=== PATIENT | female | born 1950 | race Caucasian/White ===

== ENCOUNTER 2020-02-24 19:27 | Emergency (ER) | payer MEDICARE, SELFPAY ==
--- NOTE | 2020-02-24 | ECG_ITS ---
Test Reason : PALPITATIONS Blood Pressure : / mmHG Vent. Rate : 087 BPM Atrial Rate : 087 BPM P-R Int : 172 ms QRS Dur : 132 ms QT Int : 388 ms P-R-T Axes : 047 -58 041 degrees QTc Int : 466 ms Normal sinus rhythm Right bundle branch block Left anterior fascicular block Bifascicular block T-wave inversion in Anterior leads Abnormal ECG When compared with ECG of 14-OCT-2019 14:11, Nonspecific T wave abnormality has replaced inverted T waves in Inferior leads T wave inversion more evident in Anterior leads Referred By: Generic ED Physician Electronically Signed By:DESMOND MONTALVO MD
[2020-02-24 19:44] VITALS: BP 172/72; PULSE 93; RESP 18; TEMP 36.3; O2SAT 98; BMI 26.7
--- NOTE | 2020-02-24 20:39 | ED.GENADULT ---
HPI - General Adult General Chief complaint: General Medical Stated complaint: high blood pressure Time Seen by Provider: 02/24/20 20:39 Source: patient Mode of arrival: ambulatory Limitations: language barrier ( health records technology teacher present) History of Present Illness HPI narrative: pleasant 69-year-old female who is primarily Guyanese-speaking with health records technology teacher present with past medical history mostly gathered from her previous admission dating back to September of this year with history of umbilical hernia, prolapsed hemorrhoids, anal fistula, hypertension, gastroesophageal reflux disease, diabetes, hyperlipidemia, Parkinson disease, hypomanic, non ST-elevation DC and pulmonary embolism in the past treated with Eliquis which she is no longer taking presenting with a constellation of symptoms including 1. She reports she has had palpitations intermittently throughout the day and feels like a pounding sensation on left side of her chest. There is no pain in the chest or shortness of breath. There is no dizziness. States there is no change in her medications recently or changes her diet. 2. states she has had right flank/ right lower abdomen pain for the past several days as well and more intense throughout the day today pain described as shooting like in the right flank and into the right groin area and in the lower abdomen. There is some associated nausea but no vomiting or diarrhea. In relation to this denies any recent travel or sick contacts. 3. She reports she has had itching like sensation on top of her skin in her forearms and upper extremities which she has seen her primary care doctor for prescribed a cream which will sometimes help does have a history of neuropathy and unsure if it is a component of that. Related Data Previous Rx's Medication Instructions Recorded [id number] 1 cap PO QID 30 Days #120 cap 02/04/20 24,000-76,000-120,000 unit capsule,delayed rel Allergies Allergy/AdvReac Type Severity Reaction Status Date / Time losartan Allergy Unknown anaphylaxis Verified 11/22/19 00:00 lisinopril Allergy Unknown shortness Uncoded 11/22/19 00:00 of breath Review of Systems Review of Systems: Constitutional: No Weight loss, No Fever, No Chills, No Night Sweats, No Fatigue, No Malaise ENT/Mouth: No Hearing loss, No Ear Pain, No Nasal Congestion, No Sinus Pain, No Hoarseness, No sore throat, No Rhinorrhea, No Swallowing Difficulty Eyes: No Eye Pain, No Swelling, No Redness, No Foreign Body, No Discharge, No Vision Changes Cardiovascular: No Chest Pain, No SOB, No Dyspnea on Exertion, No Orthopnea, No Edema, No Palpitations Respiratory: No Cough, No Sputum, No Wheezing, No Smoke Exposure, No Dyspnea Gastrointestinal: + Nausea, No Vomiting, No Diarrhea, No Constipation, + abdominal Pain, No Hematochezia, No Melena Genitourinary: no irregular bleeding, No Dysuria, No Urinary Frequency, No Hematuria, No Urinary Incontinence, No Urgency, No Flank Pain, No Urinary Flow Changes, No Hesitancy Musculoskeletal: No joint pain, No Myalgias, No Joint Swelling Skin: No Skin Lesions, No rash Neuro: No Weakness, No Numbness, No Paresthesias, No Loss of Consciousness, No Dizziness, No Headache Psych: No Anxiety/Panic, No Social Issues Heme/Lymph: No Bruising, No Bleeding,No Lymphadenopathy Endocrine: No Polyuria, No Polydipsia, No Temperature Intolerance Yes all other systems are reviewed and are negative [facility] Past Medical History Attestation statement: The following information was validated with the patient. Medical History (Updated 02/25/20 @ 03:10 by Tadeo Carpenter NP) Diabetes High cholesterol HTN (hypertension) Parkinson disease Social History Social History Alcohol intake: never Smoking Status: Never smoker Use of substances other than those prescribed or required for medical reasons: No Advance Directives: No Advance Directives Information Provided: Yes Physical Exam Vital Signs: Vital Signs: Vital Signs Temp Pulse Resp BP Pulse Ox 02/25/20 02:00 97.6 F 62 18 145/57 H 98 02/25/20 00:00 76 16 141/64 H 97 02/24/20 23:08 97.6 F 83 14 132/47 L 98 02/24/20 19:44 97.4 F 93 18 172/72 H 98 Body Mass Index 26.7 Const: General: cooperative and healthy appearing; No acute distress or intoxicated appearing Nutritional Appearance: average body habitus Orientation/consciousness: patient oriented x3 HENMT: Head: Yes normal to inspection Ears: hearing grossly normal bilaterally Eyes: General: appearance normal, both eyes and all related structures Visual Lewis: normal visual lewis by confrontation Neck: Neck: Yes normal visual inspection and No tender Thyroid: Thyroid normal Chest: Chest palpation & inspection: normal inspection of the chest Resp: Effort & Inspection: normal respiratory effort Cardio: Jugular venous distension: no JVD GI: Inspection: Yes normal to inspection Percussion: Yes normal to percussion Auscultation: normal bowel sounds : General: Yes no CVA tenderness Back/Spine/Pelvis: Back: no CVA tenderness Skin: General skin exam: no rashes or lesions noted Neuro: General: patient oriented x3 Extrem: General: Yes normal to inspection Course Course Course Narrative: Labs overall stable. EKG without acute changes when compared to 10/14/2019. plan for repeat troponin. Patient has been resting comfortably no further palpitations or chest pain here. No shortness of breath, Chest pain. Did have very nonspecific pain on the right lower side CT of the abdomen unremarkable. And further regulation she initially had reported that she was taking Eliquis however upon further clarification through the health records technology teacher she reports that she stopped taking the Eliquis in December as she was told after 3 months of therapy for PE. She still takes aspirin. D-dimer added. No signs or symptoms of DVT/ lower extremity signs. D-dimer at 344 for with age adjusted D-dimer this would be negative however she had a PE with D-dimer to 98 given her history will go ahead and scan her chest with CTA per PE protocol. Given additonal fluids and risks/benefits reviewed with the patient since she had abd ct done with ivd, verbalizes undertanding and consents. Is resting comfortably at this time. In the meantime given her history I did have a discussion with the hospitalist team regarding potential admission however her workup is non indicative and reassuring deferred at this time. 3rd troponin without delta. Patient remains chest pain free. CTA PE is pending. At this time given her stable workup and vitals if PE study negative plan for discharge if positive patient will be restarted on Eliquis. CTA neg for acute PE- Cholelithiasis. No abdominal pain. No tender palpation in the right upper quadrant. No nausea or vomiting here. Findings/ plan reviewed with her. Will avoid any stimulants/caffeine intake will follow-up with her primary care doctor. She is agreeable plan. Stable for discharge. Medical Decision Making Medical Records Medical records reviewed: Yes I reviewed the patient's medical records. Lab Data Result diagrams: 02/24/20 20:52 11/02/20 20:51 Labs: Lab Results 02/24/20 02/24/20 02/24/20 Range/Units 20:51 20:51 20:51 WBC (4.8-10.8) X10*3/uL RBC (4.20-5.50) X10*6/uL Hgb (12.0-16.0) g/dl Hct (37-47) % MCV (80-98) fL MCH (27.0-33.0) pg MCHC (31.0-35.0) g/dl RDW (11.0-16.0) % Plt Count (160-400) X10*3/uL MPV (9.4-12.3) fL Immature Gran % (Auto) (0.0-0.4) % Neut % (Auto) (45-73) % Lymph % (Auto) (20-40) % [place] % (Auto) (2-11) % Eos % (Auto) (0-4) % Baso % (Auto) (0-2) % Lymph # (Auto) (1.2-4.9) X10*3/uL [place] # (Auto) (0.1-1.2) X10*3/uL Eos # (Auto) (0.0-0.4) X10*3/uL Baso # (Auto) (0.0-0.2) X10*3/uL Abs Immat Gran (auto) (0.00-0.03) X10*3/uL Absolute Neuts (auto) (2.0-8.3) X10*3/uL Absolute Nucleated RBC (0.0-0.012) X10*3/uL Nucleated RBC % (auto) (0.0-0.2) /100WBC PT (10.8-13.0) SEC INR (0.9-1.1) APTT (24.1-38.0) SEC D-Dimer NG/ML Sodium 138 (135-145) mmol/L Potassium 4.1 (3.3-5.1) mmol/l Chloride 104 (96-108) mmol/L Carbon Dioxide 24 (22-29) mmol/L Anion Gap 14 (12-20) BUN 14 (9-16) mg/dL Creatinine 0.73 (0.5-1.4) mg/dL Estim Creat Clear Calc 68.4 Estimated GFR > 60 Random Glucose 147 H (60-115) mg/dL Calcium 9.1 (8.4-10.2) mg/dL Magnesium 1.7 (1.6-2.6) mg/dL Total Bilirubin 0.4 (0.0-1.0) mg/dL AST 16 (5-31) U/L ALT 13 (0-31) U/L Alkaline Phosphatase 69 (39-117) U/L Troponin I High Sens 4.6 (<3.5-17.0) ng/L Total Protein 7.5 (6.5-8.0) g/dL Albumin 4.7 (3.5-5.0) g/dL TSH 2.15 (0.32-4.0) mIU/mL Urine Color Urine Appearance Urine pH (5.0-8.0) Ur Specific Jbphh (1.005-1.025) Urine Protein (NEG-TRACE) MG/DL Urine Glucose (UA) (NEG) MG/DL Urine Ketones (NEG) MG/DL Urine Blood (NEG) Urine Nitrite (NEG) Ur Leukocyte Esterase (NEG) Urine RBC (0) /HPF Urine WBC (0-4) /HPF Ur Squamous Epith Cells /LPF Urine Bacteria /LPF Urine Mucus /LPF Urine Opiates Screen (Not Detect) Ur Barbiturates Screen (Not Detect) Ur Phencyclidine Scrn (Not Detect) Ur Amphetamines Screen (Not Detect) U Benzodiazepines Scrn (Not Detect) Urine Cocaine Screen (Not Detect) U Marijuana (THC) Screen (Not Detect) 02/24/20 02/24/20 02/24/20 Range/Units 20:52 20:52 20:54 WBC 8.8 (4.8-10.8) X10*3/uL RBC 4.40 (4.20-5.50) X10*6/uL Hgb 11.7 L (12.0-16.0) g/dl Hct 35.2 L (37-47) % MCV 80.0 (80-98) fL MCH 26.6 L (27.0-33.0) pg MCHC 33.2 (31.0-35.0) g/dl RDW 13.8 (11.0-16.0) % Plt Count 362 (160-400) X10*3/uL MPV 9.1 L (9.4-12.3) fL Immature Gran % (Auto) 0.3 (0.0-0.4) % Neut % (Auto) 77.9 H (45-73) % Lymph % (Auto) 15.3 L (20-40) % [place] % (Auto) 4.9 (2-11) % Eos % (Auto) 0.7 (0-4) % Baso % (Auto) 0.9 (0-2) % Lymph # (Auto) 1.4 (1.2-4.9) X10*3/uL [place] # (Auto) 0.4 (0.1-1.2) X10*3/uL Eos # (Auto) 0.1 (0.0-0.4) X10*3/uL Baso # (Auto) 0.1 (0.0-0.2) X10*3/uL Abs Immat Gran (auto) 0.03 (0.00-0.03) X10*3/uL Absolute Neuts (auto) 6.9 (2.0-8.3) X10*3/uL Absolute Nucleated RBC 0.000 (0.0-0.012) X10*3/uL Nucleated RBC % (auto) 0.0 (0.0-0.2) /100WBC PT 11.5 (10.8-13.0) SEC INR 1.0 (0.9-1.1) APTT 35.2 (24.1-38.0) SEC D-Dimer 344 NG/ML Sodium (135-145) mmol/L Potassium (3.3-5.1) mmol/l Chloride (96-108) mmol/L Carbon Dioxide (22-29) mmol/L Anion Gap (12-20) BUN (9-16) mg/dL Creatinine (0.5-1.4) mg/dL Estim Creat Clear Calc Estimated GFR Random Glucose (60-115) mg/dL Calcium (8.4-10.2) mg/dL Magnesium (1.6-2.6) mg/dL Total Bilirubin (0.0-1.0) mg/dL AST (5-31) U/L ALT (0-31) U/L Alkaline Phosphatase (39-117) U/L Troponin I High Sens (<3.5-17.0) ng/L Total Protein (6.5-8.0) g/dL Albumin (3.5-5.0) g/dL TSH (0.32-4.0) mIU/mL Urine Color YELLOW Urine Appearance CLEAR Urine pH 5.5 (5.0-8.0) Ur Specific Jbphh >= 1.030 H (1.005-1.025) Urine Protein NEG (NEG-TRACE) MG/DL Urine Glucose (UA) NEG (NEG) MG/DL Urine Ketones NEG (NEG) MG/DL Urine Blood NEG (NEG) Urine Nitrite NEG (NEG) Ur Leukocyte Esterase TRACE H (NEG) Urine RBC 0 (0) /HPF Urine WBC 0-2 (0-4) /HPF Ur Squamous Epith Cells TRACE /LPF Urine Bacteria NONE /LPF Urine Mucus TRACE /LPF Urine Opiates Screen (Not Detect) Ur Barbiturates Screen (Not Detect) Ur Phencyclidine Scrn (Not Detect) Ur Amphetamines Screen (Not Detect) U Benzodiazepines Scrn (Not Detect) Urine Cocaine Screen (Not Detect) U Marijuana (THC) Screen (Not Detect) 02/24/20 02/24/20 02/25/20 Range/Units 20:54 23:07 01:34 WBC (4.8-10.8) X10*3/uL RBC (4.20-5.50) X10*6/uL Hgb (12.0-16.0) g/dl Hct (37-47) % MCV (80-98) fL MCH (27.0-33.0) pg MCHC (31.0-35.0) g/dl RDW (11.0-16.0) % Plt Count (160-400) X10*3/uL MPV (9.4-12.3) fL Immature Gran % (Auto) (0.0-0.4) % Neut % (Auto) (45-73) % Lymph % (Auto) (20-40) % [place] % (Auto) (2-11) % Eos % (Auto) (0-4) % Baso % (Auto) (0-2) % Lymph # (Auto) (1.2-4.9) X10*3/uL [place] # (Auto) (0.1-1.2) X10*3/uL Eos # (Auto) (0.0-0.4) X10*3/uL Baso # (Auto) (0.0-0.2) X10*3/uL Abs Immat Gran (auto) (0.00-0.03) X10*3/uL Absolute Neuts (auto) (2.0-8.3) X10*3/uL Absolute Nucleated RBC (0.0-0.012) X10*3/uL Nucleated RBC % (auto) (0.0-0.2) /100WBC PT (10.8-13.0) SEC INR (0.9-1.1) APTT (24.1-38.0) SEC D-Dimer NG/ML Sodium (135-145) mmol/L Potassium (3.3-5.1) mmol/l Chloride (96-108) mmol/L Carbon Dioxide (22-29) mmol/L Anion Gap (12-20) BUN (9-16) mg/dL Creatinine (0.5-1.4) mg/dL Estim Creat Clear Calc Estimated GFR Random Glucose (60-115) mg/dL Calcium (8.4-10.2) mg/dL Magnesium (1.6-2.6) mg/dL Total Bilirubin (0.0-1.0) mg/dL AST (5-31) U/L ALT (0-31) U/L Alkaline Phosphatase (39-117) U/L Troponin I High Sens 8.2 D 9.8 (<3.5-17.0) ng/L Total Protein (6.5-8.0) g/dL Albumin (3.5-5.0) g/dL TSH (0.32-4.0) mIU/mL Urine Color Urine Appearance Urine pH (5.0-8.0) Ur Specific Jbphh (1.005-1.025) Urine Protein (NEG-TRACE) MG/DL Urine Glucose (UA) (NEG) MG/DL Urine Ketones (NEG) MG/DL Urine Blood (NEG) Urine Nitrite (NEG) Ur Leukocyte Esterase (NEG) Urine RBC (0) /HPF Urine WBC (0-4) /HPF Ur Squamous Epith Cells /LPF Urine Bacteria /LPF Urine Mucus /LPF Urine Opiates Screen Not Detected (Not Detect) Ur Barbiturates Screen Not Detected (Not Detect) Ur Phencyclidine Scrn Not Detected (Not Detect) Ur Amphetamines Screen Not Detected (Not Detect) U Benzodiazepines Scrn Not Detected (Not Detect) Urine Cocaine Screen Not Detected (Not Detect) U Marijuana (THC) Screen Not Detected (Not Detect) Imaging Data CTA PE chest/abdomen and pelvis CT scan: Radiologist's impression: [address] [address] [address] Scan Report Signed Patient: Anh Scanlon AMR#: [id number] : 2Acct:[id number] Age/Sex: 69 / FADM Date: 02/24/20 Loc: HO.ED Attending Dr: Ordering Physician: Tadeo Carpenter NP Date of Service: 02/24/20 Procedure(s): CT abdomen pelvis w con Accession Number(s): [id number] cc: Tadeo Carpenter [employer]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 COMPARISON: CTA chest 10/12/2019, CT abdomen and pelvis 05/21/2019. TECHNIQUE: Multidetector volumetric images were obtained from the superior aspect of the liver through the pubic symphysis following administration 85 mL of Omnipaque 350 intravenous contrast. Sagittal and coronal reformatted images were obtained on the technologist's workstation. Oral Contrast: No. This CT examination was performed using dose optimization techniques as appropriate, variously including the following: *Automated exposure control. *Adjustment of mA and/or kV according to patient size (this includes techniques or standardized protocols for targeted exams where dose is matched to indication/reason for exam; i.e. extremities or head). *Use of iterative reconstruction technique. DLP: 563 mGy-cm FINDINGS: LUNG BASES: Some nonspecific mosaic ground-glass changes noted at the lung bases. LIVER, GALLBLADDER, AND BILIARY TREE: The liver is normal in size, shape, and attenuation. No focal hepatic lesion or biliary ductal dilatation is present. The gallbladder contains a large 2.7 cm calcified gallstone but is otherwise unremarkable with no evidence of wall thickening, or obvious pericholecystic inflammatory changes. PANCREAS: Unremarkable. SPLEEN: Unremarkable. ADRENAL GLANDS: A right-sided 2.3 cm adrenal mass is stable. The left adrenal appears normal. KIDNEYS AND URETERS: The kidneys are normal in size, shape, and attenuation. No hydronephrosis, hydroureter, or calculi seen. No perinephric stranding. BLADDER: Unremarkable. GASTROINTESTINAL TRACT: Diverticular changes are present in the colon without diverticulitis. The small and large bowel are otherwise unremarkable. The appendix is not seen. ABDOMINAL WALL: No significant hernia is appreciated. LYMPH NODES: No retroperitoneal lymphadenopathy is seen. Some small lymph nodes are seen in the cecal mesentery. VASCULAR: Unremarkable. PELVIC VISCERA: Status post hysterectomy. An abnormal adnexal mass or free fluid is not seen. OSSEOUS STRUCTURES: Mild degenerative changes present in the lower thoracic spine. No bony destructive lesions are seen. CT/CT abdomen pelvis w con IMPRESSION: 1. There is a single large gallstone in the gallbladder. No associated inflammatory changes are seen to suggest cholecystitis. 2. Stable 2.3 cm right adrenal mass. 3. Colonic diverticulosis without diverticulitis. The appendix is not seen. 3. Status post hysterectomy. Dictated By:GRISELDA CLEMENTS MD Signed By:<Electronically signed by GRISELDA CLEMENTS MD in [place]>02/24/202258 DD/ 06 TD/TT: Alley Tender: [place] [address] CT Scan Report Signed Patient: Anh Scanlon AMR#: [id number] : 2Acct:[id number] Age/Sex: 69 / FADM Date: 02/24/20 Loc: HO.ED Attending Dr: Ordering Physician: Tadeo Carpenter NP Date of Service: 02/25/20 Procedure(s): CT angio chest PE protocol Accession Number(s): [id number] cc: Tadeo Carpenter NP~ EXAMINATION: CT PULMONARY EMBOLISM STUDY CLINICAL INFORMATION: Pain. Elevated d-dimer. COMPARISON: Chest CT from 10/12/2019. Abdominal and pelvic CT from 02/24/2020. TECHNIQUE: Contiguous helical images of the chest were obtained following the administration of IV contrast. Multiplanar reconstructions were performed. MIPS were obtained and reviewed. DLP: 319 mGy-cm. CONTRAST: 65 mL of Omnipaque 350 were administered without incident. FINDINGS: The heart is of normal size. There is no pericardial effusion. The great vessels are unremarkable. Specifically, there is no pulmonary arterial filling defect. There is no CT evidence for pulmonary embolism. There are no chest wall masses. Review of lung windows demonstrates that there are neither pleural effusions nor pneumothoraces. There are no consolidations. There are no pulmonary parenchymal nodules. Limited evaluation of the upper abdomen demonstrates that the liver is of normal size and attenuation without focal lesions. Normal adrenal glands are identified. Partially visualized is cholelithiasis. CT/CT angio chest PE protocol IMPRESSION: No CT evidence for pulmonary embolism. Cholelithiasis. Automated exposure control (Care Dose) Adjustment of the mA and/or kv according to patient size (this includes techniques or standardized protocols for targeted exams where dose is matched to indication / reason for exam; i.e. extremities or head). Dictated By:DIALLO ANGELES MD Signed By:<Electronically signed by DIALLO ANGELES MD in [place]>02/25/20 0301 DD/ 0205 TD/TT: Alley Tender: WP Discharge Plan Discharge Clinical Impression: Heart palpitations, Acute right flank pain Patient Disposition: Home, Self-Care Instructions: Heart Palpitations (ED), Flank Pain (ED) Additional Instructions: take medications prescribed Return if any concerns or worsening symptoms Follow up with her primary care doctor as discussed to have your medications reviewed Thank you Prescriptions: No Action Creon 24,000-76,000 -120,000 unit capsule,delayed release(DR/EC) 1 cap PO QID 30 Days Qty: 120 RF: 1 Referrals: Thu Kaminski NP [Primary Care Provider] - 5 days
--- NOTE | 2020-02-24 20:42 | XR_ITS ---
EXAMINATION: CHEST 1 VIEW CLINICAL INFORMATION: Chest pain. COMPARISON: October 12, 2019. TECHNIQUE: An AP view of the chest is provided. FINDINGS: The cardiac silhouette is not enlarged. The mediastinal and hilar contours are unremarkable. There are neither pleural effusions nor pneumothoraces. There are no consolidations. The osseous structures are stable. XR/XR chest 1V IMPRESSION: No evidence for acute disease.
[2020-02-24 20:57] LABS: MANUAL DIFF FLAG NO
[2020-02-24 21:01] LABS: Basophils Absolute Auto 0.1 X10*3/uL (0.0-0.2); Basophils Percent Auto 0.9 % (0-2); Eosinophils Absolute Auto 0.1 X10*3/uL (0.0-0.4); Eosinophils Percent Auto 0.7 % (0-4); Hematocrit 35.2 % (37-47); Hemoglobin 11.7 g/dl (12.0-16.0); Imm Gran Abs Auto 0.03 X10*3/uL (0.00-0.03); Imm Gran Pct Auto 0.3 % (0.0-0.4); Lymphocytes Absolute Auto 1.4 X10*3/uL (1.2-4.9); Lymphocytes Percent Auto 15.3 % (20-40); Mean Corpuscular HGB Conc 33.2 g/dl (31.0-35.0); Mean Corpuscular Hemoglobin 26.6 pg (27.0-33.0); Mean Platelet Volume 9.1 fL (9.4-12.3); Monocytes Absolute Auto 0.4 X10*3/uL (0.1-1.2); Monocytes Percent Auto 4.9 % (2-11); Neutrophils Absolute Auto 6.9 X10*3/uL (2.0-8.3); Neutrophils Percent Auto 77.9 % (45-73); Platelet Count 362 X10*3/uL (160-400); Red Cell Distribution Width 13.8 % (11.0-16.0); White Blood Count 8.8 X10*3/uL (4.8-10.8)
[2020-02-24 21:04] LABS: Glucose Urine UA NEG (NEG); Leukocyte Esterase Urine TRACE (NEG); Nitrite Urine NEG (NEG); PH 5.5 (5.0-8.0); Specific Gravity - Urine >= 1.030 (1.005-1.025); Urine Blood NEG (NEG); Urine Ketones NEG (NEG); Urine Protein NEG (NEG-TRACE)
--- NOTE | 2020-02-24 21:04 | PC.NURSE ---
Patient a&ox3, patient c/o 8 low back and abd pain, denies chest pain at this time, pt is nsr 80s on monitor, iv inserted, labs drawn, awaiting new order for NS, will continue to monitor.
[2020-02-24 21:05] LABS: Appearance Urine CLEAR; Color Urine YELLOW
[2020-02-24 21:06] LABS: Prothrombin Time 11.5 SEC (10.8-13.0)
[2020-02-24 21:09] LABS: Partial Thromboplastin Time 35.2 SEC (24.1-38.0)
[2020-02-24] MEDS: 0.9 % Sodium Chloride 1,000 ML 999 ML IVCONT (21:14)
[2020-02-24 21:25] LABS: Alanine Aminotransferase 13 U/L (0-31); Albumin Level 4.7 g/dL (3.5-5.0); Alkaline Phosphatase 69 U/L (39-117); Anion Gap 14 (12-20); Aspartate Amino Transferase 16 U/L (5-31); Bilirubin Total 0.4 mg/dL (0.0-1.0); Blood Urea Nitrogen 14 mg/dL (9-16); Calcium 9.1 mg/dL (8.4-10.2); Carbon Dioxide 24 mmol/L (22-29); Chloride 104 mmol/L (96-108); Creatinine Clr Calc Pharmacy 68.4; Estimated Glomerular Filt Rate > 60; Glucose Random 147 mg/dL (60-115); Magnesium 1.7 mg/dL (1.6-2.6); Potassium 4.1 mmol/l (3.3-5.1); Sodium 138 mmol/L (135-145); Total Protein 7.5 g/dL (6.5-8.0)
[2020-02-24 21:32] LABS: Troponin-I High Sensitivity 4.6 ng/L (<3.5-17.0)
[2020-02-24 21:38] LABS: Mucus Urine TRACE /LPF; RBC Urine 0 /HPF (0); Squamous Epithelial Cell Urine TRACE /LPF; WBC Urine 0-2 /HPF (0-4)
[2020-02-24 21:46] LABS: Thyroid Stimulating Hormone 2.15 mIU/mL (0.32-4.0)
--- NOTE | 2020-02-24 22:07 | CT_ITS ---
EXAMINATION: CT ABDOMEN AND PELVIS WITH CONTRAST CLINICAL INFORMATION: Right-sided abdominal pain. COMPARISON: CTA chest 10/12/2019, CT abdomen and pelvis 05/21/2019. TECHNIQUE: Multidetector volumetric images were obtained from the superior aspect of the liver through the pubic symphysis following administration 85 mL of Omnipaque 350 intravenous contrast. Sagittal and coronal reformatted images were obtained on the technologist's workstation. Oral Contrast: No. This CT examination was performed using dose optimization techniques as appropriate, variously including the following: *Automated exposure control. *Adjustment of mA and/or kV according to patient size (this includes techniques or standardized protocols for targeted exams where dose is matched to indication/reason for exam; i.e. extremities or head). *Use of iterative reconstruction technique. DLP: 563 mGy-cm FINDINGS: LUNG BASES: Some nonspecific mosaic ground-glass changes noted at the lung bases. LIVER, GALLBLADDER, AND BILIARY TREE: The liver is normal in size, shape, and attenuation. No focal hepatic lesion or biliary ductal dilatation is present. The gallbladder contains a large 2.7 cm calcified gallstone but is otherwise unremarkable with no evidence of wall thickening, or obvious pericholecystic inflammatory changes. PANCREAS: Unremarkable. SPLEEN: Unremarkable. ADRENAL GLANDS: A right-sided 2.3 cm adrenal mass is stable. The left adrenal appears normal. KIDNEYS AND URETERS: The kidneys are normal in size, shape, and attenuation. No hydronephrosis, hydroureter, or calculi seen. No perinephric stranding. BLADDER: Unremarkable. GASTROINTESTINAL TRACT: Diverticular changes are present in the colon without diverticulitis. The small and large bowel are otherwise unremarkable. The appendix is not seen. ABDOMINAL WALL: No significant hernia is appreciated. LYMPH NODES: No retroperitoneal lymphadenopathy is seen. Some small lymph nodes are seen in the cecal mesentery. VASCULAR: Unremarkable. PELVIC VISCERA: Status post hysterectomy. An abnormal adnexal mass or free fluid is not seen. OSSEOUS STRUCTURES: Mild degenerative changes present in the lower thoracic spine. No bony destructive lesions are seen. CT/CT abdomen pelvis w con IMPRESSION: 1. There is a single large gallstone in the gallbladder. No associated inflammatory changes are seen to suggest cholecystitis. 2. Stable 2.3 cm right adrenal mass. 3. Colonic diverticulosis without diverticulitis. The appendix is not seen. 3. Status post hysterectomy.
[2020-02-24 22:23] LABS: Amphetamine Screen Urine Not Detected (Not Detect); Barbiturates, Urine Not Detected (Not Detect); Benzodiazepines Screen Urine Not Detected (Not Detect); Cannabinoid Screen Urine Not Detected (Not Detect); Cocaine Screen Urine Not Detected (Not Detect); Opiate Screen Urine Not Detected (Not Detect); Phencyclidine Screen Urine Not Detected (Not Detect)
[2020-02-24] MEDS: iohexoL 350 MG/ML 100 ML INFUS..BTL IV (22:34)
[2020-02-24 23:08] VITALS: BP 132/47; PULSE 83; RESP 14; TEMP 36.4; O2SAT 98
--- NOTE | 2020-02-24 23:31 | PC.NURSE ---
PATIENT IS CALM/COOPERATIVE AT THIS TIME, RESTING COMFORTABLY IN BED. RESPIRATIONS EVEN & UNLABORED. DEVONTE PHILLIPS ASSUMES CARE OF THIS PATIENT. NURSE TO NURSE REPORT RECEIVED FROM DEVONTE REEVES. VITAL SIGNS STABLE AT THIS TIME. REPEAT TROPONIN LEVEL DRAWN AND SENT TO LAB FOR ANALYSIS, AWAITING RESULTS. PT REPORTS 8-9 OUT OF 10 PAIN IN BACK, STATES IT'S BETTER THAN BEFORE . PENDING IMAGING RESULTS ALSO. WILL CONTINUE TO MONITOR.
[2020-02-24 23:51] LABS: Troponin-I High Sensitivity 8.2 ng/L (<3.5-17.0)
[2020-02-25] VITALS: BP 141/64; PULSE 76; RESP 16; O2SAT 97
--- NOTE | 2020-02-25 00:25 | PC.NURSE ---
PATIENT OUT OF BED TO BATHROOM AT THIS TIME. AMBULATES WITH STEADY GAIT. WILL CONTINUE TO MONITOR.
--- NOTE | 2020-02-25 00:36 | PC.NURSE ---
DISCUSSED CARE PLAN WITH YUE HEARN NP. PLAN TO REPEAT TROPONIN LEVEL AT 02:00AM TODAY DUE TO CHANGE NOTED BETWEEN FIRST AND SECOND TROPONIN LEVELS. PATIENT DENIES CHEST PAIN OR DISCOMFORT AT THIS TIME. DENIES ABDOMINAL PAIN AT THIS TIME. NSR ON PECAN SHELLER. WILL CONTINUE TO MONITOR.
[2020-02-25 01:30] LABS: D Dimer 344 NG/ML
[2020-02-25 02:00] VITALS: BP 145/57; PULSE 62; RESP 18; TEMP 36.4; O2SAT 98
--- NOTE | 2020-02-25 02:05 | CT_ITS ---
EXAMINATION: CT PULMONARY EMBOLISM STUDY CLINICAL INFORMATION: Pain. Elevated d-dimer. COMPARISON: Chest CT from 10/12/2019. Abdominal and pelvic CT from 02/24/2020. TECHNIQUE: Contiguous helical images of the chest were obtained following the administration of IV contrast. Multiplanar reconstructions were performed. MIPS were obtained and reviewed. DLP: 319 mGy-cm. CONTRAST: 65 mL of Omnipaque 350 were administered without incident. FINDINGS: The heart is of normal size. There is no pericardial effusion. The great vessels are unremarkable. Specifically, there is no pulmonary arterial filling defect. There is no CT evidence for pulmonary embolism. There are no chest wall masses. Review of lung windows demonstrates that there are neither pleural effusions nor pneumothoraces. There are no consolidations. There are no pulmonary parenchymal nodules. Limited evaluation of the upper abdomen demonstrates that the liver is of normal size and attenuation without focal lesions. Normal adrenal glands are identified. Partially visualized is cholelithiasis. CT/CT angio chest PE protocol IMPRESSION: No CT evidence for pulmonary embolism. Cholelithiasis. Automated exposure control (Care Dose) Adjustment of the mA and/or kv according to patient size (this includes techniques or standardized protocols for targeted exams where dose is matched to indication / reason for exam; i.e. extremities or head).
[2020-02-25 02:08] LABS: Troponin-I High Sensitivity 9.8 ng/L (<3.5-17.0)
[2020-02-25] MEDS: 0.9 % Sodium Chloride 500 ML 1000 ML IV (02:30)
[2020-02-25] MEDS: 0.9 % Sodium Chloride 500 ML IV (02:30)
[2020-02-25] MEDS: iohexoL 350 MG/ML 100 ML INFUS..BTL 65 ML IV (02:42)
== END 2020-02-25 03:29 | disposition home or self-care (01) ==
PROVIDERS: Nurse Practitioner Primary Care; Emergency Provider Student in an Organized Health Care Education/Training Program; PCP Nurse Practitioner Family
DX: R00.2 Palpitations (principal); R10.9 Unspecified abdominal pain; I10 Essential (primary) hypertension; L29.9 Pruritus, unspecified; Z79.899 Other long term (current) drug therapy
CPT/HCPCS: 36415; 71045; 71275; 74177; 80053; 80307; 81001; 81003; 83735; 84443; 84484; 85025; 85379; 85610; 85730; 87086; 93005; 96360; 96361; 99284; Q9967

== ENCOUNTER 2020-07-01 11:20 | Outpatient (REF) | payer MEDICARE, SELFPAY ==
--- NOTE | ~2020-07-01 | MM_ITS ---
EXAMINATION: MM SCREENING DIGITAL BREAST TOMOSYNTHESIS, BILATERAL CLINICAL INFORMATION: Screening. Asymptomatic. The lifetime risk of breast cancer based on the Tyrer-Cuzick Model is 3.2%. COMPARISON: Mammography: January 18, 2019 and studies dating back to September 17, 2013 TECHNIQUE: Digital breast tomosynthesis is performed in both the craniocaudal and mediolateral oblique views along with computer-aided detection (CAD). Synthesized 2D images are generated from the tomosynthesis. FINDINGS: The breasts are almost entirely fatty (ACR BI-RADS breast composition Category a). There are no significant masses, abnormal calcifications, or other abnormalities. MM/MM tomosynthesis screening BI IMPRESSION: There are no significant changes from prior study. ASSESSMENT: BI-RADS 1: Negative RECOMMENDATION: Routine annual mammography screening. This patient's information was entered into a reminder system with a target due date for their next mammogram.
== END 2020-07-01 11:21 | disposition home or self-care (01) ==
LOC: HO.MAMMO 11:20
PROVIDERS: Visit Provider Nurse Practitioner Family
DX: Z12.31 Encounter for screening mammogram for malignant neoplasm of breast (principal)
CPT/HCPCS: 77063; 77067

== ENCOUNTER 2020-08-18 13:32 | Outpatient (REF) | payer MEDICARE, SELFPAY ==
--- NOTE | ~2020-08-18 | XR_ITS ---
EXAMINATION: XR THORACOLUMBAR SPINE CLINICAL INFORMATION: Pain COMPARISON: CTA chest February 25, 2020 TECHNIQUE: 3 views of the thoracic spine were obtained. FINDINGS: There is mild dextroscoliosis of the upper thoracic spine which may be positional in nature. Alignment is otherwise unremarkable. Vertebral body heights are maintained. Disc spaces are relatively well-maintained. Similar mild sclerotic changes noted along the anterior T10/11 disc interspace. Prominent bridging anterior osteophytes noted at T8/9. Visualized lung parenchyma is well aerated. Gallstones are suspected. XR/XR thoracic spine 2V IMPRESSION: Mild degenerative changes of the thoracic spine without compression deformity.
== END 2020-08-18 13:33 | disposition home or self-care (01) ==
LOC: HO.XRAY 13:32
PROVIDERS: PCP Registered Nurse; Visit Provider Registered Nurse
DX: R10.9 Unspecified abdominal pain (principal); M54.6 Pain in thoracic spine; Z71.89 Other specified counseling
CPT/HCPCS: 72070

== ENCOUNTER 2020-09-16 08:29 | Outpatient (REF) | payer MEDICARE, SELFPAY ==
--- NOTE | ~2020-09-16 | US_ITS ---
EXAMINATION: US ABDOMEN COMPLETE CLINICAL INFORMATION: Chronic pain. COMPARISON: CT abdomen and pelvis with contrast dated 02/24/2020. TECHNIQUE: Real-time imaging of the abdominal viscera. FINDINGS: PANCREAS: The body and head of the pancreas is homogeneous echotexture. The tail is obscured by gas. ABDOMINAL AORTA: The proximal, mid, and distal segments are normal in caliber. INFERIOR VENA CAVA: Visualized portions are normal. LIVER: Normal. The liver is normal in size. The liver contour is normal. Parenchymal echogenicity is normal. No focal hepatic lesion. There is no intrahepatic biliary duct dilatation seen. GALLBLADDER: There is a large echogenic gallstone measuring 4.0 x 1.9 x 2.[address] it measured 2.7 cm. The gallbladder is physiologically with echogenic bile. No evidence of gallbladder wall thickening or pericholecystic fluid. COMMON BILE DUCT: Normal in caliber measuring 0.4 cm in diameter. RIGHT KIDNEY: Normal. No hydronephrosis. No renal calculi or focal parenchymal lesions. The kidney measures 11.5 cm in maximum dimension. LEFT KIDNEY: Normal. No hydronephrosis. No renal calculi or focal parenchymal lesions. The kidney measures 11 cm in maximum dimension. SPLEEN: Normal. The spleen measures 11.6 cm in maximum dimension. FREE FLUID: None. Incidental note of a small right adrenal mass measuring 2.7 x 2.7 x 1.7 cm posterior to the liver and superior to right kidney. US/US abdomen complete IMPRESSION: Large gallstone measuring 4.0 cm without wall thickening. There is echogenic bile noted. There is a right adrenal nodule similar to CT abdomen exam 02/24/2020.
== END 2020-09-16 08:30 | disposition home or self-care (01) ==
LOC: HO.US 08:29
PROVIDERS: Visit Provider Registered Nurse
DX: R10.9 Unspecified abdominal pain (principal); M54.6 Pain in thoracic spine; Z71.89 Other specified counseling
CPT/HCPCS: 76700

== ENCOUNTER → 2020-10-19 15:50 | Outpatient (BNVA) | payer MEDICARE, SELFPAY | PROVIDERS: PCP Registered Nurse; Referring Provider Registered Nurse; Visit Provider Surgery | DX: K80.20 Calculus of gallbladder without cholecystitis without obstruction (principal); E78.00 Pure hypercholesterolemia, unspecified; E11.9 Type 2 diabetes mellitus without complications; I10 Essential (primary) hypertension; G20 Parkinson's disease; Z88.8 Allergy status to other drugs, medicaments and biological substances | CPT/HCPCS: 99202 ==

== ENCOUNTER 2020-11-13 13:25 | Emergency (ER) | payer MEDICARE, SELFPAY ==
--- NOTE | ~2020-11-13 | CT_ITS ---
EXAMINATION: CT ABDOMEN AND PELVIS WITHOUT CONTRAST CLINICAL INFORMATION: Left flank pain COMPARISON: Multiple prior examinations including ultrasound of the abdomen August [address] scan of the abdomen and pelvis February 2020 CT scan of the chest July 2013 TECHNIQUE: Multidetector volumetric imaging was performed from the superior aspect of the liver through the pubic symphysis. Sagittal and coronal reformatted images were obtained on the technologist's workstation. This CT examination was performed using dose optimization techniques as appropriate, variously including the following: *Automated exposure control *Adjustment of mA and/or kV according to patient size (this includes techniques or standardized protocols for targeted exams where dose is matched to indication/reason for exam; i.e. extremities or head) *Use of iterative reconstruction technique DLP: 591 mGy-cm FINDINGS: LUNG BASES: The visualized lung bases are unremarkable. LIVER, GALLBLADDER, AND BILIARY TREE: The liver is normal in size, shape, and attenuation. No focal hepatic lesion or biliary ductal dilatation is present. Large peripherally calcified gallstone unchanged. No pericholecystic fluid or gallbladder wall thickening. PANCREAS: Unremarkable. SPLEEN: Unremarkable. ADRENAL GLANDS: Stable hypodense right adrenal mass measuring approximately 2.2 cm unchanged dating back to 2013. KIDNEYS AND URETERS: The kidneys are normal in size, shape, and attenuation. No hydronephrosis, hydroureter, or calculi seen. No perinephric stranding. BLADDER: Unremarkable. GASTROINTESTINAL TRACT: Diverticulosis of the descending and sigmoid colon without diverticulitis. Appendix not visualized. Small bowel normal. Stomach normal. ABDOMINAL WALL: No significant hernia is appreciated. LYMPH NODES: Normal. VASCULAR: Mild arterial calcification throughout unchanged PELVIC VISCERA: Postsurgical rate related change. Uterus not seen. OSSEOUS STRUCTURES: Spondylosis of the partially visualized dorsal spine CT/CT abdomen pelvis wo con IMPRESSION: No acute abnormality. No urinary tract calculus Cholelithiasis unchanged. Stable right adrenal mass dating back to 2013
--- NOTE | ~2020-11-13 | XR_ITS ---
EXAMINATION: XR CHEST CLINICAL INFORMATION: Left flank and rib pain. High blood pressure. COMPARISON: Previous chest x-ray most recent February 2020 TECHNIQUE: 2 views of the chest were obtained. FINDINGS: The cardiac and mediastinal contours are stable. The lungs are clear. There is no pleural effusion or pneumothorax. There are degenerative changes of the spine. XR/XR chest 2V IMPRESSION: No evidence for acute disease in the chest.
[2020-11-13 15:26] VITALS: BP 189/79; PULSE 72; RESP 17; TEMP 36.6; O2SAT 97; BMI 43.7
--- NOTE | 2020-11-13 15:28 | ECG_ITS ---
Test Reason : HYPERTENSION Blood Pressure : / mmHG Vent. Rate : 069 BPM Atrial Rate : 069 BPM P-R Int : 170 ms QRS Dur : 138 ms QT Int : 448 ms P-R-T Axes : 042 -56 024 degrees QTc Int : 480 ms Normal sinus rhythm Right bundle branch block Left anterior fascicular block Bifascicular block Minimal voltage criteria for LVH, may be normal variant Abnormal ECG When compared with ECG of 24-FEB-2020 19:51, No significant change was found Referred By: Indigo Palumbo Electronically Signed By:PHIL MENDOZA MD
--- NOTE | 2020-11-13 16:04 | ED.GENADULT ---
HPI - General Adult General Chief complaint: General Medical Stated complaint: High blood pressure, back pain Time Seen by Provider: 11/13/20 15:26 Related Data Home Medications Medication Instructions Recorded Confirmed acetaminophen 500 mg capsule 500 mg PO QID PRN 10/19/20 aluminum-mag hydroxide-simethicone 10 ml PO Q6H PRN 10/19/20 200 mg-200 mg-20 mg/5 mL oral susp amlodipine 10 mg tablet 10 mg PO DAILY 10/19/20 ascorbate calcium (vitamin C) 500 500 mg PO DAILY 10/19/20 mg tablet aspirin 81 mg tablet,delayed 81 mg PO DAILY 10/19/20 release blood sugar diagnostic #10 ea 10/19/20 blood-glucose meter #1 ea 10/19/20 cholecalciferol (vitamin D3) 50 50 mcg PO DAILY 10/19/20 mcg (2,000 unit) capsule clonazepam 0.5 mg tablet 0.5 mg PO BEDTIME 10/19/20 econazole 1 % topical cream appl TOPICAL 10/19/20 fluvastatin 80 mg tablet,extended 80 mg PO BEDTIME 10/19/20 release 24 hr hydralazine 100 mg tablet 0 mg PO 10/19/20 hydrocortisone 2.5 % topical cream 1 appl TOPICAL BID PRN 10/19/20 lancets 28 gauge #100 ea 10/19/20 metformin 1,000 mg tablet 1,000 mg PO BID 10/19/20 metoprolol succinate 25 mg 0 mg PO 10/19/20 tablet,extended release 24 hr pantoprazole 40 mg tablet,delayed 40 mg PO DAILY 10/19/20 release polyvinyl alcohol 1.4 % eye drops 1 drp OPHTHALMIC (EYE) BID-QID PRN 10/19/20 pramipexole 0.25 mg tablet 0.25 mg PO TID 10/19/20 pregabalin 100 mg capsule 100 mg PO BID 10/19/20 triamcinolone acetonide 0.1 % 1 appl TOPICAL BID-TID 10/19/20 topical ointment trihexyphenidyl 2 mg tablet 2 mg PO BID 10/19/20 Previous Rx's Medication Instructions Recorded [id number] 1 cap PO QID 30 Days #120 cap 02/04/20 24,000-76,000-120,000 unit capsule,delayed rel Allergies Allergy/AdvReac Type Severity Reaction Status Date / Time losartan Allergy Unknown anaphylaxis Verified 10/19/20 15:57 [facility] Past Medical History Medical History Diabetes Gallstone High cholesterol HTN (hypertension) Parkinson disease Family History Family History Sister Malignant neoplasm of breast (female) Social History Social History Alcohol intake: never Physical Exam Vital Signs: Vital Signs: Last Vital Signs Temp 97.8 F 11/13/20 15:26 Pulse 72 11/13/20 15:26 Resp 17 11/13/20 15:26 BP 189/79 H 11/13/20 15:26 Pulse Ox 97 11/13/20 15:26 Body Mass Index 43.7 Course Course Course Narrative: 15:30pm - 70-year-old female presenting to the ED with complaints of hypertension with intermittent headaches despite taking her hydrochlorothiazide and metoprolol. She also has a separate complaint of left rib pain/left flank pain. At this time patient is stable she is mildly hypertensive at 189/79 otherwise no focal neuro deficits are noted. All other vitals are within normal limits. She is safe to go back to the waiting room to wait for further evaluation treatment to going to the emergency department. Will order labs/EKG and chest x-ray at this time. Discharge Plan Discharge Prescriptions: No Action Creon 24,000-76,000 -120,000 unit capsule,delayed release(DR/EC) 1 cap PO QID 30 Days Qty: 120 RF: 1 metoprolol succinate 25 mg tablet extended release 24 hr 0 mg PO RF: 0 (DME) FreeStyle Lite Strips Strip See Rx Instructions strip Not Applicable BID Qty: 10 RF: 0 trihexyphenidyl 2 mg tablet 2 mg PO BID RF: 0 aspirin 81 mg tablet,delayed release (DR/EC) 81 mg PO DAILY RF: 0 ascorbate calcium (vitamin C) 500 mg tablet 500 mg PO DAILY RF: 0 acetaminophen 500 mg capsule 500 mg PO QID PRNRF: 0 pantoprazole 40 mg tablet,delayed release (DR/EC) 40 mg PO DAILY RF: 0 alum-mag hydroxide-simeth [Maalox Advanced] 200-200-20 mg/5 mL suspension 10 ml PO Q6H PRNRF: 0 cholecalciferol (vitamin D3) 50 mcg (2,000 unit) capsule 50 mcg PO DAILY RF: 0 hydralazine 100 mg tablet 0 mg PO RF: 0 pregabalin 100 mg capsule 100 mg PO BID RF: 0 pramipexole 0.25 mg tablet 0.25 mg PO TID RF: 0 hydrocortisone 2.5 % cream 1 appl topical BID PRNRF: 0 triamcinolone acetonide 0.1 % ointment 1 appl topical BID-TID RF: 0 econazole 1 % cream topical RF: 0 amlodipine 10 mg tablet 10 mg PO DAILY RF: 0 polyvinyl alcohol [Artificial Tears (polyvin alc)] 1.4 % drops 1 drp ophthalmic (eye) BID-QID PRNRF: 0 clonazepam 0.5 mg tablet 0.5 mg PO BEDTIME RF: 0 fluvastatin 80 mg tablet extended release 24 hr 80 mg PO BEDTIME RF: 0 (DME) blood-glucose meter Kit See Rx Instructions ea .ROUTE DIRECTED Qty: 1 RF: 0 (DME) lancets 28 gauge misc See Rx Instructions ea topical BID Qty: 100 RF: 0 metformin 1,000 mg tablet 1,000 mg PO BID RF: 0
[2020-11-13 16:16] LABS: MANUAL DIFF FLAG NO
[2020-11-13 16:17] LABS: Basophils Absolute Auto 0.1 X10*3/uL (0.0-0.2); Basophils Percent Auto 0.9 % (0-2); Eosinophils Absolute Auto 0.1 X10*3/uL (0.0-0.4); Eosinophils Percent Auto 1.1 % (0-4); Hematocrit 40.6 % (37-47); Hemoglobin 13.5 g/dl (12.0-16.0); Imm Gran Abs Auto 0.03 X10*3/uL (0.00-0.03); Imm Gran Pct Auto 0.3 % (0.0-0.4); Lymphocytes Absolute Auto 1.9 X10*3/uL (1.2-4.9); Lymphocytes Percent Auto 20.1 % (20-40); Mean Corpuscular HGB Conc 33.3 g/dl (31.0-35.0); Mean Corpuscular Hemoglobin 27.4 pg (27.0-33.0); Mean Corpuscular Volume 82.5 fL (80-98); Mean Platelet Volume 9.2 fL (9.4-12.3); Monocytes Absolute Auto 0.5 X10*3/uL (0.1-1.2); Monocytes Percent Auto 5.3 % (2-11); Neutrophils Absolute Auto 6.7 X10*3/uL (2.0-8.3); Neutrophils Percent Auto 72.3 % (45-73); Platelet Count 370 X10*3/uL (160-400); Red Blood Count 4.92 X10*6/uL (4.20-5.50); Red Cell Distribution Width 12.9 % (11.0-16.0); White Blood Count 9.3 X10*3/uL (4.8-10.8)
[2020-11-13 16:21] LABS: Glucose Urine UA NEG (NEG); Leukocyte Esterase Urine 1+ (NEG); Nitrite Urine NEG (NEG); PH 5.5 (5.0-8.0); Specific Gravity - Urine >= 1.030 (1.005-1.025); UACC Culture Trigger YES; Urine Blood NEG (NEG); Urine Ketones NEG (NEG); Urine Protein NEG (NEG-TRACE)
[2020-11-13 16:27] LABS: Prothrombin Time 11.7 SEC (9.9-13.0)
[2020-11-13 16:30] LABS: Appearance Urine CLEAR; Color Urine YELLOW
[2020-11-13 16:43] LABS: Alanine Aminotransferase 12 U/L (0-31); Albumin Level 4.8 g/dL (3.5-5.0); Alkaline Phosphatase 80 U/L (39-117); Anion Gap 14 (12-20); Aspartate Amino Transferase 16 U/L (5-31); Bilirubin Total 0.3 mg/dL (0.0-1.0); Blood Urea Nitrogen 12 mg/dL (9-16); Calcium 10.1 mg/dL (8.4-10.2); Carbon Dioxide 26 mmol/L (22-29); Chloride 101 mmol/L (96-108); Creatinine Clr Calc Pharmacy 47.5; Estimated Glomerular Filt Rate > 60; Glucose Random 149 mg/dL (60-115); Magnesium 1.8 mg/dL (1.6-2.6); Sodium 137 mmol/L (135-145); Total Protein 7.8 g/dL (6.5-8.0)
[2020-11-13 16:46] LABS: Mucus Urine TRACE /LPF; Squamous Epithelial Cell Urine 1+ /LPF
--- NOTE | 2020-11-13 18:22 | ED.GENADULT ---
HPI - General Adult General Chief complaint: General Medical Stated complaint: High blood pressure, back pain Time Seen by Provider: 11/13/20 15:26 Source: patient Mode of arrival: ambulatory Limitations: no limitations History of Present Illness MD complaint: HTN, L flank pain Onset (ago): week(s) (2) Location: abdomen Radiation: non-radiation Severity: moderate Quality: aching Pain Consistency: constant Relieving factors: none Exacerbating factors: movement Associated symptoms: other (feels her body has pressure) Treatments prior to arrival: none Related Data Home Medications Medication Instructions Recorded Confirmed acetaminophen 500 mg capsule 500 mg PO QID PRN 10/19/20 aluminum-mag hydroxide-simethicone 10 ml PO Q6H PRN 10/19/20 200 mg-200 mg-20 mg/5 mL oral susp amlodipine 10 mg tablet 10 mg PO DAILY 10/19/20 ascorbate calcium (vitamin C) 500 500 mg PO DAILY 10/19/20 mg tablet aspirin 81 mg tablet,delayed 81 mg PO DAILY 10/19/20 release blood sugar diagnostic #10 ea 10/19/20 blood-glucose meter #1 ea 10/19/20 cholecalciferol (vitamin D3) 50 50 mcg PO DAILY 10/19/20 mcg (2,000 unit) capsule clonazepam 0.5 mg tablet 0.5 mg PO BEDTIME 10/19/20 econazole 1 % topical cream appl TOPICAL 10/19/20 fluvastatin 80 mg tablet,extended 80 mg PO BEDTIME 10/19/20 release 24 hr hydralazine 100 mg tablet 0 mg PO 10/19/20 hydrocortisone 2.5 % topical cream 1 appl TOPICAL BID PRN 10/19/20 lancets 28 gauge #100 10/19/20 metformin 1,000 mg tablet 1,000 mg PO BID 10/19/20 metoprolol succinate 25 mg 0 mg PO 10/19/20 tablet,extended release 24 hr pantoprazole 40 mg tablet,delayed 40 mg PO DAILY 10/19/20 release polyvinyl alcohol 1.4 % eye drops 1 drp OPHTHALMIC (EYE) BID-QID PRN 10/19/20 pramipexole 0.25 mg tablet 0.25 mg PO TID 10/19/20 pregabalin 100 mg capsule 100 mg PO BID 10/19/20 triamcinolone acetonide 0.1 % 1 appl TOPICAL BID-TID 10/19/20 topical ointment trihexyphenidyl 2 mg tablet 2 mg PO BID 10/19/20 Previous Rx's Medication Instructions Recorded [id number] 1 cap PO QID 30 Days #120 cap 02/04/20 24,000-76,000-120,000 unit capsule,delayed rel cefuroxime axetil 250 mg PO BID 7 Days #14 tab 11/13/20 cyclobenzaprine 10 mg PO TID PRN #14 tab 11/13/20 lidocaine 1 patch TOPICAL DAILY PRN #10 ea 11/13/20 Allergies Allergy/AdvReac Type Severity Reaction Status Date / Time losartan Allergy Unknown anaphylaxis Verified 10/19/20 15:57 Review of Systems Review of Systems: Constitutional : No Weight loss, No Fever, No Chills ENT/Mouth : No sore throat, No Rhinorrhea Eyes: No Swelling, No Redness Cardiovascular : No Chest Pain, No SOB, NoEdema Respiratory : No Cough, No Sputum, No Wheezing Gastrointestinal : no Nausea, no Vomiting, no Diarrhea, positive abdominal Pain, No Hematochezia, No Melena Genitourinary : No Dysuria, No Urinary Frequency, No Hematuria, No Urgency Musculoskeletal : No joint pain, No Myalgias, No Joint Swelling, pos back pain Skin : No Skin Lesions, No rash Neuro : No Weakness, No Numbness, No Dizziness, No Headache Psych : No Anxiety/Panic, No Depression Heme/Lymph: No Bruising, No Lymphadenopathy Endocrine : No Polyuria, No Polydipsia All other systems reviewed and are negative. [facility]LY [facility] Past Medical History Attestation statement: The following information was validated with the patient. Medical History Diabetes Gallstone High cholesterol HTN (hypertension) Parkinson disease Family History Family History Sister Malignant neoplasm of breast (female) Social History Social History (Updated 11/13/20 @ 18:35 by Rylee Kearns DO) Alcohol intake: never Patient Tobacco Use Status: Never used Tobacco Use of substances other than those prescribed or required for medical reasons: No Advance Directives: Yes Advance Directives Information Provided: Yes Advance Directives on File: No Physical Exam Vital Signs: Vital Signs: Last Vital Signs Temp 98.1 F 11/13/20 18:59 Pulse 73 11/13/20 18:59 Resp 18 11/13/20 18:59 BP 163/75 H 11/13/20 18:59 Pulse Ox 99 11/13/20 18:59 Body Mass Index 43.7 Appearance: Alert. Oriented X3. No acute distress. Eyes: Pupils equal, round and reactive to light. ENT: Pharynx normal. Neck: Normal inspection. Neck supple. CVS: Normal heart rate and rhythm. Pulses normal. Respiratory: No respiratory distress. Breath sounds normal. Abdomen: Soft and nontender. L hip area on iliac crest there is ttp no rebound or guarding Skin: Skin warm and dry. Normal skin color. Normal skin turgor. Extremities: No lower extremity edema. No calf ttp Neuro: Oriented X 3. No motor deficit. No sensory deficit. Course Course Course Narrative: no acute findings, BP down stable for DC plan to treat flank pain as well as UTI Medical Decision Making MDM Narrative Medical decision making narrative: 70 yo female with hx of HTN - just taken off two of her medications notes BP high at home, HLD, anxiety depression comes in feeling her pressure is high for 2 weeks as well as L flank pain - no GI or symptoms at this time labs, EKG, PO pain medications, CT scan for renal colic/mass ordered Lab Data Result diagrams: 11/13/20 16:06 11/13/20 16:06 Labs: Lab Results 11/13/20 11/13/20 11/13/20 Range/Units 16:06 16:06 16:06 WBC 9.3 (4.8-10.8) X10*3/uL RBC 4.92 (4.20-5.50) X10*6/uL Hgb 13.5 (12.0-16.0) g/dl Hct 40.6 (37-47) % MCV 82.5 (80-98) fL MCH 27.4 (27.0-33.0) pg MCHC 33.3 (31.0-35.0) g/dl RDW 12.9 (11.0-16.0) % Plt Count 370 (160-400) X10*3/uL MPV 9.2 L (9.4-12.3) fL Immature Gran % (Auto) 0.3 (0.0-0.4) % Neut % (Auto) 72.3 (45-73) % Lymph % (Auto) 20.1 (20-40) % [place] % (Auto) 5.3 (2-11) % Eos % (Auto) 1.1 (0-4) % Baso % (Auto) 0.9 (0-2) % Lymph # (Auto) 1.9 (1.2-4.9) X10*3/uL [place] # (Auto) 0.5 (0.1-1.2) X10*3/uL Eos # (Auto) 0.1 (0.0-0.4) X10*3/uL Baso # (Auto) 0.1 (0.0-0.2) X10*3/uL Abs Immat Gran (auto) 0.03 (0.00-0.03) X10*3/uL Absolute Neuts (auto) 6.7 (2.0-8.3) X10*3/uL Absolute Nucleated RBC 0.000 (0.0-0.012) X10*3/uL Nucleated RBC % (auto) 0.0 (0.0-0.2) /100WBC Hold Purple Top SEE NOTE PT (9.9-13.0) SEC INR (0.9-1.1) Sodium 137 (135-145) mmol/L Potassium 4.0 (3.3-5.1) mmol/L Chloride 101 (96-108) mmol/L Carbon Dioxide 26 (22-29) mmol/L Anion Gap 14 (12-20) BUN 12 (9-16) mg/dL Creatinine 0.78 (0.5-1.4) mg/dL Estim Creat Clear Calc 47.5 Estimated GFR > 60 Random Glucose 149 H (60-115) mg/dL Calcium 10.1 D (8.4-10.2) mg/dL Magnesium 1.8 (1.6-2.6) mg/dL Total Bilirubin 0.3 (0.0-1.0) mg/dL AST 16 (5-31) U/L ALT 12 (0-31) U/L Alkaline Phosphatase 80 (39-117) U/L Total Protein 7.8 (6.5-8.0) g/dL Albumin 4.8 (3.5-5.0) g/dL Urine Color Urine Appearance Urine pH (5.0-8.0) Ur Specific [place] (1.005-1.025) Urine Protein (NEG-TRACE) MG/DL Urine Glucose (UA) (NEG) MG/DL Urine Ketones (NEG) MG/DL Urine Blood (NEG) Urine Nitrite (NEG) Ur Leukocyte Esterase (NEG) Urine RBC (0) /HPF Urine WBC (0-4) /HPF Ur Squamous Epith Cells /LPF Urine Bacteria /LPF Urine Mucus /LPF 11/13/20 11/13/20 Range/Units 16:06 16:06 WBC (4.8-10.8) X10*3/uL RBC (4.20-5.50) X10*6/uL Hgb (12.0-16.0) g/dl Hct (37-47) % MCV (80-98) fL MCH (27.0-33.0) pg MCHC (31.0-35.0) g/dl RDW (11.0-16.0) % Plt Count (160-400) X10*3/uL MPV (9.4-12.3) fL Immature Gran % (Auto) (0.0-0.4) % Neut % (Auto) (45-73) % Lymph % (Auto) (20-40) % [place] % (Auto) (2-11) % Eos % (Auto) (0-4) % Baso % (Auto) (0-2) % Lymph # (Auto) (1.2-4.9) X10*3/uL [place] # (Auto) (0.1-1.2) X10*3/uL Eos # (Auto) (0.0-0.4) X10*3/uL Baso # (Auto) (0.0-0.2) X10*3/uL Abs Immat Gran (auto) (0.00-0.03) X10*3/uL Absolute Neuts (auto) (2.0-8.3) X10*3/uL Absolute Nucleated RBC (0.0-0.012) X10*3/uL Nucleated RBC % (auto) (0.0-0.2) /100WBC Hold Purple Top PT 11.7 (9.9-13.0) SEC INR 1.0 (0.9-1.1) Sodium (135-145) mmol/L Potassium (3.3-5.1) mmol/L Chloride (96-108) mmol/L Carbon Dioxide (22-29) mmol/L Anion Gap (12-20) BUN (9-16) mg/dL Creatinine (0.5-1.4) mg/dL Estim Creat Clear Calc Estimated GFR Random Glucose (60-115) mg/dL Calcium (8.4-10.2) mg/dL Magnesium (1.6-2.6) mg/dL Total Bilirubin (0.0-1.0) mg/dL AST (5-31) U/L ALT (0-31) U/L Alkaline Phosphatase (39-117) U/L Total Protein (6.5-8.0) g/dL Albumin (3.5-5.0) g/dL Urine Color YELLOW Urine Appearance CLEAR Urine pH 5.5 (5.0-8.0) Ur Specific [place] >= 1.030 H (1.005-1.025) Urine Protein NEG (NEG-TRACE) MG/DL Urine Glucose (UA) NEG (NEG) MG/DL Urine Ketones NEG (NEG) MG/DL Urine Blood NEG (NEG) Urine Nitrite NEG (NEG) Ur Leukocyte Esterase 1+ H (NEG) Urine RBC 1-4 (0) /HPF Urine WBC 5-9 H (0-4) /HPF Ur Squamous Epith Cells 1+ /LPF Urine Bacteria NONE /LPF Urine Mucus TRACE /LPF ECG Data Attestation: I personally reviewed and interpreted this ECG as follows: Interpretation: Rate: 59 Rhythm: NSR [place]: left Normal P waves. Normal MAMTA. RBBB ST T wave : nonspecxific, no acute changes no SARAHY qTC: normal prior studies: no change from Feb 2020 The study has been interpreted contemporaneously by me. . Discharge Plan Discharge Clinical Impression: Acute flank pain, Acute UTI HTN (hypertension) Qualifiers: Hypertension type: unspecified Qualified Code(s): I10 - Essential (primary) hypertension Patient Disposition: Home, Self-Care Instructions: Urinary Tract Infection in Women (ED), Chronic Hypertension (ED) Additional Instructions: return to ED for any worsening symptoms or concerns Prescriptions: New cyclobenzaprine 10 mg tablet 10 mg PO TID PRN (Reason: muscle spasm) Qty: 14 RF: 0 cefuroxime axetil 250 mg tablet 250 mg PO BID 7 Days Qty: 14 RF: 0 lidocaine 4 % adhesive patch,medicated 1 patch topical DAILY PRN (Reason: pain) Qty: 10 RF: 0 No Action Creon 24,000-76,000 -120,000 unit capsule,delayed release(DR/EC) 1 cap PO QID 30 Days Qty: 120 RF: 1 metoprolol succinate 25 mg tablet extended release 24 hr 0 mg PO RF: 0 (DME) FreeStyle Lite Strips Strip See Rx Instructions strip Not Applicable BID Qty: 10 RF: 0 trihexyphenidyl 2 mg tablet 2 mg PO BID RF: 0 aspirin 81 mg tablet,delayed release (DR/EC) 81 mg PO DAILY RF: 0 ascorbate calcium (vitamin C) 500 mg tablet 500 mg PO DAILY RF: 0 acetaminophen 500 mg capsule 500 mg PO QID PRNRF: 0 pantoprazole 40 mg tablet,delayed release (DR/EC) 40 mg PO DAILY RF: 0 alum-mag hydroxide-simeth [Maalox Advanced] 200-200-20 mg/5 mL suspension 10 ml PO Q6H PRNRF: 0 cholecalciferol (vitamin D3) 50 mcg (2,000 unit) capsule 50 mcg PO DAILY RF: 0 hydralazine 100 mg tablet 0 mg PO RF: 0 pregabalin 100 mg capsule 100 mg PO BID RF: 0 pramipexole 0.25 mg tablet 0.25 mg PO TID RF: 0 hydrocortisone 2.5 % cream 1 appl topical BID PRNRF: 0 triamcinolone acetonide 0.1 % ointment 1 appl topical BID-TID RF: 0 econazole 1 % cream topical RF: 0 amlodipine 10 mg tablet 10 mg PO DAILY RF: 0 polyvinyl alcohol [Artificial Tears (polyvin alc)] 1.4 % drops 1 drp ophthalmic (eye) BID-QID PRNRF: 0 clonazepam 0.5 mg tablet 0.5 mg PO BEDTIME RF: 0 fluvastatin 80 mg tablet extended release 24 hr 80 mg PO BEDTIME RF: 0 (DME) blood-glucose meter Kit See Rx Instructions ea .ROUTE DIRECTED Qty: 1 RF: 0 (DME) lancets 28 gauge misc See Rx Instructions ea topical BID Qty: 100 RF: 0 metformin 1,000 mg tablet 1,000 mg PO BID RF: 0 Referrals: Betzaida Pratt NP [Primary Care Provider] - 3 days Print Language: Wolof
[2020-11-13] MEDS: Cyclobenzaprine HCl 10 MG TABLET PO (18:52)
[2020-11-13] MEDS: HYDROcodone Bit/Acetam 5/325 TABLET 1 TAB PO (18:53)
[2020-11-13 18:59] VITALS: BP 163/75; PULSE 73; RESP 18; TEMP 36.7; O2SAT 99
--- NOTE | 2020-11-13 19:00 | PC.NURSE ---
patient a&ox3, pt medicated per order, vss, pt awaiting radiology, family at bedside, will continue to monitor
== END 2020-11-13 21:57 | disposition home or self-care (01) ==
PROVIDERS: Physician Assistant Medical; Emergency Provider Emergency Medicine; PCP Registered Nurse
DX: N39.0 Urinary tract infection, site not specified (principal); R10.9 Unspecified abdominal pain; I10 Essential (primary) hypertension; Z79.899 Other long term (current) drug therapy
CPT/HCPCS: 36415; 71046; 74176; 80053; 81001; 81003; 83735; 85025; 85610; 87086; 93005; 99284

== ENCOUNTER 2020-12-01 06:59 | Outpatient (REF) | payer MEDICARE, SELFPAY ==
--- NOTE | ~2020-12-01 | CT_ITS ---
EXAMINATION: CT ABDOMEN AND PELVIS WITHOUT AND WITH CONTRAST CLINICAL INFORMATION: Specified disorder adrenal gland. COMPARISON: Portions of a previous CT 11/13/2020. TECHNIQUE: Multidetector volumetric imaging was performed of the abdomen before contrast in the abdomen and pelvis were reexamined after the IV administration of 85 mL of Omnipaque 300 intravenous contrast. Sagittal and coronal reformatted images were obtained on the technologist's workstation. Reimaging of the abdomen 10 minutes following IV contrast also performed. This CT examination was performed using dose optimization techniques as appropriate, variously including the following: *Automated exposure control *Adjustment of mA and/or kV according to patient size (this includes techniques or standardized protocols for targeted exams where dose is matched to indication/reason for exam; i.e. extremities or head) *Use of iterative reconstruction technique DLP: 875 mGy-cm FINDINGS: LUNG BASES: No suspicious abnormality in the visualized lower chest. LIVER, GALLBLADDER, AND BILIARY TREE: The liver contour is smooth. No suspicious focal lesion. There is a calcified 3.1 cm gallstone. There is no biliary dilation. PANCREAS: No pancreatic mass. No localized peripancreatic stranding. SPLEEN: Within normal limits. ADRENAL GLANDS: There is a 2.9 x 1.8 cm smooth low attenuating right adrenal mass. No fat attenuation or calcification. This measures 8 Hounsfield units prior to contrast. This is sufficient to make a secure diagnosis of lipid-rich adenoma. This has not changed in size since chest CT 08/08/13. There is brisk washout on delayed phase. The left adrenal gland is normal. KIDNEYS AND URETERS: There is no dilation of the urinary collecting system on either side. There is no opaque urinary calculus. There is no suspicious renal mass. There is bilateral excretion. BLADDER: No suspicious abnormality of the bladder. GASTROINTESTINAL TRACT: The proximal transverse colon is not well distended but there is no localized pericolonic fat stranding. There is no significant small bowel dilation. There are some linear hyperdensities within the lumen of the small bowel which may be ingested material. There is a duodenal diverticulum. The stomach is not well distended. ABDOMINAL WALL: Evidence of previous surgery. No hernia demonstrated. LYMPH NODES: There are no measurably enlarged abdominal or pelvic lymph nodes. There is no free intraperitoneal fluid. VASCULAR: There is no abdominal aortic aneurysm. The portal vein enhances. Tortuous calcified splenic artery. PELVIC VISCERA: Suspect previous hysterectomy. No suspicious adnexal mass or collection. OSSEOUS STRUCTURES: No suspicious focal lesion. CT/CT abdomen pelvis wo/w con IMPRESSION: There is an approximately 2.9 x 1.8 cm lipid-rich right adrenal adenoma. No suspicious mass. This does not allow exclusion of hormone hypersecretion.
[2020-12-01] MEDS: iohexoL 350 MG/ML 100 ML INFUS..BTL IV (09:48)
== END 2020-12-01 07:00 | disposition home or self-care (01) ==
LOC: HO.CT 06:59
PROVIDERS: PCP Emergency Medicine; Visit Provider Emergency Medicine
DX: E27.8 Other specified disorders of adrenal gland (principal)
CPT/HCPCS: 74178; Q9967

== ENCOUNTER 2020-12-10 14:11 | Outpatient (REF) | payer MEDICARE, SELFPAY ==
--- NOTE | ~2020-12-10 | MM_ITS ---
EXAMINATION: BONE DENSITOMETRY CLINICAL INDICATION: Screening for osteoporosis. COMPARISON: Previous BD dated 11/08/2016 and baseline BD dated 06/22/2007. TECHNIQUE: Using a [employer] DXA System (software version: 13.1) manufactured by [employer], dual-energy x-ray absorptiometry was performed of the lumbar spine and left hip. The images are of good technical quality. Summary results are attached. FINDINGS: AP SPINE L1-L4: Current: BMD 1.123 g/cm2, Z-score 0.9, T-score -0.5, normal, 4.7% decrease from previous, 17.4% decrease from baseline (<5% change is not significant). Prior: BMD 1.178 g/cm2. Baseline: BMD 1.360 g/cm2. LEFT FEMUR, NECK: Current: BMD 1.051 g/cm2, Z-score 1.6, T-score 0.1, normal. Prior: BMD 1.111 g/cm2. Baseline: BMD 1.301 g/cm2. LEFT FEMUR, TOTAL: Current: BMD 1.075 g/cm2, Z-score 1.7, T-score 0.5, normal, 4.8% decrease from previous, 19.6% decrease from baseline (<5% change is not significant). Prior: BMD 1.129 g/cm2. Baseline: BMD 1.337 g/cm2. IDENTIFIED RISK FACTORS: Menopause. HISTORY OF FRACTURE: None listed. MEDICATIONS: Calcium supplements or multivitamin, vitamin D. MM/XR DEXA axial skeleton IMPRESSION: 1. DIAGNOSIS: Normal bone density based on the lowest T-score value of -0.5 in the lumbar spine applying World Health Organization criteria. 2. 10-YEAR FRACTURE RISK PREDICTION, FRAX: Major osteoporotic fracture (clinical spine, forearm, hip or shoulder) 3.8%. Hip fracture 0.2%. 3. Treatment Recommendations: NOF guidelines recommend consideration for treatment in postmenopausal women and men age 50 and older presenting with the following: -A hip or vertebral (clinical or morphometric) fracture. -T-score less than or equal to -2.5 at the femoral neck or spine after appropriate evaluation to exclude secondary causes. -Low bone mass at the hip or spine and a 10-year fracture probability by FRAX of greater than or equal to 3% for hip fracture or greater than or equal to 20% for major osteoporotic fracture based on the [place] adapted WHO algorithm. 4. Other Recommendations: All treatment decisions require clinical judgment and consideration of individual patient factors, including patient preferences, comorbidities, previous drug use, risk factors not captured in the FRAX model (e.g. frailty, falls, vitamin D deficiency, increased bone turnover, interval significant decline in bone density) and possible under or overestimation of fracture risk by FRAX. FUTURE SCAN RECOMMENDATION: People with diagnosed cases of osteoporosis or at high risk for fracture should have regular bone mineral density tests. For patients eligible for Medicare, routine testing is allowed once every 2 years. The testing frequency can be increased to one year for patients who have rapidly progressing disease, those who are receiving or discontinuing medical therapy to restore bone mass, or have additional risk factors.
== END 2020-12-10 14:12 | disposition home or self-care (01) ==
LOC: HO.MAMMO 14:11
PROVIDERS: Visit Provider Registered Nurse
DX: Z13.820 Encounter for screening for osteoporosis (principal); Z78.0 Asymptomatic menopausal state
CPT/HCPCS: 77080

== ENCOUNTER 2021-07-01 15:01 | Outpatient (REF) | payer MEDICARE, SELFPAY ==
[2021-07-01 16:06] LABS: Creatinine Urine 76.14 mg/dL; Total Protein Urine Random < 7 mg/dL (<12)
[2021-07-01 16:09] LABS: Anion Gap 13 (12-20); Blood Urea Nitrogen 16 mg/dL (9-16); Carbon Dioxide 26 mmol/L (22-29); Chloride 101 mmol/L (96-108); Estimated Glomerular Filt Rate > 60; Potassium 4.3 mmol/L (3.3-5.1); Sodium 136 mmol/L (135-145)
== END 2021-07-01 15:02 | disposition home or self-care (01) ==
LOC: HO.LAB 15:01
PROVIDERS: PCP Registered Nurse Community Health; Visit Provider Internal Medicine Nephrology
DX: I10 Essential (primary) hypertension (principal); E11.21 Type 2 diabetes mellitus with diabetic nephropathy
CPT/HCPCS: 36415; 80051; 82310; 82565; 84156; 84520

== ENCOUNTER 2021-07-16 12:59 | Outpatient (REF) | payer OTHER, SELFPAY ==
--- NOTE | ~2021-07-16 | XR_ITS ---
EXAMINATION: XR RIBS, LEFT CLINICAL INFORMATION: Dorsalgia. COMPARISON: None. TECHNIQUE: 3 views of the left ribs were obtained. FINDINGS: Lungs are clear. No consolidation, pneumothorax, or pleural effusion. The cardiomediastinal silhouette and pulmonary vasculature are normal. Multiple views of left ribs reveal no visible rib fracture or bony abnormality. XR/XR ribs LT min 3V w CXR1V IMPRESSION: Unremarkable chest exam. Unremarkable left rib exam.
== END 2021-07-16 13:00 | disposition home or self-care (01) ==
LOC: HO.XRAY 12:59
PROVIDERS: PCP Registered Nurse Community Health; Visit Provider Registered Nurse Community Health
DX: M54.9 Dorsalgia, unspecified (principal)
CPT/HCPCS: 71101

== ENCOUNTER 2021-08-13 09:47 | Outpatient (REF) | payer OTHER, SELFPAY ==
--- NOTE | ~2021-08-13 | XR_ITS ---
EXAMINATION: XR HAND, RIGHT CLINICAL INFORMATION: Pain right finger. COMPARISON: None TECHNIQUE: PA, lateral, and oblique views of the right hand. FINDINGS: There is a loss of PIP joint space with periarticular spurring 1st digit, minimal loss of PIP and DIP joints is seen 2nd through 5th digits. No bony erosive changes seen. There is no visible acute fracture, dislocation or subluxation seen. The soft tissues are normal. XR/XR hand RT min 3V IMPRESSION: Mild degenerative changes PIP joint 1st digit and all PIP and DIP joints 2nd through 5th digits. There is no visible acute fracture or dislocation.
== END 2021-08-13 09:48 | disposition home or self-care (01) ==
LOC: HO.XRAY 09:47
PROVIDERS: PCP Registered Nurse Community Health; Visit Provider Registered Nurse Community Health
DX: M79.644 Pain in right finger(s) (principal)
CPT/HCPCS: 73130

== ENCOUNTER 2021-08-31 10:36 | Outpatient (REF) | payer OTHER, SELFPAY ==
[2021-08-31 12:38] LABS: MANUAL DIFF FLAG NO
[2021-08-31 12:57] LABS: Basophils Absolute Auto 0.1 X10*3/uL (0.0-0.2); Eosinophils Absolute Auto 0.2 X10*3/uL (0.0-0.4); Eosinophils Percent Auto 2.6 % (0-4); Hematocrit 35.5 % (37.0-47.0); Hemoglobin 11.3 g/dl (12.0-16.0); Imm Gran Abs Auto 0.04 X10*3/uL (0.00-0.03); Imm Gran Pct Auto 0.6 % (0.0-0.4); Lymphocytes Absolute Auto 1.4 X10*3/uL (1.2-4.9); Mean Corpuscular HGB Conc 31.8 g/dl (31.0-35.0); Mean Corpuscular Hemoglobin 26.7 pg (27.0-33.0); Mean Corpuscular Volume 83.9 fL (80.0-98.0); Mean Platelet Volume 9.6 fL (9.4-12.3); Monocytes Absolute Auto 0.4 X10*3/uL (0.1-1.2); Monocytes Percent Auto 5.6 % (2-11); Neutrophils Absolute Auto 4.2 x10*3/uL (2.0-8.3); Neutrophils Percent Auto 67.2 % (45-73); Platelet Count 325 X10*3/uL (160-400); Red Blood Count 4.23 X10*6/uL (4.20-5.50); Red Cell Distribution Width 13.3 % (11.0-16.0); White Blood Count 6.3 X10*3/uL (4.8-10.8)
[2021-08-31 13:43] LABS: Alanine Aminotransferase 14 U/L (0-31); Albumin Level 4.3 g/dL (3.5-5.0); Alkaline Phosphatase 64 U/L (39-117); Anion Gap 11 (12-20); Aspartate Amino Transferase 16 U/L (5-31); Bilirubin Total 0.2 mg/dL (0.0-1.0); Blood Urea Nitrogen 20 mg/dL (9-16); Carbon Dioxide 27 mmol/L (22-29); Chloride 103 mmol/L (96-108); Estimated Glomerular Filt Rate > 60; Glucose Random 126 mg/dL (60-115); Lipase 52 U/L (8-78); Potassium 4.4 mmol/L (3.3-5.1); Sodium 137 mmol/L (135-145); Total Protein 6.9 g/dL (6.5-8.0)
[2021-08-31 13:46] LABS: Amylase 55 U/L (28-100)
== END 2021-08-31 10:37 | disposition home or self-care (01) ==
LOC: HO.LAB 10:36
PROVIDERS: PCP Registered Nurse Community Health; Referring Provider Registered Nurse Community Health; Visit Provider Nurse Practitioner
DX: R10.10 Upper abdominal pain, unspecified (principal); K21.9 Gastro-esophageal reflux disease without esophagitis; K81.1 Chronic cholecystitis
CPT/HCPCS: 36415; 80053; 82150; 83690; 85025; 99212

== ENCOUNTER 2021-09-13 11:32 | Outpatient (REF) | payer OTHER, SELFPAY ==
--- NOTE | ~2021-09-13 | MM_ITS ---
EXAMINATION: MM SCREENING DIGITAL BREAST TOMOSYNTHESIS, BILATERAL CLINICAL INFORMATION: Screening. Asymptomatic. The lifetime risk of breast cancer based on the Tyrer-Cuzick Model is 6%. COMPARISON: Mammography: 07/01/2020, 01/18/2019, 01/04/2018 TECHNIQUE: Digital breast tomosynthesis is performed in both the craniocaudal and mediolateral oblique views along with computer-aided detection (CAD). Synthesized 2D images are generated from the tomosynthesis. FINDINGS: The breasts are almost entirely fatty (ACR BI-RADS breast composition Category a). Background stromal markings are similar to prior studies. No developing density or interval mass or architectural abnormality. There are stable punctate calcifications likely dermal posterior medial inferior left breast. There is a biopsy clip marker again seen just deep to the skin right breast posterior inferior medial. The axilla are unremarkable. No significant changes. MM/MM tomosynthesis screening BI IMPRESSION: No mammographic evidence of malignancy. ASSESSMENT: BI-RADS 2: Benign RECOMMENDATION: Routine annual mammography screening. This patient's information was entered into a reminder system with a target due date for their next mammogram.
== END 2021-09-13 11:33 | disposition home or self-care (01) ==
LOC: HO.MAMMO 11:32
PROVIDERS: PCP Registered Nurse Community Health; Visit Provider Registered Nurse Community Health
DX: Z12.31 Encounter for screening mammogram for malignant neoplasm of breast (principal)
CPT/HCPCS: 77063; 77067

== ENCOUNTER → 2022-06-29 10:44 | Outpatient (BNVA) | payer OTHER, SELFPAY | PROVIDERS: PCP Registered Nurse Community Health; Visit Provider Physician Assistant | DX: M77.11 Lateral epicondylitis, right elbow (principal) | CPT/HCPCS: 20550; 20551; 99202; J1100 ==

== ENCOUNTER 2022-08-08 17:20 | Emergency (ER) | payer OTHER, SELFPAY ==
--- NOTE | ~2022-08-08 | XR_ITS ---
EXAMINATION: XR WRIST, RIGHT CLINICAL INFORMATION: Wrist pain. Status post fall COMPARISON: None available. TECHNIQUE: PA, lateral, and oblique views of the right wrist. FINDINGS: The bones and soft tissues are normal. No fracture. Alignment is anatomic with normal joint spaces. No erosions or abnormal soft tissue calcifications. XR/XR wrist RT min 3V IMPRESSION: Normal right wrist.
--- NOTE | ~2022-08-08 | CT_ITS ---
EXAMINATION: CT brain, CT facial bones and CT cervical spine without contrast. CLINICAL INDICATIONS: Status post fall. TECHNIQUE: Axial 5 mm thin and reformatted 2 mm thin sagittal and coronal images of brain were obtained. Subsequently axial 3 mm thin and reformatted 1.5 minutes thin sagittal and coronal images of facial bones were obtained. Lastly axial 3 mm thin and reformatted 2 mm thin sagittal and coronal images of cervical spine were obtained. DLP [id number]. This CT examination was performed using dose optimization technique as appropriate, variously including the following: Automated exposure control Adjustment of MA and/or KV according to patient size(this includes techniques or standardized protocols for targeted exams where dose is matched to indication/reason for exam; extremities or head. Use of iterative reconstruction techniques. FINDINGS: Brain:: There is no acute intra-axial, extra-axial bleed, masses or midline shift. There is no acute infarction evolution. There is no edema. The lateral ventricles are symmetrical in size and configuration but mildly prominent. Carson to white matter differentiation is maintained normal. No abnormality seen in the posterior fossa. Bone windows reveal no calvarial abnormality. There is no scalp soft tissue abnormality. Bilateral paranasal sinuses and mastoid air cells are well-aerated. Facial bones: Visualized bony orbits, nasal and maxillofacial bones are intact. No fracture visualized. The paranasal sinuses are well-aerated. The nasal septum is midline. There is normal patency of nasopharyngeal and nasal cavity airway. The maxillofacial soft tissues are normal. The oral cavity is limited in evaluation secondary to dental amalgam related artifact. Bilateral TM joints and the mandible appears intact. Bilateral parotid, submandibular glands are normal. There are small shotty bilateral neck lymph nodes. Cervical spine: There is normal cervical lordosis. The vertebral heights, alignment and disc heights are normal. There is no visible acute fracture, dislocation or subluxation seen. The craniovertebral junction and the C1-C2 alignment is normal. There is right C3-C4, C4-C5 and left C4-C5 and C5-C6 facet joint arthropathy. No visible acute fracture, dislocation or lytic process seen. The prevertebral and paravertebral soft tissues are normal. The airways widely patent. The lung apices are clear. CT/CT cervical spine wo IV con IMPRESSION: No acute intracranial process seen. There is no maxillofacial, nasal or mandibular fracture. The soft tissues are normal. No acute fracture, dislocation or subluxation cervical spine.
--- NOTE | 2022-08-08 17:36 | PC.NURSE ---
OFF AT IMAGING
[2022-08-08 18:21] VITALS: BP 154/70; PULSE 83; RESP 18; TEMP 36.7; O2SAT 99; BMI 29.2
--- NOTE | 2022-08-08 18:22 | ED.FALL ---
HPI - Fall General Chief Complaint: Fall <RAMON Stovall - Last Filed: 08/08/22 18:24> Stated Complaint: mechanical fall <RAMON Stovall - Last Filed: 08/08/22 18:24> Time Seen by Provider: 08/08/22 19:03 <RAMON Stovall - Last Filed: 08/08/22 18:24> Source: patient <Chanda Morgan MD - Last Filed: 08/08/22 19:31> Mode of arrival: EMS <Chanda Morgan MD - Last Filed: 08/08/22 19:31> Limitations: no limitations <Chanda Morgan MD - Last Filed: 08/08/22 19:31> History of Present Illness HPI Narrative: Patient comes in the emergency room via ambulance after a fall. Patient states that prior to arrival, patient was trying to insert something in her purse, did not look closely where she was walking, tripped on the sidewalk and landed face forward. The patient did not lose consciousness, patient is not on blood thinners. Patient complaining of right wrist pain, and mild nasal bone pain. <Chanda Morgan MD - Last Filed: 08/08/22 19:31> Related Data Home Medications: Home Medications Medication Instructions Recorded Confirmed acetaminophen 500 mg capsule 500 mg PO QID PRN 10/19/20 aluminum-mag hydroxide-simethicone 10 ml PO Q6H PRN 10/19/20 200 mg-200 mg-20 mg/5 mL oral susp (Maalox Advanced) amlodipine 10 mg tablet 10 mg PO DAILY 10/19/20 ascorbate calcium (vitamin C) 500 500 mg PO DAILY 10/19/20 mg tablet aspirin 81 mg tablet,delayed 81 mg PO DAILY 10/19/20 release blood sugar diagnostic #10 ea 10/19/20 blood-glucose meter #1 ea 10/19/20 cholecalciferol (vitamin D3) 50 50 mcg PO DAILY 10/19/20 mcg (2,000 unit) capsule clonazepam 0.5 mg tablet 0.5 mg PO BEDTIME 10/19/20 econazole 1 % topical cream appl topical 10/19/20 fluvastatin 80 mg tablet,extended 80 mg PO BEDTIME 10/19/20 release 24 hr hydrocortisone 2.5 % topical cream 1 appl topical BID PRN 10/19/20 lancets 28 gauge #100 ea 10/19/20 metformin 1,000 mg tablet 1,000 mg PO BID 10/19/20 pantoprazole 40 mg tablet,delayed 40 mg PO DAILY 10/19/20 release polyvinyl alcohol 1.4 % eye drops 1 drp ophthalmic (eye) BID-QID PRN 10/19/20 (Artificial Tears (polyvinyl alcohol)) pramipexole 0.25 mg tablet 0.25 mg PO TID 10/19/20 pregabalin 100 mg capsule 100 mg PO BID 10/19/20 triamcinolone acetonide 0.1 % 1 appl topical BID-TID 10/19/20 topical ointment trihexyphenidyl 2 mg tablet 2 mg PO BID 10/19/20 hydralazine 50 mg tablet 0 mg PO 08/31/21 hydrochlorothiazide 25 mg tablet 25 mg PO DAILY 08/31/21 metoprolol succinate 50 mg 50 mg PO BID 08/31/21 tablet,extended release 24 hr mupirocin 2 % topical ointment otic (ear) right TID 08/31/21 naproxen 500 mg tablet 500 mg PO BID PRN pain 08/31/21 omega-3 acid ethyl esters 1 gram 2 cap PO BID 08/31/21 capsule Previous Rx's Medication Instructions Recorded cefuroxime axetil 250 mg tablet 250 mg PO BID 7 days #14 tabs 11/13/20 cyclobenzaprine 10 mg tablet 10 mg PO TID PRN muscle spasm #14 11/13/20 tabs lidocaine 4 % topical patch 1 patch topical DAILY PRN pain #10 11/13/20 ea acetaminophen 500 mg capsule 500 mg PO Q6H PRN pain #14 caps 08/08/22 <RAMON Stovall - Last Filed: 08/08/22 18:24> Allergies/Adverse Reactions: Allergies Allergy/AdvReac Type Severity Reaction Status Date / Time losartan Allergy Unknown anaphylaxis Verified 06/29/22 11:12 <RAMON Stovall - Last Filed: 08/08/22 18:24> Review of Systems Review of Systems: Constitutional : No Weight loss, No Fever, No Chills, No Night Sweats, No Fatigue, No Malaise ENT/Mouth : In along the nasal bone, No Hearing loss, No Ear Pain, No Nasal Congestion, No Sinus Pain, No Hoarseness, No sore throat, No Rhinorrhea, No Swallowing Difficulty Eyes: No Eye Pain, No Swelling, No Redness, No Foreign Body, No Discharge, No Vision Changes Cardiovascular : No Chest Pain, No SOB, No Dyspnea on Exertion, No Orthopnea, No Edema, No Palpitations Respiratory : No Cough, No Sputum, No Wheezing, No Smoke Exposure, No Dyspnea Gastrointestinal : No Nausea, No Vomiting, No Diarrhea, No Constipation, No abdominal Pain, No Hematochezia, No Melena Genitourinary : no irregular bleeding, No Dysuria, No Urinary Frequency, No Hematuria, No Urinary Incontinence, No Urgency, No Flank Pain, No Urinary Flow Changes, No Hesitancy Musculoskeletal : Right wrist pain No Myalgias, No Joint Swelling Skin : Small abrasion in the forehead and nasal bone, no laceration, bleeding controlled No Skin Lesions, No rash Neuro : No Weakness, No Numbness, No Paresthesias, No Loss of Consciousness, No Dizziness, No Headache Psych : No Anxiety/Panic, No Depression, No SI/HI/AH/VH, No Social Issues, Heme/Lymph: No Bruising, No Bleeding,No Lymphadenopathy Endocrine : No Polyuria, No Polydipsia, No Temperature Intolerance <Chanda Morgan MD - Last Filed: 08/08/22 19:31> [facility] Past Medical History Medical History: Medical History (Updated 08/08/22 @ 19:28 by Chanda Morgan MD) Anal fistula Diabetes Gallstone High cholesterol HTN (hypertension) Non-STEMI (non-ST elevated myocardial infarction) Parkinson disease <RAMON Stovall - Last Filed: 08/08/22 18:24> Surgical History: Surgical History H/O hemorrhoidectomy History of hysterectomy <RAMON Stovall - Last Filed: 08/08/22 18:24> Family History Family History: Family History Sister Malignant neoplasm of breast (female) <RAMON Stovall - Last Filed: 08/08/22 18:24> Social History Social History: Social History Alcohol intake: never Patient Tobacco Use Status: Never used Tobacco Advance Directives: No Advance Directives Information Provided: No <RAMON Stovall - Last Filed: 08/08/22 18:24> Physical Exam Vital Signs: Vital Signs: Last Vital Signs Temp 98.1 F 08/08/22 18:21 Pulse 83 08/08/22 18:21 Resp 18 08/08/22 18:21 BP 154/70 H 08/08/22 18:21 Pulse Ox 99 08/08/22 18:21 O2 Del Method Room Air 08/08/22 18:21 BMI result Body Mass Index 29.2 <RAMON Stovall - Last Filed: 08/08/22 18:24> Vital Signs: Last Vital Signs Temp 98.1 F 08/08/22 18:21 Pulse 83 08/08/22 18:21 Resp 18 08/08/22 18:21 BP 154/70 H 08/08/22 18:21 Pulse Ox 99 08/08/22 18:21 O2 Del Method Room Air 08/08/22 18:21 BMI result Body Mass Index 29.2 <Chanda Morgan MD - Last Filed: 08/08/22 19:31> Const: Other: Appearance: Alert. Oriented X3. No acute distress. Eyes: Pupils equal, round and reactive to light. ENT: Pharynx normal. Small abrasion and ecchymosis to the bridge of the nose, septal hematoma not present Neck: Normal inspection. Neck supple. No lymph nodes noted. No crepitus CVS: Normal heart rate and rhythm. Pulses normal. Normal S1 and S2 Respiratory: No respiratory distress. Breath sounds normal. No Wheezing. No rales Abdomen: Soft and nontender. No rigidity. No distention. Skin: Skin warm and dry. Normal skin color. Normal skin turgor. Extremities: Patient able to flex and extend the wrist, mild ecchymosis, no obvious deformity No Lacerations. No Rash Neuro: Oriented X 3. No motor deficit. No sensory deficit. Moving all extremities. No slurred speech. CN 2 through 12 grossly intact Psych: calm, cooperative, normal affect <Chanda Morgan MD - Last Filed: 08/08/22 19:31> Course Course Course Narrative: RME - 72yo comoran speaking female who is on aspirin presenting after a fall. Patient stated she was walking to the mall and missed a step causing her to fall. No LOC. Patient stated she hit her right wrist and face. VSS in triage Plan: CT and XR ordered <RAMON Stovall - Last Filed: 08/08/22 18:24> Medical Decision Making Medical Decision Making MDM Narrative: -discussed with the patient if she needs additional assistance at home, patient has history of Parkinson's, patient states that she still has normal gait, family states that she will be okay at home, no additional help requested -my interpretation of x-ray of the wrist: No fracture, normal alignment <Chanda Morgan MD - Last Filed: 08/08/22 19:31> Differential Diagnosis Differential Diagnoses: The differential diagnosis associated with the presentation includes (Wrist fracture, dislocation, contusion. Nose contusion, ecchymosis.) <Chanda Morgan MD - Last Filed: 08/08/22 19:31> Radiology Impression Discussion of test interpretation with radiology: I have reviewed the radiologist's reading. <Chanda Morgan MD - Last Filed: 08/08/22 19:31> Radiologist Impression: FINDINGS: The bones and soft tissues are normal. No fracture. Alignment is anatomic with normal joint spaces. No erosions or abnormal soft tissue calcifications.? XR/XR wrist RT min 3V IMPRESSION: Normal right wrist. ?FINDINGS: Brain:: There is no acute intra-axial, extra-axial bleed, masses or midline shift. There is no acute infarction evolution. There is no edema. The lateral ventricles are symmetrical in size and configuration but mildly prominent. Carson to white matter differentiation is maintained normal. No abnormality seen in the posterior fossa. Bone windows reveal no calvarial abnormality. There is no scalp soft tissue abnormality. Bilateral paranasal sinuses and mastoid air cells are well-aerated. Facial bones: Visualized bony orbits, nasal and maxillofacial bones are intact. No fracture visualized. The paranasal sinuses are well-aerated. The nasal septum is midline. There is normal patency of nasopharyngeal and nasal cavity airway. The maxillofacial soft tissues are normal. The oral cavity is limited in evaluation secondary to dental amalgam related artifact. Bilateral TM joints and the mandible appears intact. Bilateral parotid, submandibular glands are normal. There are small shotty bilateral neck lymph nodes. Cervical spine: There is normal cervical lordosis. The vertebral heights, alignment and disc heights are normal. There is no visible acute fracture, dislocation or subluxation seen. The craniovertebral junction and the C1-C2 alignment is normal. There is right C3-C4, C4-C5 and left C4-C5 and C5-C6 facet joint arthropathy. No visible acute fracture, dislocation or lytic process seen. The prevertebral and paravertebral soft tissues are normal. The airways widely patent. The lung apices are clear. CT/CT head/brain wo IV con IMPRESSION: No acute intracranial process seen. ? There is no maxillofacial, nasal or mandibular fracture. The soft tissues are normal. ? No acute fracture, dislocation or subluxation cervical spine. <Chanda Morgan MD - Last Filed: 08/08/22 19:31> Discharge Plan Discharge Clinical Impression: Fall, Contusion of nose, Contusion of right wrist <RAMON Stovall - Last Filed: 08/08/22 18:24> Patient Disposition: Home, Self-Care <RAMON Stovall - Last Filed: 08/08/22 18:24> Instructions: Contusion in Adults (ED) <RAMON Stovall - Last Filed: 08/08/22 18:24> Additional Instructions: Please follow-up with your primary care physician tomorrow. If you have any worsening or new symptoms, please return to the emergency room or call 911 <RAMON Stovall - Last Filed: 08/08/22 18:24> Prescriptions: New acetaminophen 500 mg capsule 500 mg PO Q6H PRN (Reason: pain) Qty: 14 0RF No Action cyclobenzaprine 10 mg tablet 10 mg PO TID PRN (Reason: muscle spasm) Qty: 14 0RF cefuroxime axetil 250 mg tablet 250 mg PO BID 7 Days Qty: 14 0RF lidocaine 4 % adhesive patch,medicated 1 patch topical DAILY PRN (Reason: pain) Qty: 10 0RF Rx Instructions: may leave on for up to 12 hrs (DME) FreeStyle Lite Strips Strip See Rx Instructions Not Applicable BID Qty: 10 Rx Instructions: As directed trihexyphenidyl 2 mg tablet 2 mg PO BID aspirin 81 mg tablet,delayed release (DR/EC) 81 mg PO DAILY ascorbate calcium (vitamin C) 500 mg tablet 500 mg PO DAILY acetaminophen 500 mg capsule 500 mg PO QID PRN pantoprazole 40 mg tablet,delayed release (DR/EC) 40 mg PO DAILY alum-mag hydroxide-simeth [Maalox Advanced] 200-200-20 mg/5 mL suspension 10 ml PO Q6H PRN cholecalciferol (vitamin D3) 50 mcg (2,000 unit) capsule 50 mcg PO DAILY pregabalin 100 mg capsule 100 mg PO BID pramipexole 0.25 mg tablet 0.25 mg PO TID hydrocortisone 2.5 % cream 1 appl topical BID PRN triamcinolone acetonide 0.1 % ointment 1 appl topical BID-TID econazole 1 % cream topical amlodipine 10 mg tablet 10 mg PO DAILY polyvinyl alcohol [Artificial Tears (polyvin alc)] 1.4 % drops 1 drp ophthalmic (eye) BID-QID PRN clonazepam 0.5 mg tablet 0.5 mg PO BEDTIME fluvastatin 80 mg tablet extended release 24 hr 80 mg PO BEDTIME (DME) blood-glucose meter Kit See Rx Instructions .ROUTE DIRECTED Qty: 1 Rx Instructions: As directed (DME) lancets 28 gauge misc See Rx Instructions topical BID Qty: 100 Rx Instructions: As directed metformin 1,000 mg tablet 1,000 mg PO BID mupirocin 2 % ointment otic (ear) right TID omega-3 acid ethyl esters 1 gram capsule 2 cap PO BID metoprolol succinate 50 mg tablet extended release 24 hr 50 mg PO BID naproxen 500 mg tablet 500 mg PO BID PRN (Reason: pain) hydrochlorothiazide 25 mg tablet 25 mg PO DAILY hydralazine 50 mg tablet 0 mg PO <RAMON Stovall - Last Filed: 08/08/22 18:24>
[2022-08-08] MEDS: Acetaminophen 325 MG TABLET 650 MG PO (19:35)
== END 2022-08-08 19:45 | disposition home or self-care (01) ==
PROVIDERS: Emergency Provider Emergency Medicine; PCP Internal Medicine
DX: S00.33XA Contusion of nose, initial encounter (principal); S60.211A Contusion of right wrist, initial encounter; W10.1XXA Fall (on)(from) sidewalk curb, initial encounter; E11.9 Type 2 diabetes mellitus without complications; I10 Essential (primary) hypertension; E78.5 Hyperlipidemia, unspecified; G20 Parkinson's disease; Z79.82 Long term (current) use of aspirin; Z79.899 Other long term (current) drug therapy; Y93.01 Activity, walking, marching and hiking; Y92.414 Local residential or business street as the place of occurrence of the external cause; Y99.9 Unspecified external cause status
CPT/HCPCS: 70450; 70486; 72125; 73110; 99283; 99284

== ENCOUNTER 2022-08-18 10:05 | Outpatient (REF) | payer OTHER, SELFPAY ==
--- NOTE | ~2022-08-18 | XR_ITS ---
EXAMINATION: XR CERVICAL SPINE CLINICAL INFORMATION: Neck pain status-post fall. COMPARISON: Cervical spine radiographs dated 02/13/2018. TECHNIQUE: Frontal, odontoid and lateral views of the cervical spine were obtained. FINDINGS: Vertebral body heights are normal. There is a mild cervical levoscoliosis. The cervical disc spaces are well-maintained. No acute fracture or spondylolisthesis is seen. The posterior elements are intact. There is multi-level cervical facet arthropathy. The dens is intact. No prevertebral soft tissue swelling is seen. XR/XR cervical spine 3V IMPRESSION: 1. No acute fracture or spondylolisthesis is seen. 2. The cervical disc spaces are well-maintained. 3. There is a mild cervical levoscoliosis. 4. There is multi-level cervical facet arthropathy.
--- NOTE | ~2022-08-18 | XR_ITS ---
EXAMINATION: XR HAND, RIGHT CLINICAL INFORMATION: Pain. COMPARISON: None available. TECHNIQUE: PA, lateral, and oblique views of the right hand. FINDINGS: Bony alignment and mineralization are normal. No fracture or dislocation is seen. There is mild osteoarthritic change of the interphalangeal joint of the thumb. No abnormal bone erosion is seen. The proximal and distal carpal rows are intact. No focal soft tissue swelling, gas or foreign body is seen. XR/XR hand RT min 3V IMPRESSION: 1. No fracture or dislocation is seen. 2. There is mild osteoarthritic change of the interphalangeal joint of the right thumb. 3. There is no abnormal bone erosion.
== END 2022-08-18 10:06 | disposition home or self-care (01) ==
LOC: HO.XRAY 10:05
PROVIDERS: PCP Internal Medicine; Visit Provider Family Medicine
DX: M54.2 Cervicalgia (principal); M79.641 Pain in right hand; Z91.81 History of falling
CPT/HCPCS: 72040; 73130

== ENCOUNTER 2022-10-26 10:42 | Outpatient (REF) | payer OTHER, SELFPAY | END 2022-10-26 10:43 | disposition home or self-care (01) | LOC: HO.HOSX 10:42 | PROVIDERS: Visit Provider Orthopaedic Surgery | DX: M79.641 Pain in right hand (principal); S63.65 Sprain of metacarpophalangeal joint of other and unspecified finger(s); W19.XXXD Unspecified fall, subsequent encounter | CPT/HCPCS: 99202 ==

== ENCOUNTER 2022-10-31 20:34 | Outpatient (REF) | payer OTHER, SELFPAY | END 2022-10-31 20:35 | disposition home or self-care (01) | LOC: HO.HHCLNP 20:34 | PROVIDERS: Visit Provider Internal Medicine | DX: R07.0 Pain in throat (principal) | CPT/HCPCS: 87070 ==

== ENCOUNTER 2022-11-28 20:55 | Outpatient (REF) | payer OTHER, SELFPAY | END 2022-11-28 20:56 | disposition home or self-care (01) | LOC: HO.HHCLNP 20:55 | PROVIDERS: Visit Provider Internal Medicine Geriatric Medicine | DX: R30.0 Dysuria (principal) | CPT/HCPCS: 87086 ==

== ENCOUNTER 2022-12-13 12:32 | Outpatient (REF) | payer OTHER, SELFPAY ==
--- NOTE | ~2022-12-13 | MM_ITS ---
EXAMINATION: BONE DENSITOMETRY CLINICAL INDICATION: Asymptomatic menopausal state. COMPARISON: Previous BD dated 12/10/2020 and baseline BD dated 06/22/2007. TECHNIQUE: Using a [employer] DXA System (software version: 13.1) manufactured by [employer], dual-energy x-ray absorptiometry was performed of the lumbar spine and left hip. The images are of good technical quality. Summary results are attached. FINDINGS: AP SPINE L1-L4: Current: BMD 1.156 g/cm2, Z-score 1.2, T-score -0.2, normal, 2.9% increase from previous, 15.0% decrease from baseline (<5% change is not significant). Prior: BMD 1.123 g/cm2. Baseline: BMD 1.360 g/cm2. LEFT FEMUR, NECK: Current: BMD 1.011 g/cm2, Z-score 1.4, T-score -0.2, normal. Prior: BMD 1.051 g/cm2. Baseline: BMD 1.301 g/cm2. LEFT FEMUR, TOTAL: Current: BMD 1.055 g/cm2, Z-score 1.7, T-score 0.4, normal, 1.9% decrease from previous, 21.1% decrease from baseline (<5% change is not significant). Prior: BMD 1.075 g/cm2. Baseline: BMD 1.337 g/cm2. IDENTIFIED RISK FACTORS: Thiazide. Menopause. Recurrent falls. Hysterectomy. HISTORY OF FRACTURE: None listed. MEDICATIONS: Vitamin D. MM/XR DEXA axial skeleton IMPRESSION: 1. DIAGNOSIS: Normal bone density based on the lowest T-score value of -0.2 in the lumbar spine and femoral neck applying World Health Organization criteria. 2. 10-YEAR FRACTURE RISK PREDICTION, FRAX: According to the guidelines, FRAX calculation should only be performed on patients in the osteopenia bone density category.?Therefore, FRAX was not performed on this patient.? 3. Treatment Recommendations: NOF guidelines recommend consideration for treatment in postmenopausal women and men age 50 and older presenting with the following: -A hip or vertebral (clinical or morphometric) fracture. -T-score less than or equal to -2.5 at the femoral neck or spine after appropriate evaluation to exclude secondary causes. -Low bone mass at the hip or spine and a 10-year fracture probability by FRAX of greater than or equal to 3% for hip fracture or greater than or equal to 20% for major osteoporotic fracture based on the [place] adapted WHO algorithm. 4. Other Recommendations: All treatment decisions require clinical judgment and consideration of individual patient factors, including patient preferences, comorbidities, previous drug use, risk factors not captured in the FRAX model (e.g. frailty, falls, vitamin D deficiency, increased bone turnover, interval significant decline in bone density) and possible under or overestimation of fracture risk by FRAX. FUTURE SCAN RECOMMENDATION: People with diagnosed cases of osteoporosis or at high risk for fracture should have regular bone mineral density tests. For patients eligible for Medicare, routine testing is allowed once every 2 years. The testing frequency can be increased to one year for patients who have rapidly progressing disease, those who are receiving or discontinuing medical therapy to restore bone mass, or have additional risk factors.
== END 2022-12-13 12:33 | disposition home or self-care (01) ==
LOC: HO.MAMMO 12:32
PROVIDERS: PCP Family Medicine; Visit Provider Internal Medicine
DX: Z12.31 Encounter for screening mammogram for malignant neoplasm of breast (principal); Z13.820 Encounter for screening for osteoporosis; Z78.0 Asymptomatic menopausal state
CPT/HCPCS: 77063; 77067; 77080

== ENCOUNTER → 2022-12-13 13:00 | Outpatient (BNV) | payer OTHER, SELFPAY | PROVIDERS: PCP Family Medicine; Visit Provider Radiology Diagnostic Radiology | DX: Z78.0 Asymptomatic menopausal state (principal) | CPT/HCPCS: 77063; 77067; 77080 ==

== ENCOUNTER 2022-12-29 19:05 | Outpatient (REF) | payer OTHER, SELFPAY ==
[2022-12-30 16:01] LABS: BV Int Neg Control Negative (Negative); BV Int Pos Control Positive (Positive)
== END 2022-12-29 19:06 | disposition home or self-care (01) ==
LOC: HO.HHCLNP 19:05
PROVIDERS: Visit Provider Student in an Organized Health Care Education/Training Program
DX: N89.8 Other specified noninflammatory disorders of vagina (principal)
CPT/HCPCS: 87480; 87510; 87660

== ENCOUNTER 2023-04-12 19:56 | Outpatient (REF) | payer OTHER, SELFPAY ==
[2023-04-13 12:17] LABS: BV Int Neg Control Negative (Negative); BV Int Pos Control Positive (Positive)
== END 2023-04-12 19:57 | disposition home or self-care (01) ==
LOC: HO.HHCLNP 19:56
PROVIDERS: Visit Provider Advanced Practice Midwife
DX: L29.2 Pruritus vulvae (principal)
CPT/HCPCS: 87480; 87510; 87660

== ENCOUNTER 2023-05-10 13:04 | Outpatient (REF) | payer OTHER, SELFPAY ==
[2023-05-10 14:29] LABS: Anion Gap 15 (12-20); Blood Urea Nitrogen 19 mg/dL (9-16); Calcium 10.2 mg/dL (8.4-10.2); Carbon Dioxide 26 mmol/L (22-29); Chloride 100 mmol/L (96-108); Estimated Glomerular Filt Rate > 60; Potassium 3.8 mmol/L (3.3-5.1); Sodium 137 mmol/L (135-145)
== END 2023-05-10 13:05 | disposition home or self-care (01) ==
LOC: HO.LAB 13:04
PROVIDERS: PCP Internal Medicine; Visit Provider Internal Medicine Hypertension Specialist
DX: I10 Essential (primary) hypertension (principal)
CPT/HCPCS: 36415; 80051; 82310; 82565; 84520

== ENCOUNTER 2023-05-12 13:03 | Outpatient (AMB) | payer OTHER, SELFPAY ==
--- NOTE | 2023-05-12 13:18 | HO.NEPHOV ---
HPI HPI Comments History of Present Illness Details I had the delight of seeing Anh for her proteinuria and hypertension. She has history of lip swelling and her losartan had been discontinued at that time. Her blood pressure control remains labile but her blood sugars had been stable. She does not have any hypoglycemias, chest pain, shortness of breath, paroxysmal nocturnal nocturnal dyspnea, orthopnea, pedal edema, nausea, vomiting, diarrhea or urinary symptoms. All her other systems were reviewed and negative. [facility] Medical History (Updated 05/15/23 @ 21:30 by Danis Denney MD) Non-STEMI (non-ST elevated myocardial infarction) Anal fistula Gallstone Parkinson disease High cholesterol Diabetes HTN (hypertension) Surgical History H/O hemorrhoidectomy History of hysterectomy Family History Sister Malignant neoplasm of breast (female) Social History Alcohol intake: never Patient Tobacco Use Status: Never used Tobacco Vital Signs 05/12/23 13:19 Height 5 ft 3 in Weight 162 lb 8 oz BMI 28.8 BP 152/78 H Blood Pressure Location Lt brachial Position Sitting Pulse 97 Pulse Source Pulse Oximeter Pulse Oximetry (%) 99 Oxygen Delivery Method Room Air Physical Exam Vital Signs: Last Vital Signs Pulse 97 05/12/23 13:19 BP 152/78 H 05/12/23 13:19 Pulse Ox 99 05/12/23 13:19 Oxygen Delivery Method Room Air 05/12/23 13:19 BMI result Body Mass Index 28.8 Const General: comfortable and no acute distress Orientation/consciousness: patient oriented x3 HEENT Head: Yes normocephalic Mouth: Normal oral and palatal mucosa present Eyes EOM: EOMs intact bilaterally Neck Neck: Yes supple Resp Auscultation: clear to auscultation bilaterally Cardio Jugular venous distension: no JVD Rate: regular rate GI Palpation (GI): Soft to palpation Auscultation: normal bowel sounds General: Yes no CVA tenderness Back/Spine/Pelvis Back: no CVA tenderness Skin General skin exam: no rashes or lesions noted Neuro General: patient oriented x3 and moves all extremities Extrem General: Yes no pedal edema Assessment & Plan Assessment & Plan (1) HTN (hypertension): Code(s): I10 - Essential (primary) hypertension Qualifiers: Hypertension type: primary hypertension Qualified Code(s): I10 - Essential (primary) hypertension (2) Proteinuria due to type 2 diabetes mellitus: Code(s): E11.29 - Type 2 diabetes mellitus with other diabetic kidney complication; R80.9 - Proteinuria, unspecified Plan 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 She has proteinuria. Her renal functions are stable. She did not tolerate GREGORY inhibitor in the past and had lip swelling from losartan as well forcing it to be discontinued. Her blood sugar control is better but her blood pressure control is not optimal. I increased her metoprolol to 75 mg twice daily. She should do regular exercise and lose a bit of weight. She will be a good candidate for Jardiance if indicated. She avoids nonsteroidal anti-inflammatories and maintain good hydration. Follow-up urine studies ordered. If her proteinuria worsens she may need a renal biopsy. All questions answered. Follow-up appointment given. Orders: Orders Protein Creatinine Ratio, Ur 05/12/23 I10 - Essential (primary) hypertension Coding Level of Care Code Est Pt Level 4 (70814) Diagnoses Primary hypertension I10 Hypertension type: primary hypertension Proteinuria due to type 2 diabetes mellitus E11.29; R80.9 Results Reviewed Nephrology Results: Sodium 137 mmol/L (135-145) 05/10/23 Potassium 3.8 mmol/L (3.3-5.1) 05/10/23 Chloride 100 mmol/L (96-108) 05/10/23 Carbon Dioxide 26 mmol/L (22-29) 05/10/23 BUN 19 mg/dL (9-16) H 05/10/23 Creatinine 0.80 mg/dL (0.5-1.4) 05/10/23 Calcium 10.2 mg/dL (8.4-10.2) 05/10/23
[2023-05-12 13:19] VITALS: BP 152/78; PULSE 97; O2SAT 99; BMI 28.8
== END 2023-05-12 14:01 | disposition home or self-care (01) ==
PROVIDERS: PCP Family Medicine; Visit Provider Internal Medicine Nephrology
DX: I10 Essential (primary) hypertension (principal); E11.29 Type 2 diabetes mellitus with other diabetic kidney complication; R80.9 Proteinuria, unspecified
CPT/HCPCS: 99214

== ENCOUNTER → 2023-05-12 13:03 | Outpatient (BNVA) | payer OTHER, SELFPAY | PROVIDERS: PCP Family Medicine; Visit Provider Internal Medicine Nephrology | DX: I10 Essential (primary) hypertension (principal); E11.29 Type 2 diabetes mellitus with other diabetic kidney complication; R80.9 Proteinuria, unspecified | CPT/HCPCS: 99212 ==

== ENCOUNTER 2023-06-14 13:36 | Outpatient (REF) | payer OTHER, SELFPAY ==
[2023-06-14 16:07] LABS: Creatinine Urine 160.12 mg/dL; Protein/Creatinine Ratio, Ur 0.16 (<0.2); Total Protein Urine Random 26 mg/dL (<12)
== END 2023-06-14 13:37 | disposition home or self-care (01) ==
LOC: HO.LAB 13:36
PROVIDERS: PCP Internal Medicine; Visit Provider Internal Medicine Nephrology
DX: I10 Essential (primary) hypertension (principal); E11.29 Type 2 diabetes mellitus with other diabetic kidney complication; R80.9 Proteinuria, unspecified
CPT/HCPCS: 82570; 84156; 99212

== ENCOUNTER 2023-06-14 14:01 | Outpatient (AMB) | payer OTHER, SELFPAY ==
[2023-06-14 14:11] VITALS: BP 128/80; PULSE 51; O2SAT 98; BMI 28.8
--- NOTE | 2023-06-14 14:11 | HO.NEPHOV ---
HPI HPI Comments History of Present Illness Details I had the delight of seeing Anh for her proteinuria and hypertension. She has history of lip swelling and her losartan had been discontinued at that time. Her blood pressure control remains labile but her blood sugars had been stable. She does not have any hypoglycemias, chest pain, shortness of breath, paroxysmal nocturnal nocturnal dyspnea, orthopnea, pedal edema, nausea, vomiting, diarrhea or urinary symptoms. All her other systems were reviewed and negative. [facility] Medical History (Updated 05/15/23 @ 21:30 by Danis Denney MD) Non-STEMI (non-ST elevated myocardial infarction) Anal fistula Gallstone Parkinson disease High cholesterol Diabetes HTN (hypertension) Surgical History H/O hemorrhoidectomy History of hysterectomy Family History Sister Malignant neoplasm of breast (female) Social History Alcohol intake: never Patient Tobacco Use Status: Never used Tobacco Vital Signs 06/14/23 14:11 Height 5 ft 3 in Weight 162 lb 6 oz BMI 28.8 BP 128/80 Blood Pressure Location Rt brachial Position Sitting Pulse 51 Pulse Source Pulse Oximeter Pulse Oximetry (%) 98 Oxygen Delivery Method Room Air Physical Exam Vital Signs: Last Vital Signs Pulse 51 06/14/23 14:11 BP 166/80 H 06/14/23 14:11 Pulse Ox 98 06/14/23 14:11 Oxygen Delivery Method Room Air 06/14/23 14:11 BMI result Body Mass Index 28.8 Const General: comfortable and no acute distress Orientation/consciousness: patient oriented x3 HEENT Head: Yes normocephalic Mouth: Normal oral and palatal mucosa present Eyes EOM: EOMs intact bilaterally Neck Neck: Yes supple Resp Auscultation: clear to auscultation bilaterally Cardio Jugular venous distension: no JVD Rate: regular rate GI Palpation (GI): Soft to palpation Auscultation: normal bowel sounds General: Yes no CVA tenderness Back/Spine/Pelvis Back: no CVA tenderness Skin General skin exam: no rashes or lesions noted Neuro General: patient oriented x3 and moves all extremities Extrem General: Yes no pedal edema Assessment & Plan Assessment & Plan (1) Proteinuria due to type 2 diabetes mellitus: Code(s): E11.29 - Type 2 diabetes mellitus with other diabetic kidney complication; R80.9 - Proteinuria, unspecified (2) HTN (hypertension): Code(s): I10 - Essential (primary) hypertension Qualifiers: Hypertension type: primary hypertension Qualified Code(s): I10 - Essential (primary) hypertension Plan 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 She has proteinuria. Her renal functions are stable. She did not tolerate GREGORY inhibitor in the past and had lip swelling from losartan as well forcing it to be discontinued. Her blood sugar control is better but her blood pressure control is not optimal. I increased her metoprolol to 75 mg twice daily and ever since her BP has been at goal. She should do regular exercise and lose a bit of weight. She avoids nonsteroidal anti-inflammatories and maintain good hydration. If her proteinuria worsens she may need a renal biopsy. All questions answered. Follow-up appointment given Coding Level of Care Code Est Pt Level 4 (50089) Diagnoses Proteinuria due to type 2 diabetes mellitus E11.29; R80.9 Primary hypertension I10 Hypertension type: primary hypertension Results Reviewed Nephrology Results: Sodium 137 mmol/L (135-145) 05/10/23 Potassium 3.8 mmol/L (3.3-5.1) 05/10/23 Chloride 100 mmol/L (96-108) 05/10/23 Carbon Dioxide 26 mmol/L (22-29) 05/10/23 BUN 19 mg/dL (9-16) H 05/10/23 Creatinine 0.80 mg/dL (0.5-1.4) 05/10/23 Calcium 10.2 mg/dL (8.4-10.2) 05/10/23
== END 2023-06-14 14:51 | disposition home or self-care (01) ==
PROVIDERS: PCP Family Medicine; Visit Provider Internal Medicine Nephrology
DX: E11.29 Type 2 diabetes mellitus with other diabetic kidney complication (principal); R80.9 Proteinuria, unspecified; I10 Essential (primary) hypertension
CPT/HCPCS: 99214

== ENCOUNTER 2023-09-01 09:24 | Outpatient (REF) | payer OTHER, SELFPAY ==
[2023-09-01 12:36] LABS: Alanine Aminotransferase 12 U/L (0-31); Albumin Level 4.1 g/dL (3.5-5.0); Alkaline Phosphatase 64 U/L (39-117); Anion Gap 12 (12-20); Aspartate Amino Transferase 18 U/L (5-31); Bilirubin Direct 0.1 mg/dL (0.0-0.5); Bilirubin Total 0.3 mg/dL (0.0-1.0); Blood Urea Nitrogen 16 mg/dL (9-16); Calcium 9.4 mg/dL (8.4-10.2); Carbon Dioxide 27 mmol/L (22-29); Chloride 104 mmol/L (96-108); Cholesterol 155 mg/dL (<200); Estimated Glomerular Filt Rate > 60; Glucose Random 115 mg/dL (60-115); HDL Cholesterol 46 mg/dL (>40); LDL Cholesterol Calculated 80 mg/dL (<100); Potassium 4.2 mmol/L (3.3-5.1); Sodium 139 mmol/L (135-145); Total Protein 6.8 g/dL (6.5-8.0); Triglycerides 145 mg/dL (<150)
[2023-09-01 12:55] LABS: Folate 11.5 ng/mL (> or = 4.0); Vitamin B12 393 pg/mL (200-900)
== END 2023-09-01 09:25 | disposition home or self-care (01) ==
LOC: HO.HHCL 09:24
PROVIDERS: Visit Provider Internal Medicine
DX: I10 Essential (primary) hypertension (principal); E11.21 Type 2 diabetes mellitus with diabetic nephropathy; E78.2 Mixed hyperlipidemia
CPT/HCPCS: 36415; 80048; 80061; 80076; 82607; 82746

== ENCOUNTER 2023-09-13 13:43 | Outpatient (AMB) | payer OTHER, SELFPAY ==
[2023-09-13 13:46] VITALS: BP 120/70; PULSE 59; O2SAT 96; BMI 29.7
--- NOTE | 2023-09-13 13:46 | HO.NEPHOV_ITS ---
Vital Signs 09/13/23 13:46 Height 5 ft 3 in Weight 167 lb 8 oz BMI 29.7 BP 120/70 Blood Pressure Location Rt brachial Position Sitting Pulse 59 Pulse Source Pulse Oximeter Pulse Oximetry (%) 96 Oxygen Delivery Method Room Air Intake Visit Reasons: CKD/ LVM Road Design Engineer Required: Yes Road Design Engineer Name: Raine [id number] Accompanied by: Self / Same As Patient Allergies losartan Allergy (Unknown, Verified 09/13/23 13:49) anaphylaxis HPI Comments Details: I had the delight of seeing Anh for her proteinuria and hypertension. She has history of lip swelling and her losartan had been discontinued at that time. Her blood pressure control is good and her blood sugars had been stable. She does not have any hypoglycemias, chest pain, shortness of breath, paroxysmal nocturnal nocturnal dyspnea, orthopnea, pedal edema, nausea, vomiting, diarrhea or urinary symptoms. All her other systems were reviewed and negative. [facility] Medical History (Updated 05/15/23 @ 21:30 by Danis Denney MD) Non-STEMI (non-ST elevated myocardial infarction) Anal fistula Gallstone Parkinson disease High cholesterol Diabetes HTN (hypertension) Surgical History H/O hemorrhoidectomy History of hysterectomy Family History Sister Malignant neoplasm of breast (female) Social History Alcohol intake: never Patient Tobacco Use Status: Never used Tobacco Physical Exam Vital Signs: Last Vital Signs Pulse 59 09/13/23 13:46 BP 170/70 H 09/13/23 13:46 Pulse Ox 96 09/13/23 13:46 Oxygen Delivery Method Room Air 09/13/23 13:46 BMI result Body Mass Index 29.7 Const General: comfortable and no acute distress Orientation/consciousness: patient oriented x3 HEENT Head: Yes normocephalic Mouth: Normal oral and palatal mucosa present Eyes EOM: EOMs intact bilaterally Neck Neck: Yes supple Resp Auscultation: clear to auscultation bilaterally Cardio Jugular venous distension: no JVD Rate: regular rate GI Palpation (GI): Soft to palpation Auscultation: normal bowel sounds General: Yes no CVA tenderness Back/Spine/Pelvis Back: no CVA tenderness Skin General skin exam: no rashes or lesions noted Neuro General: patient oriented x3 and moves all extremities Extrem General: Yes no pedal edema Results Reviewed Nephrology Results: Sodium 139 mmol/L (135-145) 09/01/23 Potassium 4.2 mmol/L (3.3-5.1) 09/01/23 Chloride 104 mmol/L (96-108) 09/01/23 Carbon Dioxide 27 mmol/L (22-29) 09/01/23 BUN 16 mg/dL (9-16) 09/01/23 Creatinine 0.81 mg/dL (0.5-1.4) 09/01/23 Calcium 9.4 mg/dL (8.4-10.2) 09/01/23 Urine Creatinine 160.12 mg/dL 06/14/23 Protein/Creatinin Ratio 0.16 (<0.2) 06/14/23 Assessment & Plan Assessment & Plan (1) Proteinuria due to type 2 diabetes mellitus: Code(s): E11.29 - Type 2 diabetes mellitus with other diabetic kidney complication; R80.9 - Proteinuria, unspecified Category: Medical (2) HTN (hypertension): Code(s): I10 - Essential (primary) hypertension Category: Medical Qualifiers: Hypertension type: primary hypertension Qualified Code(s): I10 - Essential (primary) hypertension Plan 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 She has proteinuria. Her renal functions are stable. She did not tolerate GREGORY inhibitor in the past and had li p swelling from losartan as well forcing it to be discontinued. Her blood sugar control is better but her blood pressure control is not optimal. She should continue current medications to keep her BP at goal. She should do regular exercise and lose a bit of weight. She avoids nonsteroidal anti-inflammatories and maintain good hydration. All questions answered. Follow-up appointment given Orders: Orders Creatinine Today E11.29 - Type 2 diabetes mellitus with other diabetic kidney complication, I10 - Essential (primary) hypertension, R80.9 - Proteinuria, unspecified Blood Urea Nitrogen Today E11.29 - Type 2 diabetes mellitus with other diabetic kidney complication, I10 - Essential (primary) hypertension, R80.9 - Proteinuria, unspecified Electrolytes Today E11.29 - Type 2 diabetes mellitus with other diabetic kidney complication, I10 - Essential (primary) hypertension, R80.9 - Proteinuria, unspecified Protein Creatinine Ratio, Ur Today E11.29 - Type 2 diabetes mellitus with other diabetic kidney complication, I10 - Essential (primary) hypertension, R80.9 - Proteinuria, unspecified Coding Level of Care Code Est Pt Level 4 (56132) Diagnoses Proteinuria due to type 2 diabetes mellitus E11.29; R80.9 Primary hypertension I10 Hypertension type: primary hypertension
== END 2023-09-13 14:00 | disposition home or self-care (01) ==
LOC: HO.HKA 13:53
PROVIDERS: PCP Internal Medicine; Visit Provider Internal Medicine Nephrology
DX: E11.29 Type 2 diabetes mellitus with other diabetic kidney complication (principal); R80.9 Proteinuria, unspecified; I10 Essential (primary) hypertension
CPT/HCPCS: 99214

== ENCOUNTER → 2023-09-13 13:53 | Outpatient (BNVA) | payer OTHER, SELFPAY | PROVIDERS: PCP Internal Medicine; Visit Provider Internal Medicine Nephrology | DX: E11.29 Type 2 diabetes mellitus with other diabetic kidney complication (principal); I10 Essential (primary) hypertension; R80.9 Proteinuria, unspecified | CPT/HCPCS: 99212 ==

== ENCOUNTER 2023-10-16 14:51 | Emergency (ER) | payer OTHER, SELFPAY ==
[2023-10-16 15:01] VITALS: BP 154/68; PULSE 103; O2SAT 97
--- NOTE | 2023-10-16 15:04 | ECG_ITS ---
Test Reason : CHEST PAIN Blood Pressure : / mmHG Vent. Rate : 088 BPM Atrial Rate : 088 BPM P-R Int : 182 ms QRS Dur : 140 ms QT Int : 404 ms P-R-T Axes : 036 -39 000 degrees QTc Int : 488 ms Normal sinus rhythm Possible Left atrial enlargement Left axis deviation Right bundle branch block Minimal voltage criteria for LVH, may be normal variant ( R in aVL ) Abnormal ECG When compared with ECG of 13-NOV-2020 21:33, No significant change was found Referred By: Generic ED Physician Electronically Signed By:PHIL MENDOZA MD
[2023-10-16 15:20] VITALS: BP 151/62; PULSE 88; RESP 16; TEMP 36.4; O2SAT 98; BMI 30.5
--- NOTE | 2023-10-16 15:20 | ED.GENADULT ---
HPI - General Adult General Chief complaint: Arrhythmia/Palpitations Stated complaint: L EAR PAIN, DANISH SPEAKING PER EMS Related Data Home Medications ?Medication ?Instructions ?Recorded ?Confirmed ascorbate calcium (vitamin C) 500 500 mg PO DAILY 10/19/20 mg tablet aspirin 81 mg tablet,delayed 81 mg PO DAILY 10/19/20 release blood sugar diagnostic #10 ea 10/19/20 blood-glucose meter #1 ea 10/19/20 cholecalciferol (vitamin D3) 50 50 mcg PO DAILY 10/19/20 mcg (2,000 unit) capsule clonazepam 0.5 mg tablet 0.5 mg PO BEDTIME 10/19/20 econazole 1 % topical cream appl topical 10/19/20 fluvastatin 80 mg tablet,extended 80 mg PO BEDTIME 10/19/20 release 24 hr hydrocortisone 2.5 % topical cream 1 appl topical BID PRN 10/19/20 lancets 28 gauge #100 ea 10/19/20 metformin 1,000 mg tablet 1,000 mg PO BID 10/19/20 pantoprazole 40 mg tablet,delayed 40 mg PO DAILY 10/19/20 release polyvinyl alcohol 1.4 % eye drops 1 drp ophthalmic (eye) BID-QID PRN 10/19/20 (Artificial Tears (polyvinyl alcohol)) pramipexole 0.25 mg tablet 0.25 mg PO TID 10/19/20 pregabalin 100 mg capsule 100 mg PO BID 10/19/20 triamcinolone acetonide 0.1 % 1 appl topical BID-TID 10/19/20 topical ointment trihexyphenidyl 2 mg tablet 2 mg PO BID 10/19/20 hydrochlorothiazide 25 mg tablet 25 mg PO DAILY 08/31/21 mupirocin 2 % topical ointment otic (ear) right TID 08/31/21 naproxen 500 mg tablet 500 mg PO BID PRN pain 08/31/21 omega-3 acid ethyl esters 1 gram 2 cap PO BID 08/31/21 capsule hydralazine 50 mg tablet 50 mg PO BID 05/12/23 metoprolol succinate 50 mg 75 mg PO BID 05/12/23 05/12/23 tablet,extended release 24 hr Previous Rx's ?Medication ?Instructions ?Recorded cyclobenzaprine 10 mg tablet 10 mg PO TID PRN muscle spasm #14 11/13/20 tabs lidocaine 4 % topical patch 1 patch topical DAILY PRN pain #10 11/13/20 ea acetaminophen 500 mg capsule 500 mg PO Q6H PRN pain #14 caps 08/08/22 Allergies Allergy/AdvReac Type Severity Reaction Status Date / Time losartan Allergy Unknown anaphylaxis Verified 10/16/23 15:20 [facility] Past Medical History Medical History (Updated 10/22/23 @ 11:21 by RAMON Gerard) Non-STEMI (non-ST elevated myocardial infarction) Anal fistula Gallstone Parkinson disease High cholesterol Diabetes HTN (hypertension) Surgical History H/O hemorrhoidectomy History of hysterectomy Family History Family History Sister Malignant neoplasm of breast (female) Social History Social History Alcohol intake: never Patient Tobacco Use Status: Never used Tobacco Physical Exam ED Vital Signs: BMI result Body Mass Index 30.5 Course Course Course Narrative: This is a Rapid Medical Exam performed in triage by Key Salazar PA-C. Full HPI, ROS and PE to be performed by primary ED provider. 73 year-old F w/ PMHx NSTEMI, diabetes, HTN, Parkinson's, presenting to the ED via EMS from [facility] for EKG changes noted on EKG in office [employer] w/ palpitations and chest pressure. admits to intermittent LLQ abd pain x1 mos. pt denies CP at present. Given ASA by EMS PE: abdomen soft & nontender, comfortable, ambulating w/steady gait Plan: EKG, labs Medical Decision Making Lab Data 10/16/23 18:00 10/16/23 18:00 Labs: Lab Results 10/16/23 Range/Units 18:00 WBC 10.4 (4.8-10.8) X10*3/uL RBC 4.70 (4.20-5.50) X10*6/uL Hgb 12.3 (12.0-16.0) g/dl Hct 37.4 (37.0-47.0) % MCV 79.6 L (80.0-98.0) fL MCH 26.2 L (27.0-33.0) pg MCHC 32.9 (31.0-35.0) g/dl RDW 14.6 (11.0-16.0) % Plt Count 393 (160-400) X10*3/uL MPV 9.8 (9.4-12.3) fL Immature Gran % (Auto) 0.4 (0.0-0.4) % Neut % (Auto) 77.0 H (45-73) % Lymph % (Auto) 16.8 L (20-40) % [place] % (Auto) 4.1 (2-11) % Eos % (Auto) 0.4 (0-4) % Baso % (Auto) 1.3 (0-2) % Lymph # (Auto) 1.7 (1.2-4.9) X10*3/uL [place] # (Auto) 0.4 (0.1-1.2) X10*3/uL Eos # (Auto) 0.0 (0.0-0.4) X10*3/uL Baso # (Auto) 0.1 (0.0-0.2) X10*3/uL Abs Immat Gran (auto) 0.04 H (0.00-0.03) X10*3/uL Absolute Neuts (auto) 8.0 (2.0-8.3) x10*3/uL Absolute Nucleated RBC 0.000 (0.0-0.012) X10*3/uL Nucleated RBC % (auto) 0.0 (0.0-0.2) /100WBC Sodium 138 (135-145) mmol/L Potassium 4.1 (3.3-5.1) mmol/L Chloride 102 (96-108) mmol/L Carbon Dioxide 24 (22-29) mmol/L Anion Gap 16 (12-20) BUN 18 H (9-16) mg/dL Creatinine 0.78 (0.5-1.4) mg/dL Estim Creat Clear Calc 62.1 Estimated GFR > 60 Random Glucose 172 H (60-115) mg/dL Calcium 10.3 H D (8.4-10.2) mg/dL Magnesium 1.8 (1.6-2.6) mg/dL Total Bilirubin 0.3 (0.0-1.0) mg/dL Direct Bilirubin 0.1 (0.0-0.5) mg/dL AST 25 (5-31) U/L ALT 16 (0-31) U/L Alkaline Phosphatase 75 (39-117) U/L B-Natriuretic Peptide 54 (<100) pg/mL Total Protein 7.4 (6.5-8.0) g/dL Albumin 4.4 (3.5-5.0) g/dL Lipase 31 (8-78) U/L Discharge Plan Discharge Clinical Impression: Palpitations Patient Disposition: Left W/O Completing Treatment Prescriptions: No Action cyclobenzaprine 10 mg tablet 10 mg PO TID PRN (Reason: muscle spasm) Qty: 14 0RF lidocaine 4 % adhesive patch,medicated 1 patch topical DAILY PRN (Reason: pain) Qty: 10 0RF Rx Instructions: may leave on for up to 12 hrs acetaminophen 500 mg capsule 500 mg PO Q6H PRN (Reason: pain) Qty: 14 0RF (DME) FreeStyle Lite Strips Strip See Rx Instructions Not Applicable BID Qty: 10 Rx Instructions: As directed trihexyphenidyl 2 mg tablet 2 mg PO BID aspirin 81 mg tablet,delayed release (DR/EC) 81 mg PO DAILY ascorbate calcium (vitamin C) 500 mg tablet 500 mg PO DAILY pantoprazole 40 mg tablet,delayed release (DR/EC) 40 mg PO DAILY cholecalciferol (vitamin D3) 50 mcg (2,000 unit) capsule 50 mcg PO DAILY pregabalin 100 mg capsule 100 mg PO BID pramipexole 0.25 mg tablet 0.25 mg PO TID hydrocortisone 2.5 % cream 1 appl topical BID PRN triamcinolone acetonide 0.1 % ointment 1 appl topical BID-TID econazole 1 % cream topical polyvinyl alcohol [Artificial Tears (polyvin alc)] 1.4 % drops 1 drp ophthalmic (eye) BID-QID PRN clonazepam 0.5 mg tablet 0.5 mg PO BEDTIME fluvastatin 80 mg tablet extended release 24 hr 80 mg PO BEDTIME (DME) blood-glucose meter Kit See Rx Instructions .ROUTE DIRECTED Qty: 1 Rx Instructions: As directed (DME) lancets 28 gauge misc See Rx Instructions topical BID Qty: 100 Rx Instructions: As directed metformin 1,000 mg tablet 1,000 mg PO BID mupirocin 2 % ointment otic (ear) right TID omega-3 acid ethyl esters 1 gram capsule 2 cap PO BID naproxen 500 mg tablet 500 mg PO BID PRN (Reason: pain) hydrochlorothiazide 25 mg tablet 25 mg PO DAILY hydralazine 50 mg tablet 50 mg PO BID metoprolol succinate 50 mg tablet extended release 24 hr 75 mg PO BID Discharge Date/Time: 10/16/23 20:13
[2023-10-16 18:28] LABS: MANUAL DIFF FLAG NO
[2023-10-16 18:49] LABS: Basophils Absolute Auto 0.1 X10*3/uL (0.0-0.2); Basophils Percent Auto 1.3 % (0-2); Eosinophils Percent Auto 0.4 % (0-4); Hematocrit 37.4 % (37.0-47.0); Hemoglobin 12.3 g/dl (12.0-16.0); Imm Gran Abs Auto 0.04 X10*3/uL (0.00-0.03); Imm Gran Pct Auto 0.4 % (0.0-0.4); Lymphocytes Absolute Auto 1.7 X10*3/uL (1.2-4.9); Lymphocytes Percent Auto 16.8 % (20-40); Mean Corpuscular HGB Conc 32.9 g/dl (31.0-35.0); Mean Corpuscular Hemoglobin 26.2 pg (27.0-33.0); Mean Corpuscular Volume 79.6 fL (80.0-98.0); Mean Platelet Volume 9.8 fL (9.4-12.3); Monocytes Absolute Auto 0.4 X10*3/uL (0.1-1.2); Monocytes Percent Auto 4.1 % (2-11); Platelet Count 393 X10*3/uL (160-400); Red Cell Distribution Width 14.6 % (11.0-16.0); White Blood Count 10.4 X10*3/uL (4.8-10.8)
[2023-10-16 18:52] LABS: Alanine Aminotransferase 16 U/L (0-31); Albumin Level 4.4 g/dL (3.5-5.0); Alkaline Phosphatase 75 U/L (39-117); Anion Gap 16 (12-20); Aspartate Amino Transferase 25 U/L (5-31); Bilirubin Direct 0.1 mg/dL (0.0-0.5); Bilirubin Total 0.3 mg/dL (0.0-1.0); Blood Urea Nitrogen 18 mg/dL (9-16); Calcium 10.3 mg/dL (8.4-10.2); Carbon Dioxide 24 mmol/L (22-29); Chloride 102 mmol/L (96-108); Creatinine Clr Calc Pharmacy 62.1; Estimated Glomerular Filt Rate > 60; Glucose Random 172 mg/dL (60-115); Lipase 31 U/L (8-78); Magnesium 1.8 mg/dL (1.6-2.6); Potassium 4.1 mmol/L (3.3-5.1); Sodium 138 mmol/L (135-145); Total Protein 7.4 g/dL (6.5-8.0)
[2023-10-16 18:55] LABS: B Type Natriuretic Peptide 54 pg/mL (<100)
--- NOTE | 2023-10-16 20:12 | PC.NURSE ---
per family pt looked up her results on the portal and then left.
== END 2023-10-16 20:13 | disposition left against medical advice (07) ==
PROVIDERS: Physician Assistant; Emergency Provider Emergency Medicine
DX: R00.2 Palpitations (principal); I49.9 Cardiac arrhythmia, unspecified; H92.02 Otalgia, left ear; R06.02 Shortness of breath; R10.32 Left lower quadrant pain; I10 Essential (primary) hypertension; Z79.899 Other long term (current) drug therapy
CPT/HCPCS: 36415; 80048; 80076; 83690; 83735; 83880; 85025; 93005; 99283

== ENCOUNTER → 2023-10-16 15:04 | Outpatient (BNV) | payer OTHER, SELFPAY | PROVIDERS: Emergency Provider Emergency Medicine; Visit Provider Internal Medicine Cardiovascular Disease | DX: R07.9 Chest pain, unspecified (principal); R94.31 Abnormal electrocardiogram [ECG] [EKG]; I45.10 Unspecified right bundle-branch block | CPT/HCPCS: 93010 ==

== ENCOUNTER 2023-10-20 17:13 | Outpatient (REF) | payer OTHER, SELFPAY | END 2023-10-20 17:14 | disposition home or self-care (01) | LOC: HO.HHCLNP 17:13 | PROVIDERS: Visit Provider Internal Medicine | DX: R39.9 Unspecified symptoms and signs involving the genitourinary system (principal) | CPT/HCPCS: 87086 ==

== ENCOUNTER 2023-11-03 17:14 | Inpatient (IN) | payer OTHER, SELFPAY ==
--- NOTE | ~2023-11-03 | XR_ITS ---
EXAMINATION: XR CHEST CLINICAL INFORMATION: Chest pain. COMPARISON: Chest radiograph dated 11/13/2020. TECHNIQUE: Frontal view of the chest was obtained. FINDINGS: The cardiac silhouette is normal in size. The lungs are clear. No pleural effusion. No pneumothorax. No acute osseous abnormality. XR/XR chest 1V IMPRESSION: Stable appearance of the heart and lungs. No active disease.
[2023-11-03 17:26] VITALS: BP 125/51; BP 140/60; PULSE 81; PULSE 84; RESP 20; TEMP 37; O2SAT 92; O2SAT 94; BMI 30.1
--- NOTE | 2023-11-03 17:26 | ED.SOB ---
HPI - SOB/Dyspnea General Chief Complaint: Allergic Reaction Stated Complaint: possible allergic reaction to med, rash/redness Time Seen by Provider: 11/03/23 17:18 History of Present Illness HPI Narrative: Patient is a 73-year-old female with a history of NSTEMI history of diabetes history of PE, hypertension hypercholesterolemia recent history of urinary tract infection was started on Macrobid about a week ago. Presented today with having diffuse rash over the last few days. There is no mucosal membrane involvement. It is red it is over the arm over the legs. Over the chest. No fever no chills. No nausea no vomiting Related Data Home Medications ?Medication ?Instructions ?Recorded ?Confirmed ascorbate calcium (vitamin C) 500 500 mg PO DAILY 10/19/20 mg tablet aspirin 81 mg tablet,delayed 81 mg PO DAILY 10/19/20 release blood sugar diagnostic #10 ea 10/19/20 blood-glucose meter #1 ea 10/19/20 cholecalciferol (vitamin D3) 50 50 mcg PO DAILY 10/19/20 mcg (2,000 unit) capsule clonazepam 0.5 mg tablet 0.5 mg PO BEDTIME 10/19/20 econazole 1 % topical cream appl topical 10/19/20 fluvastatin 80 mg tablet,extended 80 mg PO BEDTIME 10/19/20 release 24 hr hydrocortisone 2.5 % topical cream 1 appl topical BID PRN 10/19/20 lancets 28 gauge #100 ea 10/19/20 metformin 1,000 mg tablet 1,000 mg PO BID 10/19/20 pantoprazole 40 mg tablet,delayed 40 mg PO DAILY 10/19/20 release polyvinyl alcohol 1.4 % eye drops 1 drp ophthalmic (eye) BID-QID PRN 10/19/20 (Artificial Tears (polyvinyl alcohol)) pramipexole 0.25 mg tablet 0.25 mg PO TID 10/19/20 pregabalin 100 mg capsule 100 mg PO BID 10/19/20 triamcinolone acetonide 0.1 % 1 appl topical BID-TID 10/19/20 topical ointment trihexyphenidyl 2 mg tablet 2 mg PO BID 10/19/20 hydrochlorothiazide 25 mg tablet 25 mg PO DAILY 08/31/21 mupirocin 2 % topical ointment otic (ear) right TID 08/31/21 naproxen 500 mg tablet 500 mg PO BID PRN pain 08/31/21 omega-3 acid ethyl esters 1 gram 2 cap PO BID 08/31/21 capsule hydralazine 50 mg tablet 50 mg PO BID 05/12/23 metoprolol succinate 50 mg 75 mg PO BID 05/12/23 05/12/23 tablet,extended release 24 hr Previous Rx's ?Medication ?Instructions ?Recorded cyclobenzaprine 10 mg tablet 10 mg PO TID PRN muscle spasm #14 11/13/20 tabs lidocaine 4 % topical patch 1 patch topical DAILY PRN pain #10 11/13/20 ea acetaminophen 500 mg capsule 500 mg PO Q6H PRN pain #14 caps 08/08/22 Allergies Allergy/AdvReac Type Severity Reaction Status Date / Time losartan Allergy Unknown anaphylaxis Verified 11/03/23 17:28 Review of Systems Review of Systems: Positive itchiness, positive rash Yes all other systems are reviewed and are negative [facility] Past Medical History Attestation statement: The following information was validated with the patient. Medical History Non-STEMI (non-ST elevated myocardial infarction) Anal fistula Gallstone Parkinson disease High cholesterol Diabetes HTN (hypertension) Surgical History H/O hemorrhoidectomy History of hysterectomy Family History Family History Sister Malignant neoplasm of breast (female) Social History Social History Alcohol intake: never Patient Tobacco Use Status: Never used Tobacco Smoked in Last 30 Days: No Use of substances other than those prescribed or required for medical reasons: No Advance Directives: No Advance Directives Information Provided: No Do you have a plan to hurt others: No Plan Physical Exam Vital Signs: Vital Signs: Last Vital Signs Temp 97.5 F 11/03/23 19:34 Pulse 63 11/03/23 19:34 Resp 20 11/03/23 19:34 BP 131/43 L 11/03/23 19:34 Pulse Ox 97 11/03/23 19:34 O2 Del Method Room Air 11/03/23 19:34 BMI result Body Mass Index 30.1 Appearance: Alert. Oriented X3. No acute distress. Eyes: Pupils equal, round and reactive to light. ENT: Pharynx normal. Neck: Normal inspection. Neck supple. No lymph nodes noted. No crepitus CVS: Normal heart rate and rhythm. Pulses normal. Normal S1 and S2 Respiratory: No respiratory distress. Breath sounds normal. No Wheezing. No rales Abdomen: Soft and nontender. No rigidity. No distention. good BS x4 Skin: Diffuse erythematous blanching rash over the arms legs. No mucosal membrane involvement Extremities: No lower extremity edema. Neurovascular intact to all extremities. No Lacerations. No Rash Neuro: Oriented X 3. No motor deficit. No sensory deficit. Moving all extermities. No slurred speech Medications Administered Discontinued Medications Generic Name Dose Route Start Last Admin Trade Name Freq PRN Reason Stop Dose Admin Diphenhydramine HCl 25 mg 11/03/23 17:25 11/03/23 18:21 Diphenhydramine Hcl 50 Mg/Ml Vial IVPUSH 11/03/23 17:26 25 mg ONCE ONE Administration Famotidine 20 mg 11/03/23 17:25 11/03/23 18:21 Famotidine/Pf 20 Mg/2 Ml Vial IVPUSH 11/03/23 17:26 20 mg ONCE ONE Administration Sodium Chloride 500 mls @ 999 mls/hr 11/03/23 17:30 11/03/23 18:20 Ns IV 11/03/23 18:00 999 mls/hr .Q31M ANMOL Administration Sodium Chloride 1,000 mls @ 999 mls/hr 11/03/23 18:30 11/03/23 19:41 Ns IV 11/03/23 19:30 999 mls/hr .Q1H1M ANMOL Administration Ceftriaxone Sodium 2 gm/ 50 mls @ 100 mls/hr 11/03/23 19:15 11/03/23 19:42 Sodium Chloride IV 11/03/23 19:44 100 mls/hr ONCE ONE Administration Methylprednisolone Sodium Succinate 125 mg 11/03/23 17:25 11/03/23 18:21 Methylprednisolone Sod Succ 125 Mg/2 Ml Vial IVPUSH 11/03/23 17:26 125 mg ONCE ONE Administration Potassium Chloride 40 meq 11/03/23 18:53 11/03/23 19:30 Potassium Chloride Packet 20 Meq Packet PO 11/03/23 18:54 20 meq ONCE ONE Administration Medical Decision Making Medical Decision Making [facility] Narrative: Initially the history was patient was recently on antibiotic for urinary tract infection namely Macrobid. After being on the medication for about 6 days she developed a erythematous rash over her body. There has no mucosal membrane involvement. Initially we gave the patient steroids Benadryl Pepcid for a possible allergic reaction. Daughter arrived stated that the patient actually had a fever earlier. There was no fever detected in the emergency department. Her labs returned with a white count of 12. What is more worrisome she had a bandemia of 20%. Question etiology. Her urine was clean there has no signs of infection. Patient's chest x-ray showed no focal infiltrate. Her lactate is normal there has no evidence for severe sepsis. Patient was started on 30 cc/kilos IV fluids. Cultures are obtained. A dose of Rocephin was given. Additional test for babesiosis ehrlichiosis and Lyme was sent. Patient to be admitted for further evaluation and monitoring. Case discussed with the hospitalist team. Patient has no headache no neck pain no signs of meningitis. In addition patient's magnesium is low at 1.5. 2 g of magnesium was loaded. Patient's K is 2.9. Repleted with IV and p.o. potassium. Will recheck. Differential Diagnosis Differential Diagnoses: The differential diagnosis associated with the presentation includes Bacteremia, urinary tract infection, pneumonia, meningitis Lab Data [facility] Lab Attestation statement: I reviewed the patient's lab results. 11/03/23 18:13 11/03/23 18:13 Labs: Lab Results 11/03/23 11/03/23 11/03/23 Range/Units 18:13 19:14 19:32 WBC 12.0 H (4.8-10.8) X10*3/uL RBC 4.21 (4.20-5.50) X10*6/uL Hgb 11.1 L (12.0-16.0) g/dl Hct 33.0 L (37.0-47.0) % MCV 78.4 L (80.0-98.0) fL MCH 26.4 L (27.0-33.0) pg MCHC 33.6 (31.0-35.0) g/dl RDW 14.1 (11.0-16.0) % Plt Count 296 (160-400) X10*3/uL MPV 9.6 (9.4-12.3) fL Immature Gran % (Auto) Cancelled Neut % (Auto) Cancelled Lymph % (Auto) Cancelled [place] % (Auto) Cancelled Eos % (Auto) Cancelled Baso % (Auto) Cancelled Lymph # (Auto) Cancelled [place] # (Auto) Cancelled Eos # (Auto) Cancelled Baso # (Auto) Cancelled Abs Immat Gran (auto) Cancelled Absolute Neuts (auto) Cancelled Absolute Nucleated RBC 0.000 (0.0-0.012) X10*3/uL Nucleated RBC % (auto) 0.0 (0.0-0.2) /100WBC Neutrophils % (Manual) 69 (45-73) % Band Neutrophils % 21 H (3-5) % Lymphocytes % (Manual) 4 L (20-40) % Monocytes % (Manual) 2 (2-11) % Eosinophils % (Manual) 3 (0-4) % Basophils % (Manual) 1 (0-2) % Abs Neuts (Manual) 10.8 H (2.0-8.3) X10*3/uL Lymphocytes # (Manual) 0.5 L (1.2-4.9) X10*3/uL Monocytes # (Manual) 0.2 (0.1-1.2) X10*3/uL Eosinophils # (Manual) 0.4 (0.0-0.4) X10*3/uL Basophils # (Manual) 0.1 (0.0-0.2) X10*3/uL Toxic Vacuolation PRESENT Platelet Estimate NORMAL (NORMAL) Plt Morphology Comment NORMAL RBC Morphology NORMAL Smear Tech's Comments MANUAL DIFF Sodium 136 (135-145) mmol/L Potassium 2.9 L* D (3.3-5.1) mmol/L Chloride 95 L (96-108) mmol/L Carbon Dioxide 26 (22-29) mmol/L Anion Gap 18 (12-20) BUN 15 (9-16) mg/dL Creatinine 0.72 (0.5-1.4) mg/dL Estim Creat Clear Calc 66.8 Estimated GFR > 60 Random Glucose 206 H (60-115) mg/dL Lactic Acid 1.4 (0.5-2.0) mmol/L Calcium 8.7 D (8.4-10.2) mg/dL Magnesium 1.5 L (1.6-2.6) mg/dL Total Bilirubin 0.4 (0.0-1.0) mg/dL Direct Bilirubin 0.1 (0.0-0.5) mg/dL AST 21 (5-31) U/L ALT 17 (0-31) U/L Alkaline Phosphatase 57 (39-117) U/L Total Protein 6.3 L (6.5-8.0) g/dL Albumin 3.7 (3.5-5.0) g/dL Urine Color Yellow Urine Appearance Clear Urine pH 6.5 (5.0-9.0) Ur Specific [place] 1.010 (1.005-1.025) Urine Protein Negative (Neg-Trace) mg/dL Urine Glucose (UA) Negative (Negative) mg/dL Urine Ketones Negative (Negative) mg/dL Urine Blood Negative (Negative) Urine Nitrite Negative (Negative) Ur Leukocyte Esterase Trace H (Negative) Urine RBC 0-2 (0-2) /HPF Urine WBC 0-5 (0-5) /HPF Ur Squamous Epith Cells 0-2 (0-2) /HPF Urine Bacteria None Seen (None Seen) Hyaline Casts 0-2 (0-2) /LPF Influenza Type A (PCR) NEGATIVE (Negative) Influenza Type B (PCR) NEGATIVE (Negative) RSV RNA Qual (PCR) NEGATIVE (Negative) SARS-CoV-2 RNA (RT-PCR) NEGATIVE (Negative) Independent Interpretation I performed an independent interpretation of an: Plain X-Ray (Chest x-ray was negative for pneumonia no pneumothorax.) Chronic Conditions History of urinary tract infection history of hypertension hypercholesterolemia Discharge Plan Discharge Clinical Impression: Bandemia without diagnosis of specific infection, Hypomagnesemia, Acute hypokalemia Patient Disposition: Admitted As Inpatient Prescriptions: No Action cyclobenzaprine 10 mg tablet 10 mg PO TID PRN (Reason: muscle spasm) Qty: 14 0RF lidocaine 4 % adhesive patch,medicated 1 patch topical DAILY PRN (Reason: pain) Qty: 10 0RF Rx Instructions: may leave on for up to 12 hrs acetaminophen 500 mg capsule 500 mg PO Q6H PRN (Reason: pain) Qty: 14 0RF (DME) FreeStyle Lite Strips Strip See Rx Instructions Not Applicable BID Qty: 10 Rx Instructions: As directed trihexyphenidyl 2 mg tablet 2 mg PO BID aspirin 81 mg tablet,delayed release (DR/EC) 81 mg PO DAILY ascorbate calcium (vitamin C) 500 mg tablet 500 mg PO DAILY pantoprazole 40 mg tablet,delayed release (DR/EC) 40 mg PO DAILY cholecalciferol (vitamin D3) 50 mcg (2,000 unit) capsule 50 mcg PO DAILY pregabalin 100 mg capsule 100 mg PO BID pramipexole 0.25 mg tablet 0.25 mg PO TID hydrocortisone 2.5 % cream 1 appl topical BID PRN triamcinolone acetonide 0.1 % ointment 1 appl topical BID-TID econazole 1 % cream topical polyvinyl alcohol [Artificial Tears (polyvin alc)] 1.4 % drops 1 drp ophthalmic (eye) BID-QID PRN clonazepam 0.5 mg tablet 0.5 mg PO BEDTIME fluvastatin 80 mg tablet extended release 24 hr 80 mg PO BEDTIME (DME) blood-glucose meter Kit See Rx Instructions .ROUTE DIRECTED Qty: 1 Rx Instructions: As directed (DME) lancets 28 gauge misc See Rx Instructions topical BID Qty: 100 Rx Instructions: As directed metformin 1,000 mg tablet 1,000 mg PO BID mupirocin 2 % ointment otic (ear) right TID omega-3 acid ethyl esters 1 gram capsule 2 cap PO BID naproxen 500 mg tablet 500 mg PO BID PRN (Reason: pain) hydrochlorothiazide 25 mg tablet 25 mg PO DAILY hydralazine 50 mg tablet 50 mg PO BID metoprolol succinate 50 mg tablet extended release 24 hr 75 mg PO BID Print Language: Austrian
[2023-11-03 18:20] LABS: Hemoglobin 11.1 g/dl (12.0-16.0); Mean Corpuscular HGB Conc 33.6 g/dl (31.0-35.0); Mean Corpuscular Hemoglobin 26.4 pg (27.0-33.0); Mean Corpuscular Volume 78.4 fL (80.0-98.0); Mean Platelet Volume 9.6 fL (9.4-12.3); Platelet Count 296 X10*3/uL (160-400); Red Blood Count 4.21 X10*6/uL (4.20-5.50); Red Cell Distribution Width 14.1 % (11.0-16.0)
[2023-11-03] MEDS: 0.9 % Sodium Chloride 500 ML 999 ML IV (18:20)
[2023-11-03] MEDS: methylPREDNISolone Sod Succ 125 MG/2 ML VIAL IVPUSH (18:21)
[2023-11-03] MEDS: Famotidine/PF 20 MG/2 ML VIAL IVPUSH (18:21)
[2023-11-03] MEDS: diphenhydrAMINE HCL 50 MG/ML VIAL 25 MG IVPUSH (18:21)
[2023-11-03 18:28] VITALS: BP 124/49; PULSE 70; RESP 24; TEMP 36.9; O2SAT 97
[2023-11-03 18:48] LABS: Alanine Aminotransferase 17 U/L (0-31); Albumin Level 3.7 g/dL (3.5-5.0); Alkaline Phosphatase 57 U/L (39-117); Anion Gap 18 (12-20); Aspartate Amino Transferase 21 U/L (5-31); Bilirubin Direct 0.1 mg/dL (0.0-0.5); Bilirubin Total 0.4 mg/dL (0.0-1.0); Blood Urea Nitrogen 15 mg/dL (9-16); Calcium 8.7 mg/dL (8.4-10.2); Carbon Dioxide 26 mmol/L (22-29); Chloride 95 mmol/L (96-108); Creatinine Clr Calc Pharmacy 66.8; Estimated Glomerular Filt Rate > 60; Glucose Random 206 mg/dL (60-115); Potassium 2.9 mmol/L (3.3-5.1); Sodium 136 mmol/L (135-145); Total Protein 6.3 g/dL (6.5-8.0)
[2023-11-03 19:06] LABS: SLIDE REVIEW MANUAL DIFF
[2023-11-03 19:12] LABS: Neutrophils Percent Manual 69 % (45-73)
[2023-11-03 19:15] LABS: Band Neutrophils Percent 21 % (3-5); Basophils Abs Manual 0.1 X10*3/uL (0.0-0.2); Basophils Percent Manual 1 % (0-2); Eosinophils Absolute Manual 0.4 X10*3/uL (0.0-0.4); Eosinophils Percent Manual 3 % (0-4); Lymphocytes Absolute Manual 0.5 X10*3/uL (1.2-4.9); Lymphocytes Percent Manual 4 % (20-40); Monocytes Absolute Manual 0.2 X10*3/uL (0.1-1.2); Monocytes Percent Manual 2 % (2-11); Neutrophils Absolute Manual 10.8 X10*3/uL (2.0-8.3)
[2023-11-03 19:16] LABS: RBC Morphology NORMAL; Toxic Vacuolation PRESENT
[2023-11-03 19:17] LABS: Platelet Estimate NORMAL (NORMAL); Platelet Morphology Comment NORMAL
[2023-11-03 19:21] LABS: Magnesium 1.5 mg/dL (1.6-2.6)
[2023-11-03] MEDS: Potassium Chloride/H20 10 MEQ/100 ML PIGGYBACK 100 MEQ IV (19:30)
[2023-11-03] MEDS: Potassium Chloride Packet 20 MEQ PACKET 40 MEQ PO (19:30)
[2023-11-03 19:34] VITALS: BP 131/43; PULSE 63; RESP 20; TEMP 36.4; O2SAT 97
[2023-11-03 19:35] LABS: Lactic Acid 1.4 mmol/L (0.5-2.0)
[2023-11-03] MEDS: 0.9 % Sodium Chloride 1,000 ML 999 ML IV (19:41)
[2023-11-03 19:42] LABS: Appearance Urine Clear; Color Urine Yellow; Glucose Urine UA Negative (Negative); Leukocyte Esterase Urine Trace (Negative); Nitrite Urine Negative (Negative); PH 6.5 (5.0-9.0); UMIC TRIGGER UACC YES; Urine Blood Negative (Negative); Urine Ketones Negative (Negative); Urine Protein Negative (Neg-Trace)
[2023-11-03] MEDS: Magnesium Sulfate/H2O 2 GM/50 ML PIGGYBACK IV (19:42)
[2023-11-03] MEDS: cefTRIAXone sodium 2 GM in 0.9 % Sodium Chloride 50 ML IV (19:42)
[2023-11-03 19:45] LABS: Bacteria Urine None Seen (None Seen); Hyaline Casts Urine 0-2 /LPF (0-2); RBC Urine 0-2 /HPF (0-2); Squamous Epithelial Cell Urine 0-2 /HPF (0-2); WBC Urine 0-5 /HPF (0-5)
[2023-11-03 20:00] LABS: Influenza A PCR NEGATIVE (Negative); Influenza B PCR NEGATIVE (Negative); Resp Syncy Virus RNA Qual PCR NEGATIVE (Negative); SARS COV2 PCR INHOUSE NEGATIVE (Negative)
--- NOTE | 2023-11-03 20:54 | PM.IMHP ---
History of Present Illness Date of Service: 11/03/23 Attending physician on admission: Phu Livingston Chief Complaint: Generalized weakness Anh Scanlon is a 73 years old with past medical history significant for type 2 diabetes, essential hypertension and hyperlipidemia presents to the emergency department complaining of generalized weakness over the last couple of days associated with nausea, vomiting, fever of 104 poor appetite since last Monday. Denies diarrhea, pain with urination or abdominal pain. She also complain of headache a nonpruritic rash involving all her extremities and upper back (sparing chest, abdomen and face). On Monday she was bathing in a hotel pool. On October 19 of this year she received a prescription for nitrofurantoin 100 mg p.o. t.i.d. X 7 days for a presumed UTI (urine culture 10/18/23 - no growth). She stated that initially she was taking the medication twice day for couple of days but then decided to take it once a day. She still have 2 pills that she has not taken. She denied any acute cardiopulmonary or genitourinary symptoms. She denies contact with sick people. Denied tobacco smoking, alcohol abuse or illicit drug use. In the ED, she was found to have stable vital signs. Blood workup showed leukocytosis of 12.0 and bandemia 21%. There is no lactic acidosis. Hemoglobin is 11.1 which is at baseline. There is no thrombocytopenia. There is hypokalemia of 2.9 but no other electrolyte imbalances or metabolic acidosis. Renal function and LFTs are normal. Urinalysis was not consistent with urinary tract infection. Viral testing for COVID-19, influenza RSV is negative. CXR is negative. ED tx: NS 2 L bolus, KCl 40 mEq p.o. and IV, metoprolol 25 mg p.o., Solu-Medrol 125 mg IV, famotidine 20 mg IV, ceftriaxone 2 g IV, magnesium 2 g IV Review of Systems Review of Systems: All 12 systems were reviewed and normal except as noted in HPI. [facility] Medical History Non-STEMI (non-ST elevated myocardial infarction) Anal fistula Gallstone Parkinson disease High cholesterol Diabetes HTN (hypertension) Family History Sister Malignant neoplasm of breast (female) Surgical History H/O hemorrhoidectomy History of hysterectomy Social History Alcohol intake: never Patient Tobacco Use Status: Never used Tobacco Smoked in Last 30 Days: No Use of substances other than those prescribed or required for medical reasons: No Advance Directives: No Advance Directives Information Provided: No Do you have a plan to hurt others: No Plan Meds Allergies Allergy/AdvReac Type Severity Reaction Status Date / Time losartan Allergy Unknown anaphylaxis Verified 11/03/23 17:28 Active Medications: Current Medications Acetaminophen (Acetaminophen 325 Mg Tablet) 975 mg PO Q6H PRN PRN Reason: Pain, Mild (Pain Scale 1-3), fever or headache Calcium Carbonate (Calcium Carbonate 750 Mg Tab.Chew) 750 mg PO Q4H PRN PRN Reason: Heartburn Potassium Chloride (Potassium Chloride/H20) 10 meq in 100 mls @ 100 mls/hr IV Q1H ANMOL Stop: 11/03/23 22:59 Potassium Chloride/Sodium Chloride (Kcl 20 Meq In 0.9 % Sodium Chl) 20 meq in 1,000 mls @ 100 mls/hr IVCONT .Q10H ANMOL Melatonin (Melatonin 3 Mg Tablet) 6 mg PO BEDTIME PRN PRN Reason: Insomnia Sodium Chloride (0.9 % Sodium Chloride Flush 3 Ml Syringe) 3 ml IVFLUSH QSHIFT ANMOL Home Medications ?Medication ?Instructions ?Recorded ?Confirmed ?Last Taken ?Type ascorbate calcium (vitamin C) 500 500 mg PO DAILY 10/19/20 Unknown History mg tablet aspirin 81 mg tablet,delayed 81 mg PO DAILY 10/19/20 Unknown History release blood sugar diagnostic #10 ea 10/19/20 Unknown History blood-glucose meter #1 ea 10/19/20 Unknown History cholecalciferol (vitamin D3) 50 50 mcg PO DAILY 10/19/20 Unknown History mcg (2,000 unit) capsule clonazepam 0.5 mg tablet 0.5 mg PO BEDTIME 10/19/20 Unknown History econazole 1 % topical cream appl topical 10/19/20 Unknown History fluvastatin 80 mg tablet,extended 80 mg PO BEDTIME 10/19/20 Unknown History release 24 hr hydrocortisone 2.5 % topical cream 1 appl topical BID PRN 10/19/20 Unknown History lancets 28 gauge #100 ea 10/19/20 Unknown History metformin 1,000 mg tablet 1,000 mg PO BID 10/19/20 Unknown History pantoprazole 40 mg tablet,delayed 40 mg PO DAILY 10/19/20 Unknown History release polyvinyl alcohol 1.4 % eye drops 1 drp ophthalmic (eye) BID-QID PRN 10/19/20 Unknown History (Artificial Tears (polyvinyl alcohol)) pramipexole 0.25 mg tablet 0.25 mg PO TID 10/19/20 Unknown History pregabalin 100 mg capsule 100 mg PO BID 10/19/20 Unknown History triamcinolone acetonide 0.1 % 1 appl topical BID-TID 10/19/20 Unknown History topical ointment trihexyphenidyl 2 mg tablet 2 mg PO BID 10/19/20 Unknown History hydrochlorothiazide 25 mg tablet 25 mg PO DAILY 08/31/21 Unknown History mupirocin 2 % topical ointment otic (ear) right TID 08/31/21 Unknown History naproxen 500 mg tablet 500 mg PO BID PRN pain 08/31/21 Unknown History omega-3 acid ethyl esters 1 gram 2 cap PO BID 08/31/21 Unknown History capsule hydralazine 50 mg tablet 50 mg PO BID 05/12/23 Unknown History metoprolol succinate 50 mg 75 mg PO BID 05/12/23 05/12/23 Unknown History tablet,extended release 24 hr calcipotriene 0.005 % topical topical BID 11/03/23 Unknown History ointment clobetasol 0.05 % shampoo topical 3XW 11/03/23 Unknown History clobetasol 0.05 % topical cream 1 appl topical BID PRN Rash 11/03/23 Unknown History diphenhydramine HCl 25 mg capsule 25 - 50 mg PO Q6H PRN itch 11/03/23 Unknown History (Banophen) estradiol 0.01% (0.1 mg/gram) vaginal 11/03/23 Unknown History vaginal cream fluocinolone 0.01 % scalp oil and 1 appl topical 3XW 11/03/23 Unknown History shower cap meloxicam 7.5 mg tablet 7.5 mg PO DAILY 11/03/23 Unknown History rosuvastatin 10 mg tablet 10 mg DAILY 11/03/23 Unknown History Physical Exam Vital Signs and Narrative: Vital Signs: Last Vital Signs Temp 97.5 F 11/03/23 19:34 Pulse 63 11/03/23 19:34 Resp 20 11/03/23 19:34 BP 131/43 L 11/03/23 19:34 Pulse Ox 97 11/03/23 19:34 O2 Del Method Room Air 11/03/23 19:34 BMI result Body Mass Index 30.1 Constitutional - Awake and Alert, No apparent distress. Cooperative. Pleasant. HEENT - PERRL, EOMI. Dry oral mucosa. Normal sclerae. Heart - S1S2, RRR, No edema Lungs - Normal lung expansion, Normal respiratory effort, No respiratory distress, CTA bilaterally Abdomen - NT / ND; +BS; No rebound or guarding Extremities - no calf tenderness bilaterally, no swelling Musculoskeletal - Normal inspection, normal ROM Skin: Neurological - Alert & oriented x3, CN II-XII in tact, 5/5 strength BUE and BLE Psychological - Appropriate affect Results Labs 11/04/23 01:20 11/03/23 18:13 Labs: Laboratory Results - last 24 hr 11/03/23 11/03/23 11/03/23 18:13 19:14 19:32 MCV 78.4 L MCH 26.4 L MCHC 33.6 RDW 14.1 Plt Count 296 MPV 9.6 Immature Gran % (Auto) Cancelled Neut % (Auto) Cancelled Lymph % (Auto) Cancelled [place] % (Auto) Cancelled Eos % (Auto) Cancelled Baso % (Auto) Cancelled Lymph # (Auto) Cancelled [place] # (Auto) Cancelled Eos # (Auto) Cancelled Baso # (Auto) Cancelled Abs Immat Gran (auto) Cancelled Absolute Neuts (auto) Cancelled Absolute Nucleated RBC 0.000 Nucleated RBC % (auto) 0.0 Neutrophils % (Manual) 69 Band Neutrophils % 21 H Lymphocytes % (Manual) 4 L Monocytes % (Manual) 2 Eosinophils % (Manual) 3 Basophils % (Manual) 1 Abs Neuts (Manual) 10.8 H Lymphocytes # (Manual) 0.5 L Monocytes # (Manual) 0.2 Eosinophils # (Manual) 0.4 Basophils # (Manual) 0.1 Toxic Vacuolation PRESENT Platelet Estimate NORMAL Plt Morphology Comment NORMAL RBC Morphology NORMAL Smear Tech's Comments MANUAL DIFF Anion Gap 18 Estim Creat Clear Calc 66.8 Estimated GFR > 60 Random Glucose 206 H Lactic Acid 1.4 Calcium 8.7 D Magnesium 1.5 L Total Bilirubin 0.4 Direct Bilirubin 0.1 AST 21 ALT 17 Alkaline Phosphatase 57 Total Protein 6.3 L Albumin 3.7 Urine Color Yellow Urine Appearance Clear Urine pH 6.5 Ur Specific [place] 1.010 Urine Protein Negative Urine Glucose (UA) Negative Urine Ketones Negative Urine Blood Negative Urine Nitrite Negative Ur Leukocyte Esterase Trace H Urine RBC 0-2 Urine WBC 0-5 Ur Squamous Epith Cells 0-2 Urine Bacteria None Seen Hyaline Casts 0-2 Influenza Type A (PCR) NEGATIVE Influenza Type B (PCR) NEGATIVE RSV RNA Qual (PCR) NEGATIVE SARS-CoV-2 RNA (RT-PCR) NEGATIVE Imaging Radiologist's Impressions: Impressions Chest X-Ray 11/03/23 17:44 IMPRESSION: Stable appearance of the heart and lungs. No active disease. Assessment and Plan (1) Acute hypokalemia: Status: Acute (2) Hypomagnesemia: Status: Acute (3) Bandemia without diagnosis of specific infection: Status: Acute Plan Anh Scanlon is a 73 y/o woman admitted with: Generalized weakness, fever, nausea, vomiting, nonpruritic rash, bandemia and toxic vacuolation. Unclear etiology. Drug allergic reaction? Infection? Admit to hospitalist service. Continue IV fluids. Blood cultures obtained -will follow results. Continue Benadryl, IV steroids and famotidine. IV hydration. Tick disease workup ordered by ED -will follow results. Continue empiric IV antibiotic therapy with ceftriaxone. Hypokalemia and hypomagnesemia. Likely secondary to poor p.o. intake. Possibly taking hydrochlorothiazide (pt is not sure if she is taking this medication). Telemetry. Replete as needed. Continue to monitor potassium level. Type 2 diabetes mellitus. Insulin sliding scale. Diabetic diet. BG checks before meals at bedtime. Hyperlipidemia. Continue statin. Essential hypertension. Continue home meds. DVT prophylaxis: SCDs Code status: Full Patient will need hospitalization for at least 2 midnights for multiple electrolyte imbalances treatment and further workup for rash or bandemia Quality Stroke Does the patient have a stroke diagnosis?: No VTE Prior VTE?: No VTE Risk Level:: Medical - moderate - high VTE Device Contraindication: N/A - Device Ordered VTE Drug Contraindication: Treatment Not Indicated
[2023-11-04] VITALS (8 sets, daily range): BP systolic 144–162; BP diastolic 58–70; PULSE 64–84; RESP 16–18; TEMP 36.2–36.7; O2SAT 97–98; BMI 31.2
--- NOTE | 2023-11-04 01:34 | PC.NURSE ---
IV Potassium hung by Dejah RN @ 1930, this RN at bedside when Potassium was infusing as pt reporting burning at the IV site. For some reason, first bag of K not documented in MAR by previous RN. OF RN aware that 3 more bags of Potassium are needed.
[2023-11-04] MEDS: Potassium Chloride/H20 10 MEQ/100 ML PIGGYBACK 100 MEQ IV ×3 (01:58→04:03)
[2023-11-04 02:00] LABS: Basophils Percent Auto 0.2 % (0-2); Eosinophils Absolute Auto 0.1 X10*3/uL (0.0-0.4); Eosinophils Percent Auto 0.8 % (0-4); Hematocrit 32.4 % (37.0-47.0); Imm Gran Abs Auto 0.03 X10*3/uL (0.00-0.03); Imm Gran Pct Auto 0.3 % (0.0-0.4); Lymphocytes Absolute Auto 0.5 X10*3/uL (1.2-4.9); Lymphocytes Percent Auto 5.3 % (20-40); MANUAL DIFF FLAG SCAN; Mean Corpuscular Hemoglobin 26.6 pg (27.0-33.0); Mean Corpuscular Volume 78.5 fL (80.0-98.0); Mean Platelet Volume 9.7 fL (9.4-12.3); Monocytes Absolute Auto 0.1 X10*3/uL (0.1-1.2); Monocytes Percent Auto 0.8 % (2-11); Neutrophils Absolute Auto 8.6 x10*3/uL (2.0-8.3); Neutrophils Percent Auto 92.6 % (45-73); Platelet Count 295 X10*3/uL (160-400); Red Blood Count 4.13 X10*6/uL (4.20-5.50); Red Cell Distribution Width 14.2 % (11.0-16.0); SCAN SMEAR FLAG 1; White Blood Count 9.3 X10*3/uL (4.8-10.8)
[2023-11-04 02:10] LABS: Potassium, Plasma 3.8 mmol/L (3.3-5.1)
[2023-11-04 02:13] LABS: Magnesium 2.2 mg/dL (1.6-2.6)
--- NOTE | 2023-11-04 02:34 | PC.NURSE ---
This RN calling MD Gillette regarding fluids ordered on this patient. Multiple medications/fluids noted to be several hours behind. This RN alerted to the situation by OF RN when she assumed care @ 0030. Pt received 1500 ml of NS by previous nurse. An additional 1500 ml bolus of NS was ordered in JUN. Dr Gillette stated I don't know why Dr Michelle ordered those fluids? If you have questions, you should ask Dr Michelle. I am a doctor but I don't know everything This RN attempted to confirm whether or not Dr Gillette wanted this patient to receive another 1500 bolus. After a lengthy discussion, MD Gillette told this RN to hold the second 1500 ml bolus, as it was a possible duplicate order? Per Dr Gillette, to hang continuous Potassium infusion. This RN adjusting MAR and speaking to OF RN regarding orders.
--- NOTE | 2023-11-04 02:56 | MHC.EDTECH ---
Ambulated with Pt to and from bathroom. Pt ambulated with steady gait. Pt back in bed, call schulz within reach.
[2023-11-04] MEDS: 0.9 % Sodium Chloride Flush 3 ML SYRINGE IVFLUSH ×2 (03:04→20:00)
[2023-11-04 03:20] LABS: Glucose, Whole Blood 216 mg/dL (60-115)
[2023-11-04] MEDS: Acetaminophen 325 MG TABLET 975 MG PO (03:22)
[2023-11-04] MEDS: KCl 20 mEq in 0.9 % Sodium ChL 20 MEQ/1,000 ML IV.SOLN 100 MEQ IVCONT ×2 (05:07→14:05)
[2023-11-04 06:45] LABS: Glucose, Whole Blood 209 mg/dL (60-115)
--- NOTE | 2023-11-04 10:11 | PHA.MEDREC ---
Pharmacy Consult ? Medication Reconciliation Pharmacy has completed the medication reconciliation. Utilized powder cutting operator services. Pt reported all meds.
[2023-11-04 10:25] LABS: Glucose, Whole Blood 249 mg/dL (60-115)
[2023-11-04] MEDS: methylPREDNISolone Sod Succ 40 MG/ML VIAL IVPUSH (10:29)
[2023-11-04] MEDS: diphenhydrAMINE HCL 25 MG CAPSULE PO ×3 (10:29→20:00)
[2023-11-04] MEDS: Famotidine/PF 20 MG/2 ML VIAL IVPUSH (10:29)
[2023-11-04] MEDS: Loratadine 10 MG TABLET PO (10:29)
--- NOTE | 2023-11-04 11:16 | HO.PM.IMPN ---
Subjective Subjective Date of Service: 11/04/23 Physical Exam Vital Signs: Vital Signs: Last Vital Signs Temp 97.2 F 11/04/23 10:25 Pulse 77 11/04/23 10:25 Resp 18 11/04/23 10:25 BP 158/69 H 11/04/23 10:25 Pulse Ox 97 11/04/23 10:25 O2 Del Method Room Air 11/04/23 10:25 BMI result Body Mass Index 31.2 Objective Data Active Medications Acetaminophen (Acetaminophen 325 Mg Tablet) 975 mg PO Q6H PRN PRN Reason: Pain, Mild (Pain Scale 1-3), fever or headache Last Admin: 11/04/23 03:22 Dose: 975 mg Documented By: JEREMIAH Calcium Carbonate (Calcium Carbonate 750 Mg Tab.Chew) 750 mg PO Q4H PRN PRN Reason: Heartburn Diphenhydramine HCl (Diphenhydramine Hcl 25 Mg Capsule) 25 mg PO TID [facility] Last Admin: 11/04/23 10:29 Dose: 25 mg Documented By: TYSON Famotidine (Famotidine/Pf 20 Mg/2 Ml Vial) 20 mg IVPUSH DAILY [facility] Last Admin: 11/04/23 10:29 Dose: 20 mg Documented By: TYSON Glucose (Glucose Gel 15 Gm Gel..Gram.) 15 gm PO Q15M PRN; Protocol PRN Reason: per Hypoglycemia Standing Ord. Potassium Chloride/Sodium Chloride (Kcl 20 Meq In 0.9 % Sodium Chl) 20 meq in 1,000 mls @ 100 mls/hr IVCONT .Q10H [facility] Stop: 11/04/23 15:00 Last Admin: 11/04/23 10:15 Dose: Not Given Documented By: TYSON Non-Admin Reason: IV Running Dextrose (D10) 250 mls @ 750 mls/hr IV Q15M PRN; Protocol PRN Reason: per Hypoglycemia Standing Ord. Ceftriaxone Sodium 1 gm/ (Sodium Chloride) 50 mls @ 100 mls/hr IV Q24H [facility] Potassium Chloride/Sodium Chloride (Kcl 20 Meq In 0.9 % Sodium Chl) 20 meq in 1,000 mls @ 100 mls/hr IVCONT .Q10H [facility] Insulin Human Lispro (Insulin Lispro 100 Unit/Ml 3 Ml Vial) 0 unit SUBCUT QIDACHS [facility]; Protocol Last Admin: 11/04/23 10:15 Dose: Not Given Documented By: TYSON Non-Admin Reason: not given by ED RN Loratadine (Loratadine 10 Mg Tablet) 10 mg PO DAILY [facility] Last Admin: 11/04/23 10:29 Dose: 10 mg Documented By: TYSON Melatonin (Melatonin 3 Mg Tablet) 6 mg PO BEDTIME PRN PRN Reason: Insomnia Methylprednisolone Sodium Succinate (Methylprednisolone Sod Succ 40 Mg/Ml Vial) 40 mg IVPUSH Q24H [facility] Last Admin: 11/04/23 10:29 Dose: 40 mg Documented By: TYSON Ondansetron HCl (Ondansetron Hcl 4 Mg/2 Ml Vial) 4 mg IVPUSH Q8H PRN PRN Reason: Nausea and Vomiting Sodium Chloride (0.9 % Sodium Chloride Flush 3 Ml Syringe) 3 ml IVFLUSH QSHIFT [facility] Last Admin: 11/04/23 10:15 Dose: Not Given Documented By: TYSON Non-Admin Reason: IV Running Labs 11/04/23 01:20 11/03/23 18:13 Labs: Laboratory Results - last 24 hr 11/03/23 11/03/23 11/03/23 18:13 19:14 19:32 MCV 78.4 L MCH 26.4 L MCHC 33.6 RDW 14.1 Plt Count 296 MPV 9.6 Immature Gran % (Auto) Cancelled Neut % (Auto) Cancelled Lymph % (Auto) Cancelled [place] % (Auto) Cancelled Eos % (Auto) Cancelled Baso % (Auto) Cancelled Lymph # (Auto) Cancelled [place] # (Auto) Cancelled Eos # (Auto) Cancelled Baso # (Auto) Cancelled Abs Immat Gran (auto) Cancelled Absolute Neuts (auto) Cancelled Absolute Nucleated RBC 0.000 Nucleated RBC % (auto) 0.0 Neutrophils % (Manual) 69 Band Neutrophils % 21 H Lymphocytes % (Manual) 4 L Monocytes % (Manual) 2 Eosinophils % (Manual) 3 Basophils % (Manual) 1 Abs Neuts (Manual) 10.8 H Lymphocytes # (Manual) 0.5 L Monocytes # (Manual) 0.2 Eosinophils # (Manual) 0.4 Basophils # (Manual) 0.1 Toxic Vacuolation PRESENT Platelet Estimate NORMAL Plt Morphology Comment NORMAL RBC Morphology NORMAL Smear Tech's Comments MANUAL DIFF Hold Purple Top Plasma Potassium Anion Gap 18 Estim Creat Clear Calc 66.8 Estimated GFR > 60 POC Glucose Random Glucose 206 H Lactic Acid 1.4 Calcium 8.7 D Magnesium 1.5 L Total Bilirubin 0.4 Direct Bilirubin 0.1 AST 21 ALT 17 Alkaline Phosphatase 57 Total Protein 6.3 L Albumin 3.7 Urine Color Yellow Urine Appearance Clear Urine pH 6.5 Ur Specific [place] 1.010 Urine Protein Negative Urine Glucose (UA) Negative Urine Ketones Negative Urine Blood Negative Urine Nitrite Negative Ur Leukocyte Esterase Trace H Urine RBC 0-2 Urine WBC 0-5 Ur Squamous Epith Cells 0-2 Urine Bacteria None Seen Hyaline Casts 0-2 Influenza Type A (PCR) NEGATIVE Influenza Type B (PCR) NEGATIVE RSV RNA Qual (PCR) NEGATIVE SARS-CoV-2 RNA (RT-PCR) NEGATIVE 11/04/23 11/04/23 11/04/23 01:20 03:16 06:41 MCV 78.5 L MCH 26.6 L MCHC 34.0 RDW 14.2 Plt Count 295 MPV 9.7 Immature Gran % (Auto) 0.3 Neut % (Auto) 92.6 H Lymph % (Auto) 5.3 L [place] % (Auto) 0.8 L Eos % (Auto) 0.8 Baso % (Auto) 0.2 Lymph # (Auto) 0.5 L [place] # (Auto) 0.1 Eos # (Auto) 0.1 Baso # (Auto) 0.0 Abs Immat Gran (auto) 0.03 Absolute Neuts (auto) 8.6 H Absolute Nucleated RBC 0.000 Nucleated RBC % (auto) 0.0 Neutrophils % (Manual) Band Neutrophils % Lymphocytes % (Manual) Monocytes % (Manual) Eosinophils % (Manual) Basophils % (Manual) Abs Neuts (Manual) Lymphocytes # (Manual) Monocytes # (Manual) Eosinophils # (Manual) Basophils # (Manual) Toxic Vacuolation Platelet Estimate Plt Morphology Comment RBC Morphology Smear Tech's Comments Hold Purple Top SEE NOTE Plasma Potassium 3.8 Anion Gap Estim Creat Clear Calc Estimated GFR POC Glucose 216 H 209 H Random Glucose Lactic Acid Calcium Magnesium 2.2 Total Bilirubin Direct Bilirubin AST ALT Alkaline Phosphatase Total Protein Albumin Urine Color Urine Appearance Urine pH Ur Specific [place] Urine Protein Urine Glucose (UA) Urine Ketones Urine Blood Urine Nitrite Ur Leukocyte Esterase Urine RBC Urine WBC Ur Squamous Epith Cells Urine Bacteria Hyaline Casts Influenza Type A (PCR) Influenza Type B (PCR) RSV RNA Qual (PCR) SARS-CoV-2 RNA (RT-PCR) 11/04/23 10:20 MCV MCH MCHC RDW Plt Count MPV Immature Gran % (Auto) Neut % (Auto) Lymph % (Auto) [place] % (Auto) Eos % (Auto) Baso % (Auto) Lymph # (Auto) [place] # (Auto) Eos # (Auto) Baso # (Auto) Abs Immat Gran (auto) Absolute Neuts (auto) Absolute Nucleated RBC Nucleated RBC % (auto) Neutrophils % (Manual) Band Neutrophils % Lymphocytes % (Manual) Monocytes % (Manual) Eosinophils % (Manual) Basophils % (Manual) Abs Neuts (Manual) Lymphocytes # (Manual) Monocytes # (Manual) Eosinophils # (Manual) Basophils # (Manual) Toxic Vacuolation Platelet Estimate Plt Morphology Comment RBC Morphology Smear Tech's Comments Hold Purple Top Plasma Potassium Anion Gap Estim Creat Clear Calc Estimated GFR POC Glucose 249 H Random Glucose Lactic Acid Calcium Magnesium Total Bilirubin Direct Bilirubin AST ALT Alkaline Phosphatase Total Protein Albumin Urine Color Urine Appearance Urine pH Ur Specific [place] Urine Protein Urine Glucose (UA) Urine Ketones Urine Blood Urine Nitrite Ur Leukocyte Esterase Urine RBC Urine WBC Ur Squamous Epith Cells Urine Bacteria Hyaline Casts Influenza Type A (PCR) Influenza Type B (PCR) RSV RNA Qual (PCR) SARS-CoV-2 RNA (RT-PCR) Microbiology Microbiology Results: Microbiology 11/03/23 19:32 Urine Culture - Preliminary Urine clean catch Culture too young to evaluate. Quality Stroke Does the patient have a stroke diagnosis?: No VTE Prior VTE?: No VTE Risk Level:: Medical - moderate - high VTE Device Contraindication: N/A - Device Ordered VTE Drug Contraindication: Treatment Not Indicated
[2023-11-04] MEDS: hydrALAZINE HCl 50 MG TABLET PO ×2 (11:38→19:59)
[2023-11-04] MEDS: Pregabalin 100 MG CAPSULE PO ×2 (11:38→20:00)
[2023-11-04] MEDS: Omeprazole 20 MG CAPSULE.DR PO (11:38)
[2023-11-04] MEDS: hydroCHLOROthiazide 50 MG TABLET PO (11:39)
[2023-11-04] MEDS: Insulin Lispro 100 UNIT/ML 3 ML VIAL SUBCUT ×3 (11:39→20:14)
[2023-11-04] MEDS: Aspirin Enteric Coated 81 MG TABLET.DR PO (11:39)
[2023-11-04] MEDS: Pramipexole Di-HCL 0.25 MG TABLET PO ×2 (14:05→20:00)
--- NOTE | 2023-11-04 15:52 | MHC.CM.PN ---
IMM DELIVERED. 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 FAMILY ALSO AT BEDSIDE. PATIENT GIVES VERBAL CONSENT TO SPEAK IN FRONT OF FAMILY. PATIENT LIVES AT W/ . FUNCTIONALLY INDEPENDENT. REPORTS SHE HAS A NURSE THROUGH [facility] THAT COMES Q AM FOR MED MANAGEMENT. PCP IWONA KEBEDE MD PT COMPLETED HCP NAMING DTRS HCA'S. DP: GOAL IS HOME, RESUME SERVICES THROUGH [facility], DAUGHTER TO TRANSPORT. CM WILL CONTINUE TO FOLLOW.
--- NOTE | 2023-11-04 16:18 | P.CNID_ITS ---
History of Present Illness Data of Consult Service Date: 11/04/23 Requesting physician: Fabricio Barber Primary Care Provider: Unknown Physician HPI Reason for consult: leukocytosis,bandemia She presents with rash started on neck and then legs bilateral over day. She had been on Macrodantin for UTI symptoms and day 6 developed rash and didnt stop. She has no more UTI symptoms and UA is unremarkable. She received Ceftriaxone here. She has no tick bite,diarrhea,shortness of breath or abdominal pain or other symptoms. Review of Systems 2 Review of Systems: Yes all other systems are reviewed and are negative Integumentary/Breasts: Skin/Breast: Reports rash (better) [facility] Past Medical History Medical History (Updated 11/04/23 @ 16:22 by Sarai Driscoll MD) Rash Non-STEMI (non-ST elevated myocardial infarction) Anal fistula Gallstone Parkinson disease High cholesterol Diabetes HTN (hypertension) Family History Family History Sister Malignant neoplasm of breast (female) Family history: reviewed and not pertinent Surgical History Surgical History H/O hemorrhoidectomy History of hysterectomy Social History Social History Household Members: Spouse Housing: House Do you presently have visiting nurse or other home services: Yes (medication and vital signs) Alcohol intake: never Patient Tobacco Use Status: Never used Tobacco service: No Meds Allergies Allergy/AdvReac Type Severity Reaction Status Date / Time losartan Allergy Unknown anaphylaxis Verified 11/03/23 17:28 Active Medications: Current Medications Acetaminophen (Acetaminophen 325 Mg Tablet) 975 mg PO Q6H PRN PRN Reason: Pain, Mild (Pain Scale 1-3), fever or headache Last Admin: 11/04/23 03:22 Dose: 975 mg Ascorbic Acid (Ascorbic Acid 500 Mg Tablet) 500 mg PO DAILY ANMOL Aspirin (Aspirin Enteric Coated 81 Mg Tablet.Dr) 81 mg PO DAILY ANMOL Last Admin: 11/04/23 11:39 Dose: 81 mg Betamethasone Dipropion Augmented (Betamethasone Dip Aug 0.05% Cr 15 Gm Tube) 1 appl TOPICAL BID PRN PRN Reason: Rash Calcium Carbonate (Calcium Carbonate 750 Mg Tab.Chew) 750 mg PO Q4H PRN PRN Reason: Heartburn Clonazepam (Clonazepam 0.5 Mg Tablet) 0.5 mg PO BEDTIME ANMOL Cyclobenzaprine HCl (Cyclobenzaprine Hcl 10 Mg Tablet) 10 mg PO TID PRN PRN Reason: muscle spasm Diphenhydramine HCl (Diphenhydramine Hcl 25 Mg Capsule) 25 mg PO TID [facility] Last Admin: 11/04/23 14:05 Dose: 25 mg Diphenhydramine HCl (Diphenhydramine Hcl 25 Mg Capsule) 25 mg PO Q6H PRN PRN Reason: itch Famotidine (Famotidine/Pf 20 Mg/2 Ml Vial) 20 mg IVPUSH DAILY [facility] Last Admin: 11/04/23 10:29 Dose: 20 mg Glucose (Glucose Gel 15 Gm Gel..Gram.) 15 gm PO Q15M PRN; Protocol PRN Reason: per Hypoglycemia Standing Ord. Hydralazine HCl (Hydralazine Hcl 50 Mg Tablet) 50 mg PO TID [facility]; Protocol Last Admin: 11/04/23 11:40 Dose: Not Given Hydrochlorothiazide (Hydrochlorothiazide 50 Mg Tablet) 50 mg PO DAILY [facility]; Protocol Last Admin: 11/04/23 11:39 Dose: 50 mg Hydrocortisone (Hydrocortisone 1 % Cream 28.35 Gm Tube) 1 appl TOPICAL BID PRN PRN Reason: Itching Dextrose (D10) 250 mls @ 750 mls/hr IV Q15M PRN; Protocol PRN Reason: per Hypoglycemia Standing Ord. Ceftriaxone Sodium 1 gm/ (Sodium Chloride) 50 mls @ 100 mls/hr IV Q24H [facility] Insulin Human Lispro (Insulin Lispro 100 Unit/Ml 3 Ml Vial) 0 unit SUBCUT QIDACHS [facility]; Protocol Last Admin: 11/04/23 11:39 Dose: 4 unit Loratadine (Loratadine 10 Mg Tablet) 10 mg PO DAILY [facility] Last Admin: 11/04/23 10:29 Dose: 10 mg Loratadine (Loratadine 10 Mg Tablet) 10 mg PO DAILY PRN PRN Reason: Allergic Symptoms Melatonin (Melatonin 3 Mg Tablet) 6 mg PO BEDTIME PRN PRN Reason: Insomnia Methylprednisolone Sodium Succinate (Methylprednisolone Sod Succ 40 Mg/Ml Vial) 40 mg IVPUSH Q24H [facility] Last Admin: 11/04/23 10:29 Dose: 40 mg Metoprolol Succinate (Metoprolol Succinate Er 100 Mg Tab.Er.24h) 100 mg PO BID [facility]; Protocol Naproxen (Naproxen 500 Mg Tablet) 250 mg PO BID PRN PRN Reason: Pain Non-Formulary Medication (Calcipotriene) 1 appl TOPICAL BID PRN PRN Reason: plaque psoriasis Omeprazole (Omeprazole 20 Mg Capsule.Dr) 20 mg PO DAILY@0630 [facility] Last Admin: 11/04/23 11:38 Dose: 20 mg Ondansetron HCl (Ondansetron Hcl 4 Mg/2 Ml Vial) 4 mg IVPUSH Q8H PRN PRN Reason: Nausea and Vomiting Pramipexole Dihydrochloride (Pramipexole Di-Hcl 0.25 Mg Tablet) 0.25 mg PO TID [facility] Last Admin: 11/04/23 14:05 Dose: 0.25 mg Pregabalin (Pregabalin 100 Mg Capsule) 100 mg PO BID [facility] Last Admin: 11/04/23 11:38 Dose: 100 mg Sodium Chloride (0.9 % Sodium Chloride Flush 3 Ml Syringe) 3 ml IVFLUSH QSHIFT [facility] Last Admin: 11/04/23 14:09 Dose: Not Given Triamcinolone Acetonide (Triamcinolone Acet 0.1 % Oint 15 Gm Tube) 1 appl TOPICAL BID PRN PRN Reason: psoriasis Trihexyphenidyl HCl (Trihexyphenidyl Hcl 2 Mg Tablet) 2 mg PO DAILY [facility] Vitamin D (Cholecalciferol (Vitamin D3) 25 Mcg Tablet) 50 mcg PO DAILY [facility] Home Medications ?Medication ?Instructions ?Recorded ?Confirmed ?Last Taken ?Type ascorbate calcium (vitamin C) 500 500 mg PO DAILY 10/19/20 11/04/23 10/29/23 History mg tablet aspirin 81 mg tablet,delayed 81 mg PO DAILY 10/19/20 11/04/23 10/29/23 History release blood sugar diagnostic #10 ea 10/19/20 Unknown History blood-glucose meter #1 ea 10/19/20 Unknown History cholecalciferol (vitamin D3) 50 50 mcg PO DAILY 10/19/20 11/04/23 10/29/23 History mcg (2,000 unit) capsule clonazepam 0.5 mg tablet 0.5 mg PO BEDTIME 10/19/20 11/04/23 10/29/23 History hydrocortisone 2.5 % topical cream 1 appl topical BID PRN Itching 10/19/20 11/04/23 Unknown History lancets 28 gauge #100 ea 10/19/20 Unknown History metformin 1,000 mg tablet 1,000 mg PO BID 10/19/20 11/04/23 10/29/23 History pantoprazole 40 mg tablet,delayed 40 mg PO DAILY@0630 10/19/20 11/04/23 10/29/23 History release pramipexole 0.25 mg tablet 0.25 mg PO TID 10/19/20 11/04/23 10/29/23 History pregabalin 100 mg capsule 100 mg PO BID 10/19/20 11/04/23 10/29/23 History triamcinolone acetonide 0.1 % 1 appl topical BID PRN psoriasis 10/19/20 11/04/23 Unknown History topical ointment trihexyphenidyl 2 mg tablet 2 mg PO DAILY 10/19/20 11/04/23 10/29/23 History naproxen 500 mg tablet 500 mg PO BID PRN pain 08/31/21 11/04/23 Unknown History omega-3 acid ethyl esters 1 gram 2 cap PO BID 08/31/21 11/04/23 10/29/23 History capsule calcipotriene 0.005 % topical 1 appl topical BID PRN plaque 11/03/23 11/04/23 Unknown History ointment psoriasis clobetasol 0.05 % shampoo 1 appl topical SUTUTH@0900 PRN 11/03/23 11/04/23 Unknown History psoriasis flare clobetasol 0.05 % topical cream 1 appl topical BID PRN Rash 11/03/23 11/04/23 Unknown History diphenhydramine HCl 25 mg capsule 25 mg PO Q6H PRN itch 11/03/23 11/04/23 Unknown History (Banophen) estradiol 0.01% (0.1 mg/gram) 1 g vaginal 2XW PRN menopause 11/03/23 11/04/23 Unknown History vaginal cream symptoms fluocinolone 0.01 % scalp oil and 1 appl topical SUTUTH@2100 PRN 11/03/23 11/04/23 Unknown History shower cap psoriasis flare meloxicam 7.5 mg tablet 7.5 mg PO DAILY PRN Pain 11/03/23 11/04/23 Unknown History rosuvastatin 10 mg tablet 10 mg DAILY 11/03/23 11/04/23 10/29/23 History cetirizine 10 mg tablet 10 mg PO DAILY PRN Allergic 11/04/23 11/04/23 Unknown History Symptoms clobetasol 0.05 % scalp solution 1 appl topical BID PRN flaking 11/04/23 11/04/23 Unknown History hydralazine 50 mg tablet 50 mg PO TID 11/04/23 11/04/23 10/29/23 History hydrochlorothiazide 50 mg tablet 50 mg PO DAILY 11/04/23 11/04/23 10/29/23 History ketoconazole 2 % shampoo 1 appl topical SUTUTH@0900 PRN 11/04/23 11/04/23 Unknown History psoriasis flare metoprolol succinate 100 mg 100 mg PO BID 11/04/23 11/04/23 10/29/23 History tablet,extended release 24 hr Physical Exam 2 Vital Signs: Vital Signs: Last Vital Signs Temp 97.2 F 11/04/23 15:24 Pulse 77 11/04/23 15:24 Resp 18 11/04/23 15:24 BP 154/67 H 11/04/23 15:24 Pulse Ox 97 11/04/23 15:24 O2 Del Method Room Air 11/04/23 15:24 BMI result Body Mass Index 31.2 Const: General: cooperative HEENT: Head: Yes normal to inspection Face and sinus: Yes normal facial exam Mouth: Normal oral and palatal mucosa present Teeth and gingiva: d entition normal Eyes: General: appearance normal, both eyes and all related structures P upils: Equal, round and reactive pupils present Resp: Effort & Inspection: normal respiratory effort Cardio: Rate: regular rate Rhythm: regular rhythm GI: Palpation (GI): Soft to palpation and nontender : General: Yes no CVA tenderness Back/Spine/Pelvis: Back: no CVA tenderness Skin: Other: slt maculopapular rash legs and upper back Neuro: General: moves all extremities Cranial nerves: Yes Equal, round and reactive pupils present Extrem: General: Yes normal to inspection Psych: Appearance: grossly normal Results Labs 11/04/23 01:20 11/03/23 18:13 Labs: Short CBC 11/03/23 11/04/23 Range/Units 18:13 01:20 WBC 12.0 H 9.3 (4.8-10.8) X10*3/uL Hgb 11.1 L 11.0 L (12.0-16.0) g/dl Hct 33.0 L 32.4 L (37.0-47.0) % Plt Count 296 295 (160-400) X10*3/uL BMP 11/03/23 18:13 Sodium 136 Potassium 2.9 L* D Chloride 95 L Carbon Dioxide 26 BUN 15 Creatinine 0.72 Calcium 8.7 D Liver Function 11/03/23 Range/Units 18:13 Total Bilirubin 0.4 (0.0-1.0) mg/dL Direct Bilirubin 0.1 (0.0-0.5) mg/dL AST 21 (5-31) U/L ALT 17 (0-31) U/L Alkaline Phosphatase 57 (39-117) U/L Albumin 3.7 (3.5-5.0) g/dL Urine 11/03/23 Range/Units 19:32 Urine Color Yellow Urine Appearance Clear Urine pH 6.5 (5.0-9.0) Ur Specific [place] 1.010 (1.005-1.025) Urine Protein Negative (Neg-Trace) mg/dL Urine Glucose (UA) Negative (Negative) mg/dL Microbiology Microbiology Results: Microbiology 11/03/23 19:32 Urine clean catch Urine Culture - Preliminary Culture too young to evaluate. Assessment and Plan (1) Bandemia without diagnosis of specific infection: Status: Acute (2) Rash: Status: Acute Plan She has non prurutic rash,likely due to Macrodantin (can get leukocytosis and bandemia to high levels with allergic reaction). She has no other signs of infection and UTI sufficiently treated with seven days antibiotics She feels better and rash resolving on steroids Blood culture pending Would stop Ceftriaxone for now. Await blood cultures Continue steroids prn need.
[2023-11-04 16:22] LABS: Glucose, Whole Blood 296 mg/dL (60-115)
[2023-11-04] MEDS: Metoprolol Succinate ER 100 MG TAB.ER.24H PO (19:59)
[2023-11-04] MEDS: cefTRIAXone sodium 1 GM in 0.9 % Sodium Chloride 50 ML IV (19:59)
[2023-11-04] MEDS: clonazePAM 0.5 MG TABLET PO (20:00)
[2023-11-04 20:36] LABS: Glucose, Whole Blood 293 mg/dL (60-115)
[2023-11-05 04:00] VITALS: BP 144/67; PULSE 57; RESP 18; TEMP 36.6; O2SAT 96
[2023-11-05] MEDS: Omeprazole 20 MG CAPSULE.DR PO (05:36)
[2023-11-05 06:55] LABS: MANUAL DIFF FLAG NO
[2023-11-05 07:00] LABS: Basophils Absolute Auto 0.1 X10*3/uL (0.0-0.2); Basophils Percent Auto 0.5 % (0-2); Eosinophils Absolute Auto 0.5 X10*3/uL (0.0-0.4); Eosinophils Percent Auto 4.8 % (0-4); Hematocrit 29.7 % (37.0-47.0); Hemoglobin 9.7 g/dl (12.0-16.0); Imm Gran Abs Auto 0.18 X10*3/uL (0.00-0.03); Imm Gran Pct Auto 1.8 % (0.0-0.4); Lymphocytes Absolute Auto 2.3 X10*3/uL (1.2-4.9); Lymphocytes Percent Auto 22.5 % (20-40); Mean Corpuscular HGB Conc 32.7 g/dl (31.0-35.0); Mean Corpuscular Hemoglobin 26.1 pg (27.0-33.0); Mean Corpuscular Volume 80.1 fL (80.0-98.0); Mean Platelet Volume 9.9 fL (9.4-12.3); Monocytes Absolute Auto 0.6 X10*3/uL (0.1-1.2); Monocytes Percent Auto 6.2 % (2-11); Neutrophils Absolute Auto 6.6 x10*3/uL (2.0-8.3); Neutrophils Percent Auto 64.2 % (45-73); Platelet Count 298 X10*3/uL (160-400); Red Blood Count 3.71 X10*6/uL (4.20-5.50); Red Cell Distribution Width 14.5 % (11.0-16.0); White Blood Count 10.2 X10*3/uL (4.8-10.8)
[2023-11-05 07:15] LABS: Anion Gap 14 (12-20); Blood Urea Nitrogen 16 mg/dL (9-16); Calcium 8.6 mg/dL (8.4-10.2); Carbon Dioxide 22 mmol/L (22-29); Chloride 102 mmol/L (96-108); Estimated Glomerular Filt Rate > 60; Glucose Random 179 mg/dL (60-115); Potassium 3.7 mmol/L (3.3-5.1); Sodium 134 mmol/L (135-145)
[2023-11-05 07:21] LABS: Alanine Aminotransferase 16 U/L (0-31); Albumin Level 3.4 g/dL (3.5-5.0); Alkaline Phosphatase 52 U/L (39-117); Anion Gap 13 (12-20); Aspartate Amino Transferase 20 U/L (5-31); Bilirubin Total 0.2 mg/dL (0.0-1.0); Blood Urea Nitrogen 15 mg/dL (9-16); Calcium 8.6 mg/dL (8.4-10.2); Carbon Dioxide 22 mmol/L (22-29); Chloride 103 mmol/L (96-108); Creatinine Clr Calc Pharmacy 62.7; Estimated Glomerular Filt Rate > 60; Glucose Random 180 mg/dL (60-115); Potassium 3.8 mmol/L (3.3-5.1); Sodium 134 mmol/L (135-145)
[2023-11-05 07:40] LABS: Glucose, Whole Blood 160 mg/dL (60-115)
[2023-11-05 07:46] VITALS: BP 169/74; PULSE 52; RESP 18; TEMP 36; O2SAT 97
[2023-11-05] MEDS: hydroCHLOROthiazide 50 MG TABLET PO (08:08)
[2023-11-05] MEDS: Ascorbic Acid 500 MG TABLET PO (08:09)
[2023-11-05] MEDS: Pregabalin 100 MG CAPSULE PO (08:09)
[2023-11-05] MEDS: Loratadine 10 MG TABLET PO (08:09)
[2023-11-05] MEDS: Trihexyphenidyl HCL 2 MG TABLET PO (08:09)
[2023-11-05] MEDS: methylPREDNISolone Sod Succ 40 MG/ML VIAL IVPUSH (08:09)
[2023-11-05] MEDS: Insulin Lispro 100 UNIT/ML 3 ML VIAL SUBCUT ×2 (08:09→12:00)
[2023-11-05] MEDS: diphenhydrAMINE HCL 25 MG CAPSULE PO (08:09)
[2023-11-05] MEDS: Cholecalciferol (Vitamin D3) 25 MCG TABLET 50 MCG PO (08:09)
[2023-11-05] MEDS: Aspirin Enteric Coated 81 MG TABLET.DR PO (08:09)
[2023-11-05] MEDS: Metoprolol Succinate ER 100 MG TAB.ER.24H PO (08:09)
[2023-11-05] MEDS: hydrALAZINE HCl 50 MG TABLET PO (08:09)
[2023-11-05] MEDS: Famotidine/PF 20 MG/2 ML VIAL IVPUSH (08:09)
[2023-11-05] MEDS: Pramipexole Di-HCL 0.25 MG TABLET PO (08:09)
[2023-11-05] MEDS: 0.9 % Sodium Chloride Flush 3 ML SYRINGE IVFLUSH (08:10)
--- NOTE | 2023-11-05 10:24 | MHC.CM.PN ---
Per MD patient medically cleared for dc home to resume services. Daughter will coordinate w/ [facility] to resume nursing. Daughter is at bedside to transport home. RN aware.
[2023-11-05 11:14] LABS: Glucose, Whole Blood 230 mg/dL (60-115)
--- NOTE | 2023-11-05 12:18 | PM.DS ---
DS: Providers Provider Date of Service: 11/05/23 Date of admission: 11/03/23 20:44 Primary care physician: Unknown Physician Consults: 11/04/23 08:16 Consult to Infectious Diseases Routine Consulting Provider: [facility] Reason for consultation: Fever, Bandemia DS: Diagnosis Discharge Diagnosis (1) Bandemia without diagnosis of specific infection: Status: Acute (2) Rash: Status: Acute (3) Acute hypokalemia: Status: Acute (4) Hypomagnesemia: Status: Acute DS: Summary Hospital Course Hospital Course: Admission note HPI Anh Scanlon is a 73 years old with past medical history significant for type 2 diabetes, essential hypertension and hyperlipidemia presents to the emergency department complaining of generalized weakness over the last couple of days associated with nausea, vomiting, fever of 104 poor appetite since last Monday. Denies diarrhea, pain with urination or abdominal pain. She also complain of headache a nonpruritic rash involving all her extremities and upper back (sparing chest, abdomen and face). On Monday she was bathing in a hotel pool. On October 19 of this year she received a prescription for nitrofurantoin 100 mg p.o. t.i.d. X 7 days for a presumed UTI (urine culture 10/18/23 - no growth). She stated that initially she was taking the medication twice day for couple of days but then decided to take it once a day. She still have 2 pills that she has not taken. She denied any acute cardiopulmonary or genitourinary symptoms. She denies contact with sick people. Denied tobacco smoking, alcohol abuse or illicit drug use. In the ED, she was found to have stable vital signs. Blood workup showed leukocytosis of 12.0 and bandemia 21%. There is no lactic acidosis. Hemoglobin is 11.1 which is at baseline. There is no thrombocytopenia. There is hypokalemia of 2.9 but no other electrolyte imbalances or metabolic acidosis. Renal function and LFTs are normal. Urinalysis was not consistent with urinary tract infection. Viral testing for COVID-19, influenza RSV is negative. CXR is negative. ED tx: NS 2 L bolus, KCl 40 mEq p.o. and IV, metoprolol 25 mg p.o., Solu-Medrol 125 mg IV, famotidine 20 mg IV, ceftriaxone 2 g IV, magnesium 2 g IV. Hospital course The patient was admitted for evaluation of fever with Nonpruritic rash with bandemia with Unclear source of infection, Images and UA were negative for any source of infection. blood cultures remains negative at time of discharge. She was covered empirically with Ceftriaxone along with IV fluids, Benadryl, IV steroids and famotidine with good response as no recurrence of fever and showing signs of resolution of the rash. Evaluated by ID specialist who thinks it could be related to medication Macrobid she used recently. insect bite less likely but Tick disease workup still pending and will need to be followed by PCP. She was also found to have Acute Hypokalemia and hypomagnesemia. which both were replaced. Discharge plan Use Benadryl as needed for itching Prednisone for 5 more days If worsening rash or spiking fever again please return to the hospital PCP to follow Tick-borne disease panel. Time Attestation Discharge Coordination Time (in mins): 34 Quality: Safe Use of Opioids Does Pt have an Active Cancer Diagnosis on the Problem List?: No Quality: Stroke Does the patient have a stroke diagnosis?: No Physical Exam Vital Signs: Vital Signs: Last Vital Signs Temp 96.8 F 11/05/23 07:46 Pulse 52 11/05/23 07:46 Resp 18 11/05/23 07:46 BP 169/74 H 11/05/23 07:46 Pulse Ox 97 11/05/23 07:46 O2 Del Method Room Air 11/05/23 07:46 BMI result Body Mass Index 31.2 Const: Other: Constitutional : interactive, not in distress Cardiovascular : no JVP, no lower extremity edema Respiratory : bilateral chest movement, not in resp distress Gastrointestinal: soft, lax, Non tender Skin : Warm, Dry, resolving maculopapular rash non-blanching in lower extremities and low back Neurological : Alert & oriented , No focal deficit DS: Data Data Completed and Pending Labs on day of discharge: Laboratory Results - last 24 hr 11/04/23 11/04/23 11/05/23 16:11 20:01 06:17 WBC 10.2 RBC 3.71 L Hgb 9.7 L Hct 29.7 L MCV 80.1 MCH 26.1 L MCHC 32.7 RDW 14.5 Plt Count 298 MPV 9.9 Immature Gran % (Auto) 1.8 H Neut % (Auto) 64.2 Lymph % (Auto) 22.5 [place] % (Auto) 6.2 Eos % (Auto) 4.8 H Baso % (Auto) 0.5 Lymph # (Auto) 2.3 [place] # (Auto) 0.6 Eos # (Auto) 0.5 H Baso # (Auto) 0.1 Abs Immat Gran (auto) 0.18 H Absolute Neuts (auto) 6.6 Absolute Nucleated RBC 0.000 Nucleated RBC % (auto) 0.0 Sodium 134 L Potassium Chloride Carbon Dioxide Anion Gap BUN Creatinine Estim Creat Clear Calc Estimated GFR POC Glucose 296 H 293 H Random Glucose Calcium Magnesium Total Bilirubin AST ALT Alkaline Phosphatase Total Protein Albumin 11/05/23 11/05/23 11/05/23 06:17 06:17 06:17 WBC RBC Hgb Hct MCV MCH MCHC RDW Plt Count MPV Immature Gran % (Auto) Neut % (Auto) Lymph % (Auto) [place] % (Auto) Eos % (Auto) Baso % (Auto) Lymph # (Auto) [place] # (Auto) Eos # (Auto) Baso # (Auto) Abs Immat Gran (auto) Absolute Neuts (auto) Absolute Nucleated RBC Nucleated RBC % (auto) Sodium 134 L Potassium 3.8 3.7 D Chloride 103 102 Carbon Dioxide 22 Anion Gap BUN Creatinine Estim Creat Clear Calc Estimated GFR POC Glucose Random Glucose Calcium Magnesium Total Bilirubin AST ALT Alkaline Phosphatase Total Protein Albumin 11/05/23 11/05/23 11/05/23 06:17 06:17 06:17 WBC RBC Hgb Hct MCV MCH MCHC RDW Plt Count MPV Immature Gran % (Auto) Neut % (Auto) Lymph % (Auto) [place] % (Auto) Eos % (Auto) Baso % (Auto) Lymph # (Auto) [place] # (Auto) Eos # (Auto) Baso # (Auto) Abs Immat Gran (auto) Absolute Neuts (auto) Absolute Nucleated RBC Nucleated RBC % (auto) Sodium Potassium Chloride Carbon Dioxide 22 Anion Gap 13 14 BUN 15 16 Creatinine 0.78 Estim Creat Clear Calc Estimated GFR POC Glucose Random Glucose Calcium Magnesium Total Bilirubin AST ALT Alkaline Phosphatase Total Protein Albumin 11/05/23 11/05/23 11/05/23 06:17 06:17 06:17 WBC RBC Hgb Hct MCV MCH MCHC RDW Plt Count MPV Immature Gran % (Auto) Neut % (Auto) Lymph % (Auto) [place] % (Auto) Eos % (Auto) Baso % (Auto) Lymph # (Auto) [place] # (Auto) Eos # (Auto) Baso # (Auto) Abs Immat Gran (auto) Absolute Neuts (auto) Absolute Nucleated RBC Nucleated RBC % (auto) Sodium Potassium Chloride Carbon Dioxide Anion Gap BUN Creatinine 0.79 Estim Creat Clear Calc 62.7 62.0 Estimated GFR > 60 > 60 POC Glucose Random Glucose 180 H Calcium Magnesium Total Bilirubin AST ALT Alkaline Phosphatase Total Protein Albumin 11/05/23 11/05/23 11/05/23 06:17 06:17 07:34 WBC RBC Hgb Hct MCV MCH MCHC RDW Plt Count MPV Immature Gran % (Auto) Neut % (Auto) Lymph % (Auto) [place] % (Auto) Eos % (Auto) Baso % (Auto) Lymph # (Auto) [place] # (Auto) Eos # (Auto) Baso # (Auto) Abs Immat Gran (auto) Absolute Neuts (auto) Absolute Nucleated RBC Nucleated RBC % (auto) Sodium Potassium Chloride Carbon Dioxide Anion Gap BUN Creatinine Estim Creat Clear Calc Estimated GFR POC Glucose 160 H Random Glucose 179 H Calcium 8.6 8.6 Magnesium 2.0 Total Bilirubin 0.2 AST 20 ALT 16 Alkaline Phosphatase 52 Total Protein 6.0 L Albumin 3.4 L 11/05/23 11:11 WBC RBC Hgb Hct MCV MCH MCHC RDW Plt Count MPV Immature Gran % (Auto) Neut % (Auto) Lymph % (Auto) [place] % (Auto) Eos % (Auto) Baso % (Auto) Lymph # (Auto) [place] # (Auto) Eos # (Auto) Baso # (Auto) Abs Immat Gran (auto) Absolute Neuts (auto) Absolute Nucleated RBC Nucleated RBC % (auto) Sodium Potassium Chloride Carbon Dioxide Anion Gap BUN Creatinine Estim Creat Clear Calc Estimated GFR POC Glucose 230 H Random Glucose Calcium Magnesium Total Bilirubin AST ALT Alkaline Phosphatase Total Protein Albumin Preliminary micro results at discharge 11/03/23 19:10 Blood Culture - Preliminary Blood - Venous No growth after 24 hours. 11/03/23 19:14 Blood Culture - Preliminary Blood - Venous No growth after 24 hours. Imaging Chest x-ray: Radiologist's impression: ITS Impressions Chest X-Ray 11/03/23 17:44 IMPRESSION: Stable appearance of the heart and lungs. No active disease. Discharge Plan Discharge Anticipated Discharge Date/Time: 11/05/23 12:13 Patient Disposition: Home, Self-Care Discharge Diagnosis: Drug eruption Referrals: Physician,Unknown J [Primary Care Provider] - 1 Week Discharge Medications: New prednisone 20 mg tablet 20 mg PO DAILY Qty: 5 0RF Continued cyclobenzaprine 10 mg tablet 10 mg PO TID PRN (Reason: muscle spasm) Qty: 14 0RF lidocaine 4 % adhesive patch,medicated 1 patch topical DAILY PRN (Reason: pain) Qty: 10 0RF Rx Instructions: may leave on for up to 12 hrs acetaminophen 500 mg capsule 500 mg PO Q6H PRN (Reason: pain) Qty: 14 0RF clobetasol 0.05 % cream 1 appl topical BID PRN (Reason: Rash) meloxicam 7.5 mg tablet 7.5 mg PO DAILY PRN (Reason: Pain) diphenhydramine HCl [Banophen] 25 mg capsule 25 mg PO Q6H PRN (Reason: itch) estradiol 0.01 % (0.1 mg/gram) cream 1 g vaginal 2XW PRN (Reason: menopause symptoms) calcipotriene 0.005 % ointment 1 appl topical BID PRN (Reason: plaque psoriasis) rosuvastatin 10 mg tablet 10 mg DAILY clobetasol 0.05 % shampoo 1 appl topical SUTUTH@0900 PRN (Reason: psoriasis flare) fluocinolone and shower cap 0.01 % oil 1 appl topical SUTUTH@2100 PRN (Reason: psoriasis flare) Rx Instructions: cover with scarf after application ketoconazole 2 % shampoo 1 appl topical SUTUTH@0900 PRN (Reason: psoriasis flare) cetirizine 10 mg tablet 10 mg PO DAILY PRN (Reason: Allergic Symptoms) hydrochlorothiazide 50 mg tablet 50 mg PO DAILY metoprolol succinate 100 mg tablet extended release 24 hr 100 mg PO BID hydralazine 50 mg tablet 50 mg PO TID clobetasol 0.05 % solution 1 appl topical BID PRN (Reason: flaking) (DME) blood sugar diagnostic Strip See Rx Instructions Not Applicable BID Qty: 10 Rx Instructions: As directed trihexyphenidyl 2 mg tablet 2 mg PO DAILY aspirin 81 mg tablet,delayed release (DR/EC) 81 mg PO DAILY ascorbate calcium (vitamin C) 500 mg tablet 500 mg PO DAILY pantoprazole 40 mg tablet,delayed release (DR/EC) 40 mg PO DAILY@0630 cholecalciferol (vitamin D3) 50 mcg (2,000 unit) capsule 50 mcg PO DAILY pregabalin 100 mg capsule 100 mg PO BID pramipexole 0.25 mg tablet 0.25 mg PO TID hydrocortisone 2.5 % cream 1 appl topical BID PRN (Reason: Itching) triamcinolone acetonide 0.1 % ointment 1 appl topical BID PRN (Reason: psoriasis) Rx Instructions: mix with cerave and apply after showers clonazepam 0.5 mg tablet 0.5 mg PO BEDTIME (DME) blood-glucose meter Kit See Rx Instructions .ROUTE DIRECTED Qty: 1 Rx Instructions: As directed (DME) lancets 28 gauge misc See Rx Instructions topical BID Qty: 100 Rx Instructions: As directed metformin 1,000 mg tablet 1,000 mg PO BID omega-3 acid ethyl esters 1 gram capsule 2 cap PO BID naproxen 500 mg tablet 500 mg PO BID PRN (Reason: pain) Discharge Orders: Discharge Order (Routine); Ordered 11/05/23 Ordered By: Fabricio Barber Diet: Advance to usual diet Activity on Discharge: As tolerated Stand Alone Forms: Patient Portal Discharge page Print Language: Bol[place]ian Care Plan Goals: You have skin rash likely a result of drug eruption (Macrodantin) as no clear signs of infection noticed. responded well to IV steroids and evaluated by infectious disease specialist. Use Benadryl as needed for itching Prednisone for 5 more days If worsening rash or spiking fever again please return to the hospital Health Concerns: Read below Plan of Treatment: Read below Assessment: Read below Discharge Date/Time: 11/05/23 12:37
--- NOTE | 2023-11-05 12:32 | HO.PM.IMPN ---
Subjective Subjective Date of Service: 11/04/23 Interval History: Late entry doing better rash less extensive , no itching no other overnight events Review of Systems Review of Systems: Yes all other systems are reviewed and are negative Physical Exam Vital Signs: Vital Signs: Last Vital Signs Temp 96.8 F 11/05/23 07:46 Pulse 52 11/05/23 07:46 Resp 18 11/05/23 07:46 BP 169/74 H 11/05/23 07:46 Pulse Ox 97 11/05/23 07:46 O2 Del Method Room Air 11/05/23 07:46 BMI result Body Mass Index 31.2 Const: Other: Constitutional : interactive, not in distress Cardiovascular : no JVP, no lower extremity edema Respiratory : bilateral chest movement, not in resp distress Gastrointestinal: soft, lax, Non tender Skin : Warm, Dry, maculopapular rash , non-blanching in lower extremities and low back Neurological : Alert & oriented , No focal deficit Objective Data Active Medications Acetaminophen (Acetaminophen 325 Mg Tablet) 975 mg PO Q6H PRN PRN Reason: Pain, Mild (Pain Scale 1-3), fever or headache Last Admin: 11/04/23 03:22 Dose: 975 mg Documented By: JEREMIAH Ascorbic Acid (Ascorbic Acid 500 Mg Tablet) 500 mg PO DAILY [facility] Last Admin: 11/05/23 08:09 Dose: 500 mg Documented By: TYSNO Aspirin (Aspirin Enteric Coated 81 Mg Tablet.) 81 mg PO DAILY [facility] Last Admin: 11/05/23 08:09 Dose: 81 mg Documented By: TYSON Betamethasone Dipropion Augmented (Betamethasone Dip Aug 0.05% Cr 15 Gm Tube) 1 appl TOPICAL BID PRN PRN Reason: Rash Calcium Carbonate (Calcium Carbonate 750 Mg Tab.Chew) 750 mg PO Q4H PRN PRN Reason: Heartburn Clonazepam (Clonazepam 0.5 Mg Tablet) 0.5 mg PO BEDTIME [facility] Last Admin: 11/04/23 20:00 Dose: 0.5 mg Documented By: LINN Cyclobenzaprine HCl (Cyclobenzaprine Hcl 10 Mg Tablet) 10 mg PO TID PRN PRN Reason: muscle spasm Diphenhydramine HCl (Diphenhydramine Hcl 25 Mg Capsule) 25 mg PO TID [facility] Last Admin: 11/05/23 08:09 Dose: 25 mg Documented By: TYSON Diphenhydramine HCl (Diphenhydramine Hcl 25 Mg Capsule) 25 mg PO Q6H PRN PRN Reason: itch Famotidine (Famotidine/Pf 20 Mg/2 Ml Vial) 20 mg IVPUSH DAILY [facility] Last Admin: 11/05/23 08:09 Dose: 20 mg Documented By: TYSON Glucose (Glucose Gel 15 Gm Gel..Gram.) 15 gm PO Q15M PRN; Protocol PRN Reason: per Hypoglycemia Standing Ord. Hydralazine HCl (Hydralazine Hcl 50 Mg Tablet) 50 mg PO TID [facility]; Protocol Last Admin: 11/05/23 08:09 Dose: 50 mg Documented By: TYSON Hydrochlorothiazide (Hydrochlorothiazide 50 Mg Tablet) 50 mg PO DAILY [facility]; Protocol Last Admin: 11/05/23 08:08 Dose: 50 mg Documented By: TYSON Hydrocortisone (Hydrocortisone 1 % Cream 28.35 Gm Tube) 1 appl TOPICAL BID PRN PRN Reason: Itching Dextrose (D10) 250 mls @ 750 mls/hr IV Q15M PRN; Protocol PRN Reason: per Hypoglycemia Standing Ord. Insulin Human Lispro (Insulin Lispro 100 Unit/Ml 3 Ml Vial) 0 unit SUBCUT QIDACHS [facility]; Protocol Last Admin: 11/05/23 12:00 Dose: 4 unit Documented By: TYSON Loratadine (Loratadine 10 Mg Tablet) 10 mg PO DAILY [facility] Last Admin: 11/05/23 08:09 Dose: 10 mg Documented By: TYSON Loratadine (Loratadine 10 Mg Tablet) 10 mg PO DAILY PRN PRN Reason: Allergic Symptoms Melatonin (Melatonin 3 Mg Tablet) 6 mg PO BEDTIME PRN PRN Reason: Insomnia Methylprednisolone Sodium Succinate (Methylprednisolone Sod Succ 40 Mg/Ml Vial) 40 mg IVPUSH Q24H [facility] Last Admin: 11/05/23 08:09 Dose: 40 mg Documented By: TYSON Metoprolol Succinate (Metoprolol Succinate Er 100 Mg Tab.Er.24h) 100 mg PO BID [facility]; Protocol Last Admin: 11/05/23 08:09 Dose: 100 mg Documented By: TYSON Naproxen (Naproxen 500 Mg Tablet) 250 mg PO BID PRN PRN Reason: Pain Non-Formulary Medication (Calcipotriene) 1 appl TOPICAL BID PRN PRN Reason: plaque psoriasis Omeprazole (Omeprazole 20 Mg Capsule.) 20 mg PO DAILY@0630 [facility] Last Admin: 11/05/23 05:36 Dose: 20 mg Documented By: LINN Ondansetron HCl (Ondansetron Hcl 4 Mg/2 Ml Vial) 4 mg IVPUSH Q8H PRN PRN Reason: Nausea and Vomiting Pramipexole Dihydrochloride (Pramipexole Di-Hcl 0.25 Mg Tablet) 0.25 mg PO TID [facility] Last Admin: 11/05/23 08:09 Dose: 0.25 mg Documented By: TYSON Pregabalin (Pregabalin 100 Mg Capsule) 100 mg PO BID [facility] Last Admin: 11/05/23 08:09 Dose: 100 mg Documented By: TYSON Sodium Chloride (0.9 % Sodium Chloride Flush 3 Ml Syringe) 3 ml IVFLUSH QSHIFT [facility] Last Admin: 11/05/23 08:10 Dose: 3 ml Documented By: TYSON Triamcinolone Acetonide (Triamcinolone Acet 0.1 % Oint 15 Gm Tube) 1 appl TOPICAL BID PRN PRN Reason: psoriasis Trihexyphenidyl HCl (Trihexyphenidyl Hcl 2 Mg Tablet) 2 mg PO DAILY [facility] Last Admin: 11/05/23 08:09 Dose: 2 mg Documented By: TYSON Vitamin D (Cholecalciferol (Vitamin D3) 25 Mcg Tablet) 50 mcg PO DAILY [facility] Last Admin: 11/05/23 08:09 Dose: 50 mcg Documented By: TYSON Labs 11/05/23 06:17 11/05/23 06:17 Labs: Laboratory Results - last 24 hr 11/04/23 11/04/23 11/05/23 16:11 20:01 06:17 MCV 80.1 MCH 26.1 L MCHC 32.7 RDW 14.5 Plt Count 298 MPV 9.9 Immature Gran % (Auto) 1.8 H Neut % (Auto) 64.2 Lymph % (Auto) 22.5 Gregory % (Auto) 6.2 Eos % (Auto) 4.8 H Baso % (Auto) 0.5 Lymph # (Auto) 2.3 Gregory # (Auto) 0.6 Eos # (Auto) 0.5 H Baso # (Auto) 0.1 Abs Immat Gran (auto) 0.18 H Absolute Neuts (auto) 6.6 Absolute Nucleated RBC 0.000 Nucleated RBC % (auto) 0.0 Anion Gap 13 Estim Creat Clear Calc Estimated GFR POC Glucose 296 H 293 H Random Glucose Calcium Magnesium Total Bilirubin AST ALT Alkaline Phosphatase Total Protein Albumin 11/05/23 11/05/23 11/05/23 06:17 06:17 06:17 MCV MCH MCHC RDW Plt Count MPV Immature Gran % (Auto) Neut % (Auto) Lymph % (Auto) Gregory % (Auto) Eos % (Auto) Baso % (Auto) Lymph # (Auto) Gregory # (Auto) Eos # (Auto) Baso # (Auto) Abs Immat Gran (auto) Absolute Neuts (auto) Absolute Nucleated RBC Nucleated RBC % (auto) Anion Gap 14 Estim Creat Clear Calc 62.7 62.0 Estimated GFR > 60 > 60 POC Glucose Random Glucose 180 H Calcium Magnesium Total Bilirubin AST ALT Alkaline Phosphatase Total Protein Albumin 11/05/23 11/05/23 11/05/23 06:17 06:17 07:34 MCV MCH MCHC RDW Plt Count MPV Immature Gran % (Auto) Neut % (Auto) Lymph % (Auto) Gregory % (Auto) Eos % (Auto) Baso % (Auto) Lymph # (Auto) Gregory # (Auto) Eos # (Auto) Baso # (Auto) Abs Immat Gran (auto) Absolute Neuts (auto) Absolute Nucleated RBC Nucleated RBC % (auto) Anion Gap Estim Creat Clear Calc Estimated GFR POC Glucose 160 H Random Glucose 179 H Calcium 8.6 8.6 Magnesium 2.0 Total Bilirubin 0.2 AST 20 ALT 16 Alkaline Phosphatase 52 Total Protein 6.0 L Albumin 3.4 L 11/05/23 11:11 MCV MCH MCHC RDW Plt Count MPV Immature Gran % (Auto) Neut % (Auto) Lymph % (Auto) Gregory % (Auto) Eos % (Auto) Baso % (Auto) Lymph # (Auto) Gregory # (Auto) Eos # (Auto) Baso # (Auto) Abs Immat Gran (auto) Absolute Neuts (auto) Absolute Nucleated RBC Nucleated RBC % (auto) Anion Gap Estim Creat Clear Calc Estimated GFR POC Glucose 230 H Random Glucose Calcium Magnesium Total Bilirubin AST ALT Alkaline Phosphatase Total Protein Albumin Microbiology Microbiology Results: Microbiology 11/03/23 19:32 Urine Culture - Final Urine clean catch 11/03/23 19:10 Blood Culture - Preliminary Blood - Venous No growth after 24 hours. 11/03/23 19:14 Blood Culture - Preliminary Blood - Venous No growth after 24 hours. Assessment and Plan (1) Rash: Status: Acute (2) Hypomagnesemia: Status: Acute (3) Acute hypokalemia: Status: Acute (4) Bandemia without diagnosis of specific infection: Status: Acute Plan Anh Scanlon is a 73 y/o woman admitted with: Nonpruritic rash with bandemia Unclear source of infection, could be related to insect bite or medications IV fluids. Blood cultures obtained -will follow results. Continue Benadryl, IV steroids and famotidine Tick disease workup pending empiric IV ceftriaxone. ID evaluation Acute Hypokalemia and hypomagnesemia. replaced, to follow -Type 2 diabetes mellitus. Insulin sliding scale. Diabetic diet. -Hyperlipidemia. Continue statin. -Essential hypertension. Continue home meds. DVT prophylaxis: SCDs Code status: Full Patient will need hospitalization for overnight for electrolyte imbalances treatment and further workup for rash pending ID eval Quality Stroke Does the patient have a stroke diagnosis?: No VTE Prior VTE?: No VTE Risk Level:: Medical - moderate - high VTE Device Contraindication: N/A - Device Ordered VTE Drug Contraindication: Treatment Not Indicated
[2023-11-07 07:14] LABS: Lyme Abs Screen <0.90 index
[2023-11-13 09:57] LABS: A. Phagocytophilum Ab IgG <1:64 (<1:64); A. Phagocytophilum Ab IgM <1:20 (<1:20); E. Chaffeensis Ab IgG <1:64 (<1:64); E. Chaffeensis Ab IgM <1:20 (<1:20)
[2023-11-13 11:28] LABS: Babesia IgG <1:64 titer (<1:64); Babesia IgM <1:20 titer (<1:20)
== END 2023-11-05 12:37 | disposition home or self-care (01) | DRG 607 ==
LOC: HO.ED 20:09 → HO.EDOVER 21:06 → HO.S3 11-04 07:23
PROVIDERS: Admitting Provider Internal Medicine; Emergency Provider Emergency Medicine Emergency Medical Services; PCP Internal Medicine; Visit Provider Student in an Organized Health Care Education/Training Program
DX: L27.0 Generalized skin eruption due to drugs and medicaments taken internally (principal); T37.8X5A Adverse effect of other specified systemic anti-infectives and antiparasitics, initial encounter; E87.6 Hypokalemia; E11.9 Type 2 diabetes mellitus without complications; E78.5 Hyperlipidemia, unspecified; I10 Essential (primary) hypertension; E83.42 Hypomagnesemia; Z20.822 Contact with and (suspected) exposure to COVID-19; Z79.82 Long term (current) use of aspirin; Z79.84 Long term (current) use of oral hypoglycemic drugs; Z79.899 Other long term (current) drug therapy
CPT/HCPCS: 0241U; 36415; 71045; 80048; 80053; 80076; 81001; 82947; 83605; 83735; 84132; 85007; 85025; 85027; 86617; 86618; 86666; 86753; 87040; 87086; 99285; J0696; J1200; J2919; J3475; J3480

== ENCOUNTER → 2023-11-03 20:44 | Outpatient (BNV) | payer OTHER, SELFPAY | PROVIDERS: Admitting Provider Internal Medicine; Emergency Provider Emergency Medicine Emergency Medical Services; Visit Provider Internal Medicine | DX: R21 Rash and other nonspecific skin eruption (principal); E83.42 Hypomagnesemia; E87.6 Hypokalemia; D72.825 Bandemia | CPT/HCPCS: 99222; 99239; 99499 ==

== ENCOUNTER → 2023-11-03 20:44 | Outpatient (BNV) | payer OTHER, SELFPAY | PROVIDERS: Admitting Provider Internal Medicine; Emergency Provider Emergency Medicine Emergency Medical Services; Visit Provider Internal Medicine | DX: D72.825 Bandemia (principal); R21 Rash and other nonspecific skin eruption | CPT/HCPCS: 99222 ==

== ENCOUNTER 2023-11-28 09:42 | Outpatient (REF) | payer OTHER, SELFPAY ==
[2023-11-28 11:53] LABS: Anion Gap 17 (12-20); Blood Urea Nitrogen 17 mg/dL (9-16); Calcium 9.5 mg/dL (8.4-10.2); Carbon Dioxide 29 mmol/L (22-29); Chloride 97 mmol/L (96-108); Estimated Glomerular Filt Rate > 60; Glucose Random 174 mg/dL (60-115); Magnesium 1.4 mg/dL (1.6-2.6); Potassium 3.5 mmol/L (3.3-5.1); Sodium 139 mmol/L (135-145)
== END 2023-11-28 09:43 | disposition home or self-care (01) ==
LOC: HO.HHCL 09:42
PROVIDERS: Visit Provider Internal Medicine
DX: E87.6 Hypokalemia (principal); E83.42 Hypomagnesemia
CPT/HCPCS: 36415; 80048; 83735

== ENCOUNTER 2023-12-12 10:15 | Outpatient (REF) | payer OTHER, SELFPAY ==
[2023-12-12 11:58] LABS: Creatinine Urine 272.52 mg/dL; Total Protein Urine Random 28 mg/dL (<12)
[2023-12-12 12:01] LABS: Anion Gap 13 (12-20); Blood Urea Nitrogen 13 mg/dL (9-16); Carbon Dioxide 29 mmol/L (22-29); Chloride 102 mmol/L (96-108); Estimated Glomerular Filt Rate > 60; Magnesium 1.6 mg/dL (1.6-2.6); Potassium 3.6 mmol/L (3.3-5.1); Sodium 140 mmol/L (135-145)
== END 2023-12-12 10:16 | disposition home or self-care (01) ==
LOC: HO.HHCL 10:15
PROVIDERS: Referring Provider Internal Medicine Nephrology; Visit Provider Internal Medicine
DX: E11.29 Type 2 diabetes mellitus with other diabetic kidney complication (principal); R80.9 Proteinuria, unspecified; I10 Essential (primary) hypertension; E83.42 Hypomagnesemia
CPT/HCPCS: 36415; 80051; 82565; 82570; 83735; 84156; 84520

== ENCOUNTER 2023-12-19 12:45 | Outpatient (REF) | payer OTHER, SELFPAY ==
--- NOTE | ~2023-12-19 | MM_ITS ---
EXAMINATION: MM SCREENING DIGITAL BREAST TOMOSYNTHESIS, BILATERAL CLINICAL INFORMATION: Screening. Asymptomatic. COMPARISON: Mammography: Comparison is made with available priors TECHNIQUE: Digital breast tomosynthesis is performed in both the craniocaudal and mediolateral oblique views along with computer-aided detection (CAD). Synthesized 2D images are generated from the tomosynthesis. FINDINGS: There are scattered areas of fibroglandular density (ACR BI-RADS breast composition Category b). There are no significant masses, abnormal calcifications, or other abnormalities. MM/MM tomosynthesis screening BI IMPRESSION: No mammographic evidence of malignancy. ASSESSMENT: BI-RADS BI-RADS 1 - Negative RECOMMENDATION: Routine annual mammography screening. 1 year F/U This examination should not preclude the clinical evaluation of a suspicious palpable abnormality. This patient's information was entered into a reminder system with a target due date for their next mammogram. Electronically signed by: Kassandra Prado DO 01/12/2024 03:14 PM EDT
== END 2023-12-19 12:46 | disposition home or self-care (01) ==
LOC: HO.MAMMO 12:45
PROVIDERS: PCP Internal Medicine; Visit Provider Family Medicine
DX: Z12.31 Encounter for screening mammogram for malignant neoplasm of breast (principal)
CPT/HCPCS: 77063; 77067

== ENCOUNTER → 2023-12-19 13:00 | Outpatient (BNV) | payer OTHER, SELFPAY | PROVIDERS: PCP Internal Medicine; Visit Provider Internal Medicine | DX: Z12.31 Encounter for screening mammogram for malignant neoplasm of breast (principal) | CPT/HCPCS: 77063; 77067 ==

== ENCOUNTER 2024-01-12 14:38 | Outpatient (REF) | payer OTHER, SELFPAY ==
[2024-01-12 16:06] LABS: Anion Gap 13 (12-20); Blood Urea Nitrogen 14 mg/dL (9-16); Calcium 9.5 mg/dL (8.4-10.2); Carbon Dioxide 28 mmol/L (22-29); Chloride 101 mmol/L (96-108); Estimated Glomerular Filt Rate > 60; Glucose Random 155 mg/dL (60-115); Potassium 3.7 mmol/L (3.3-5.1); Sodium 138 mmol/L (135-145)
[2024-01-12 16:15] LABS: Creatinine Urine 180.08 mg/dL; Total Protein Urine Random 14 mg/dL (<12)
== END 2024-01-12 14:39 | disposition home or self-care (01) ==
LOC: HO.LAB 14:38
PROVIDERS: PCP Internal Medicine; Visit Provider Internal Medicine Hypertension Specialist
DX: E11.29 Type 2 diabetes mellitus with other diabetic kidney complication (principal); R80.9 Proteinuria, unspecified
CPT/HCPCS: 36415; 80048; 82570; 84156

== ENCOUNTER 2024-01-22 11:03 | Outpatient (AMB) | payer OTHER, SELFPAY ==
--- NOTE | 2024-01-22 11:05 | HO.NEPHOV_ITS ---
Vital Signs 01/22/24 11:07 Height 5 ft 2 in Weight 159 lb 8 oz BMI 29.2 BP 134/60 Blood Pressure Location Rt brachial Position Sitting Pulse 58 Pulse Source Pulse Oximeter Pulse Oximetry (%) 97 Oxygen Delivery Method Room Air Intake Visit Reasons: CKD/ Early January FU- Conf Animal Science Professor Required: No Accompanied by: Self / Same As Patient Allergies losartan Allergy (Unknown, Verified 01/22/24 11:09) anaphylaxis HPI Comments Details: I had the delight of seeing Anh for her proteinuria and hypertension. She has history of lip swelling and her losartan had been discontinued at that time. Her blood pressure control is good and her blood sugars had been stable. She does not have any hypoglycemias, chest pain, shortness of breath, paroxysmal nocturnal nocturnal dyspnea, orthopnea, pedal edema, nausea, vomiting, diarrhea or urinary symptoms. All her other systems were reviewed and negative [facility] Medical History (Updated 11/13/23 @ 00:02 by Logan Philip) Rash Non-STEMI (non-ST elevated myocardial infarction) Anal fistula Gallstone Parkinson disease High cholesterol Diabetes HTN (hypertension) Surgical History H/O hemorrhoidectomy History of hysterectomy Family History Sister Malignant neoplasm of breast (female) Social History Household Members: Spouse Housing: House Do you presently have visiting nurse or other home services: Yes (medication and vital signs) Alcohol intake: never Patient Tobacco Use Status: Never used Tobacco service: No Review of Systems Const All systems reviewed & are unremarkable except as noted in HPI and below Physical Exam Vital Signs: Last Vital Signs Pulse 58 01/22/24 11:07 BP 134/60 01/22/24 11:07 Pulse Ox 97 01/22/24 11:07 Oxygen Delivery Method Room Air 01/22/24 11:07 BMI result Body Mass Index 29.2 Const General: comfortable and no acute distress Orientation/consciousness: patient oriented x3 HEENT Head: Yes normocephalic Mouth: Normal oral and palatal mucosa present Eyes EOM: EOMs intact bilaterally Neck Neck: Yes supple Resp Auscultation: clear to auscultation bilaterally Cardio Jugular venous distension: no JVD Rate: regular rate GI Palpation (GI): Soft to palpation Auscultation: normal bowel sounds General: Yes no CVA tenderness Back/Spine/Pelvis Back: no CVA tenderness Skin General skin exam: no rashes or lesions noted Neuro General: patient oriented x3 and moves all extremities Extrem General: Yes no pedal edema Results Reviewed Nephrology Results: Hgb 9.7 g/dl (12.0-16.0) L 11/05/23 WBC 10.2 X10*3/uL (4.8-10.8) 11/05/23 Plt Count 298 X10*3/uL (160-400) 11/05/23 Sodium 138 mmol/L (135-145) 01/12/24 Potassium 3.7 mmol/L (3.3-5.1) 01/12/24 Chloride 101 mmol/L (96-108) 01/12/24 Carbon Dioxide 28 mmol/L (22-29) 01/12/24 BUN 14 mg/dL (9-16) 01/12/24 Creatinine 0.87 mg/dL (0.5-1.4) 01/12/24 Calcium 9.5 mg/dL (8.4-10.2) 01/12/24 Urine Protein Negative mg/dL (Neg-Trace) 11/03/23 Urine Creatinine 180.08 mg/dL 01/12/24 Protein/Creatinin Ratio 0.10 (<0.2) 12/12/23 Assessment & Plan Assessment & Plan (1) Proteinuria due to type 2 diabetes mellitus: Code(s): E11.29 - Type 2 diabetes mellitus with other diabetic kidney complication; R80.9 - Proteinuria, unspecified Category: Medical (2) HTN (hypertension): Code(s): I10 - Essential (primary) hypertension Category: Medical Qualifiers: Hypertension type: primary hypertension Qualified Code(s): I10 - Essential (primary) hypertension Plan 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 She has proteinuria. Her renal functions are stable. She did not tolerate GREGORY inhibitor in the past and had lip swelling from losartan as well forcing it to be discontinued. Her blood sugar control is better but her blood pressure control is optimal. She should continue current medications to keep her BP at goal. She should do regular exercise and lose a bit of weight. She avoids nonsteroidal anti-inflammatories and maintain good hydration. All questions answered. Follow-up appointment given Orders: Orders Creatinine Today E11.29 - Type 2 diabetes mellitus with other diabetic kidney complication, I10 - Essential (primary) hypertension, R80.9 - Proteinuria, unspecified Blood Urea Nitrogen Today E11.29 - Type 2 diabetes mellitus with other diabetic kidney complication, I10 - Essential (primary) hypertension, R80.9 - Proteinuria, unspecified Electrolytes Today E11.29 - Type 2 diabetes mellitus with other diabetic kidney complication, I10 - Essential (primary) hypertension, R80.9 - Proteinuria, unspecified Coding Level of Care Code Est Pt Level 4 (96002) Diagnoses Proteinuria due to type 2 diabetes mellitus E11.29; R80.9 Primary hypertension I10 Hypertension type: primary hypertension
[2024-01-22 11:07] VITALS: BP 134/60; PULSE 58; O2SAT 97; BMI 29.2
== END 2024-01-22 11:28 | disposition home or self-care (01) ==
PROVIDERS: PCP Internal Medicine; Visit Provider Internal Medicine Nephrology
DX: E11.29 Type 2 diabetes mellitus with other diabetic kidney complication (principal); R80.9 Proteinuria, unspecified; I10 Essential (primary) hypertension
CPT/HCPCS: 99214

== ENCOUNTER → 2024-01-22 11:03 | Outpatient (BNVA) | payer OTHER, SELFPAY | PROVIDERS: PCP Internal Medicine; Visit Provider Internal Medicine Nephrology | DX: E11.29 Type 2 diabetes mellitus with other diabetic kidney complication (principal); R80.9 Proteinuria, unspecified; I10 Essential (primary) hypertension | CPT/HCPCS: 99212 ==

== ENCOUNTER 2024-07-09 14:27 | Outpatient (AMB) | payer OTHER, SELFPAY ==
--- NOTE | 2024-07-09 14:30 | A.OFFVIS_ITS ---
Vital Signs 07/09/24 14:35 Height 5 ft 2 in Weight 160 lb 2 oz BMI 29.3 BP 195/86 H Blood Pressure Location Rt brachial Position Sitting Respiration 16 Pulse 62 Pulse Source Pulse Oximeter Intake Visit Reasons: Cervicalgia/appt missed on 06/20 Intake Note: Pain today 810 Internal Medicine Nurse Practitioner Required: Yes Internal Medicine Nurse Practitioner Language: Manager Online Services: Internal Medicine Nurse Practitioner Present Internal Medicine Nurse Practitioner Name: Sada Accompanied by: Self / Same As Patient Allergies losartan Allergy (Unknown, Verified 01/22/24 11:09) anaphylaxis HPI Comments Details: The patient is a 74-year-old female presenting with chronic neck pain. She recalls the onset of this pain relating back to a fall in 2022 when she landed on her face, having failed to notice steps while carrying a purse. She was seen for this in our ER on 08/08/22 and was treated for contusion of right wrist and nose and imaging showed back then no acute fracture, dislocation or subluxation cervical spine. Following this incident, the neck pain has been a consistent presence in her daily life. She describes it as affecting primarily the left side with radiation to her shoulder and upper back with a static, aching and pinching sensation. She has utilized various prescribed medications, including meloxicam, pregabalin, naproxen, cyclobenzaprine and [id number] Tylenol for symptomatic relief with mild benefit. Attempted therapies such as physical therapy and massages failed to offer significant relief in the past. She has not tried healthcare architect, TENS unit or acupuncture. Radiographic imaging are noted for mild cervical levoscoliosis and multi-level cervical facet arthropathy, contributing to her discomfort. Patient also has a hump with a sizable lump on her posterior neck, which has not been surgically evaluated per patient. The chronicity and persistence of this neck pain have significantly influenced her physical functioning, revealing underlying complications including fine tremors and neuropathy in hands and feet which she attributes to Parkinson?s disease and diabetes. Despite absent notable weakness, daily motions lead to pronounced fatigue, influencing her overall quality of life, daily functioning, sleep, and social interactions. - Neck pain began post-fall in 2022 when patient landed on face. - Quality: Pinching and static sensation, pins and needles, constant aching - Location: Primarily left side of the neck; radiating to shoulder and upper back. - Timing: Daily, persistent throughout day and night. - Aggravating Factors: Bending, looking overhead, reading; no positional relief noted. - Relieving Factors: Slight relief from medication prescribed by PCP and Tylenol extra strength. - Impact: Interrupts daily activities but adaptable with rest. - Affect: Experience mild psychological impact with fatigue from prolonged activities, attributed partially to Parkinson's. - Analgesia: Uses Tylenol and prescription pain medication from PCP, with moderate effectiveness. - Adverse Effects: No specific medication side effects discussed; limited relief from current regimen. - Activities of Daily Living: Pain affects daily functioning, mild tremors from Parkinson?s, with fatigue after extended tasks. - Aberrant Drug-Related Behaviors: No misuse or signs of abuse described. 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 Rash Non-STEMI (non-ST elevated myocardial infarction) Anal fistula Gallstone Parkinson disease High cholesterol Diabetes HTN (hypertension) Surgical History H/O hemorrhoidectomy History of hysterectomy Family History Sister Malignant neoplasm of breast (female) Social History Household Members: Spouse Housing: House Do you presently have visiting nurse or other home services: Yes (medication and vital signs) Alcohol intake: never Patient Tobacco Use Status: Never used Tobacco service: No Review of Systems Const Details: - Musculoskeletal: Reports consistent neck pain with radiation to shoulder and upper back. - Neurological: Denies significant weakness; reports occasional tremors. - Metabolic: A1C=7.1 on 05/31/24; reports diabetes is well controlled. All systems reviewed & are unremarkable except as noted in HPI and below Physical Exam Vital Signs: Last Vital Signs Pulse 62 07/09/24 14:35 Resp 16 07/09/24 14:35 BP 195/86 H 07/09/24 14:35 BMI result Body Mass Index 29.3 General: Appears afebrile. Alert and oriented. Mood and affect appropriate. Follows and participates in conversation appropriately. Respiratory effort is unlabored. No cough. Able to transition from sit to stand unassisted. Ambulates with bilaterally normal heel strike and toe off. Neck Other: Decreased cervical ROM in all planes/especially with left lateral rotation and bending. Reports increased pain with cervical extension. Spurling compression test is negative. Lhermitte's test was negative. DTR intact, +2 and symmetrical. Patient demonstrated 5/5 motor strength of bilateral upper extremities. 2 + radial pulses. Significant tightness throughout left upper trapezius as well as TTP throughout bilateral cervical paraspinal muscles. Multiple taut bands palpated throughout bilateral upper trapezius muscles. Prominent hump with a sizable lump observed at the posterior aspect of the neck, contributing to forward head posture. Neck: Yes no lymphadenopathy, Yes supple, No anterior neck swelling, Yes no JVD and Yes prominent dorsocervical fat pad Back/Spine/Pelvis Cervical Spine: loss of normal cervical lordosis, cervical muscular tenderness, pain with cervical ROM, No Cervical spine scars present, cervical spasm, Cervical spine tenderness and No step off deformity Thoracic/Lumbar Spine: thoracic and lumbar spine normal to inspection, No Thoracic/lumbar spine scar(s), pain with thoraco-lumbar ROM, thoraco-lumbar ROM limited, No thoracic spinal tenderness and No lumbar spinal tenderness Results Reviewed Results Reviewed: RIGHT CERVICAL SPINE 08/18/22 CLINICAL INFORMATION: Neck pain status-post fall. COMPARISON: Cervical spine radiographs dated 02/13/2018. FINDINGS: Vertebral body heights are normal. There is a mild cervical levoscoliosis. The cervical disc spaces are well-maintained. No acute fracture or spondylolisthesis is seen. The posterior elements are intact. There is multi-level cervical facet arthropathy. The dens is intact. No prevertebral soft tissue swelling is seen. IMPRESSION: 1. No acute fracture or spondylolisthesis is seen. 2. The cervical disc spaces are well-maintained. 3. There is a mild cervical levoscoliosis. 4. There is multi-level cervical facet arthropathy. Assessment & Plan Assessment & Plan (1) Cervical spondylosis: Code(s): M47.812 - Spondylosis without myelopathy or radiculopathy, cervical region Category: Medical (2) Degenerative disc disease, cervical: Code(s): M50.30 - Other cervical disc degeneration, unspecified cervical region Category: Medical (3) Muscle spasms of neck: Code(s): M62.838 - Other muscle spasm Category: Medical (4) Lump on neck: Code(s): R22.1 - Localized swelling, mass and lump, neck Category: Medical (5) Cervicalgia: Code(s): M54.2 - Cervicalgia Category: Medical Plan Pain management will focus primarily on addressing chronic neck pain potentially arising from cervical arthritis. Patient is interested to start acupuncture as a non-invasive trial and consider diagnostic cervical medial branch blocks for potential Sprint PNS trial or RFA procedures if acupuncture does not yield satisfactory pain reduction. Patient remains open to revisiting physical therapy options should initial interventions not fully alleviate the condition. She also has prominent posterior neck hump with sizable lump and is interested to undergo surgical evaluation. All questions and concerns have been answered and patient agreed with the plan. Follow up after acupuncture and sooner as needed. Patient was informed and verbally consented to the use of an ambient scribe for clinic note documentation during this visit. Orders: Referrals General Surgery Referral M54.2 - Cervicalgia, R22.1 - Localized swelling, mass and lump, neck Acupuncture Referral M47.812 - Spondylosis without myelopathy or radiculopathy, cervical region, M50.30 - Other cervical disc degeneration, unspecified cervical region, M62.838 - Other muscle spasm Patient Instructions: - Schedule and attend acupuncture sessions; referral provided for [facility] location. - Monitor pain response to acupuncture; contact office if ineffective. - Prepare for potential diagnostic neck injections for potential Sprint PNS trial or RFA procedure. - Maintain good posture, consider cervical support pillow with sleep, adequate hydration, gentle stretching exercises and weight optimization. - Contact the office with concerns about treatment effects or side effects experienced. Coding Level of Care Code New Pt Level 4 (98106) Complex EM visit Add On G2211 Diagnoses Cervical spondylosis M47.812 Degenerative disc disease, cervical M50.30 Muscle spasms of neck M62.838 Lump on neck R22.1 Cervicalgia M54.2
[2024-07-09 14:35] VITALS: BP 195/86; PULSE 62; RESP 16; BMI 29.3
--- OUTSIDE RECORDS SUMMARY | 2024-07-09 17:14 | XMS_ITS | Encounter Summary ---
Author Organization [employer] Address [address] [place] [address] Care Team Providers Care Senior Market Research Analyst Name Role Phone Chanda Garcia MD Primary Care Provide r Sruthi Shelton PharmD Unavailable [phone]- [phone] Reason for Visit * Reason Comments Med Change Request Encounter Details Date Type Department Care Team ([facility] st Contact Info) Description 06/30/2024 Refill [facility] [address] [place] [address] Esa Trejo MD [address] [place], [place] [phone] Sebopsoriasis Social History Tobacco Use Types Packs/Day Years Used Date Smoking Tobacco: Never Passive Smoke Exposure: Never Smokeless Tobacco: Never Alcohol Use Standard Drinks/Week Comments Never 0 (1 standard drink = 0.6 oz pur e alcohol) Alcohol Answer Date Recorded Frequency of Alcohol Consumption Not on file 11/22/2023 Average Number of Drinks Not on file 024 Frequency of Binge Drinking Not on file 10/24 Score 0 11/22/2023 Depression Answer Date Recorded Patient Health Questionnaire-9 Score 0 10/20/2023 Patient Health Questionnaire-9 Score 0 10/20/2023 Last PHQ-9: Questionnaire Data Not on file 0 10/20/2023 Housing Stability Answer Date Recorded What is your housing situation today? I have jenifer gerardo 11/08/[address] you li ve. Do you have problems with any of the following? None of the above 11/08/2023 Food Insecurity Answer Date Recorded Within the past 12 months, y ou worried that your food would run out before you got money to buy more: Never True 11/08/2023 Within the past 12 months,th e food you bought just didn't last and you didn't have enough money to get more: Never True Transportation Answer Date Recorded In the past 12 months, has l ack of transportation kept you from medical appts, meetings, work or from getting things needed for daily living? No 11/08/2023 Utilities Answer Date Recorded In the past 12 months, has t he electric, gas, oil or water company threatened to shut off services in your home? No 11/08/2023 Depression Answer Date Recorded Patient Health Questionnaire-2 Score 0 10/20/2023 Internet Access Answer Date Recorded Internet Access Q1 Yes 12/25/2023 Internet Access Q2 Not on file 12/25/2023 Comments No Sex and Gender Information Value Date Recorded Sex Assigned at Female 02/21/2022 10:14 AM EDT Legal Sex Female 10:14 AM EDT Gender Identity Female 02/21/2022 10:14 AM EDT Sexual Orientation Choose not to disclose 2021 10:14 AM EDT documented as of this encounter Plan of Treatment Not on file documented as of this encounter Goals Goal Patient Goal Type Associated Problems Recent Progress Patient-Stated? Author Blood Pressure < 140/90 Blood Pressure 144/82( 025 2:17 PM EST) No Sruthi Webb PharmD documented as of this encounter Visit Diagnoses Diagnosis Sebopsoriasis documented in this encounter Additional Health Concerns Assessment Noted Time PHQ-9 Depression Total Score: 0 10/20/19 24 9:25 AM EDT documented as of this encounter Care Teams Senior Market Research Analyst Relationship Specialty Start Date End Date Chanda Garcia MD [address] [place] [address] PCP - General Family Medicine 12/17/21 Sruthi Shelton PharmD [address] [place] [address] Pharmacist Internal Medicine 08/16/23 documented as of this encounter
--- OUTSIDE RECORDS SUMMARY | 2024-07-09 17:14 | XMS_ITS | Encounter Summary ---
Author Organization [facility] Address [address] 7[address] [place] [address] Care Team Providers Care Cloth Reeler Name Role Phone Chanda Garcia MD Primary Care Provide r Sruthi Shelton PharmD Unavailable [phone] Reason for Visit * Reason Comments Med Refill Encounter Details Date Type Department Care Team ([facility] st Contact Info) Description 07/13/[address] [facility] MEDICINE [address] [place], [place] [phone] Jenise Sanabria MD [address] [place], [place] [phone] Parkinson's disease (CMS/HCC) Social History Tobacco Use Types Packs/Day Years Used Date Smoking Tobacco: Never Smokeless Tobacco: Never Alcohol Use Standard Drinks/Week Comments Never 0 (1 standard drink = 0.6 oz pur e alcohol) Depression Answer Date Recorded Patient Health Questionnaire-2 Score 0 06/10/2022 Comments Unknown Sex and Gender Information Value Date Recorded Sex Assigned at Female 02/21/2022 10:14 AM EDT Legal Sex Female 10:14 AM EDT Gender Identity Female 02/21/2022 10:14 AM EDT Sexual Orientation Choose not to disclose 2021 10:14 AM EDT COVID-19 Exposure Response Date Recorded In the last 10 days, have yo u been in contact with someone who was confirmed or suspected to have Coronavirus/COVID-19? No / Unsure 07/06/2022 10:32 AM EDT documented as of this encounter Plan of Treatment Not on file documented as of this encounter Visit Diagnoses Diagnosis Parkinson's disease (CMS/HCC) Paralysis agitans documented in this encounter Care Teams Cloth Reeler Relationship Specialty Start Date End Date Chanda Garcia MD [address] [place], [place] [phone] PCP - General Family Medicine 12/17/21 Sruthi Shelton PharmD [address] [place] [address] Pharmacist Internal Medicine 08/16/23 documented as of this encounter
--- OUTSIDE RECORDS SUMMARY | 2024-07-09 17:14 | XMS_ITS | Encounter Summary ---
Author Organization [employer] [facility] Address [address] [facility] [address] [place] [address] Care Team Providers Care Career Center Director Name Role Phone Chanda Garcia MD Primary Care Provide r Sruthi Shelton PharmD Unavailable Encounter Details Date Type Department Care Team (Late st Contact Info) Description 05/16/2022 Orders Only [facility] MEDICINE [address] [place] [address] Nimisha Ann LPN Social History Tobacco Use Types Packs/Day Years Used Date Smoking Tobacco: Never Assessed Comments Unknown Sex and Gender Information Value Date Recorded Sex Assigned at Female 02/21/2022 10:14 AM EDT Legal Sex Female 10:14 AM EDT Gender Identity Female 02/21/2022 10:14 AM EDT Sexual Orientation Choose not to disclose 2021 10:14 AM EDT documented as of this encounter Plan of Treatment Not on file documented as of this encounter Visit Diagnoses Not on filedocumented in this encounter Care Teams Career Center Director Relationship Specialty Start Date End Date Chanda Garcia MD [address] [place] [id number] PCP - General Family Medicine 12/17/21 Sruthi Shelton, PharmD [address] [place] [phone] Pharmacist Internal Medicine 08/16/23 documented as of this encounter
--- OUTSIDE RECORDS SUMMARY | 2024-07-09 17:14 | XMS_ITS | Encounter Summary ---
Author Organization [employer] Address [address] [facility] [address] [place] [address] Care Team Providers Care Supervising Architect Name Role Phone Chanda Garcia MD Primary Care Provide r Sruthi Shelton PharmD Unavailable [phone] Reason for Visit * Reason Comments Med Refill Encounter Details Date Type Department Care Team (Late st Contact Info) Description 06/23/2024 Refill [facility] MEDICINE [address] [place] [address] Chanda Garcia MD [address] [place], [place] [phone] Social History Tobacco Use Types Packs/Day Years [...] Diagnoses Not on filedocumented in this encounter Additional Health Concerns Assessment Noted Time PHQ-9 Depression Total Score: 0 10/20/19 24 9:25 AM EDT documented as of this encounter Care Teams Supervising Architect Relationship Specialty Start Date End Date Chanda Garcia MD [address] [place] [address] PCP - General Family Medicine 12/17/21 Sruthi Shelton PharmD [address] [place] [address] Pharmacist Internal Medicine 08/16/23 documented as of this encounter
--- OUTSIDE RECORDS SUMMARY | 2024-07-09 17:14 | XMS_ITS | Encounter Summary ---
Author Organization [employer] Address [address] [facility] [place] [address] Care Team Providers Care Pigskin Trimmer Name Role Phone Chanda Garcia MD Primary Care Provide r Sruthi Shelton PharmD Unavailable [phone]- [phone] Reason for Visit * Reason Comments Med Refill Encounter Details Date Type Department Care Team (Late st Contact Info) Description 10/23/2023 Refill [facility] [address] [place] [address] Chanda Mcintosh MD [address] [place] [address] Social History Tobacco Use Types Packs/Day Years Used Date Smoking Tobacco: Never Passive Smoke Exposure: Never Smokeless Tobacco: Never Alcohol Use Standard Drinks/Week Comments Never 0 (1 standard drink = 0.6 oz pur e alcohol) Depression Answer Date Recorded Patient Health Questionnaire-9 Score 0 10/20/2023 Patient Health Questionnaire-9 Score 0 10/20/2023 Last PHQ-9: Questionnaire Data Not on file 0 10/20/2023 Housing Stability Answer Date Recorded What is your housing situation today? I have jenifer gerardo 02/09/[address] you li ve. Do you have problems with any of the following? None of the above 02/09/2023 Food Insecurity Answer Date Recorded Within the past 12 months, y ou worried that your food would run out before you got money to buy more: Never True 02/09/2023 Within the past 12 months,th e food you bought just didn't last and you didn't have enough money to get more: Never True Transportation Answer Date Recorded In the past 12 months, has l ack of transportation kept you from medical appts, meetings, work or from getting things needed for daily living? No 02/09/2023 Utilities Answer Date Recorded In the past 12 months, has t he electric, gas, oil or water company threatened to shut off services in your home? No 02/09/2023 Depression Answer Date Recorded Patient Health Questionnaire-2 Score 0 10/20/2023 Comments No Sex and Gender Information Value [...] documented as of this encounter Care Teams Pigskin Trimmer Relationship Specialty Start Date End Date Chanda Garcia MD [address] [place] [address] PCP - General Family Medicine 12/17/21 Sruthi Shelton, PharmD [address] [place] [address] Pharmacist Internal Medicine 08/16/23 documented as of this encounter
--- OUTSIDE RECORDS SUMMARY | 2024-07-09 17:14 | XMS_ITS | Encounter Summary ---
Author Organization [employer] [facility] Address [address] [facility] [address] [place] [address] Care Team Providers Care Olap Developer Name Role Phone Chanda Garcia MD Primary Care Provide r Sruthi Shelton PharmD Unavailable [phone] Reason for Visit * Reason Comments Med Refill Encounter Details Date Type Department Care Team (Late st Contact Info) Description 07/07/2022 Refill [facility] [address] [place], [place] [phone] Huma Hamilton DO [address] [place], [place] [phone] Coronary artery disease, unspecified vessel or lesion type, unspecified whether angina present, unspecified whether [place] or transplanted heart Social History Tobacco Use Types Packs/Day Years [...] as of this encounter Visit Diagnoses Diagnosis Coronary artery disease, unspecified vessel or lesion type, unspecified whether angina present, unspecified whether ek[place] or transplanted heart documented in this encounter Care Teams Olap Developer Relationship Specialty Start Date End Date Chanda Garcia MD [address] [place] [address] PCP - General Family Medicine 12/17/21 Sruthi Shelton, Sapna [address] [place] [address] Pharmacist Internal Medicine 08/16/23 documented as of this encounter
--- OUTSIDE RECORDS SUMMARY | 2024-07-09 17:14 | XMS_ITS | Clinical Summary ---
Author Organization [employer] Address [address] [facility] [address] [facility] [address] [place] [address] Care Team Providers Care Inventory Auditor Name Role Phone Chanda Garcia MD Primary Care Provide r Sruthi Shelton PharmD Unavailable Allergies Active Allergy Reactions Criticality Noted Date Comments Low Inhibitors Cough 05/19/2010 Losartan Angioedema 12/25/2015 Medications aspirin 81 MG EC tablet Take 81 mg by mouth. 017 Active aspirin-acetamino phen-caffeine (Excedrin Migraine) 250-250-65 MG tablet Take 1 tablet as needed at onset of headache, do not take more than 2 days per week 022 Active cholecalciferol (Vitamin D-3) 50 MCG (1999) capsule Take 1 capsule by mouth. 021 Active polyvinyl alcohol (Liquifilm Tears) 1.4 % ophthalmic solution Administer 1 drop into affected eye(s) every 6 (six) hours. Active pramipexole (Mirapex) 0.25 MG tablet TOME CHRISTOS TABLETA MORE VECES AL D A FOR 30 DAYS 023 Active sodium chloride ([place]) 0.65 % nasal spray 1 spray. 019 Active pregabalin (Lyrica) 100 MG capsule TOME CHRISTOS C PSULA DOS VECES AL D A FOR 90 DAYS 023 Active FREESTYLE LITE test strip USE TO TEST TWICE DAILY 100 strip 11 023 Active Blood Glucose Monitoring Suppl (FreeStyle [place] Lite) w/Device kitIndications:Ty pe 2 diabetes mellitus without complication, unspecified whether snf insulin use ([facility]) Use to test blood sugar two times daily 1 kit Active apremilast (Otezla) 10 & 20 & 30 MG tablet therapy pack tablet therapy packIndications:S calp psoriasis D1 10mg then D 2: 10 mg twice daily; D 3 10 mg in the morning and 20 mg in the evening; D 4 20 mg twice daily; D 5 20 mg in the morning and 30 mg in the evening. Then 30 mg twice daily starting on D 6. 55 each Active Fluocinolone Acetonide Scalp (Topock-Smoothe/FS Scalp) 0.01 % oilIndications:Se bopsoriasis Apply at night 3 times weekly and cover with scarf 118.28 mL 11 Active ketoconazole (NIZOral) 2 % shampooIndication s:Sebopsoriasis Apply 3 times weekly 120 mL Active Clobetasol Propionate 0.05 % shampooIndication s:Sebopsoriasis Apply 3 times weekly on days not using Ketoconazole shampoo. 118 mL Active trihexyphenidyl (Artane) 2 MG tabletIndications :Parkinson's disease, unspecified whether dyskinesia present, unspecified whether manifestations fluctuate ([facility]) Take 1 tablet (2 mg) by mouth with breakfast, with lunch, and with evening meal. 270 tablet Active Banophen 25 MG capsule TAKE 1-2 CAPSULES BY MOUTH EVERY 6 HOURS NEEDED FOR RASH/ITCHING 30 capsule 1 Active estradiol (Estrace) 0.1 MG/GM vaginal creamIndications: Pruritus vulvae INSERT 1 GRAM INTO THE VAGINA IN THE MORNING FOR 14 DAYS. 42.5 g 1 Active meloxicam (Mobic) 7.5 MG tablet Take 1 tablet by mouth if needed each day. Active metoprolol succinate XL (Toprol-XL) 100 MG 24 hr tablet Take 1 tablet by mouth 2 times daily. Active clobetasol (Temovate) 0.05 % cream Apply topically 2 times daily. For up to 2 weeks as needed for significant flares Active clobetasol (Temovate) 0.05 % external solution APPLY TO SCALP TWICE DAILY NEEDED FOR FLAKING FOR UP TO 2 WEEKS, BREAK 1 WEEK & REPEAT NEEDED. 024 Active hydrALAZINE (Apresoline) 50 MG tablet Take 1 tablet by mouth 3 times daily. Active hydroCHLOROthiazi de (HYDRODiuril) 50 MG tabletIndications :Primary hypertension Take 1 tablet (50 mg) by mouth Once per day. 30 tablet 11 024 2024 Active metFORMIN (Glucophage) 500 MG tabletIndications :Type 2 diabetes mellitus with hyperglycemia, without long-term current use of insulin (CMS/HCC) TOME DOS TABLETAS POR VIA ORAL DOS VECES AL CHIP WITH MORNING AND EVENING MEALS 360 tablet 1 024 Active silver sulfADIAZINE (Silvadene) 1 % creamIndications: Superficial burn of back of right hand, initial encounter Apply topically 2 times daily. 25 g 024 2024 Active acetaminophen (Tylenol 8 Hour) 650 MG ER tabletIndications :Neck pain Take 1 tablet (650 mg) by mouth every 8 (eight) hours if needed for mild pain. Do not crush, chew, or split. 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 APLIQUE AL AREA AFECTADA DOS VECES AL CHIP 60 g 11 025 Active cetirizine (ZyrTEC) 10 MG tabletIndications :Seasonal allergic rhinitis, unspecified trigger TOME CHRISTOS TABLETA TODOS [place] 90 tablet 1 025 Active clonazePAM (KlonoPIN) 0.5 MG tabletIndications :Anxiety TOME 1 TABLETA POR VIA ORAL TOD[place] 28 tablet 025 Active triamcinolone (Kenalog) 0.1 % creamIndications: Xerosis cutis,Generalized pruritus MIX WITH CERAVE AND APPLY AFTER SHOWERS 80 g 2 025 Active hydrALAZINE (Apresoline) 25 MG tablet TAKE 1 TABLET (25 MG) BY MOUTH 3 TIMES DAILY 270 tablet 1 025 Active hydrALAZINE (Apresoline) 25 MG tablet TAKE 1 TABLET (25 MG) BY MOUTH 3 TIMES DAILY 270 tablet 1 024 2024 Discontinued triamcinolone (Kenalog) 0.1 % creamIndications: Xerosis cutis,Generalized pruritus MIX WITH CERAVE AND APPLY AFTER SHOWERS 80 g 2 024 2024 Discontinued clotrimazole-beta methasone (Lotrisone) creamIndications: Intertrigo Apply topically 2 times daily for 28 days. 45 g 025 2024 Active Problems Problem Noted Date Diagnosed Date Cervicalgia 05/31/2024 Assessment & Plan (06/03/2024 5:09 PM EST): Apply heat on affected area Acetaminophen as needed I will refer patient to pain management Superficial burn of back of right hand Assessment & Plan (02/23/2024 2:02 PM EDT): Silver sulfadiazine apply BID on affected area Bladder pain 02/23/2024 Neck pain 02/23/2024 Hypokalemia 11/22/2023 Assessment & Plan (11/22/2023 12:46 PM EDT): BMP and magnesium levels to be repeated Hypomagnesemia 11/22/2023 Bandemia 11/22/2023 Assessment & Plan (11/22/2023 12:46 PM EDT): Symptoms resolved I will continue to monitor, tick work p came back everything is negative UTI symptoms 10/20/2023 Assessment & Plan (10/20/2023 1:52 PM EDT): UA and culture Macrobid for 7 days Intertrigo 07/05/2023 Assessment & Plan (06/03/2024 5:11 PM EST): Maintain area dry and clean Clotrimazole with Betamethasone apply twice a day for no more than 2 weeks Colon cancer screening 02/21/2023 '[id number]' infant with signs of mal nutrition 02/21/2023 Excessive cerumen in both ear canals 02/21/2023 Assessment & Plan (02/21/2023 3:14 PM EDT): Return for ear lavage in 1 week Clogged ear, bilateral 01/27/2023 Assessment & Plan (01/27/2023 5:42 AM EDT): BL impacted earwax w otherwise normal ear exam. -Px Debrox. -To f up w PCP in 4 wk. If ongoing Sx, will need earwax removal Bradycardia, sinus 01/27/2023 Assessment & Plan (01/27/2023 6:08 AM EDT): EKG done today - HR 46, RBBB, L axis deviation, sinus rhythm. I was not able to obtain previous EKGs - only reports of those done in the past, in 2019 and 2020, which reported similar findings - RBBB and possibly fascicular block. Fr Pt is asymptomatic and no apparent new EKG findings. Most likely associated w increased Verapamil dose. Pt also on BB. -Will decrease Verapamil to her previous dose of 180 mg / d and increase instead her Hydralazine to 75 mg TID from 50 mg TID. -Alarm signs and Sx. -Pt has apt w PCP in 3 wk and w cardio in 2 mo (per cardio note). -I printed a complete list of reconciliated medication list which I gave to patient, to try and improve adherence, as well as prevent confusion. I also advised patient to bring to her next visit all of her meds for PCP to review. Skin rash 01/27/2023 Assessment & Plan (02/21/2023 3:13 PM EDT): Do not miss dermatology appointment Assessment & Plan (01/27/2023 6:05 AM EDT): 4 days of skin rash appears to be allergic w no clear etiology at this time. Pt is very poor historian. I am unsure about how she is taking her meds, including Verapamil. It seems she has at least been taking it for the past 2 mo and per pharmacy Px chronically, and per pt taking all meds Px by pharmacy. The other 2 meds were vulvar creams 1 mo ago. Skin rash without angioedema. Trigger is unclear and I am hesitant to discontinue Verapamil w her uncontrolled HTN w allergy to Losartan and Lisinopril reported. She has apparently been taking Verapamil chronically, which makes it unlikely to be the cause of her allergy. Nonetheless it should be considered if there is no improvement in the rash, in which case it should be discontinued. Also should consider allergy to Clotrimiazole and Metronidazole. -Prednisone - taper (40 mg for 2 d, 30 mg for 2 d, 20 mg for 2 d, 10 mg for 2 d, 5 mg for 2 d). -Benadryl PRN that pt has at home. -Alarm signs and Sx discussed, in case she has to go to ED if there is no improvement. -Referred today to syruper and customer program specialist. Vulvar itching 12/29/2022 Assessment & Plan (02/23/2024 1:59 PM EDT): Already on estrogen gel Assessment & Plan (01/27/2023 5:38 AM EDT): Reports ongoing 2 mo of vulvar pruritus w no other complaints Noted atrophic changes in vulva ,mild generalized irritation and small nodules in labia that are not tender ,not seen vaginal discharge 12/29/2022: Pos Gardnerella swab, s/p initial clotrimazole / bethametasone cream BID x 7 days, and Metronidazole cream for 7 d w no change in Sx. Sx seem to not be associated w fungal or bacterial infection, and other chronic conditions such as lichen, paget should be ruled out. -Referred to customer program specialist today. Assessment & Plan (12/29/2022 5:42 PM EDT): Reports 1 month of vulvar pruritus w no other complaints Noted atrophic changes in vulva ,mild generalized irritation and small nodules in labia that are not tender ,not seen vaginal discharge -will do trial w clotrimazole/bethametasone cream BID x 7 days -sent to lab bacterial vaginosis-self collected today -advised To RTC to see PCP in no more than 4 weeks -if symptoms are not improving would refer to customer program specialist to r/o chronic conditions as lichen,paget and including malignancy -alarm signs and symptoms discussed COVID-19 virus infection 10/31/2022 Assessment & Plan (10/31/2022 5:13 PM EDT): paxlovid prescribed Medication interactions where reviewed with patient Right hand pain 09/14/2022 Anxiety 09/14/2022 Assessment & Plan (06/03/2024 5:11 PM EST): Extensive counseling done I renewed her prescription for clonazepam as needed Assessment & Plan (09/15/2022 2:09 PM EDT): Patient used to be on clonazepam for anxiety and insomnia this really helped her is requesting for medication to be reinitiated Right tennis elbow 07/04/2022 Angioedema 06/10/2022 Myocardial infarction 06/10/2022 Flushing reaction 06/10/2022 Assessment & Plan (06/10/2022 10:21 AM EST): Is most likely related to side effects either from hydralazine or Artane Will FU at next appointment with labs R/O thyroid conditions. Asymptomatic varicose veins of both lower extrem ities 06/10/2022 Assessment & Plan (06/10/2022 10:23 AM EST): On ankles. No ulcers. Has mild venostasis dermatitis. Will use triamcinolone cream PRN. Petechiae 06/10/2022 Assessment & Plan (06/10/2022 10:12 AM EST): Most likely related to patient's use of aspirin for cardiovascular precention and excedrin PRN for migraine. check platelets. Reassurance and FU at next visit. Encounter for preventive health examination 05/25 Assessment & Plan (07/05/2023 4:28 PM EDT): See HPI Assessment & Plan (06/10/2022 10:22 AM EST): Discussed with patient re increase fresh fruit and vegetable intake. Counseled re moderate exercise as tolerated, up to 20min/d Patient feels safe at home. PAP smear n/a pt doesn't need PAP smear any longer s/p JOHN Mammogram: up to date, next one due august 2022 Bone density test: being ordered Eye exam: up to date. Due on June 2022 CRC screen: Will obtain last colonoscopy report. Will send Cologuard Lipids/FBS: to be ordered. Vaccinations: she is getting Td today. Dental visit: up to date. RBBB (right bundle branch block) 06/10/2022 Assessment & Plan (06/10/2022 10:12 AM EST): Pt has history of WI and a PE. She is completely asymptomiatic and with no signs of ACS at this time. I will obtain previous EKG from cardiology. Continue aspirin 81 mg. Right elbow pain 05/27/2022 Left-sided low back pain without sciatica 2022 Chronic kidney disease due to hypertension 11/24 Diabetic nephropathy associa dylan with type 2 diabetes mellitus 11/24/2020 Assessment & Plan (06/03/2024 5:10 PM EST): Diabetes is: almost at goal - Lab Results Component Value Date HGBA1C 7.1 (A) 05/31/2024 HGBA1C 6.9 (A) 10/20/2023 HGBA1C 6.9 (A) 05/16/2023 - Lab Results Component Value Date MICROALBUR 0.7 11/05/2021 CREATININE 0.87 01/12/2024 -Changes: None - Diabetic eye exam: Pending - Diabetic foot exam: Pending - Continue lifestyle modifications - Continue current medications - Follow up: 3 months Assessment & Plan (10/20/2023 10:06 AM EDT): Diabetes is: controlled - Lab Results Component Value Date HGBA1C 6.9 (A) 05/16/2023 HGBA1C 7.1 (A) 02/21/2023 HGBA1C 6.9 (A) 06/10/2022 - Lab Results Component Value Date MICROALBUR 0.7 11/05/2021 CREATININE 0.81 09/01/2023 -Changes: none - Diabetic eye exam:up to date - Diabetic foot exam:pending - Continue lifestyle modifications - Continue current medications - Follow up: 3 months Assessment & Plan (07/05/2023 4:28 PM EDT): Diabetes is: controlled - Lab Results Component Value Date HGBA1C 6.9 (A) 05/16/2023 HGBA1C 7.1 (A) 02/21/2023 HGBA1C 6.9 (A) 06/10/2022 - Lab Results Component Value Date MICROALBUR 0.7 11/05/2021 CREATININE 0.80 05/10/2023 -Changes: none - Diabetic eye exam:up to date - Diabetic foot exam:pending - Continue lifestyle modifications - Continue current medications - Follow up: 3 months Assessment & Plan (05/16/2023 11:41 AM EST): - Lab Results Component Value Date HGBA1C 7.1 (A) 02/21/2023 HGBA1C 6.9 (A) 06/10/2022 HGBA1C 5.9 (H) 08/20/2020 - Lab Results Component Value Date MICROALBUR 0.7 11/05/2021 CREATININE 0.80 05/10/2023 - Diabetic eye exam:pending - Diabetic foot exam:pending - Continue lifestyle modifications - Continue current medications Assessment & Plan (02/21/2023 3:13 PM EDT): - Lab Results Component Value Date HGBA1C 7.1 (A) 02/21/2023 HGBA1C 6.9 (A) 06/10/2022 HGBA1C 5.9 (H) 08/20/2020 - Lab Results Component Value Date MICROALBUR 0.7 11/05/2021 CREATININE 0.62 06/20/2022 - Diabetic eye exam: up to date - Diabetic foot exam: pending - Continue lifestyle modifications - Continue current medications Assessment & Plan (10/31/2022 5:14 PM EDT): - Lab Results Component Value Date HGBA1C 6.9 (A) 06/10/2022 HGBA1C 5.9 (H) 08/20/2020 HGBA1C 5.8 (H) 03/04/2020 - Lab Results Component Value Date MICROALBUR 0.7 11/05/2021 CREATININE 0.62 06/20/2022 - Diabetic eye exam:up to date - Diabetic foot exam:pending - Continue lifestyle modifications - Continue current medications Assessment & Plan (06/10/2022 10:08 AM EST): A1C is at goal. Continue Metformin BID for now. Obtain labs and FU with patient and address medications as she wants to avoid pills. Counseled re more frequent low calorie/carb meals. Check fgstk once daily Encouraged physical activity as tolerated. 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 Initial goal of 30 min walk 3-5x/week. Increase as tolerated. - low-sodium diet (goal: <2g/day) and heart healthy diet such as DASH to reduce BP and prevent ASCVD. - Home BP monitoring 1-2 x day with goal of <140/90. - Seek immediate medical attention for chest pain, palpitations, SOB, syncope, or sudden changes in mental status. - Do not change or discontinue current prescriptions without first consulting health care provider Assessment & Plan (11/22/2023 12:44 PM EDT): - Aerobic exercise to reduce BP. Initial goal of 30 min walk 3-5x/week. Increase as tolerated. - low-sodium diet (goal: <2g/day) and heart healthy diet such as DASH to reduce BP and prevent ASCVD. - Home BP monitoring 1-2 x day with goal of <140/90. - Seek immediate medical attention for chest pain, palpitations, SOB, syncope, or sudden changes in mental status. - Do not change or discontinue current prescriptions without first consulting health care provider Assessment & Plan (10/20/2023 1:51 PM EDT): Uncontrolled Patient with Parkinsons disease seems very confuse with her medications I will arrange VNA services for medication administration and monitoring of blood pressure I instructed to take her hydralazine 50mg 3 times a day, and to stop metoprolol succinate 25mg and instead take her metoprolol tartrate 100mg BID, I also advise to take her hydrochlorothiazide once she gets home Patient will be follow up with CDTM and with me in 3 months Assessment & Plan (07/05/2023 4:27 PM EDT): Continue to follow with nephrology and cardiology - Aerobic exercise to reduce BP. Initial goal of 30 min walk 3-5x/week. Increase as tolerated. - low-sodium diet (goal: <2g/day) and heart healthy diet such as DASH to reduce BP and prevent ASCVD. - Home BP monitoring 1-2 x day with goal of <140/90. - Seek immediate medical attention for chest pain, palpitations, SOB, syncope, or sudden changes in mental status. - Do not change or discontinue current prescriptions without first consulting health care provider Assessment & Plan (05/16/2023 11:40 AM EST): Maintenance: BMP: up to date Lipid Panel: up to sate ASCVD Risk: on lovaza and crestor 10mg daily -I decided to do an urgent referral to pharmacy chronic condition management in light patient have had bad experience before with multiple blood pressure medication, I advise as soon as she gets home to take metoprolol and hydralazine the way cardiology prescribed it, I also reviewed ED precautions with patient - Aerobic exercise to reduce BP. Initial goal of 30 min walk 3-5x/week. Increase as tolerated. - low-sodium diet (goal: <2g/day) and heart healthy diet such as DASH to reduce BP and prevent ASCVD. - Home BP monitoring 1-2 x day with goal of <140/90. - Seek immediate medical attention for chest pain, palpitations, SOB, syncope, or sudden changes in mental status. - Do not change or discontinue current prescriptions without first consulting health care provider Assessment & Plan (02/21/2023 3:12 PM EDT): - I discontinue her verapamil and I started her on nifedipine 60mg daily RTC 2 week with nurse if BP not at goal increase nifedipine to 90mg daily - Aerobic exercise to reduce BP. Initial goal of 30 min walk 3-5x/week. Increase as tolerated. - low-sodium diet (goal: <2g/day) and heart healthy diet such as DASH to reduce BP and prevent ASCVD. - Home BP monitoring 1-2 x day with goal of <140/90. - Seek immediate medical attention for chest pain, palpitations, SOB, syncope, or sudden changes in mental status. - Do not change or discontinue current prescriptions without first consulting health care provider Assessment & Plan (12/29/2022 5:38 PM EDT): BP elevated today -pt is not sure of her BP meds -from med list on BB,vereapamil, HDCTZ and hydralazine -advised pt to check at home medications she is taking and to bring all bottles to her PCP at next apt in 4 weeks -reports also to be following w wood fence erector Assessment & Plan (10/31/2022 5:12 PM EDT): - Aerobic exercise to reduce BP. Initial goal of 30 min walk 3-5x/week. Increase as tolerated. - low-sodium diet (goal: <2g/day) and heart healthy diet such as DASH to reduce BP and prevent ASCVD. - Home BP monitoring 1-2 x day with goal of <140/90. - Seek immediate medical attention for chest pain, palpitations, SOB, syncope, or sudden changes in mental status. Today I added verapamil and increase her hydrochlorothiazide dose to 50mg daily - Do not change or discontinue current prescriptions without first consulting health care provider RTC 2 weeks with nurse for BP check Assessment & Plan (09/15/2022 2:08 PM EDT): - Aerobic exercise to reduce BP. Initial goal of 30 min walk 3-5x/week. Increase as tolerated. - low-sodium diet (goal: <2g/day) and heart healthy diet such as DASH to reduce BP and prevent ASCVD. - Home BP monitoring 1-2 x day with goal of <140/90. - Seek immediate medical attention for chest pain, palpitations, SOB, syncope, or sudden changes in mental status. -I increase her amlodipine to 10mg daily continue with rest of meds - Do not change or discontinue current prescriptions without first consulting health care provider Assessment & Plan (07/06/2022 1:26 PM EDT): Uncontrolled. Add isosorbide ER 30 mg per day and titrate down Hydralazine to TID. FU with RN Continue al other medications. Symptoms may or may not be related to HTN, r/o anxiety No prescription for clonazepam given today, discussed with patient regarding relaxation techniques. Assessment & Plan (06/10/2022 10:06 AM EST): BP is uncontrolled. Pt accepts to not taking HCTZ daily, she thinks flushing is related to some of the medications. Discussed at length about side effects of medications, I actually think that flushing could be due to hydralazine instead or some of the other medications. Pt will continue on Metoprolol 75 mg BID (will call pharmacy to unify dose as she apparently has received both 50 and 25 mg tabs with same dose) + Isosorbide + hydralazine (Pt had allergy to Losartan). Encouraged her to continue HCTZ, will obtain blood test and FU with her in 3-4 weeks. Counseled re low salt diet/increase moderate physical activity. Check home BP BIW and prn CP/COLE/ABREU Non smoking patient. 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 Obesity 02/17/2015 Type 2 diabetes mellitus 02/17/2015 Assessment & Plan (11/22/2023 12:45 PM EDT): Diabetes is: controlled - Lab Results Component Value Date HGBA1C 6.9 (A) 10/20/2023 HGBA1C 6.9 (A) 05/16/2023 HGBA1C 7.1 (A) 02/21/2023 - Lab Results Component Value Date MICROALBUR 0.7 11/05/2021 CREATININE 0.81 09/01/2023 -Changes: none - Diabetic eye exam: pending - Diabetic foot exam:pending - Continue lifestyle modifications - Continue current medications - Follow up: 3 months Vitamin D deficiency 02/17/2015 Resolved Problems Problem Noted Date Diagnosed Date Resolved Date Acute pulmonary embolism 06/10/202210/2024 Encounters Date Type Department Care Team Description 06/30/2024 Refill [facility] [address] [place] [address] Esa Trejo MD 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 Refill [facility] [address] [place] [address] Chanda Garcia MD 06/08/2024 Refill [facility] [address] [place] [address] Chanda Garcia MD Xerosis cutis; Generalized pruritus 06/07/2024 Telephone [facility] [address] [place] [address] Chanda Garcia MD MAY RECALL 05/31/2024 2:00 PM EST Office Visit [facility] [address] [place] [address] Chanda Garcia MD Intertrigo (Primary Dx); Cervicalgia; Anxiety; Parkinson's disease, unspecified whether dyskinesia present, unspecified whether manifestations fluctuate (CMS/[facility]); Type 2 diabetes mellitus with hyperglycemia, without long-term current use of insulin (CMS/HCC); Diabetic nephropathy associated with type 2 diabetes mellitus (CMS/HCC) 05/31/2024 Travel 05/29/2024 Telephone [facility] [address] [place] [address] Pao Hough MA Chart Prep 05/24/2024 Refill [facility] [address] [place] [address] Chanda Garcia MD Seasonal allergic rhinitis, unspecified trigger 05/20/2024 [facility] Out[facility] HOSP[facility] MED[facility] [address] [place] [address] Chanda Garcia MD Pre-visit Planning (SDOH screening negative and tobacco screening negative) 05/16/2024 Telephone [facility] [address] [place] [address] Chanda Garcia MD Prior Authorization ([facility] Request: Calcipotriene 0.005%) 05/09/2024 Refill [facility] [address] [place] [address] Chanda Garcia MD Primary hypertension 05/04/2024 Refill [facility] [address] [place] [address] Esa Trejo MD Scalp psoriasis; Psoriasis vulgaris 04/21/2024 Refill [facility] [address] [place] [address] Chanda Garcia MD Parkinson's disease, unspecified whether dyskinesia present, unspecified whether manifestations fluctuate ([facility]) from Last 3 Months Immunizations Name Administration Dates Next Due Hep B, Adolescent or Pediatric 09/14/2006,2006,01/30/2006 Influenza High-dose Quadriva lent Preservative Free 02/21/2023,02/08/2022 Influenza injectable quadriv alent IIV4 with preservative 03/10/2016,02/17/2015 Influenza injectable quadriv alent preservative free 01/16/2019 Influenza, High Dose Seasona l, Preservative Free 02/20/2018,01/25/2017 Influenza, IIV3, injectable 01/30/2014, 0 Influenza, Split (incl. christi fied surface antigen) 01/02/2013,12/29/2011 Pneumococcal Conjugate PCV 13 01/25/2017 Pneumococcal Polysaccharide PPSV23 02/20/2018, Pneumococcal, Unspecified 07/18/2005 TD (adult), 2 Lf tetanus tox oid, preservative free, adsorbed 06/10/2022,01/30/2006 Tdap 08/27/2012 Zoster, live 04/28/2017 Social History Tobacco Use Types Packs/Day Years Used Date Smoking Tobacco: Never Passive Smoke Exposure: Never Smokeless Tobacco: Never Tobacco Cessation:Counseling Given: Not Answered Alcohol Use Standard Drinks/Week Comments Never 0 [...] not to disclose 2021 10:14 AM EDT Last Filed Vital Signs Vital Sign Reading Time Taken Comments Blood Pressure 144/82 05/31/2024 2:17 PM EST Pulse 70 05/31/2024 2:17 PM EST Temperature 36.8 ??C (98.3 ??F) 05/31/2024 2:17 PM ES T Respiratory Rate 16 05/31/2024 2:17 PM EST Oxygen Saturation 100% 04/05/2024 3:17 PM EST Inhaled Oxygen Concentration - - Weight 75.3 kg (166 lb) 05/31/2024 2:17 PM EST Height 160 cm (5' 3 ) 05/31/2024 2:17 PM EST Body Mass Index 29.41 05/31/2024 2:17 PM EST Plan of Treatment Health Maintenance Due Date Last Done Comments CT Colonography 1950 Colonoscopy 1950 FIT 1950 FOBT 1950 Sigmoidoscopy 1950 Diabetes: Foot Exam 06/28/1961 Eye Exam 06/28/1961 RSV Patients and Patients Aged 60 years or older (1 - Risk 60-74 years 1-dose series) 2011 Zoster Vaccines (2 of 3) 06/23/2017 04/28/2017 Dental Oral Exam 10/26/2019 04/26/2019, 05/2018, 12/21/2017, Additional history exists Dental Prophylaxis 10/26/2019 04/26/2019, 0 10/23/2018, 12/01/2017, Additional history exists Dental X-Ray: Full Mouth 04/26/2020 04/25/2017, 09/22 Dental X-Ray: Bitewings 10/23/2021 10/23/19 21, 10/23/2018, 04/25/2017 COVID-19 Vaccine ( season) 2023 10/03/2020, 09/06/2020 Diabetes: Hemoglobin A1C 08/28/2024 025, 10/20/2023, 05/16/2023, Additional history exists Lipid Panel 08/31/2024 09/01/2023, 05/26, 11/05/2021, Additional history exists Depression Screening 10/19/2024 10/20/2023, 10/20/19 Alcohol/Substance Use Screening 11/21/2024 11/22/2023 Mammogram 12/18/2024 12/19/2023, 11/23, 09/13/2021, Additional history exists Tobacco Screening 04/05/2025 04/05/2024 SDOH Screening 05/20/2025 05/20/2024 Colorectal Cancer Screening 03/13/2026 FIT DNA/Cologuard 03/13/2026 03/13/2023 DTaP/Tdap/Td Vaccines (3 - Td or Tdap) 06/10/2032 06/10/2022, 08/27/2012, 01/30/2006 Hepatitis B Vaccines Aged Out 09/14/2006, 05/15/2006, 01/30/2006 No longer eligible based on patient's age to complete this topic Pneumococcal Vaccine: 50+ Years Completed 02/20/2018, 01/25/2017, 07/18/2005, Additional history exists Hepatitis C Screening Completed 08/20/2020 Influenza Vaccine Completed 01/22/2024, , 02/08/2022, Additional history exists HIB Vaccines Aged Out No longer eligi ble based on patient's age to complete this topic HPV Vaccines Aged Out No longer eligi ble based on patient's age to complete this topic Hepatitis A Vaccines Aged Out No long er eligible based on patient's age to complete this topic IPV Vaccines Aged Out No longer eligi ble based on patient's age to complete this topic Meningococcal Vaccine Aged Out No bobby steve eligible based on patient's age to complete this topic RSV under 20 months Aged Out No longe r eligible based on patient's age to complete this topic Rotavirus Vaccines Aged Out No longer eligible based on patient's age to complete this topic Goals Goal Patient Goal Type Associated Problems Recent Progress Patient-Stated? Author Blood Pressure < 140/90 Blood Pressure 144/82( 025 2:17 PM EST) No Sruthi Webb PharmD Procedures Procedure Name Priority Date/Time Associated Diagnosis Comments POCT GLYCATED HEMOGLOBIN, TOTAL Routine 05/31/2024 3:09 PM EST Type 2 diabetes mellitus with hyperglycemia, without long-term current use of insulin (CMS/HCC) POCT GLUCOSE Routine 05/31/2024 3:08 PM EST Type 2 diabetes mellitus with hyperglycemia, without long-term current use of insulin (CMS/HCC) BI MAMMOGRAM SCREENING TOMOSYNTHESIS BILATERAL Routine 12/19/2023 1:00 PM EDT LIPID PANEL, STANDARD Routine 09/01/2023 9:30 AM EDT Primary hypertension LAB COLOGUARD?? COLON CANCER SCREEN Routine 03/13/2023 8:04 AM EST Colon cancer screening BITEWING - SINGLE RADIOGRAPHIC IMAGE Routine 10/22/2020 12:00 AM EDT ZZZ HISTORICAL HEPATITIS C AB W/REFL TO HCV RNA, QN, PCR Routine 08/20/2020 8:54 AM EDT PROPHYLAXIS - ADULT Routine 04/26/2019 1 2:00 AM EST PERIODIC ORAL EVALUATION - ESTABLISHED PATIENT Routine 04/26/2019 12:00 AM EST INTRAORAL - COMPLETE SERIES OF RADIOGRAPHIC IMAGES Routine 04/25/2017 12:00 AM EST from Last 3 Months or Most Recently Relevant to Health Maintenance Results * (ABNORMAL) POCT HGB A1C (05/31/2024 3:09 PM EST) Hemoglobin A1C 7.1(A) 4.0 - 6.0 % Blood 05/31/2024 3:09 PM EST us Chadna Damico MD POINT OF CARE TEST EN TER/EDIT ORDERABLES Final Result * POCT Glucose (05/31/2024 3:08 PM EST) Glucose Blood, POC 177 60 - 200 mg/dL Blood Capillary blood specimen / Unknown 05/31/2024 3:08 PM EST Carolina Arturo Damico MD POINT OF CARE TEST EN TER/EDIT ORDERABLES Final Result * BI Mammogram Screening Tomosynthesis Bilateral (12/19/2023 1:00 PM EDT) Anatomical Region Laterality Modality Breast Bilateral Mammography 12/19/2023 1:00 PM EDT Narrative 01/12/2024 3:16 PM EDT ? [facility] ? [address] ?[place], [place] [address] ? Mammography Report ? Signed ? Patient: Colon,Anh A ?MR#: [id number] ?? 09 ? : 1950 ?Acct:[id number] ? Age/Sex: 73 / F ?ADM Date: 12/19/23 ? Loc: HO.MAMMO ? Attending Dr: Huma Hamilton DO ? Ordering Physician: Huma Hamilton DO ?Results: 1N ?? egative ? Date of Service: 12/19/23 ?Follow Up: 1 Year From Orig ?? inal Mammogram ? Procedure(s): MM tomosynthesis screening BI ?? Accession Number(s): [id number] ? cc: Chanda Garcia MD; Huma Hamilton DO ? EXAMINATION: ?? MM SCREENING DIGITAL BREAST TOMOSYNTHESIS, BILATERAL ? CLINICAL INFORMATION: ? Screening. Asymptomatic. ? COMPARISON: ?? Mammography: Comparison is made with available priors ? TECHNIQUE: ?? Digital breast tomosynthesis is performed in both the craniocaudal and ?? mediolateral oblique views along with computer-aided detection (CAD). ? Synthesized 2D images are generated from the tomosynthesis. ? FINDINGS: ?? There are scattered areas of fibroglandular density (ACR BI-RADS breast ?? composition Category b). ? There are no significant masses, abnormal calcifications, or other ?? abnormalities. ? MM/MM tomosynthesis screening BI ?? IMPRESSION: ?? No mammographic evidence of malignancy. ? ASSESSMENT: ? BI-RADS BI-RADS 1 - Negative ? RECOMMENDATION: ?? Routine annual mammography screening. ? 1 year F/U ? This examination should not preclude the clinical evaluation of a ?? suspicious palpable abnormality. ? This patient's information was entered into a reminder system with a ?? target due date for their next mammogram. ? Electronically signed by: ??Kassandra Prado DO ??01/12/2024 03:14 PM EDT ? Dictated By: ?Kassandra Prado DO ? Signed By: ?<Electronically signed by Kassandra Prado, DO in OV> ? 01/12/24 1514 ? DD/ 1300 ? TD/TT: 12/19/23 1314 ? Medical Receptionist Assistant: ? Procedure Note Maria R Sprague - 01/12/2024 [facility] [address] [place] [address] [place] [address] Mammography Report Signed Patient: Anh Scanlon AMR#: [id number] 09 : 2Acct:[id number] Age/Sex: 73 / FADM Date: 12/19/23 Loc: HO.MAMMO Attending Dr: Huma Hamilton DO Ordering Physician: Huma Hamiltonults: 1N egative Date of Service: 12/19/23Follow Up: 1 Year From Orig inal Mammogram Procedure(s): MM tomosynthesis screening BI Accession Number(s): [id number] cc: Chanda Garcia MD; Huma Hamilton DO EXAMINATION: MM SCREENING DIGITAL BREAST TOMOSYNTHESIS, BILATERAL CLINICAL INFORMATION: Screening. Asymptomatic. COMPARISON: Mammography: Comparison is made with available priors TECHNIQUE: Digital breast tomosynthesis is performed in both the craniocaudal and mediolateral oblique views along with computer-aided detection (CAD). Synthesized 2D images are generated from the tomosynthesis. FINDINGS: There are scattered areas of fibroglandular density (ACR BI-RADS breast composition Category b). There are no significant masses, abnormal calcifications, or other abnormalities. MM/MM tomosynthesis screening BI IMPRESSION: No mammographic evidence of malignancy. ASSESSMENT: BI-RADS BI-RADS 1 - Negative RECOMMENDATION: Routine annual mammography screening. 1 year F/U This examination should not preclude the clinical evaluation of a suspicious palpable abnormality. This patient's information was entered into a reminder system with a target due date for their next mammogram. Electronically signed by: Kassandra Prado DO 01/12/2024 03:14 PM EDT Dictated By: Kassandra Prado DO Signed By: <Electronically signed by Kassandra Prado DO in OV> 01/12/24 1514 DD/ 1300 TD/TT: 12/19/23 1314 Medical Receptionist Assistant: Huma Hamilton DO IMG BI PROCEDURES Edited Res ult - Final * Lipid Panel, Standard (09/01/2023 9:30 AM EDT) Triglycerides 145 <150 mg/dL [facility] Comment:Desirable Triglyceri de: less than 150 mg/dLBorderline High Triglyceride 150-199 mg/dLHigh Triglyceride: 200-499 mg/dLVery High Triglyceride: greater than or equal to 5OO mg/dL Cholesterol 155 <200 mg/dL [facility] Comment:Desirable Cholestero l: less than 200 mg/dLBorderline High Cholesterol: 200-239 mg/dLHigh Cholesterol: greater than 239 mg/dL LDL Cholesterol Calculated 80 <100 mg/dL [facility] Comment:Desirable LDL: less than 100 mg/dLNear Optimal/Above Optimal LDL: 110- 129 mg/dLBorderline High LDL: 130-159 mg/dLHigh LDL: 160-189 mg/dLVery High LDL: greater than or equal to 190 mg/dL HDL Cholesterol 46 >40 mg/dL [facility] Comment:Desirable HDL: great er than 40 mg/dL Note: This HDL assay may give artificially low results in patients with liver disease. Blood Venous blood specimen / Unknown 09/01/2023 9:30 AM EDT 09/01/2023 11:26 AM EDT Chanda Damico MD LAB BLOOD ORDERABLES Final Result [facility] [address] [place] [phone] * Cologuard?? colon cancer screening (03/13/2023 8:04 AM EST) Cologuard Result Negative Negative 03/27/20 5:16 PM EST [employer] (CLIA #:[id number]) Comment: NEGATIVE TEST RESULT. A negative Cologuard result indicates a low likelihood that a colorectal cancer (CRC) or advanced adenoma (adenomatous polyps with more advanced pre-malignant features) ??is present. The chance that a person with a negative Cologuard test has a colorectal cancer is less than 1 in 1500 (negative predictive value >99.9%) or has an ??advanced adenoma is less than ??5.3% (negative predictive value 94.7%). These data are based on a prospective cross-sectional study of 10,000 individuals at average risk for colorectal cancer who were screened with both Cologuard and colonoscopy. (Marcus Reaves al, N Engl J Med 2014;370(14):1286- 1297) The normal value (reference range) for this assay is negative. COLOGUARD RE-SCREENING RECOMMENDATION: Periodic colorectal cancer screening is an important part of preventive healthcare for asymptomatic individuals at average risk for colorectal cancer. ??Following a negative Cologuard result, the [place] Cancer Society and U.S. Multi-Society Task Force screening guidelines recommend a Cologuard re-screening interval of 3 years. References: [place] [employer] Guideline for Colorectal Cancer Screening: https://www.cancer.org/cancer/qodav-nvauvp-rcvylw/aekvlgtwe-jprvliwfh-cidlamo/ac s-rec ommendations.html.; Joseph DK, Maegan BOUCHER, Melany PerryK, Colorectal Cancer Screening: Recommendations for Physicians and Patients from the U.S. Multi-Society Task Force on Colorectal Cancer Screening , Am J Gastroenterology 2017; 112:1192-5364. TEST DESCRIPTION: Composite algorithmic analysis of stool DNA-biomarkers with hemoglobin immunoassay. ?? Quantitative values of individual biomarkers are not reportable and are not associated with individual biomarker result reference ranges. Cologuard is intended for colorectal cancer screening of adults of either sex, 45 years or older, who are at average-risk for colorectal cancer (CRC). Cologuard has been approved for use by the U.S. FDA. The performance of Cologuard was established in a cross sectional study of average-risk adults aged 50-84. Cologuard performance in patients ages 45 to 49 years was estimated by sub-group analysis of near-age groups. Colonoscopies performed for a positive result may find as the most clinically significant lesion: colorectal cancer [4.0%], advanced adenoma (including sessile serrated polyps greater than or equal to 1cm diameter) [20%] or non- advanced adenoma [31%]; or no colorectal neoplasia [45%]. These estimates are derived from a prospective cross-sectional screening study of 10,000 individuals at average risk for colorectal cancer who were screened with both Cologuard and colonoscopy. (Marcus Reaves al, N Engl J Med 2014;370(14):5779-4396.) Cologuard may produce a false negative or false positive result (no colorectal cancer or precancerous polyp present at colonoscopy follow up). A negative Cologuard test result does not guarantee the absence of CRC or advanced adenoma (pre-cancer). The current Cologuard screening interval is every 3 years. ([place] [employer] Society and U.S. Multi-Society Task Force). Cologuard performance data in a 10,000 patient pivotal study using colonoscopy as the reference method can be accessed at the following location: www.[employer]/results. Additional description of the Cologuard test process, warnings and precautions can be found at www.[employer].com. Stool specimen (specimen) 03/13/2023 8:04 AM EST 03/14/2023 2:30 PM EST Chanda Damico MD LAB MOLECULAR DIAGNOS TICS ORDERABLES Final Result [employer] (CLIA #:[id number]) [place] [address], * HEPATITIS C AB W/REFL TO HCV RNA, QN, PCR (08/20/2020 8:54 AM EDT) HEPATITIS C ANTIBODY NON-REACT CHRIS NON-REACT CHRIS [facility] INDEX 0.01 <1.00 [facility] Comment: ?? HCV antibody was non-reactive. There is no laboratory ?? evidence of HCV infection. ?? In most cases, no further action is required. However, if recent HCV exposure is suspected, a test for HCV RNA (test code 28032) is suggested. ?? For additional information please refer to http://education.[employer]/faq/HBJ57h5 (This link is being provided for informational/ educational purposes only.) ?? 08/20/2020 8:54 AM EDT Historical Provider HISTORICAL/NON ORDERABLE LABS Final Result Performing Organization Address City/[facility]/ZIP Co de Phone Number [facility] [address] from Last 3 Months or Most Recently Relevant to Health Maintenance Insurance [facility] Care Teams Inventory Auditor Relationship Specialty Start Date End Date Chanda Garcia MD [address] [place], [place] PCP - General Family Medicine 12/17/21 Sruthi Shelton, Sapna [address] [place], [place] Pharmacist Internal Medicine 08/16/23
--- OUTSIDE RECORDS SUMMARY | 2024-07-09 17:14 | XMS_ITS | Encounter Summary ---
Author Organization [facility] [employer] Address [address] [facility] [address] [place] [address] Care Team Providers Care Spinning Mule Tender Name Role Phone Chanda Garcia MD Primary Care Provide r Sruthi Shelton PharmD Unavailable [phone] Encounter Details Date Type Department Care Team (Late st Contact Info) Description 10/18/2023 Telephone [facility] MEDICINE [address] [place], [place] [phone] Chanda Garcia MD [address] [place] [address] Social History Tobacco Use Types Packs/Day Years [...] AM EDT documented as of this encounter Miscellaneous Notes * Telephone Encounter - Tierra Linder LPN - 10/18/2023 5:33 PM EDT Please obtain any notes from ED visit [facility] [place]23 appt with PCP on 10/20/23. Thank You * Telephone Encounter - Tierra Linder LPN - 10/18/2023 5:17 PM EDT Triage call returned to patient with [place] Collision Technician [id number]. Patient was sent from [facility] to [facility] Ed 10/16/23 for cardiac concerns. Patient had labs drawn but did not stay in ED for evaluation. Patient denies chest pain shortness of breath or any cardiac concerns at time of call. Was told earlier with RX review to follow with PCP. Disposition reviewed and patient in agreement with plan ASK/PCP Monday10/20/23 930am. Reviewed with patient home care recommendations, reasons to call backand symptoms that require immediate evaluation in UC or ER. Pt verbalized understanding and agrees. Protocol Used: Information Only Call - No Triage (Adult) Protocol-Based Disposition: See in Office or Video Visit within 2 Weeks Positive Triage Question: * Requesting regular office appointment and adult stable (no new symptoms, not worsening) * All higher-acuity triage questions were negative Care Advice Discussed: * Reasons To Call Back - New symptoms develop - You have more questions - You become worse documented in this encounter Plan of Treatment Not on file documented as of this encounter Goals Goal Patient Goal Type Associated Problems Recent Progress Patient-Stated? Author Blood Pressure < 140/90 Blood Pressure 144/82( 025 2:17 PM EST) No Sruthi Webb PharmD documented as of this encounter Visit Diagnoses Not on filedocumented in this encounter Additional Health Concerns Assessment Noted Time PHQ-9 Depression Total Score: 0 07/05/19 24 11:08 AM EDT documented as of this encounter Care Teams Spinning Mule Tender Relationship Specialty Start Date End Date Chanda Garcia MD [address] [place] [address] PCP - General Family Medicine 12/17/21 Sruthi Shelton, LeonardoD [address] [place] [phone] Pharmacist Internal Medicine 08/16/23 documented as of this encounter
--- OUTSIDE RECORDS SUMMARY | 2024-07-09 17:14 | XMS_ITS | Clinical Summary ---
Author Organization [facility] Address [address] [place] [address] Care Team Providers Care Mds Rn Name Role Phone Unavailable Primary Care Provider Unavailabl e Social History Tobacco Use Types Packs/Day Years Used Date Smoking Tobacco: Never Assessed Sex and Gender Information Value Date Recorded Sex Assigned at Not on file Gender Identity Not on file Sexual Orientation Not on file Plan of Treatment Health Maintenance Due Date Last Done Comments Hepatitis C Virus Screening 1950 DTaP/Tdap/Td Vaccines (1 - Tdap) 06/28/1970 Pneumococcal Vaccines 50+ (1 of 1 - PCV) 06/28/2001 Zoster (Shingles) Vaccine (1 of 2) 06/28/2001 COVID-19 Vaccine ( - 2023-2 5 season) 2023 RSV Vaccine 60 years and old er and Patients (1 - 1-dose 75+ series) 06/28/2026 Hepatitis B Vaccines Aged Out No long er eligible based on patient's age to complete this topic
--- OUTSIDE RECORDS SUMMARY | 2024-07-09 17:14 | XMS_ITS | Encounter Summary ---
Author Organization [employer] Address [address] [facility] [address] [place] [address] Care Team Providers Care Drama Professor Name Role Phone Chanda Garcia MD Primary Care Provide r Sruthi Shelton PharmD Unavailable [phone]- [phone] Encounter Details Date Type Department Care Team (Late st Contact Info) Description 06/08/2023 Orders Only [facility] MEDICINE [address] [place] [address] Chanda Garcia MD [address] [place] [address] Social History Tobacco Use Types Packs/Day Years Used Date Smoking Tobacco: Never Passive Smoke Exposure: Never Smokeless Tobacco: Never Alcohol Use Standard Drinks/Week Comments Never 0 (1 standard drink = 0.6 oz pur e alcohol) Housing Stability Answer Date Recorded What is [...] the past 12 months, has t he [employer], gas, oil or water company threatened to shut off services in your home? No 02/09/2023 Depression Answer Date Recorded Patient Health Questionnaire-2 Score 0 06/10/2022 Comments No Sex and Gender Information Value [...] on filedocumented in this encounter Care Teams Drama Professor Relationship Specialty Start Date End Date Chanda Garcia MD [address] [place] [address] PCP - General Family Medicine 12/17/21 Sruthi Shelton PharmD [address] [place] [address] Pharmacist Internal Medicine 08/16/23 documented as of this encounter
--- OUTSIDE RECORDS SUMMARY | 2024-07-09 17:14 | XMS_ITS | Encounter Summary ---
Author Organization [employer] Address [address] [facility] 7t [place] [address] Care Team Providers Care Street Vendor Name Role Phone Chanda Garcia MD Primary Care Provide r Sruthi Shelton PharmD Unavailable [phone]- [phone] Reason for Visit * Reason Comments Med Refill Encounter Details Date Type Department Care Team ([facility] st Contact Info) Description 02/24/2023 Refill [facility] MEDICINE [address] [place] [address] Chanda Garcia MD [address] [place], [place] [phone] Social History Tobacco Use Types Packs/Day Years Used Date Smoking Tobacco: Never Passive Smoke Exposure: Never Smokeless Tobacco: Never Alcohol Use Standard Drinks/Week Comments Never 0 (1 standard drink = 0.6 oz pur e alcohol) Housing Stability Answer Date Recorded What is your housing situation today? I have jenifertalib gerardo 02/09/[address] you [...] on filedocumented in this encounter Care Teams Street Vendor Relationship Specialty Start Date End Date Chanda Garcia MD [address] [place] [address] PCP - General Family Medicine 12/17/21 Sruthi Shelton, Sapna [address] [place] [address] Pharmacist Internal Medicine 08/16/23 documented as of this encounter
--- OUTSIDE RECORDS SUMMARY | 2024-07-09 17:14 | XMS_ITS | Encounter Summary ---
Author Organization [employer] Address [address] [facility] [address]t [place] [address] Care Team Providers Care House Nurse Name Role Phone Chanda Garcia MD Primary Care Provide r Sruthi Shelton PharmD Unavailable [phone]- [phone] Reason for Visit * Reason Comments Med Refill Encounter Details Date Type Department Care Team (Late st Contact Info) Description 04/21/2024 Refill [facility] MEDICINE [address] [place] [address] Chanda Garcia MD [address] [place] [address] Parkinson's disease, unspecified whether dyskinesia present, unspecified whether manifestations fluctuate (CMS/HCC) Social History Tobacco Use Types Packs/Day [...] of this encounter Visit Diagnoses Diagnosis Parkinson's disease, unspecified whether dyskinesia present, unspecified whether manifestations fluctuate (CMS/HCC) documented in this encounter Additional Health Concerns Assessment Noted Time PHQ-9 Depression Total Score: 0 10/20/19 24 9:25 AM EDT documented as of this encounter Care Teams House Nurse Relationship Specialty Start Date End Date Chanda Garcia MD [address] [place] [address] PCP - General Family Medicine 12/17/21 Sruthi Shelton, PharmD [address] [place] [address] Pharmacist Internal Medicine 08/16/23 documented as of this encounter
--- OUTSIDE RECORDS SUMMARY | 2024-07-09 17:14 | XMS_ITS | Encounter Summary ---
Author Organization [employer] Address [address] [facility] 7[address] [place] [address] Care Team Providers Care Deckhand Clam Dredge Name Role Phone Chanda Garcia MD Primary Care Provide r Sruthi Shelton PharmD Unavailable [phone]- [phone] Reason for Visit * Reason Comments Med Refill Encounter Details Date Type Department Care Team (Late st Contact Info) Description 05/09/2024 Refill [facility] MEDICINE [address] [place] [address] Chanda Garcia MD [address] [place], [place] [phone] Primary hypertension Social History Tobacco Use Types Packs/Day Years [...] as of this encounter Visit Diagnoses Diagnosis Primary hypertension Unspecified essential hypertension documented in this encounter Additional Health Concerns Assessment Noted Time PHQ-9 Depression Total Score: 0 10/20/19 24 9:25 AM EDT documented as of this encounter Care Teams Deckhand Clam Dredge Relationship Specialty Start Date End Date Chanda Garcia MD [address] [place] [address] PCP - General Family Medicine 12/17/21 Sruthi Shelton PharmD [address] [place] [address] Pharmacist Internal Medicine 08/16/23 documented as of this encounter
--- OUTSIDE RECORDS SUMMARY | 2024-07-09 17:14 | XMS_ITS | Encounter Summary ---
Author Organization [employer] Address [address] [facility] [address]t [place] [address] Care Team Providers Care Smoke And Flame Specialist Name Role Phone Chanda Garcia MD Primary Care Provide r Sruthi Shelton PharmD Unavailable [phone]- [phone] Reason for Visit * Reason Comments Med Refill Encounter Details Date Type Department Care Team (Late st Contact Info) Description 06/08/2024 Refill [facility] MEDICINE [address] [place] [address] Chanda Garcia MD [address] [place], [place] [phone] Xerosis cutis; Generalized pruritus Social History Tobacco Use Types Packs/Day Years [...] as of this encounter Visit Diagnoses Diagnosis Xerosis cutis Other specified disease of sebaceous glands Generalized pruritus Unspecified pruritic disorder documented in this encounter Additional Health Concerns Assessment Noted Time PHQ-9 Depression Total Score: 0 10/20/19 24 9:25 AM EDT documented as of this encounter Care Teams Smoke And Flame Specialist Relationship Specialty Start Date End Date Chanda Garcia MD [address] [place] [address] PCP - General Family Medicine 12/17/21 Sruthi Shelton PharmD [address] [place] [address] Pharmacist Internal Medicine 08/16/23 documented as of this encounter
--- OUTSIDE RECORDS SUMMARY | 2024-07-09 17:14 | XMS_ITS | Encounter Summary ---
Author Organization [employer] [facility] Address [address] [facility] [address] [place] [address] Care Team Providers Care Oral Surgery Assistant Name Role Phone Chanda Garcia MD Primary Care Provide r Sruthi Shelton PharmD Unavailable [phone]- [phone] Encounter Details Date Type Department Care Team (Latest Contact Info) Description 10/23/2018 [facility] CONVERSION[facility] Dental, Provider, DDS Social History Tobacco Use Types Packs/Day Years [...] on filedocumented in this encounter Care Teams Oral Surgery Assistant Relationship Specialty Start Date End Date Chanda Garcia MD [address] [place] [address] PCP - General Family Medicine 12/17/21 Sruthi Shelton, PharmD [address] [place], [place] [phone] Pharmacist Internal Medicine 08/16/23 documented as of this encounter
--- OUTSIDE RECORDS SUMMARY | 2024-07-09 17:14 | XMS_ITS | Clinical Summary ---
Author Organization [facility] Address [address] [facility] [address] [place] [address] Phone Care Team Providers Care Personal Care Aid Name Role Phone Jenise Sanabria MD Primary Care Provider [phone]- [phone] Allergies Active Allergy Reactions Criticality Noted Date Comments Low Inhibitors Other (see comments) 05/19/2010 Losartan Swelling 12/25/2015 Medications pantoprazole (PROTONIX) 40 MG EC tablet Take 1 tablet by mouth 1 (one) time each day Active pramipexole (MIRAPEX) 0.25 MG tablet Take 1 tablet by mouth 2 (two) times a day Active cholecalciferol (VITAMIN D-3) 50 MCG (1999 UT) capsule Take 1 capsule by mouth 1 (one) time each day 1 Active metFORMIN (GLUCOPHAGE) 500 MG tablet Take 2 tablets by mouth 2 (two) times a day 1 Active omega-3 acid ethyl esters (LOVAZA) 1 g capsule Take 2 capsules by mouth 1 (one) time each day 1 Active trihexyphenidyl (ARTANE) 2 MG tablet Take 1 tablet by mouth 3 (three) times a day with meals 1 Active aspirin (ST BARBARA) 81 MG EC tablet Take 81 mg by mouth 1 (one) time each day Active hydrALAZINE 50 MG tablet TAKE 1 1/2 TABLETS BY MOUTH IN THE MORNING, 1 1/2 TABS IN THE EVENING AND 1 1/2 TABS BEFORE BEDTIME 405 tablet 1 2 Active Additional Information Patient taking differently: 50 mg Oral 4 times daily, Reported on 11/17/2021 rosuvastatin (CRESTOR) 10 MG tablet Take 1 tablet by mouth 1 (one) time each day 2 Active cetirizine (ZyrTEC) 10 MG tablet Take 1 tablet by mouth 1 (one) time each day 2 Active acetaminophen (TYLENOL 8 HOUR) 650 MG 8 hr tablet Take 1 tablet by mouth every 8 (eight) hours if needed 2 Active Diclofenac Sodium 1 % gel if needed 2 Active verapamil SR (CALAN-SR) 240 MG CR tablet Take 240 mg by mouth 1 (one) time each day 3 Active hydroCHLOROthia zide (HYDRODIURIL) 50 MG tablet Take 50 mg by mouth in the morning. 3 Active metoprolol tartrate (LOPRESSOR) 100 MG tablet Take 1 tablet by mouth in the morning and 1 tablet in the evening. 3 Active Active Problems Problem Noted Date Diagnosed Date COVID-19 10/31/2022 12/07/2022 Overview (12/07/2022): Last Assessment & Plan: anthony prescribed Medication interactions where reviewed with patient Anxiety 09/14/2022 12/07/2022 Overview (12/07/2022): Last Assessment & Plan: Patient used to be on clonazepam for anxiety and insomnia this really helped her is requesting for medication to be reinitiated Pain in right hand 09/14/2022 12/07/2022 Lateral epicondylitis of right elbow 07/04/2022 12/07/2022 Acute pulmonary embolism 06/10/2022 023 Angioedema 06/10/2022 12/07/2022 Flushing 06/10/2022 12/07/2022 Overview (12/07/2022): Last Assessment & Plan: Is most likely related to side effects either from hydralazine or Artane Will FU at next appointment with labs R/O thyroid conditions. Myocardial infarction 06/10/2022 12/07/2022 Patient encounter status 06/10/2022 023 Overview (12/07/2022): Last Assessment & Plan: Discussed with patient re increase fresh fruit [...] Td today. Dental visit: up to date. Petechiae 06/10/2022 12/07/2022 Overview (12/07/2022): Last Assessment & Plan: Most likely related to patient's use of aspirin for cardiovascular precention and excedrin PRN for migraine. check platelets. Reassurance and FU at next visit. Right bundle-branch block 06/10/20222022 Overview (12/07/2022): Last Assessment & Plan: Pt has history of HI and a PE. She is completely asymptomiatic and with no signs of ACS at this time. I will obtain previous EKG from cardiology. Continue aspirin 81 mg. Varicose veins of lower extremity 06/10/2022 12/07/2022 Overview (12/07/2022): Last Assessment & Plan: On ankles. No ulcers. Has mild venostasis dermatitis. Will use triamcinolone cream PRN. 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 Obesity 02/17/2015 12/07/2022 Type 2 diabetes mellitus 02/17/2015 023 Vitamin D deficiency 02/17/2015 12/07/2022 Immunizations Name Administration Dates Next Due Hep B, Adolescent or Pediatric 09/14/2006,2006,01/30/2006 Influenza Split 01/02/2013,12/29/2011 Influenza Split High Dose Pr eservative Free IM 02/20/2018,01/25/2017 Influenza, Quadrivalent, Preservative Free 01/16 Influenza, Quadrivalent, With Preservative 03/10,02/17/2015 Pneumococcal Conjugate 13-Valent 01/25/2017 Pneumococcal Polysaccharide 02/20/2018, 6 Pneumococcal, Unspecified 07/18/2005 Td 06/10/2022,01/30/2006 Tdap 08/27/2012 Zoster 04/28/2017 Family History Medical History Relation Comments Diabetes Mother Hypertension Mother Hypertension Sibling 1 Diabetes Sibling 2 Relation Status Comments Father Mother Sibling 1 Sibling 2 Social History Tobacco Use Types Packs/Day Years Used Date Smoking Tobacco: Never Smokeless Tobacco: Never Tobacco Cessation:Counseling Given: Not Answered Alcohol Use Standard Drinks/Week Comments No 0 (1 standard drink = 0.6 oz pur e alcohol) Comments Unknown Sex and Gender Information Value Date Recorded Sex Assigned at Not on file Legal Sex Female 5:10 PM EST Gender Identity Not on file Sexual Orientation Not on file Last Filed Vital Signs Vital Sign Reading Time Taken Comments Blood Pressure 130/80 12/07/2022 1:37 PM EDT Pulse 54 12/07/2022 1:37 PM EDT Temperature - - Respiratory Rate - - Oxygen Saturation 98% 04/09/2021 1:21 PM EST Inhaled Oxygen Concentration - - Weight 74 kg (163 lb 3.2 oz) 12/07/2022 1:37 PM EDT Height 160 cm (5' 3 ) 10/16/2019 12:00 PM EDT Body Mass Index 28.91 10/16/2019 12:00 PM EDT Plan of Treatment Health Maintenance Due Date Last Done Comments Breast Cancer Screening 1950 Colorectal Cancer Screening: Annual FOBT 06/28/2000 Colorectal Cancer Screening: Colonoscopy 06/28/2000 Colorectal Cancer Screening: Sigmoidoscopy 06/28/2000 Diabetes: Hemoglobin A1C 05/25/2020 Diabetes: Ophthalmology Exam 05/25/2020 Diabetes: Pedal Pulse Checked 05/25/2020 Diabetes: Sensory Foot Exam 05/25/2020 Diabetes: Visual Foot Exam 05/25/2020 Influenza Vaccine (#1) 2023 9, 02/20/2018, 01/25/2017, Additional history exists Hepatitis B Vaccine Aged Out 09/14/2006, 05/15/2006, 01/30/2006 No longer eligible based on patient's age to complete this topic Pneumococcal Vaccine: 65+ Years Completed 02/20/2018, 01/25/2017, 07/18/2005, Additional history exists Insurance [facility] ([id number]) [place] [id number] [facility] ([id number]) [place] [id number] Care Teams Personal Care Aid Relationship Specialty Start Date End Date Jenise Sanabria MD [address] [place] [id number] PCP - General Internal Medicine 05/11/22
--- OUTSIDE RECORDS SUMMARY | 2024-07-09 17:14 | XMS_ITS | Encounter Summary ---
Author Organization [employer] Address [address] [facility] [address] [place] [address] Care Team Providers Care Flanging Roll Operator Name Role Phone Chanda Garcia MD Primary Care Provide r Sruthi Shelton PharmD Unavailable [phone]- [phone] Reason for Visit * Reason Onset Date Comments Nurse Triage 09/05/2023 Encounter Details Date Type Department Care Team (Late st Contact Info) Description 09/05/2023 Telephone [facility] MEDICINE [address] [place] [address] Chanda Garcia MD [address] [place] [address] Nurse Triage Social History Tobacco Use Types Packs/Day Years Used Date Smoking Tobacco: Never Passive Smoke Exposure: Never Smokeless Tobacco: Never Alcohol Use Standard Drinks/Week Comments Never 0 (1 standard drink = 0.6 oz pur e alcohol) Depression Answer Date Recorded Patient Health Questionnaire-9 Score 0 07/05/2023 Patient Health Questionnaire-9 Score 0 07/05/2023 Last PHQ-9: Questionnaire Data Not on file 0 07/05/2023 Housing Stability Answer Date Recorded What is [...] Date Recorded Patient Health Questionnaire-2 Score 0 07/05/2023 Comments No Sex and Gender Information Value Date Recorded Sex Assigned at Female 02/21/2022 10:14 AM EDT Legal Sex Female 10:14 AM EDT Gender Identity Female 02/21/2022 10:14 AM EDT Sexual Orientation Choose not to disclose 2021 10:14 AM EDT documented as of this encounter Miscellaneous Notes * Telephone Encounter - Lisa Anderson RN - 09/05/2023 10:16 AM EDT T/C to pt who states that she has been experiencing itching for several weeks not and is working with Dr. Trejo on this. Pts PA was denied for medication Otezla and pt has follow-up in 2 weeks on09/22/23 @ 9:30am. program review director this appointment date and time with pt who confirms she will come to visit and RN also advises pt that she can come to walk-in clinic in the meantime if symptoms worsen. Pt states that she was in walk-in clinic yesterday and they did not ask her about her itching. RN advises pt that walk-in clinic will focus on whatever urgent need that patient is complaining about so pt will have to specify what concern she would like to be addressed. Pt expresses understanding. Will forward message to provider to review PA at this time. * Telephone Encounter - Flavia Waters - 09/05/2023 9:50 AM EDT Symptom: Itching - No Rash Outcome: Schedule an urgent appointment (within 4 hours) or talk to a nurse or provider soon Reason: Severe itching now The caller accepted this outcome Please contact pt at [phone] (interpreter deaf) documented in this encounter Plan of Treatment [...] documented as of this encounter Care Teams Flanging Roll Operator Relationship Specialty Start Date End Date Chanda Garcia MD [address] [place] [address] PCP - General Family Medicine 12/17/21 Sruthi Shelton, LeonardoD [address] [place] [address] Pharmacist Internal Medicine 08/16/23 documented as of this encounter
--- OUTSIDE RECORDS SUMMARY | 2024-07-09 17:14 | XMS_ITS | Encounter Summary ---
Author Organization [employer] [facility] Address [address] [facility] 7t [place] [address] Care Team Providers Care Regulatory Affairs Spec Name Role Phone Chanda Garcia MD Primary Care Provide r Sruthi Shelton PharmD Unavailable [phone] Reason for Visit * Reason Comments Med Refill Encounter Details Date Type Department Care Team (Late st Contact Info) Description 07/29/2022 Refill [facility] MEDICINE [address] [place] [address] Jenise Sanabria MD [address] [place], [place] [phone] Primary hypertension Social History Tobacco Use Types [...] suspected to have Coronavirus/COVID-19? No / Unsure 07/20/2022 10:30 AM EDT documented as of this encounter Plan of Treatment Not on file documented as of this encounter Visit Diagnoses Diagnosis Primary hypertension Unspecified essential hypertension documented in this encounter Care Teams Regulatory Affairs Spec Relationship Specialty Start Date End Date Chanda Garcia MD [address] [place] [address] PCP - General Family Medicine 12/17/21 Sruthi Shelton, LeonardoD [address] [place] [address] Pharmacist Internal Medicine 08/16/23 documented as of this encounter
--- OUTSIDE RECORDS SUMMARY | 2024-07-09 17:14 | XMS_ITS | Data Portability ---
Author Organization [place] - [facility], Allergy Address [address] [place] [phone] Care Team Providers Care Merchandise Buyer Name Role Phone IWONA GONZALEZ Primary Care Provider Assessment Encounter Date Assessment Date Assessment LastModified by Organization Details LastModified Time 10/31/2023 10/31/2023 73-year-old female presents today for tinnitus and hearing loss. She had significantly impacted cerumen which was removed and tolerated well and she did note that this did improve her hearing quite a bit. She did have a moderate high-frequency loss including the speech frequencies for which she is a candidate for amplification but she would prefer to hold off for now. She may follow-up as needed for worsening hearing or recurrent ear blockage. [email or web address] Not available 10/31/2023 13:22:45 Plan of Treatment Reminders Order Date Submit Date Provider Last Modified By Organization Details Last Modified Time Details Appointments None record ed. Lab None record ed. Referral None record ed. Procedures None record ed. Surgeries None record ed. Imaging None record ed. Medication Orders None record ed. Patient TargetsNo targets recorded. Patient InstructionsNo instructions recorded. Reason for Referral None Reported. Results Created Date Observation Date Name Description Value Unit Range Abnormal Flag Note LastModifiedBy Organization Detail LastModifiedTime 11/01/19 24 audio gram No observ ation record ed. [email or web address] Not Available 2023 09:24:45 Result Notes None recorded. Problems Name Problem SNOMED Code Status Onset Date Resolution Date Notes Provider Name and Address Organization Details Recorded Time Chronic rhinitis 58702251 Active 2014 Chronic rhinitis ; Note: Date Diagnose d: 5 12:19 PM (J31.0) Note: Date Diagnose d: 5 12:19 PM (J31.0) Not Available [employer] 4 00:49:15 Impacted cerumen of bilateral ears [id number] 9108 Active 2023 DASHA RUSSELL MD [address] [facility] [address], [place], [address] , [facility] - [facility] 4 11:08:12 Bilateral tinnitus [id number] 2 Active 2023 DASHA RUSSELL MD [address] [facility],[place] [address], [facility] [place], [address] , [facility] - [facility] 4 11:08:17 Sensorine ural hearing loss of bilateral ears 391149661 Active 2023 Marcos GRIFFIN [address] [facility],[place] [address], [place], [address] , [facility] - [facility] 11:16:53 Problem Notes None recorded. Procedures Surgical History Date Name Laterality Status Provider Name and Address Organization Details Recorded Time 10/31/19 24 Cerumen removal with microscope completed DASHA RUSSELL MD [address] [facility] [address] [address], [place], [phone], [facility] - [facility] 10/31/2023 13:21:52 10/31/19 24 Tympanometry (74457) completed Marcos GRIFFIN [address] [facility] [address] [address], [place], [address], [facility] - [facility] 10/31/2023 11:15:44 10/31/19 24 [employer] ([id number]) completed Marcos GRIFFIN [address] [facility],[place] [address], [place], [address], [facility] - [facility] 10/31/2023 11:15:27 Imaging Results Imaging Date Name Status LastModified by Organiz ation Details LastModified Time 11/01/2023 audiogram completed [email or web address] Information no t available 11/01/2023 09:24:45 Procedure Notes None recorded. Medical Equipment None Reported. Allergies No known drug allergies Medications Name Sig Start Date Stop Date Status Note LastModified by Organization Details LastModified Time losartan 50 mg tablet active Medicati on ID: [id number] B rand Name: losartan Send Method: E-Prescr ibed Sub s Allowed: subs OK Medic ationGen ericName : losartan Medicat ion ID: [id number] B rand Name: losartan Send Method: E-Prescr ibed Sub s Allowed: subs OK Medic ationGen ericName : losartan Not Available Not Available Not Available metformin 500 mg tablet TOME DOS TABLETAS POR VIA ORAL DOS VECES AL CHIP WITH MORNING AND EVENING MEALS active Not Available Not Available No t Available prednison e 10 mg tablet active Not Available Not Available Not Available ketoconaz ole 2 % shampoo APLIQUE AL KAYLAN AFECTADA 3 TIMES WEEKLY active Not Available Not Available No t Available cetirizin e 10 mg tablet TOME CHRISTOS TABLETA TODOS LOS D active Not Available Not Available No t Available metoprolo l tartrate 100 mg tablet active Medicati on ID: [id number] B rand Name: metoprol ol tartrate Send Method: E-Prescr ibed Sub s Allowed: subs OK Medic ationGen ericName : metoprol ol tartrate Medicat ion ID: [id number] B rand Name: metoprol ol tartrate Send Method: E-Prescr ibed Sub s Allowed: subs OK Medic ationGen ericName : metoprol ol tartrate Not Available Not Available Not Available hydrochlo rothiazid e 50 mg tablet TOME CHRISTOS TABLETA TODOS LOS D EN LA MA OBI active Not Available Not Available No t Available metronida zole 0.75 % (37.5 mg/5 gram) vaginal gel INSERT ONE APPLICAT OR INTO VAGINA AT BEDTIME FOR 7 NIGHTS active Not Available Not Available No t Available clonazepa m 0.5 mg tablet TOME 1 TABLETA POR VIA ORAL TODOS LOS THOMAS EN LA [place] active Not Available Not Available No t Available metoprolo l succinate ER 100 mg tablet,ex tended release 24 hr TOME 1 TABLETA POR V A ORAL DOS VECES AL D A FOR 30 DAYS active Not Available Not Available No t Available verapamil ER (SR) 180 mg tablet,ex tended release TOME CHRISTOS TABLETA TODOS LOS D AL ACOSTARS E active Not Available Not Available No t Available clobetaso l 0.05 % topical cream APPLY TWICE DAILY TO AFFECTED AREAS FOR UP TO 2 WEEKS NEEDED FOR SIGNIFIC ANT FLARE UPS. active Not Available Not Available No t Available hydralazi ne 25 mg tablet TOME 1 TABLETA POR V A ORAL MORE VECES AL D A CON ALIMENTO active Not Available Not Available No t Available triamcino lone acetonide 0.1 % topical cream MIX WITH CERAVE AND APPLY AFTER SHOWERS active Not Available Not Available No t Available simvastat in 40 mg tablet active Medicati on ID: [id number] B rand Name: simvasta tin Send Method: E-Prescr ibed Sub s Allowed: subs OK Medic ationGen ericName : simvasta tin Medi cation ID: [id number] B rand Name: simvasta tin Send Method: E-Prescr ibed Sub s Allowed: subs OK Medic ationGen ericName : simvasta tin Not Available Not Available Not Available meloxicam 7.5 mg tablet TOME 1 TABLETA POR VIA ORAL TODOS LOS THOMAS CUANDO SEA NECESARI O FOR 30 DAYS active Not Available Not Available No t Available nifedipin e ER 60 mg tablet,ex tended release 24 hr TOME CHRISTOS TABLETA TODOS LOS D EN LA [place] OBI active Not Available Not Available No t Available hydralazi ne 100 mg tablet TOME 1 TABLETA POR V A ORAL DOS VECES AL D A CON ALIMENTO FOR 30 DAYS 10/30 completed Not Available Not Available Not Available pantopraz ole 40 mg tablet,de layed release TOME CHRISTOS TABLETA TODOS LOS D ANTES DEL DESAYUNO active Not Available Not Available No t Available clotrimaz ole-betam ethasone 1 %-0.05 % topical cream APPLY TOPICALL Y 2 TIMES DAILY FOR 28 DAYS. active Not Available Not Available No t Available diphenhyd ramine 25 mg tablet active Medicati on ID: [id number] B rand Name: diphenhy dramine HCl Send Method: E-Prescr ibed Sub s Allowed: subs OK Medic ationGen ericName : diphenhy dramine HCl Medi cation ID: [id number] B rand Name: diphenhy dramine HCl Send Method: E-Prescr ibed Sub s Allowed: subs OK Medic ationGen ericName : diphenhy dramine HCl Not Available Not Available Not Available Ear Drops (carbamid e peroxide) 6.5 % ADMINIST ER 5 DROPS INTO EACH EAR 2 TIMES DAILY FOR 5 DAYS. 10/30 completed Not Available Not Available Not Available pramipexo le 0.25 mg tablet TOME CHRISTOS TABLETA MORE VECES AL D A FOR 90 DAYS active Not Available Not Available No t Available Banophen 25 mg capsule TAKE 1-2 CAPSULES BY MOUTH EVERY 6 HOURS NEEDED FOR RASH/ITC RONALD active Not Available Not Available No t Available aspirin 81 mg chewable tablet active Medicati on ID: [id number] B rand Name: aspirin Send Method: E-Prescr ibed Sub s Allowed: subs OK Medic ationGen ericName : aspirin Medicati on ID: [id number] B rand Name: aspirin Send Method: E-Prescr ibed Sub s Allowed: subs OK Medic ationGen ericName : aspirin Not Available Not Available Not Available verapamil ER (SR) 240 mg tablet,ex tended release TOME CHRISTOS TABLETA D AL ACOSTARS E *DO NOT CRUSH/CH EW* active Not Available Not Available No t Available hydralazi ne 50 mg tablet TAKE 1 TABLET (50 MG) BY MOUTH 3 TIMES DAILY. TAKE 1 TAB AND A HALF 75 MG THREE TIMES A DAY active Not Available Not Available No t Available metoprolo l succinate ER 25 mg tablet,ex tended release 24 hr TOME DOS TABLETAS POR V A ORAL CADA MA OBI Y TOME CHRISTOS TABLETA CADA NOCHE 10/30 completed Not Available Not Available Not Available estradiol 0.01% (0.1 mg/gram) vaginal cream PLACE 1 G VAGINALL Y DAILY X14 DAYS, THEN 1 G VAGINALL Y TWICE A WEEK ONGOING. active Not Available Not Available No t Available Vitamin D2 1,250 mcg (50,000 unit) capsule active Medicati on ID: [id number] B rand Name: Vitamin D2 Send Method: E-Prescr ibed Sub s Allowed: subs OK Medic ationGen ericName : Vitamin D2 Medic ation ID: [id number] B rand Name: Vitamin D2 Send Method: E-Prescr ibed Sub s Allowed: subs OK Medic ationGen ericName : Vitamin D2 Not Available Not Available Not Available trihexyph enidyl 2 mg tablet TOME CHRISTOS TABLETA TODOS LOS D FOR 90 DAYS active Not Available Not Available No t Available clobetaso l 0.05 % scalp solution APPLY TO SCALP TWICE DAILY NEEDED FOR FLAKING FOR UP TO 2 WEEKS, BREAK 1 WEEK & REPEAT NEEDED. active Not Available Not Available No t Available loratadin e 10 mg tablet Take 1 tablet by mouth once a day active Medicati on ID: [id number] B rand Name: loratadi ne Send Method: E-Prescr ibed Sub s Allowed: subs OK Speci al Instruct ion: one daily as directed Medicat ionGener icName: loratadi ne Medic ation ID: [id number] B rand Name: loratadi ne Send Method: E-Prescr ibed Sub s Allowed: subs OK Speci al Instruct ion: one daily as directed Medicat ionGener icName: loratadi ne Not Available Not Available Not Available calcipotr iene 0.005 % topical ointment APLIQUE AL AREA AFECTADA DOS VECES AL CHIP active Not Available Not Available No t Available Calcium-5 00 500 mg (as calcium carbonate 1,250 mg) tablet active Medicati on ID: [id number] B rand Name: Calcium 500 Send Method: E-Prescr ibed Sub s Allowed: subs OK Medic ationGen ericName : Calcium 500 Medi cation ID: [id number] B rand Name: Calcium 500 Send Method: E-Prescr ibed Sub s Allowed: subs OK Medic ationGen ericName : Calcium 500 Not Available Not Available Not Available clonazepa m 0.5 mg disintegr ating tablet active Medicati on ID: [id number] B rand Name: clonazep am Send Method: E-Prescr ibed Sub s Allowed: subs OK Medic ationGen ericName : clonazep am Medic ation ID: [id number] B rand Name: clonazep am Send Method: E-Prescr ibed Sub s Allowed: subs OK Medic ationGen ericName : clonazep am Not Available Not Available Not Available rosuvasta tin 10 mg tablet TOME CHRISTOS TABLETA TODOS LOS D active Not Available Not Available No t Available clobetaso l 0.05 % shampoo APPLY 3 TIMES WEEKLY ON DAYS NOT USING KETOCONA ZOLE SHAMPOO. active Not Available Not Available No t Available nitrofura ntoin monohydra te/macroc rystals 100 mg capsule TOME 1 C PSULA POR V A ORAL DOS VECES AL D A FOR 7 DAYS active Not Available Not Available No t Available omega-3 acid ethyl esters 1 gram capsule TOME 2 C PSULAS POR V A ORAL DOS VECES AL D A active Not Available Not Available No t Available fluocinol one 0.01 % scalp oil and shower cap APPLY AT NIGHT 3 TIMES WEEKLY AND COVER WITH SCARF active Not Available Not Available No t Available pregabali n 100 mg capsule TOME 1 C PSULA POR V A ORAL DOS VECES AL D A FOR 90 DAYS active Not Available Not Available No t Available FreeStyle Lite Meter kit USE TO TEST BLOOD SUGAR TWO TIMES DAILY active Not Available Not Available No t Available FreeStyle Lite Strips USE TO TEST TWICE DAILY active Not Available Not Available No t Available Chest Congestio n Relief 100 mg/5 mL oral liquid TAKE 10 ML BY MOUTH IF NEEDED IN THE MORNING, AT NOON, AND AT BEDTIME FOR COUGH FOR UP TO 10 DAYS. active Not Available Not Available No t Available omeprazol e 20 mg tablet,de layed release active Medicati on ID: [id number] B rand Name: omeprazo le Send Method: E-Prescr ibed Sub s Allowed: subs OK Speci al Instruct ion: Take 1 tablet by mouth every day before a meal Med icationG enericNa me: omeprazo le Medic ation ID: [id number] B rand Name: omeprazo le Send Method: E-Prescr ibed Sub s Allowed: subs OK Speci al Instruct ion: Take 1 tablet by mouth every day before a meal Med icationG enericNa me: omeprazo le Not Available Not Available Not Available fenofibra te 40 mg tablet active Medicati on ID: [id number] B rand Name: fenofibr ate Send Method: E-Prescr ibed Sub s Allowed: subs OK Medic ationGen ericName : fenofibr ate Medi cation ID: [id number] B rand Name: fenofibr ate Send Method: E-Prescr ibed Sub s Allowed: subs OK Medic ationGen ericName : fenofibr ate Not Available Not Available Not Available tramadol ER 150 mg capsule 24h,exten ded release(2 5-75) Take 1 capsule by mouth once a day as needed for pain active Medicati on ID: [id number] D uration Value: 7 Brand Name: tramadol Send Method: E-Prescr ibed Sub s Allowed: subs OK Medic ationGen ericName : tramadol Medicat ion ID: [id number] D uration Value: 7 Brand Name: tramadol Send Method: E-Prescr ibed Sub s Allowed: subs OK Medic ationGen ericName : tramadol Not Available Not Available Not Available Paxlovid 300 mg (150 mg x 2)-100 mg tablets in a dose pack TOME MORE TABLETAS POR V A ORAL DOS VECES AL D A POR 5 D active Not Available Not Available No t Available Vitals None Recorded Social History None recorded. Functional Status None recorded. Mental Status None recorded. Family History Nothing Reported. Medical History Condition Response Allergies/Hayfever Y Diabetes Y GERD/Reflux Y Hypertension Y Gynecological HistoryNo gynecological history recorded. Obstetrics History GPAL:G 0 P 0 0 0 0 Past Encounters Encounter ID Performer Location Encounter Start Date Encounter Closed Date Diagnosis/Indication Diagnosis SNOMED-CT Code Diagnosis ICD10 Code Diagnosis Note [id number] DASHA RUSSELL MD [facility] on [address] [place] [address] 10/31/2023 10:16:34 10/31/2023 13:59:06 Impacted cerumen of bilateral ears [id number] 982440 H61.23 Bilateral tinnitus 54558 91485 102 H93.13 Sensorineu ral hearing loss of bilateral ears 085415297 H90.3 Audiologic al evaluation results: Right ear: {{Normal M ild Modera te* Modera tely-sever e Severe P rofound}} {{hearing sloping to a mild slopi ng to a moderate s loping to moderately severe slo ping to severe slo ping to profound f lat high frequency* low frequency mid frequency cookie bite schulz curve}} {{with sen sorineural hearing loss with condu ctive hearing loss with mixed hearing loss with senso rineural hearing loss.#}} Left ear: {{Normal M ild Modera te* Modera tely-sever e Severe P rofound}} {{hearing sloping to a mild slopi ng to a moderate s loping to moderately severe slo ping to severe slo ping to profound f lat high frequency* low frequency mid frequency cookie bite schulz curve}} {{with sen sorineural hearing loss with condu ctive hearing loss with mixed hearing loss with senso rineural hearing loss.#}} Tympanomet ry: Right Ear:{{Type A* Type As Type Ad Type C Type C, shallow & rounded Ty pe B Type B with large volume Cou ld not maintain a hermetic seal}} Left Ear:{{Type A* Type As Type Ad Type C Type C, shallow & rounded Ty pe B Type B with large volume Cou ld not maintain a hermetic seal}} Health Concerns Section Related Observation LastModified by Organization Detai ls LastModified Time None Recorded Concern Status LastModified by Organization Details LastModified Time None Recorded Advance Directives Directive None Recorded Payers Encounter Date Sequence Insurance Name Policy Number Policy Hutton Covered Member ID Hutton Member ID Guarantor Name 10/31/2023 1 [facility] - DOS ON OR AFTER 2022 - MEDICARE ADVANTAGE [place] (MEDICARE REPLACEMENT/ADV ANTAGE - PPO) Casandra Scanlon [id number] Anh Scanlon Notes Date Note Type Note Provider Name and Address Organization Details Recorded Time 10/31/2023 text/html 73-year-old grupo grant presents today for evaluation of hearing loss. She was noted to have obstructive cerumen. She does note tinnitus and difficulty hearing. She has not had a hearing test in years. She denies any loud noise exposure or any ear infections. DASHA RUSSELL MD [address] [place] [address], [phone], [facility] - [facility] 10/31/2023 13:24:04 OBGyn Episode No OBEpisode recorded.
--- OUTSIDE RECORDS SUMMARY | 2024-07-09 17:14 | XMS_ITS | Encounter Summary ---
Author Organization [employer] Address [address] [facility] [address] [place] [address] Care Team Providers Care Grain Broker Name Role Phone hCanda Garcia MD Primary Care Provide r Sruthi Shelton PharmD Unavailable [phone] Reason for Visit * Reason Onset Date Comments ER Follow-up 11/08/2023 Encounter Details Date Type Department Care Team ([facility] st Contact Info) Description 11/08/2023 Telephone [facility] [address] [place] [address] Chanda Garcia MD [address] [place], [place] [phone] ER Follow-up Social History Tobacco Use Types Packs/Day Years [...] encounter Miscellaneous Notes * Telephone Encounter - Dee Keys RN - 11/08/2023 11:15 AM EDT [facility] admission 11/02-11/04. Please contact pt. For HDF, thank you! * Telephone Encounter - Jeff Coronel - 11/08/2023 10:38 AM EDT Patient calling to report ED visit on : Date: 10/30 Hospital: [facility] Seen for: Vomiting, Fever, Body Aches Patient advised will forward to team nurse for follow up [place] Speaker documented in this encounter Plan of Treatment Not on file documented as of this encounter Goals Goal Patient Goal Type Associated Problems Recent Progress Patient-Stated? Author Blood Pressure < 140/90 Blood Pressure 144/82( 025 2:17 PM EST) No Sruthi Webb, PharmD documented as of this encounter Visit Diagnoses Not on filedocumented in this encounter Additional Health Concerns Assessment Noted Time PHQ-9 Depression Total Score: 0 10/20/19 24 9:25 AM EDT documented as of this encounter Care Teams Grain Broker Relationship Specialty Start Date End Date Chanda Garcia MD [address] [place] [address] PCP - General Family Medicine 12/17/21 Sruthi Shelton, LeonardoD [address] [place] [address] Pharmacist Internal Medicine 08/16/23 documented as of this encounter
--- OUTSIDE RECORDS SUMMARY | 2024-07-09 17:15 | XMS_ITS | Data Portability ---
Author Organization [employer] [facility] [place] [facility] [employer] [place] Address [address] [place] [id number] Care Team Providers Care Weed Control Inspector Name Role Phone IWONA GONZALEZ Primary Care Provider [phone] HIM ABIGAIL OTHER Assessment Encounter Date Assessment Date Assessment LastModified by Organization Details LastModified Time 11/03/2023 11/03/2023 As noted, we were called to see this patient regarding concerns of rash and fever with abd pain. Evaluation in the field was performed by my plating tank operator apprentice colleague, as noted above, I provided real-time direction and supervision for this visit. 73 F w diabetes presents with 1 week of rash. recent dx of UTI for which she is taking macrobid. She was at [place] last week vacationing w family when she developed a rash on her legs and arms. She swam in the pool, went [place] in the [place], no hiking or swimming in fresh water. [facility] and fever. On my assessment of the photos, i note a diffuse maculopapular rash. There may be some scattered purpura as well. ddx includes tick born illness (classically rickettsia though not the right geography), vasculitis, viral exanthem. given abd pain and fever, while on treatment for uti, i think she needs to be evaluated in an acute care setting today. This was communicated to her daughter tod who is in agreement with plan. Impression: fever, rash, abd pain Plan: transfer to ED Disposition: OR We discussed the situation and I recommended referral to the emergency department. This was based on findings of fever and abd pain, likely needs imaging and blood work today. Not available 11/03/2023 17:06:18 Plan of Treatment Reminders Order Date Submit Date Provider Last Modified By Organization Details Last Modified Time Details Appointments None record ed. Lab None record ed. Referral None record ed. Procedures None record ed. Surgeries None record ed. Imaging None record ed. Medication Orders None record ed. Patient TargetsNo targets recorded. Patient InstructionsNo instructions recorded. Reason for Referral None Reported. Medical Equipment None Reported. Medications Name Sig Start Date Stop Date Status Note LastModified by Organization Details LastModified Time metformin 500 mg tablet TOME DOS TABLETAS POR VIA ORAL DOS VECES AL CHIP WITH MORNING AND EVENING MEALS active Not Available Not Available No t Available prednisone 10 mg tablet active Not Available Not Available Not Available ketoconazole 2 % shampoo APLIQUE AL KAYLAN AFECTADA 3 TIMES WEEKLY active Not Available Not Available No t Available cetirizine 10 mg tablet TOME CHRISTOS TABLETA TODOS LOS D active Not Available Not Available No t Available metoprolol tartrate 100 mg tablet TOME CHRISTOS TABLETA DOS VECES AL D A active Not Available Not Available No t Available hydrochlorot hiazide 50 mg tablet TOME CHRISTOS TABLETA TODOS LOS D EN LA MA OBI active Not Available Not Available No t Available metronidazol e 0.75 % (37.5 mg/5 gram) vaginal gel INSERT ONE APPLICATOR INTO VAGINA AT BEDTIME FOR 7 NIGHTS active Not Available Not Available No t Available clonazepam 0.5 mg tablet TOME 1 TABLETA POR VIA ORAL TODOS LOS THOMAS EN LA NORMANNAANA active Not Available Not Available No t Available metoprolol succinate ER 100 mg tablet,exten ded release 24 hr TOME 1 TABLETA POR V A ORAL DOS VECES AL D A FOR 30 DAYS active Not Available Not Available No t Available verapamil ER (SR) 180 mg tablet,exten ded release active Not Available Not Available Not Available clobetasol 0.05 % topical cream APPLY TWICE DAILY TO AFFECTED AREAS FOR UP TO 2 WEEKS NEEDED FOR SIGNIFICANT FLARE UPS. active Not Available Not Available N ot Available hydralazine 25 mg tablet TOME 1 TABLETA POR V A ORAL MORE VECES AL D A CON ALIMENTO active Not Available Not Available No t Available triamcinolon e acetonide 0.1 % topical cream MIX WITH CERAVE AND APPLY AFTER SHOWERS active Not Available Not Available No t Available meloxicam 7.5 mg tablet TOME 1 TABLETA POR VIA ORAL TODOS LOS THOMAS CUANDO SEA NECESARIO FOR 30 DAYS active Not Available Not Available Not Available nifedipine ER 60 mg tablet,exten ded release 24 hr TOME CHRISTOS TABLETA TODOS LOS D EN LA MA OBI active Not Available Not Available No t Available hydralazine 100 mg tablet TOME 1 TABLETA POR V A ORAL DOS VECES AL D A CON ALIMENTO FOR 30 DAYS active Not Available Not Available Not Available pantoprazole 40 mg tablet,delay ed release TOME CHRISTOS TABLETA TODOS LOS D ANTES DEL DESAYUNO active Not Available Not Available No t Available clotrimazole -betamethaso ne 1 %-0.05 % topical cream APPLY TOPICALLY 2 TIMES DAILY FOR 28 DAYS. active Not Available Not Available No t Available Ear Drops (carbamide peroxide) 6.5 % ADMINISTER 5 DROPS INTO EACH EAR 2 TIMES DAILY FOR 5 DAYS. active Not Available Not Available No t Available pramipexole 0.25 mg tablet TOME CHRISTOS TABLETA MORE VECES AL D A FOR 90 DAYS active Not Available Not Available No t Available Banophen 25 mg capsule TAKE 1-2 CAPSULES BY MOUTH EVERY 6 HOURS NEEDED FOR RASH/ITCHIN G active Not Available Not Available No t Available verapamil ER (SR) 240 mg tablet,exten ded release TOME CHRISTOS TABLETA TODOS LOS D AL ACOSTARSE *DO NOT CRUSH/CHEW* active Not Available Not Available Not Available hydralazine 50 mg tablet TAKE 1 TABLET (50 MG) BY MOUTH 3 TIMES DAILY. TAKE 1 TAB AND A HALF 75 MG THREE TIMES A DAY active Not Available Not Available No t Available metoprolol succinate ER 25 mg tablet,exten ded release 24 hr TOME DOS TABLETAS POR V A ORAL CADA MA OBI Y TOME CHRISTOS TABLETA CADA NOCHE active Not Available Not Available N ot Available estradiol 0.01% (0.1 mg/gram) vaginal cream PLACE 1 G VAGINALLY DAILY X14 DAYS, THEN 1 G VAGINALLY TWICE A WEEK ONGOING. active Not Available Not Available No t Available trihexypheni dyl 2 mg tablet TOME CHRISTOS TABLETA TODOS LOS D FOR 90 DAYS active Not Available Not Available No t Available clobetasol 0.05 % scalp solution APPLY TO SCALP TWICE DAILY NEEDED FOR FLAKING FOR UP TO 2 WEEKS, BREAK 1 WEEK & REPEAT NEEDED. active Not Available Not Available No t Available calcipotrien e 0.005 % topical ointment APLIQUE AL AREA AFECTADA DOS VECES AL CHIP active Not Available Not Available No t Available rosuvastatin 10 mg tablet TOME CHRISTOS TABLETA TODOS LOS D active Not Available Not Available No t Available clobetasol 0.05 % shampoo APPLY 3 TIMES WEEKLY ON DAYS NOT USING KETOCONAZOL E SHAMPOO. active Not Available Not Available N ot Available nitrofuranto in monohydrate/ macrocrystal s 100 mg capsule TOME 1 C PSULA POR V A ORAL DOS VECES AL D A FOR 7 DAYS active Not Available Not Available No t Available omega-3 acid ethyl esters 1 gram capsule TOME 2 C PSULAS POR V A ORAL DOS VECES AL D A active Not Available Not Available No t Available fluocinolone 0.01 % scalp oil and shower cap APPLY AT NIGHT 3 TIMES WEEKLY AND COVER WITH SCARF active Not Available Not Available No t Available pregabalin 100 mg capsule TOME 1 C PSULA POR V A ORAL DOS VECES AL D A FOR 90 DAYS active Not Available Not Available No t Available FreeStyle Lite Meter kit USE TO TEST BLOOD SUGAR TWO TIMES DAILY active Not Available Not Available No t Available FreeStyle Lite Strips USE TO TEST TWICE DAILY active Not Available Not Available Not Available Chest Congestion Relief 100 mg/5 mL oral liquid TAKE 10 ML BY MOUTH IF NEEDED IN THE MORNING, AT NOON, AND AT BEDTIME FOR COUGH FOR UP TO 10 DAYS. active Not Available Not Available No t Available Vitals Date Recorded Body temperature Oxygen saturation Oxygen saturation in Arterial blood by Pulse oximetry Respiratory rate Heart rate Body weight Systolic blood pressure Diastolic blood pressure Provider Name and Address Organization Details Last Updated DateTime 4 100.4 [degF] 96 % 96 % 16 /min 82 /min 80425.6 8 g 128 mm[Hg] 64 mm[Hg] Not Available [employer] - production 4 16:28:04 Social History None recorded. Functional Status None recorded. Mental Status None recorded. Family History Nothing Reported. Medical History No medical history recorded. Gynecological HistoryNo gynecological history recorded. Obstetrics History GPAL:G 0 P 0 0 0 0 Past Encounters Encounter ID Performer Location Encounter Start Date Encounter Closed Date Diagnosis/Indication Diagnosis SNOMED-CT Code Diagnosis ICD10 Code Diagnosis Note [id number] King Gibson MD Main - [address] [phone] 11/03/2023 16:27:53 11/03/2023 17:06:38 Health Concerns Section Related Observation LastModified by Organization Detai ls LastModified Time None Recorded Concern Status LastModified by Organization Details LastModified Time None Recorded Advance Directives Directive None Recorded Payers Encounter Date Sequence Insurance Name Policy Number Policy Hutton Covered Member ID Hutton Member ID Guarantor Name 11/03/2023 1 [facility] - DOS ON OR AFTER 2022 - DUAL ELIGIBLE - [employer] AND ONE CARE (MEDICARE REPLACEMENT/ADV ANTAGE - HMO) Anh Colon [id number] Anh Colon Notes Date Note Type Note Provider Name and Address Organization Details Recorded Time 11/03/2023 text/html [facility] Nurse Triage Notes (Emma Guillermo): Reason For Request: vomiting/stomach pain/headache Denies: Vomiting blood/coffee ground material Constipation Chief Complaints: Nausea/Vomiting PMH: Diabetes, Hypertension, Other Allergies: No Known Comments: PMH: HTN and DM- oral meds for DM, Was on Vacation last week and developed a rash to both legs, COLE's, feeling tired and nausea, feeling better but symptoms continue on/off this week, today was vomiting up sputum, poc WNL, tolerating small food but nausea continuesNo fever, does report lower abdominal painverified info and will process visit for GI work up, possibly a UTI w/ lower abdominal pain and evaluate rash for specific cause.Francisco Gibson MD [address] [facility],[address], [place], [address], [facility] [employer] 11/03/2023 17:06:35 OBGyn Episode No OBEpisode recorded.
== END 2024-07-09 15:06 | disposition home or self-care (01) ==
LOC: HO.PMC 14:28
PROVIDERS: PCP Internal Medicine; Visit Provider Nurse Practitioner Family
DX: M47.812 Spondylosis without myelopathy or radiculopathy, cervical region (principal); M50.30 Other cervical disc degeneration, unspecified cervical region; M62.838 Other muscle spasm; R22.1 Localized swelling, mass and lump, neck; M54.2 Cervicalgia
CPT/HCPCS: 99204; G2211

== ENCOUNTER → 2024-07-09 14:27 | Outpatient (BNVA) | payer OTHER, SELFPAY | PROVIDERS: PCP Internal Medicine; Visit Provider Nurse Practitioner Family | DX: M47.812 Spondylosis without myelopathy or radiculopathy, cervical region (principal); G89.29 Other chronic pain; M50.30 Other cervical disc degeneration, unspecified cervical region; M62.838 Other muscle spasm; R22.1 Localized swelling, mass and lump, neck | CPT/HCPCS: 99202 ==

== ENCOUNTER 2024-07-22 12:31 | Outpatient (REF) | payer OTHER, SELFPAY ==
[2024-07-22 13:01] LABS: MANUAL DIFF FLAG NO
--- OUTSIDE RECORDS SUMMARY | 2024-07-22 14:09 | XMS_ITS | Encounter Summary ---
Author Organization [employer] Address [address] [facility] [address] [place] [address] Care Team Providers Care Metal Coater Operator Name Role Phone Chanda Garcia MD Primary Care Provide r Sruthi Shelton PharmD Unavailable [phone] Reason for Visit * Reason Comments Med Refill Encounter Details Date Type Department Care Team (Late st Contact Info) Description 07/18/2024 Refill [facility] MEDICINE [address] [place] [address] Chanda Garcia MD [address] [place], [place] [phone] Parkinson's disease, unspecified whether dyskinesia present, unspecified [...] documented as of this encounter Care Teams Metal Coater Operator Relationship Specialty Start Date End Date Chanda Garcia MD [address] [place] [address] PCP - General Family Medicine 12/17/21 Sruthi Shelton, PharmD [address] [place] [address] Pharmacist Internal Medicine 08/16/23 documented as of this encounter
--- OUTSIDE RECORDS SUMMARY | 2024-07-22 14:09 | XMS_ITS | Encounter Summary ---
Author Organization [employer] Address [address] [facility] 7[address] [place] [address] Care Team Providers Care Sales Operations Assistant Name Role Phone Chanda Garcia MD Primary Care Provide r Sruthi Shelton PharmD Unavailable [phone] Reason for Visit * Reason Onset Date Comments ER Follow-up 11/08/2023 Encounter Details Date Type Department Care Team ([facility] st Contact Info) Description 11/08/2023 Telephone [facility] MEDICINE [address] [place] [address] Chanda Garcia MD [address] [place], [place] [phone] ER Follow-up Social History Tobacco Use Types [...] Keys RN - 11/08/2023 11:15 AM EDT [facility] admission 11/02-11/04. Please contact pt. For HDF, thank you! * Telephone Encounter - Jeff Coronel - 11/08/2023 10:38 AM EDT Patient calling to report ED visit on : Date: 10/30 Hospital: [facility] Seen for: Vomiting, Fever, Body Aches Patient advised will forward to team nurse for follow up Tanzanian Speaker documented in this encounter Plan of [...] documented as of this encounter Care Teams Sales Operations Assistant Relationship Specialty Start Date End Date Chanda Garcia MD [address] [place] [address] PCP - General Family Medicine 12/17/21 Sruthi Shelton, LeonardoD [address] [place] [address] Pharmacist Internal Medicine 08/16/23 documented as of this encounter
--- OUTSIDE RECORDS SUMMARY | 2024-07-22 14:09 | XMS_ITS | Encounter Summary ---
Author Organization [employer] Address [address] [facility] [address] [place] [address] Care Team Providers Care Typesetting Machine Operator/Tender Name Role Phone Chanda Garcia MD Primary Care Provide r Sruthi Shelton PharmD Unavailable [phone]- [phone] Reason for Visit * Reason Onset Date Comments Nurse Triage 09/05/2023 Encounter Details Date Type Department Care Team (Late st Contact Info) Description 09/05/2023 Telephone [facility] MEDICINE [address] [place] [address] Chanda Garcia MD [address] [place] [address] Nurse Triage Social History Tobacco Use Types [...] follow-up in 2 weeks on09/22/23 @ 9:30am. credit review manager this appointment date and time with pt [...] accepted this outcome Please contact pt at [phone] (therapist respiratory) documented in this encounter Plan of Treatment [...] documented as of this encounter Care Teams Typesetting Machine Operator/Tender Relationship Specialty Start Date End Date Chanda Garcia MD [address] [place] [address] PCP - General Family Medicine 12/17/21 Sruthi Shelton, LeonardoD [address] [place] [address] Pharmacist Internal Medicine 08/16/23 documented as of this encounter
--- OUTSIDE RECORDS SUMMARY | 2024-07-22 14:09 | XMS_ITS | Encounter Summary ---
Author Organization [employer] Address [address] [facility] [address] [place] [address] Care Team Providers Care Sewage Plant Attendant Name Role Phone Chanda Garcia MD Primary Care Provide r Sruthi Shelton PharmD Unavailable [phone] Encounter Details Date Type Department Care Team (Late st Contact Info) Description 10/18/2023 Telephone [facility] MEDICINE [address] [place], [place] [phone] Chanda Garcia MD [address] [place] [address] Social History Tobacco Use Types Packs/Day Years [...] Please obtain any notes from ED visit [facility] on 10/16/23 appt with PCP on 10/20/23. Thank You * Telephone Encounter - Tierra Linder LPN - 10/18/2023 5:17 PM EDT Triage call returned to patient with [employer] [id number]. Patient was sent from [facility] to [facility] 10/16/23 for cardiac concerns. Patient had [...] documented as of this encounter Care Teams Sewage Plant Attendant Relationship Specialty Start Date End Date Chanda Garcia MD [address] [place] [address] PCP - General Family Medicine 12/17/21 Sruthi Shelton, LeonardoD [address] [place] [phone] Pharmacist Internal Medicine 08/16/23 documented as of this encounter
--- OUTSIDE RECORDS SUMMARY | 2024-07-22 14:09 | XMS_ITS | Encounter Summary ---
Author Organization [employer] Address [address] [facility] [address]t [place] [address] Care Team Providers Care Bus Transportation Manager Name Role Phone Chanda Garcia MD Primary Care Provide r Sruthi Shelton PharmD Unavailable [phone] Reason for Visit * Reason Comments Acupuncture Encounter Details Date Type Department Care Team ([facility] st Contact Info) Description 07/18/2024 9:15 AM EDT Office Visit [facility] MEDICINE [address] [place] [address] Steffanie Martinez MD [address] [place] [address] Cervicalgia (Primary Dx) Social History Tobacco Use Types Packs/Day Years [...] the past 12 months, has t he [employer], gas, oil or water [email or web address] threatened to shut off services in your [...] AM EDT documented as of this encounter Progress Notes * Steffanie Martinez MD - 07/18/2024 9:15 AM EDT Subjective Patient ID: Anh Scanlon is a 74 y.o. female who presents for Acupuncture. Anh is here for acupuncture treatment #2 for neck pain. She felt very relaxed after the first treatment. Didn't notice much change in pain level. Review of Systems Musculoskeletal: Positive for neck pain. Objective Physical Exam Constitutional: Appearance: Normal appearance. Skin: General: Skin is warm and dry. Neurological: Mental Status: She is alert and oriented to person, place, and time. Assessment/Plan Diagnoses and all orders for this visit: Cervicalgia Written consent obtained for ear acupuncture. Ears prepped with alcohol pad. Five ear points needled bilaterally: Sympathetic, Estrada Men, Kidney, Liver and Lung. Treatment duration: 30 minutes. Good hemostasis. Patient tolerated well. Follow up weekly for repeat acupuncture treatments as desired. documented in this encounter Plan of Treatment Not on file documented as of this encounter Goals Goal Patient Goal Type Associated Problems Recent Progress Patient-Stated? Author Blood Pressure < 140/90 Blood Pressure 144/82( 025 2:17 PM EST) No Sruthi Webb PharmD documented as of this encounter Visit Diagnoses Diagnosis Cervicalgia- Primary documented in this encounter Additional Health Concerns Assessment Noted Time PHQ-9 Depression Total Score: 0 10/20/19 24 9:25 AM EDT documented as of this encounter Care Teams Bus Transportation Manager Relationship Specialty Start Date End Date Chanda Garcia MD [address] [place] [address] PCP - General Family Medicine 12/17/21 Sruthi Shelton, Sapna [address] [place] [address] Pharmacist Internal Medicine 08/16/23 documented as of this encounter
--- OUTSIDE RECORDS SUMMARY | 2024-07-22 14:09 | XMS_ITS | Encounter Summary ---
Author Organization [employer] Address [address] [facility] 7t [place] [address] Care Team Providers Care Light Industrial Name Role Phone Chanda Garcia MD Primary Care Provide r Sruthi Shelton PharmD Unavailable [phone]- [phone] Reason for Visit * Reason Comments Med Refill Encounter Details Date Type Department Care Team (Late st Contact Info) Description 10/23/2023 Refill [facility] [address] [place] [address] Chanda Mcintosh MD [address] [place] [address] Social History Tobacco Use Types Packs/Day Years [...] documented as of this encounter Care Teams Light Industrial Relationship Specialty Start Date End Date Chanda Garcia MD [address] [place] [address] PCP - General Family Medicine 12/17/21 Sruthi Shelton, PharmD [address] [place] [address] Pharmacist Internal Medicine 08/16/23 documented as of this encounter
--- OUTSIDE RECORDS SUMMARY | 2024-07-22 14:09 | XMS_ITS | Encounter Summary ---
Author Organization [employer] Address [address] [facility] [address] [place] [address] Care Team Providers Care Harness Rigger Name Role Phone Chanda Garcia MD Primary Care Provide r Sruthi Shelton PharmD Unavailable [phone]- [phone] Reason for Visit * Reason Comments Med Change Request Encounter Details Date Type Department Care Team ([facility] st Contact Info) Description 07/19/2024 Refill [facility] MEDICINE [address] [place] [address] Chanda Garcia MD [address] [place], [place] [phone] Social History Tobacco Use Types Packs/Day Years [...] documented as of this encounter Care Teams Harness Rigger Relationship Specialty Start Date End Date Chanda Garcia MD [address] [place] [address] PCP - General Family Medicine 12/17/21 Sruthi Shelton PharmD [address] [place] [address] Pharmacist Internal Medicine 08/16/23 documented as of this encounter
--- OUTSIDE RECORDS SUMMARY | 2024-07-22 14:09 | XMS_ITS | Encounter Summary ---
Author Organization [employer] Address [address] [facility] [address] [place] [address] Care Team Providers Care Merchandise Director Name Role Phone Chanda Garcia MD Primary Care Provide r Sruthi Shelton PharmD Unavailable [phone]- [phone] Reason for Visit * Reason Comments Med Change Request Encounter Details Date Type Department Care Team ([facility] st Contact Info) Description 07/19/2024 Refill [facility] MEDICINE [address] [place] [address] Chanda Garcia MD [address] [place], [place] [phone] Social History Tobacco Use Types Packs/Day Years [...] documented as of this encounter Care Teams Merchandise Director Relationship Specialty Start Date End Date Chanda Garcia MD [address] [place] [address] PCP - General Family Medicine 12/17/21 Sruthi Shelton PharmD [address] [place] [address] Pharmacist Internal Medicine 08/16/23 documented as of this encounter
--- OUTSIDE RECORDS SUMMARY | 2024-07-22 14:09 | XMS_ITS | Encounter Summary ---
Author Organization [employer] Address [address] [facility] [address]t [place] [address] Care Team Providers Care Windows Deployment Technician Name Role Phone Chanda Garcia MD Primary Care Provide r Sruthi Shelton PharmD Unavailable [phone]- [phone] Encounter Details Date Type Department Care Team (Latest Contact Info) Description 07/18/2024 Travel Social History Tobacco Use Types Packs/Day Years [...] documented as of this encounter Care Teams Windows Deployment Technician Relationship Specialty Start Date End Date Chanda Garcia MD [address] [place] [address] PCP - General Family Medicine 12/17/21 Sruthi Shelton, PharmD [address] [place] [address] Pharmacist Internal Medicine 08/16/23 documented as of this encounter
--- OUTSIDE RECORDS SUMMARY | 2024-07-22 14:09 | XMS_ITS | Data Portability ---
Author Organization [place] - [facility], Allergy Address [address] [place] [id number] Care Team Providers Care Blown Film Extrusion Operator Name Role Phone IWONA GONZALEZ Primary Care [...] Address Organization Details Recorded Time Chronic rhinitis 28237097 Active 2014 Chronic rhinitis ; Note: Date Diagnose d: 5 12:19 PM (J31.0) Note: Date Diagnose d: 5 12:19 PM (J31.0) Not Available [employer] 4 00:49:15 Impacted cerumen of bilateral ears [id number] 9108 Active 2023 DASHA RUSSELL MD [address] [facility],[place] [address], [place], [address] , [facility] - [facility] 4 11:08:12 Bilateral tinnitus [id number] 2 Active 2023 DASHA RUSSELL MD [address] [facility],[place] [address], [facility] [place], [address] , [facility] - [facility] 4 11:08:17 Sensorine ural hearing loss of bilateral ears 729417160 Active 2023 Marcos GRIFFIN [address] [facility],[place] [address], [place], [address] , [facility] - [facility] 11:16:53 Problem Notes None recorded. Procedures Surgical History Date Name Laterality Status Provider Name and Address Organization Details Recorded Time 10/31/19 24 Cerumen removal with microscope completed DASHA RUSSELL MD [address] [facility],[place] [address], [place], [address], [facility] - [facility] 10/31/2023 13:21:52 10/31/19 24 Tympanometry (67170) completed Marcos GRIFFIN [address] [facility] [address], [place], [address], [facility] - [facility] 10/31/2023 11:15:44 10/31/19 24 [employer] (47239) completed Marcos GRIFFIN [address] [facility],[place] [address], [place], [address], [facility] - [facility] 10/31/2023 11:15:27 Imaging Results Imaging Date Name Status LastModified by Organiz ation Details LastModified Time 11/01/2023 audiogram completed [email or web address] Information no t available 11/01/2023 09:24:45 Procedure Notes None recorded. Medical Equipment None Reported. Allergies No known drug allergies Medications Name Sig Start Date Stop Date Status Note LastModified by Organization Details LastModified Time losartan 50 mg tablet active Medicati on ID: [id number] B rand Name: losartan Send Method: E-Prescr ibed Sub s Allowed: subs OK Medic ationGen ericName : losartan Medicat ion ID: [id number] B rand Name: losartan Send Method: E-Prescr [...] 100 mg tablet active Medicati on ID: [id number] B rand Name: metoprol ol tartrate Send Method: E-Prescr ibed Sub s Allowed: subs OK Medic ationGen ericName : metoprol ol tartrate Medicat ion ID: [id number] B rand Name: metoprol ol tartrate Send [...] VIA ORAL [place] active Not Available Not Available No t [...] 40 mg tablet active Medicati on ID: [id number] B rand Name: simvasta tin Send Method: E-Prescr ibed Sub s Allowed: subs OK Medic ationGen ericName : simvasta tin Medi cation ID: [id number] B rand Name: simvasta tin Send Method: [...] 25 mg tablet active Medicati on ID: [id number] B rand Name: diphenhy dramine HCl Send Method: E-Prescr ibed Sub s Allowed: subs OK Medic ationGen ericName : diphenhy dramine HCl Medi cation ID: [id number] B rand Name: diphenhy dramine HCl Send [...] mg chewable tablet active Medicati on ID: [id number] B rand Name: aspirin Send Method: E-Prescr ibed Sub s Allowed: subs OK Medic ationGen ericName : aspirin Medicati on ID: [id number] B rand Name: aspirin Send Method: E-Prescr [...] (50,000 unit) capsule active Medicati on ID: [id number] B rand Name: Vitamin D2 Send Method: E-Prescr ibed Sub s Allowed: subs OK Medic ationGen ericName : Vitamin D2 Medic ation ID: [id number] B rand Name: Vitamin D2 Send Method: [...] once a day active Medicati on ID: [id number] B rand Name: loratadi ne Send Method: E-Prescr ibed Sub s Allowed: subs OK Speci al Instruct ion: one daily as directed Medicat ionGener icName: loratadi ne Medic ation ID: [id number] B rand Name: loratadi ne Send Method: [...] 1,250 mg) tablet active Medicati on ID: [id number] B rand Name: Calcium 500 Send Method: E-Prescr ibed Sub s Allowed: subs OK Medic ationGen ericName : Calcium 500 Medi cation ID: [id number] B rand Name: Calcium 500 Send Method: E-Prescr ibed Sub s Allowed: subs OK Medic ationGen ericName : Calcium 500 Not Available Not Available Not Available clonazepa m 0.5 mg disintegr ating tablet active Medicati on ID: [id number] B rand Name: clonazep am Send Method: E-Prescr ibed Sub s Allowed: subs OK Medic ationGen ericName : clonazep am Medic ation ID: [id number] B rand Name: clonazep am Send Method: [...] tablet,de layed release active Medicati on ID: [id number] B rand Name: omeprazo le Send Method: E-Prescr ibed Sub s Allowed: subs OK Speci al Instruct ion: Take 1 tablet by mouth every day before a meal Med icationG enericNa me: omeprazo le Medic ation ID: [id number] B rand Name: omeprazo le Send Method: E-Prescr ibed Sub s Allowed: subs OK Speci al Instruct ion: Take 1 tablet by mouth every day before a meal Med icationG enericNa me: omeprazo le Not Available Not Available Not Available fenofibra te 40 mg tablet active Medicati on ID: [id number] B rand Name: fenofibr ate Send Method: E-Prescr ibed Sub s Allowed: subs OK Medic ationGen ericName : fenofibr ate Medi cation ID: [id number] B rand Name: fenofibr ate Send Method: E-Prescr ibed Sub s Allowed: subs OK Medic ationGen ericName : fenofibr ate Not Available Not Available Not Available tramadol ER 150 mg capsule 24h,exten ded release(2 5-75) Take 1 capsule by mouth once a day as needed for pain active Medicati on ID: [id number] D uration Value: 7 Brand Name: tramadol Send Method: E-Prescr ibed Sub s Allowed: subs OK Medic ationGen ericName : tramadol Medicat ion ID: [id number] D uration Value: 7 Brand Name: tramadol [...] History Condition Response Allergies/Hayfever Y Diabetes Y Hypertension Y GERD/Reflux Y Gynecological HistoryNo gynecological history recorded. Obstetrics History GPAL:G 0 P 0 0 0 0 Past Encounters Encounter ID Performer Location Encounter Start Date Encounter Closed Date Diagnosis/Indication Diagnosis SNOMED-CT Code Diagnosis ICD10 Code Diagnosis Note [id number] DASHA RUSSELL MD [facility] on [address] [place] [address] 10/31/2023 10:16:34 10/31/2023 13:59:06 Impacted cerumen of bilateral ears [id number] 952777 H61.23 Bilateral tinnitus 16732 95256 102 H93.13 Sensorineu ral hearing loss of bilateral ears 333204255 H90.3 Audiologic al evaluation results: Right ear: [...] Hutton Member ID Guarantor Name 10/31/2023 1 [facility] - DOS ON OR AFTER 2022 - MEDICARE ADVANTAGE [place] & [place] (MEDICARE REPLACEMENT/ADV ANTAGE - PPO) Casandra Scanlon [id number] Anh Scanlon Notes Date Note Type Note Provider Name and Address Organization Details Recorded Time 10/31/2023 text/html 73-year-old grupo grant presents today for evaluation of hearing loss. She was noted to have obstructive cerumen. She does note tinnitus and difficulty hearing. She has not had a hearing test in years. She denies any loud noise exposure or any ear infections. DASHA RUSSELL MD [address] [place] [address], [address], [facility] - [facility] 10/31/2023 13:24:04 OBGyn Episode No OBEpisode recorded.
--- OUTSIDE RECORDS SUMMARY | 2024-07-22 14:10 | XMS_ITS | Encounter Summary ---
Author Organization [employer] [facility] Address [address] [facility] 7t [place] [address] Care Team Providers Care Mica Spreader Name Role Phone Chanda Garcia MD Primary Care Provide r Sruthi Shelton PharmD Unavailable [phone]- [phone] Reason for Visit * Reason Comments Med Refill Encounter Details Date Type Department Care Team ([facility] st Contact Info) Description 07/13/2022 Refill [facility] MEDICINE [address] [place], [place] [phone] Jenise Sanabria MD [address] [place], [place] [phone] Parkinson's disease (CMS/HCC) Social History Tobacco Use [...] agitans documented in this encounter Care Teams Mica Spreader Relationship Specialty Start Date End Date Chanda Garcia MD [address] [place], [place] [phone] PCP - General Family Medicine 12/17/21 Sruthi Shelton PharmD [address] [place] [address] Pharmacist Internal Medicine 08/16/23 documented as of this encounter
--- OUTSIDE RECORDS SUMMARY | 2024-07-22 14:10 | XMS_ITS | Encounter Summary ---
Author Organization [employer] Address [address] [facility] [address]t [place] [address] Care Team Providers Care Study Hall Supervisor Name Role Phone Chanda Garcia MD Primary Care Provide r Sruthi Shelton PharmD Unavailable [phone]- [phone] Reason for Visit * Reason Comments Med Change Request Encounter Details Date Type Department Care Team ([facility] st Contact Info) Description 06/30/2024 Refill [facility] MEDICINE [address] [place] [address] Esa Trejo MD [address] [place], [place] [phone] Sebopsoriasis Social History Tobacco Use Types Packs/Day [...] documented as of this encounter Care Teams Study Hall Supervisor Relationship Specialty Start Date End Date Chanda Garcia MD [address] [place] [address] PCP - General Family Medicine 12/17/21 Sruthi Shelton PharmD [address] [place] [address] Pharmacist Internal Medicine 08/16/23 documented as of this encounter
--- OUTSIDE RECORDS SUMMARY | 2024-07-22 14:10 | XMS_ITS | Encounter Summary ---
Author Organization [facility] Address [address] [facility] 7t [place] [address] Care Team Providers Care Electronic Equipment Installer Name Role Phone Chanda Garcia MD Primary Care Provide r Sruthi Shelton PharmD Unavailable [phone]- [phone] Reason for Visit * Reason Comments Med Refill Encounter Details Date Type Department Care Team (Late st Contact Info) Description 07/29/2022 Refill [facility] MEDICINE [address] [place] [address] Jenise Sanabria MD [address] [place], [place] [phone] Primary hypertension Social History Tobacco Use Types [...] hypertension documented in this encounter Care Teams Electronic Equipment Installer Relationship Specialty Start Date End Date Chanda Garcia MD [address] [place] [address] PCP - General Family Medicine 12/17/21 Sruthi Shelton, LeonardoD [address] [place] [address] Pharmacist Internal Medicine 08/16/23 documented as of this encounter
--- OUTSIDE RECORDS SUMMARY | 2024-07-22 14:10 | XMS_ITS | Encounter Summary ---
Author Organization [employer] [facility] Address [address] [facility] 7t [place] [address] Care Team Providers Care Inbound Call Center Agent Name Role Phone Chanda Garcia MD Primary Care Provide r Sruthi Shelton PharmD Unavailable [phone] Reason for Visit * Reason Comments Med Refill Encounter Details Date Type Department Care Team (Late st Contact Info) Description 07/07/2022 Refill [facility] [address] [place], [place] [phone] Huma Hamilton DO [address] [place], [place] [phone] Coronary artery disease, unspecified vessel or lesion type, unspecified whether angina present, unspecified whether [place] or transplanted heart Social History Tobacco Use [...] type, unspecified whether angina present, unspecified whether [place] or transplanted heart documented in this encounter Care Teams Inbound Call Center Agent Relationship Specialty Start Date End Date Chanda Garcia MD [address] [place] [address] PCP - General Family Medicine 12/17/21 Sruthi Shelotn, Sapna [address] [place] [address] Pharmacist Internal Medicine 08/16/23 documented as of this encounter
--- OUTSIDE RECORDS SUMMARY | 2024-07-22 14:10 | XMS_ITS | Encounter Summary ---
Author Organization [employer] Address [address] [facility] 7t [place] [address] Care Team Providers Care Apartment Coordinator Name Role Phone Chanda Garcia MD Primary Care Provide r Sruthi Shelton PharmD Unavailable +- [phone] Reason for Visit * Reason Comments Med Refill Encounter Details Date Type Department Care Team ([facility] st Contact Info) Description 02/24/2023 Refill [facility] MEDICINE [address] [place] [address] Chanda Garcia MD [address] [place], [place] [phone] Social History Tobacco Use Types Packs/Day Years [...] on filedocumented in this encounter Care Teams Apartment Coordinator Relationship Specialty Start Date End Date Chanda Garcia MD [address] [place] [address] PCP - General Family Medicine 12/17/21 Sruthi Shelton, Sapna [address] [place] [address] Pharmacist Internal Medicine 08/16/23 documented as of this encounter
--- OUTSIDE RECORDS SUMMARY | 2024-07-22 14:10 | XMS_ITS | Encounter Summary ---
Author Organization [facility] Address [address] [facility] 7t [place] [address] Care Team Providers Care Prior Authorization Technician Name Role Phone Chanda Garcia MD Primary Care Provide r Sruthi Shelton PharmD Unavailable Encounter Details Date Type Department Care Team (Late st Contact Info) Description 05/16/2022 Orders Only [facility] MEDICINE [address] [place] [address] Nimisha Ann LPN Social History Tobacco Use [...] on filedocumented in this encounter Care Teams Prior Authorization Technician Relationship Specialty Start Date End Date Chanda Garcia MD [address] [place] [address] PCP - General Family Medicine 12/17/21 Sruthi Shelton, PharmD [address] [place] [address] Pharmacist Internal Medicine 08/16/23 documented as of this encounter
--- OUTSIDE RECORDS SUMMARY | 2024-07-22 14:10 | XMS_ITS | Clinical Summary ---
Author Organization [facility] Address [address] [place] [address] Care Team Providers Care Orthopedics Teacher Name Role Phone Unavailable Primary Care Provider [...]
--- OUTSIDE RECORDS SUMMARY | 2024-07-22 14:10 | XMS_ITS | Encounter Summary ---
Author Organization [employer] [facility] Address [address] [facility] 7t [place] [address] Care Team Providers Care Arcade Game Technician Name Role Phone Chanda Garcia MD Primary Care Provide r Sruthi Shelton PharmD Unavailable [phone]- [phone] Encounter Details Date Type Department Care Team [...] on filedocumented in this encounter Care Teams Arcade Game Technician Relationship Specialty Start Date End Date Chanda Garcia MD [address] [place] [address] PCP - General Family Medicine 12/17/21 Sruthi Shelton, PharmD [address] [place], [place] [phone] Pharmacist Internal Medicine 08/16/23 documented as of this encounter
--- OUTSIDE RECORDS SUMMARY | 2024-07-22 14:10 | XMS_ITS | Clinical Summary ---
Author Organization [facility] Address [address] [facility] [address] [place] [address] Phone Care Team Providers Care Blending Tank Tender Name Role Phone Jenise Sanabria MD Primary Care Provider [phone] Allergies Active Allergy Reactions Criticality Noted Date [...] 02/20/2018, 01/25/2017, 07/18/2005, Additional history exists Insurance [facility] ([id number]) [place] [id number] [facility] ([id number]) [place] [phone] Care Teams Blending Tank Tender Relationship Specialty Start Date End Date Jenise Sanabria MD [address] [place] [phone] PCP - General Internal Medicine 05/11/22
--- OUTSIDE RECORDS SUMMARY | 2024-07-22 14:10 | XMS_ITS | Encounter Summary ---
Author Organization [employer] Address [address] [facility] 7t [place] [address] Care Team Providers Care Assistant Technician Name Role Phone Chanda Garcia MD Primary Care Provide r Sruthi Shelton PharmD Unavailable [phone]- [phone] Reason for Visit * Reason Comments Med Refill Encounter Details Date Type Department Care Team (Late st Contact Info) Description 05/09/2024 Refill [facility] MEDICINE [address] [place] [address] Chanda Garcia MD [address] [place], [place] [phone] Primary hypertension Social History Tobacco Use Types [...] documented as of this encounter Care Teams Assistant Technician Relationship Specialty Start Date End Date Chanda Garcia MD [address] [place] [address] PCP - General Family Medicine 12/17/21 Sruthi Shelton PharmD [address] [place] [address] Pharmacist Internal Medicine 08/16/23 documented as of this encounter
--- OUTSIDE RECORDS SUMMARY | 2024-07-22 14:10 | XMS_ITS | Encounter Summary ---
Author Organization [employer] Address [address] [facility] 7t [place] [address] Care Team Providers Care Furnace Mason Name Role Phone Chanda Garcia MD Primary Care Provide r Sruthi Shelton PharmD Unavailable [phone]- [phone] Reason for Visit * Reason Comments Med Refill Encounter Details Date Type Department Care Team (Late st Contact Info) Description 04/21/2024 Refill [facility] MEDICINE [address] [place] [address] Chanda Garcia MD [address] [place] [address] Parkinson's disease, unspecified whether dyskinesia present, unspecified [...] documented as of this encounter Care Teams Furnace Mason Relationship Specialty Start Date End Date Chanda Garcia MD [address] [place] [address] PCP - General Family Medicine 12/17/21 Sruthi Shelton, PharmD [address] [place] [address] Pharmacist Internal Medicine 08/16/23 documented as of this encounter
--- OUTSIDE RECORDS SUMMARY | 2024-07-22 14:10 | XMS_ITS | Clinical Summary ---
Author Organization [employer] Address [address] [facility] 7t [place] [address] Care Team Providers Care Director Agency & Strategic Partnerships Name Role Phone Chanda Garcia MD Primary [...] FOR 30 DAYS 023 Active sodium chloride ([place]) 0.65 % nasal spray 1 spray. 019 Active pregabalin (Lyrica) 100 MG capsule TOME CHRISTOS C PSULA DOS VECES AL D A FOR 90 DAYS 023 Active FREESTYLE LITE test strip USE TO TEST TWICE DAILY 100 strip 11 023 Active Blood Glucose Monitoring Suppl (FreeStyle [place] Lite) w/Device kitIndications:Ty pe 2 diabetes mellitus without complication, unspecified whether terminologist insulin use ([facility]) Use to test blood sugar two times [...] 6. 55 each Active Fluocinolone Acetonide Scalp ([place]-Smoothe/FS Scalp) 0.01 % oilIndications:Se bopsoriasis Apply at night 3 times weekly and cover with scarf 118.28 mL 11 Active ketoconazole (NIZOral) 2 % shampooIndication s:Sebopsoriasis Apply 3 times weekly 120 mL Active Clobetasol Propionate 0.05 % shampooIndication s:Sebopsoriasis Apply 3 times weekly on days not using Ketoconazole shampoo. 118 mL Active Banophen 25 MG capsule TAKE 1-2 [...] WEEKS, BREAK 1 WEEK & REPEAT NEEDED. Active hydrALAZINE (Apresoline) 50 MG tablet Take 1 tablet by mouth 3 times daily. Active hydroCHLOROthiazi de (HYDRODiuril) 50 MG tabletIndications :Primary hypertension Take 1 tablet (50 mg) by mouth Once per day. 30 tablet 11 024 2024 Active metFORMIN (Glucophage) 500 MG tabletIndications :Type 2 diabetes mellitus with hyperglycemia, without long-term current use of insulin ([facility]) TOME DOS TABLETAS POR VIA ORAL DOS [...] BEFORE BREAKFAST 90 tablet 3 024 Active calcipotriene (Dovonex) 0.005 % ointmentIndicatio ns:Scalp psoriasis,Psorias is vulgaris APLIQUE AL AREA AFECTADA DOS VECES AL CHIP 60 g 11 025 Active cetirizine (ZyrTEC) 10 MG tabletIndications :Seasonal allergic rhinitis, unspecified trigger TOME CHRISTOS TABLETA TODOS [place] 90 tablet 1 025 Active clonazePAM (KlonoPIN) 0.5 MG tabletIndications :Anxiety TOME 1 TABLETA POR VIA ORAL TOD[place] EN LA [facility] 28 tablet 025 Active triamcinolone (Kenalog) 0.1 % creamIndications: Xerosis cutis,Generalized pruritus MIX WITH CERAVE AND APPLY AFTER SHOWERS 80 g 2 025 Active hydrALAZINE (Apresoline) 25 MG tablet TAKE 1 TABLET (25 MG) BY MOUTH 3 TIMES DAILY 270 tablet 1 025 Active trihexyphenidyl (Artane) 2 MG tabletIndications :Parkinson's disease, unspecified whether dyskinesia present, unspecified whether manifestations fluctuate (CMS/HCC) TAKE 1 TABLET (2 MG) BY MOUTH WITH BREAKFAST, WITH LUNCH, AND WITH EVENING MEAL. 270 tablet 025 Active omega-3 acid ethyl esters (Lovaza) 1 g capsule TOME 2 CAPSULAS POR VIA ORAL DOS VECES AL CHIP 360 capsule 1 025 Active trihexyphenidyl (Artane) 2 MG tabletIndications :Parkinson's disease, unspecified whether dyskinesia present, unspecified whether manifestations fluctuate (CMS/HCC) Take 1 tablet (2 mg) by mouth with breakfast, with lunch, and with evening meal. 270 tablet 024 2024 Discontinued hydrALAZINE (Apresoline) 25 MG tablet TAKE 1 TABLET (25 MG) BY MOUTH 3 TIMES DAILY 270 tablet 1 024 2024 Discontinued omega-3 acid ethyl esters (Lovaza) 1 g capsule TAKE 2 CAPSULES BY MOUTH TWICE A DAY 360 capsule 1 024 2024 Discontinued clotrimazole-beta methasone (Lotrisone) creamIndications: [...] than 2 weeks Colon cancer screening 02/21/2023 'Vfnuz-lpn-[id number]' with signs of mal nutrition 02/21/2023 Excessive [...] there is no improvement. -Referred today to cyber incident handler and construction equipment operator. Vulvar itching 12/29/2022 Assessment & Plan (02/23/2024 [...] paget should be ruled out. -Referred to construction equipment operator today. Assessment & Plan (12/29/2022 5:42 PM [...] symptoms are not improving would refer to construction equipment operator to r/o chronic conditions as lichen,paget and [...] 10:12 AM EST): Pt has history of MD and a PE. She is completely asymptomiatic [...] GFR is normal, she follows up with [employer] Microalbuminuria 11/24/2020 Parkinson's disease 09/26/2018 Assessment & [...] weeks -reports also to be following w back shoe worker Assessment & Plan (10/31/2022 5:12 PM EDT): [...] Encounters Date Type Department Care Team Description 07/19/2024 Refill [facility] [address] [place] [id number] Chanda Garcia MD 07/19/2024 Refill [facility] [address] [place] [address] [phone] Chanda Garcia MD 07/18/2024 9:15 AM EDT Office Visit [facility] [address] [place] [address] [phone] Steffanie Martinez MD Cervicalgia (Primary Dx) 07/18/2024 Travel 07/18/2024 Refill [facility] [address] [place] [address] Chanda Garcia MD Parkinson's disease, unspecified whether dyskinesia present, unspecified whether manifestations fluctuate ([facility]) 07/16/2024 10:30 AM EDT Office Visit [facility] [address] [place] [phone] Steffanie Martinez MD Cervicalgia (Primary Dx) 07/16/2024 Travel 06/30/2024 Refill [facility] [address] [place] [phone] Esa Trejo MD 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 Refill [facility] [address] [place] [address] [phone] Chanda Garcia MD 06/08/2024 Refill [facility] [address] [place] [address] [phone] Chanda Garcia MD Xerosis cutis; Generalized pruritus 06/07/[address] [address] Chanda Garcia MD AUGUST RECALL 05/31/2024 2:00 PM EST Office Visit [address] [phone] Chanda Garcia MD Intertrigo (Primary Dx); Cervicalgia; Anxiety; Parkinson's disease, unspecified whether dyskinesia present, unspecified whether manifestations fluctuate ([facility]); Type 2 diabetes mellitus with hyperglycemia, without long-term current use of insulin ([facility]); Diabetic nephropathy associated with type 2 diabetes mellitus ([facility]/HCC) 05/31/2024 Travel 05/29/[address] [address] Pao Hough [place] Chart Prep 05/24/[address] [phone] Chanda Garcia MD Seasonal allergic rhinitis, unspecified trigger 05/20/2024 Patient Outreach [address] [phone] Chanda Garcia MD Pre-visit Planning (SDOH screening negative and tobacco screening negative) 05/16/[address] [phone] Chanda Garcia MD Prior Authorization (CCA PA Request: Calcipotriene 0.005%) 05/09/2024 Refill [facility] [address] [place] [address] Chanda Garcia MD Primary hypertension 05/04/2024 Refill [facility] [address] [place] [address] Esa Trejo MD Scalp psoriasis; Psoriasis vulgaris from Last 3 Months Immunizations Name Administration [...] history exists Depression Screening 10/19/2024 10/20/2023, 10/20/19 24 Alcohol/Substance Use Screening 11/21/2024 11/22/2023 Mammogram 12/18/2024 [...] Blood Pressure 144/82( 025 2:17 PM EST) Sruthi Dias PharmD Procedures Procedure Name Priority Date/Time Associated [...] RADIOGRAPHIC IMAGE Routine 10/22/2020 12:00 AM EDT SANTI HISTORICAL HEPATITIS C AB W/REFL TO HCV [...] % Blood 05/31/2024 3:09 PM EST us Chanda Damico MD POINT OF CARE TEST EN TER/EDIT ORDERABLES Final Result * POCT Glucose (05/31/2024 3:08 PM EST) Glucose Blood, POC 177 60 - 200 mg/dL Blood Capillary blood specimen / Unknown 05/31/2024 3:08 PM EST us Chanda Damico MD POINT OF CARE TEST EN TER/EDIT ORDERABLES Final Result * BI Mammogram Screening Tomosynthesis Bilateral (12/19/2023 1:00 PM EDT) Anatomical Region Laterality Modality Breast Bilateral Mammography 12/19/2023 1:00 PM EDT Narrative 01/12/2024 3:16 PM EDT ? [facility] ? [address] ?[place] [address] ? Mammography Report ? Signed ? Patient: Colon,Anh A ?MR#: [id number] ?? 09 ? : 1950 ?Acct:[id number] ? Age/Sex: 73 / F ?ADM Date: 08/27/24 ? Loc: HO.MAMMO ? Attending Dr: Huma Hamilton DO ? Ordering Physician: Huma Hamilton DO ?Results: 1N ?? egative ? Date of Service: 12/19/23 ?Follow Up: 1 Year From Orig ?? inal Mammogram ? Procedure(s): MM tomosynthesis screening BI ?? Accession Number(s): [id number] ? cc: Chanda Garcia MD; Huma Hamilton [...] ??Kassandra Prado DO ??01/12/2024 03:14 PM EDT ?? RP ? Dictated By: ?Kassandra Prado DO ? Signed By: ?<Electronically signed by Kassandra Prado, DO in OV> ? 01/12/24 1514 ? DD/ 1300 ? TD/TT: 12/19/23 1314 ? Ore Tester: ? Procedure Note Donjoeyter, Image - 01/12/2024 [facility] [address] [place] [address] Mammography Report Signed Patient: Anh Scanlon AMR#: [id number] 09 : 1950cct:[id number] Age/Sex: 73 / FADM Date: 12/19/23 Loc: HO.MAMMO Attending Dr: Huma Hamilton DO Ordering Physician: Huma Hamiltonults: 1N egative Date of Service: 12/19/23Follow Up: 1 Year From Orig inal Mammogram Procedure(s): MM tomosynthesis screening BI Accession Number(s): [id number] cc: Chanda Garcia MD; Huma Hamilton DO [...] Kassandra Prado DO 01/12/2024 03:14 PM EDT RP Dictated By: Kassandra Prado DO Signed By: <Electronically signed by Kassandra Prado DO in OV> 01/12/24 1514 DD/ 1300 TD/TT: 12/19/23 1314 Ore Tester: us Huma Hamilton DO IMG BI PROCEDURES Edited Res ult - Final * Lipid Panel, Standard (09/01/2023 9:30 AM EDT) Triglycerides 145 <150 mg/dL [facility] Comment:Desirable Triglyceri de: less than 150 mg/dLBorderline High Triglyceride 150-199 mg/dLHigh Triglyceride: 200-499 mg/dLVery High Triglyceride: greater than or equal to 5OO mg/dL Cholesterol 155 <200 mg/dL [facility] Comment:Desirable Cholestero l: less than 200 mg/dLBorderline High Cholesterol: 200-239 mg/dLHigh Cholesterol: greater than 239 mg/dL LDL Cholesterol Calculated 80 <100 mg/dL [facility] Comment:Desirable LDL: less than 100 mg/dLNear Optimal/Above Optimal LDL: 110- 129 mg/dLBorderline High LDL: 130-159 mg/dLHigh LDL: 160-189 mg/dLVery High LDL: greater than or equal to 190 mg/dL HDL Cholesterol 46 >40 mg/dL [facility] Comment:Desirable HDL: great er than 40 mg/dL Note: This HDL assay may give artificially low results in patients with liver disease. Blood Venous blood specimen / Unknown 09/01/2023 9:30 AM EDT 09/01/2023 11:26 AM EDT us Chanda Damico MD LAB BLOOD ORDERABLES Final Result [facility] [address] [place] [address] [phone] * Cologuard?? colon cancer screening (03/13/2023 8:04 AM EST) Cologuard Result Negative Negative 03/27/20 23 5:16 PM [facility] (CLIA #:[id number]) Comment: NEGATIVE TEST RESULT. A negative Cologuard [...] cancer. ??Following a negative Cologuard result, the [place] Cancer Society and U.S. Multi-Society Task Force screening guidelines recommend a Cologuard re-screening interval of 3 years. References: [place] [employer] Guideline for Colorectal Cancer Screening: https://www.cancer.org/cancer/qsvwh-sgelwq-vkqycj/hxngyahpf-xnzwgkwld-yynofvb/ac s-rec ommendations.html.; Joseph DK, Maegan CR, Melany PerryK, Colorectal Cancer Screening: Recommendations for Physicians and Patients from the U.S. Multi-Society Task Force on Colorectal Cancer Screening , Am J Gastroenterology 2017; 112:0889-5938. TEST DESCRIPTION: Composite algorithmic analysis of stool [...] (Marcus Reaves al, N Engl J Med 2014;370(14):7355-1703.) Cologuard may produce a false negative or false positive result (no colorectal cancer or precancerous polyp present at colonoscopy follow up). A negative Cologuard test result does not guarantee the absence of CRC or advanced adenoma (pre-cancer). The current Cologuard screening interval is every 3 years. ([place] [employer] Society and U.S. Multi-Society Task Force). Cologuard performance data in a 10,000 patient pivotal study using colonoscopy as the reference method can be accessed at the following location: www.Retail Info[employer]results. Additional description of the Cologuard test process, warnings and precautions can be found at www.[employer] Stool specimen (specimen) 03/13/2023 8:04 AM EST 03/14/2023 2:30 PM EST Chanda Damico MD LAB MOLECULAR DIAGNOS TICS ORDERABLES Final Result [facility] (CLIA #:[id number]) [address] [place] [place] [address], * HEPATITIS C AB W/REFL TO HCV RNA, QN, PCR (08/20/2020 8:54 AM EDT) HEPATITIS C ANTIBODY NON-REACT CHRIS NON-REACT CHRIS [facility] INDEX 0.01 <1.00 [facility] Comment: ?? HCV antibody was non-reactive. There is no laboratory ?? evidence of HCV infection. ?? In most cases, no further action is required. However, if recent HCV exposure is suspected, a test for HCV RNA (test code 98336) is suggested. ?? For additional information please refer to http://Hand Talk.Tourvia.me/faq/PFO73k4 (This link is being provided for informational/ educational purposes only.) ?? 08/20/2020 8:54 AM EDT us Historical Provider HISTORICAL/NON ORDERABLE LABS Final Result Performing Organization Address City/State/[facility] Co co Phone Number [facility] [address] from Last 3 Months or Most Recently Relevant to Health Maintenance Insurance [facility] Care Teams Director Agency & Strategic Partnerships Relationship Specialty Start Date End Date Chanda Garcia MD [address] [place] [address] PCP - General Family Medicine 12/17/21 Sruthi Shelton, LeonardoD [address] [place] [address] Pharmacist Internal Medicine 08/16/23
--- OUTSIDE RECORDS SUMMARY | 2024-07-22 14:10 | XMS_ITS | Data Portability ---
Author Organization [employer] [facility] [place] [facility] Address [address] [place] [phone] Care Team Providers Care Cage Cashier Name Role Phone IWONA GONZALEZ Primary Care Provider HIM ABIGAIL OTHER Assessment Encounter Date Assessment Date Assessment LastModified by Organization Details LastModified Time 11/03/2023 11/03/2023 As noted, we were called to see this patient regarding concerns of rash and fever with abd pain. Evaluation in the field was performed by my milieu technician colleague, as noted above, I provided real-time direction and supervision for this visit. 73 F w diabetes presents with 1 week of rash. recent dx of UTI for which she is taking macrobid. She was at [place] last week vacationing w family when she developed a rash on her legs and arms. She swam in the pool, went on a boat in the [place], no hiking or swimming in fresh water. [facility] the [facility] [...] VIA ORAL [place] [facility] [place] active Not Available Not Available No t [...] % 96 % 16 /min 82 /min 38958.6 8 g 128 mm[Hg] 64 mm[Hg] Not Available [employer] - production 4 16:28:04 Social History None recorded. Functional Status None recorded. Mental Status None recorded. Family History Nothing Reported. Medical History No medical history recorded. Gynecological HistoryNo gynecological history recorded. Obstetrics History GPAL:G 0 P 0 0 0 0 Past Encounters Encounter ID Performer Location Encounter Start Date Encounter Closed Date Diagnosis/Indication Diagnosis SNOMED-CT Code Diagnosis ICD10 Code Diagnosis Note [id number] King Gibson MD Main - [address] [phone] 11/03/2023 16:27:53 11/03/2023 17:06:38 Health Concerns Section Related Observation LastModified by Organization Detai ls LastModified Time None Recorded Concern Status LastModified by Organization Details LastModified Time None Recorded Advance Directives Directive None Recorded Payers Encounter Date Sequence Insurance Name Policy Number Policy Hutton Covered Member ID Hutton Member ID Guarantor Name 11/03/2023 1 [facility] - DOS ON OR AFTER 2022 - DUAL ELIGIBLE - SENIOR LIVING OPTIONS AND ONE CARE (MEDICARE REPLACEMENT/ADV ANTAGE - HMO) Anh Colon [id number] Anh Colon Notes Date Note Type Note [...] rash for specific cause.Francisco Gibson MD [address] [facility],[address], [place], [address], [employer] [facility] [place] 11/03/2023 17:06:35 OBGyn Episode No OBEpisode recorded.
--- OUTSIDE RECORDS SUMMARY | 2024-07-22 14:10 | XMS_ITS | Encounter Summary ---
Author Organization [employer] Address [address] [address] [place] [address] Care Team Providers Care Fruit Harvest Worker Name Role Phone Chanda Garcia MD Primary Care Provide r Sruthi Shelton PharmD Unavailable [phone]- [phone] Encounter Details Date Type Department Care Team (Late st Contact Info) Description 06/08/2023 Orders Only [facility] [address] [place] [address] Chanda Garcia MD [address] [place] [address] Social History Tobacco Use Types Packs/Day Years [...] the past 12 months, has t he [employer], gas, oil or water company threatened to [...] on filedocumented in this encounter Care Teams Fruit Harvest Worker Relationship Specialty Start Date End Date Chanda Garcia MD [address] [place] [address] PCP - General Family Medicine 12/17/21 Sruthi Shelton PharmD [address] [place] [address] Pharmacist Internal Medicine 08/16/23 documented as of this encounter
[2024-07-22 14:27] LABS: Basophils Absolute Auto 0.1 X10*3/uL (0.0-0.2); Basophils Percent Auto 1.3 % (0-2); Eosinophils Absolute Auto 0.2 X10*3/uL (0.0-0.4); Eosinophils Percent Auto 3.4 % (0-4); Hematocrit 34.5 % (37.0-47.0); Hemoglobin 10.9 g/dl (12.0-16.0); Imm Gran Abs Auto 0.03 X10*3/uL (0.00-0.03); Imm Gran Pct Auto 0.5 % (0.0-0.4); Lymphocytes Absolute Auto 1.5 X10*3/uL (1.2-4.9); Lymphocytes Percent Auto 23.5 % (20-40); Mean Corpuscular HGB Conc 31.6 g/dl (31.0-35.0); Mean Corpuscular Hemoglobin 24.2 pg (27.0-33.0); Mean Corpuscular Volume 76.7 fL (80.0-98.0); Mean Platelet Volume 9.7 fL (9.4-12.3); Monocytes Absolute Auto 0.5 X10*3/uL (0.1-1.2); Monocytes Percent Auto 8.3 % (2-11); Platelet Count 380 X10*3/uL (160-400); Red Cell Distribution Width 15.8 % (11.0-16.0); White Blood Count 6.4 X10*3/uL (4.8-10.8)
[2024-07-22 15:00] LABS: Alanine Aminotransferase 14 U/L (0-31); Albumin Level 4.3 g/dL (3.5-5.0); Alkaline Phosphatase 72 U/L (39-117); Anion Gap 12 (12-20); Aspartate Amino Transferase 20 U/L (5-31); Bilirubin Total 0.4 mg/dL (0.0-1.0); Blood Urea Nitrogen 22 mg/dL (9-16); Calcium 9.5 mg/dL (8.4-10.2); Carbon Dioxide 30 mmol/L (22-29); Chloride 101 mmol/L (96-108); Cholesterol 147 mg/dL (<200); Estimated Glomerular Filt Rate > 60; Glucose Random 169 mg/dL (60-115); HDL Cholesterol 49 mg/dL (>40); LDL Cholesterol Calculated 58 mg/dL (<100); Potassium 3.5 mmol/L (3.3-5.1); Sodium 139 mmol/L (135-145); Total Protein 7.3 g/dL (6.5-8.0); Triglycerides 202 mg/dL (<150)
== END 2024-07-22 12:32 | disposition home or self-care (01) ==
LOC: HO.LAB 12:31
PROVIDERS: PCP Internal Medicine; Visit Provider Internal Medicine Nephrology
DX: E11.65 Type 2 diabetes mellitus with hyperglycemia (principal)
CPT/HCPCS: 36415; 80053; 80061; 85025

== ENCOUNTER 2024-07-24 10:40 | Outpatient (AMB) | payer OTHER, SELFPAY ==
--- NOTE | 2024-07-24 11:12 | HO.NEPHOV_ITS ---
Vital Signs 07/24/24 11:15 Height 5 ft 2 in Weight 165 lb BMI 30.2 BP 110/70 Blood Pressure Location Rt brachial Position Sitting Pulse 57 Pulse Source Pulse Oximeter Pulse Oximetry (%) 96 Oxygen Delivery Method Room Air Intake Visit Reasons: CKD-Conf Director Marketing Analytics Required: Yes Director Marketing Analytics Language: Technician Test Systems Services: Director Marketing Analytics Offered & Declined ([facility] ring sewer services refused ) Accompanied by: Self / Same As Patient Allergies losartan Allergy (Unknown, Verified 07/24/24 11:15) anaphylaxis HPI Comments Details: I had the delight of seeing Anh for her proteinuria and hypertension. She had history of lip swelling and her losartan had been discontinued at that time. Her blood pressure control is good and her blood sugars had been stable. She does not have any hypoglycemias, chest pain, shortness of breath, paroxysmal nocturnal nocturnal dyspnea, orthopnea, pedal edema, nausea, vomiting, diarrhea or urinary symptoms. 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 Rash Non-STEMI (non-ST elevated myocardial infarction) Anal fistula Gallstone Parkinson disease High cholesterol Diabetes HTN (hypertension) Surgical History H/O hemorrhoidectomy History of hysterectomy Family History Sister Malignant neoplasm of breast (female) Social History Household Members: Spouse Housing: House Do you presently have visiting nurse or other home services: Yes (medication and vital signs) Alcohol intake: never Patient Tobacco Use Status: Never used Tobacco service: No Review of Systems Const All systems reviewed & are unremarkable except as noted in HPI and below Physical Exam Vital Signs: Last Vital Signs Pulse 57 07/24/24 11:15 BP 110/70 07/24/24 11:15 Pulse Ox 96 07/24/24 11:15 Oxygen Delivery Method Room Air 07/24/24 11:15 BMI result Body Mass Index 30.2 Const General: comfortable and no acute distress Orientation/consciousness: patient oriented x3 HEENT Head: Yes normocephalic Mouth: Normal oral and palatal mucosa present Eyes EOM: EOMs intact bilaterally Neck Neck: Yes supple Resp Auscultation: clear to auscultation bilaterally Cardio Jugular venous distension: no JVD Rate: regular rate GI Palpation (GI): Soft to palpation Auscultation: normal bowel sounds General: Yes no CVA tenderness Back/Spine/Pelvis Back: no CVA tenderness Skin General skin exam: no rashes or lesions noted Neuro General: patient oriented x3 and moves all extremities Extrem General: Yes no pedal edema Results Reviewed Nephrology Results: Hgb 10.9 g/dl (12.0-16.0) L 07/22/24 WBC 6.4 X10*3/uL (4.8-10.8) 07/22/24 Plt Count 380 X10*3/uL (160-400) 07/22/24 Sodium 139 mmol/L (135-145) 07/22/24 Potassium 3.5 mmol/L (3.3-5.1) 07/22/24 Chloride 101 mmol/L (96-108) 07/22/24 Carbon Dioxide 30 mmol/L (22-29) H 07/22/24 BUN 22 mg/dL (9-16) H 07/22/24 Creatinine 0.78 mg/dL (0.5-1.4) 07/22/24 Calcium 9.5 mg/dL (8.4-10.2) 07/22/24 Urine Creatinine 180.08 mg/dL 01/12/24 Protein/Creatinin Ratio 0.10 (<0.2) 12/12/23 Assessment & Plan Assessment & Plan (1) Proteinuria due to type 2 diabetes mellitus: Code(s): E11.29 - Type 2 diabetes mellitus with other diabetic kidney complication; R80.9 - Proteinuria, unspecified Category: Medical (2) HTN (hypertension): Code(s): I10 - Essential (primary) hypertension Category: Medical Qualifiers: Hypertension type: primary hypertension Qualified Code(s): I10 - Essential (primary) hypertension Plan 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 She has proteinuria. Her renal functions are stable. She did not tolerate GREGORY inhibitor in the past and had lip swelling from losartan as well forcing it to be discontinued. Her blood mckeon gar control is better but her blood pressure control is optimal. She should continue current medications to keep her BP at goal. She should do regular exercise and lose a bit of weight. She avoids nonsteroidal anti-inflammatories and maintain good hydration. All questions answered. Follow-up appointment given Orders: Orders Protein Creatinine Ratio, Ur 6 Months E11. - Type 2 diabetes mellitus with other diabetic kidney complication, R80.9 - Proteinuria, unspecified Blood Urea Nitrogen 6 Months E11. - Type 2 diabetes mellitus with other diabetic kidney complication, R80.9 - Proteinuria, unspecified Creatinine 6 Months E11. - Type 2 diabetes mellitus with other diabetic kidney complication, R80.9 - Proteinuria, unspecified Electrolytes 6 Months E11. - Type 2 diabetes mellitus with other diabetic kidney complication, R80.9 - Proteinuria, unspecified Coding Level of Care Code Est Pt Level 4 (06351) Diagnoses Proteinuria due to type 2 diabetes mellitus E11.; R80.9 Primary hypertension I10 Hypertension type: primary hypertension
[2024-07-24 11:15] VITALS: BP 110/70; PULSE 57; O2SAT 96; BMI 30.2
--- OUTSIDE RECORDS SUMMARY | 2024-07-24 12:40 | XMS_ITS | Encounter Summary ---
Author Organization [employer] Address [address] [facility] [address] [place] [address] Care Team Providers Care Manager Produce Name Role Phone Chanda Garcia MD Primary Care Provide r Sruthi Shelton PharmD Unavailable [phone] Reason for Visit * Reason Comments Med Refill Encounter Details Date Type Department Care Team (Late st Contact Info) Description 04/21/2024 Refill [facility] [address] [place] [address] Chanda Garcia MD [address] [place] [address] Parkinson's disease, unspecified whether dyskinesia present, unspecified [...] documented as of this encounter Care Teams Manager Produce Relationship Specialty Start Date End Date Chanda Garcia MD [address] [place] [address] PCP - General Family Medicine 12/17/21 Sruthi Shelton, PharmD [address] [place] [address] Pharmacist Internal Medicine 08/16/23 documented as of this encounter
--- OUTSIDE RECORDS SUMMARY | 2024-07-24 12:40 | XMS_ITS | Encounter Summary ---
Author Organization [facility] Address [address] [facility] 7t [place] [address] Care Team Providers Care Court Usher Name Role Phone Chanda Garcia MD Primary Care Provide r Sruthi Shelton PharmD Unavailable Encounter Details Date Type Department Care Team (Late st Contact Info) Description 05/16/2022 Orders Only [facility] MEDICINE [address] [place] [address] Nimisha Ann LPN Social History Tobacco Use [...] on filedocumented in this encounter Care Teams Court Usher Relationship Specialty Start Date End Date Chanda Garcia MD [address] [place] [phone] PCP - General Family Medicine 12/17/21 Sruthi Shelton, PharmD [address] [place] [phone] Pharmacist Internal Medicine 08/16/23 documented as of this encounter
--- OUTSIDE RECORDS SUMMARY | 2024-07-24 12:40 | XMS_ITS | Encounter Summary ---
Author Organization [employer] Address [address] [facility] 7t [place] [address] Care Team Providers Care Stock Worker Name Role Phone Chanda Garcia MD Primary Care Provide r Sruthi Shelton PharmD Unavailable [phone] Reason for Visit * Reason Comments Med Refill Encounter Details Date Type Department Care Team (Late st Contact Info) Description 05/09/2024 Refill [facility] MEDICINE [address] [place] [address] Chanda Garcia MD [address] [place], [place] [phone] Primary hypertension Social History Tobacco Use Types [...] documented as of this encounter Care Teams Stock Worker Relationship Specialty Start Date End Date Chanda Garcia MD [address] [place] [address] PCP - General Family Medicine 12/17/21 Sruthi Shelton PharmD [address] [place] [address] Pharmacist Internal Medicine 08/16/23 documented as of this encounter
--- OUTSIDE RECORDS SUMMARY | 2024-07-24 12:40 | XMS_ITS | Encounter Summary ---
Author Organization [employer] [facility] Address [address] [facility] 7t [place] [address] Care Team Providers Care Preparer Samples And Repairs Name Role Phone Chanda Garcia MD Primary Care Provide r Sruthi Shelton PharmD Unavailable [phone]- [phone] Reason for Visit * Reason Comments Med Change Request Encounter Details Date Type Department Care Team ([facility] st Contact Info) Description 07/19/2024 Refill [facility] MEDICINE [address] [place] [address] Chanda Garcia MD [address] [place], [place] [phone] Social History Tobacco Use Types Packs/Day Years [...] documented as of this encounter Care Teams Preparer Samples And Repairs Relationship Specialty Start Date End Date Chanda Garcia MD [address] [place] [address] PCP - General Family Medicine 12/17/21 Sruthi Shelton PharmD [address] [place] [address] Pharmacist Internal Medicine 08/16/23 documented as of this encounter
--- OUTSIDE RECORDS SUMMARY | 2024-07-24 12:40 | XMS_ITS | Encounter Summary ---
Author Organization [employer] Address [address] [facility] 7t [place] [address] Care Team Providers Care Team Truck Driver Name Role Phone Chanda Garcia MD Primary Care Provide r Sruthi Shelton PharmD Unavailable [phone] Encounter Details Date Type Department Care Team (Late st Contact Info) Description 10/18/2023 Telephone [facility] MEDICINE [address] [place], [place] [phone] Chanda Garcia MD [address] [place] [address] Social History Tobacco Use Types Packs/Day Years [...] Please obtain any notes from ED [place] [facility] [place]23 appt with PCP on 10/20/23. Thank You * Telephone Encounter - Tierra Linder LPN - 10/18/2023 5:17 PM EDT Triage call returned to patient with [place] Personal Computer Network Engineer [id number]. Patient was sent from [facility] to [facility] [place] 10/16/23 for cardiac concerns. Patient had [...] documented as of this encounter Care Teams Team Truck Driver Relationship Specialty Start Date End Date Chanda Garcia MD [address] [place] [address] PCP - General Family Medicine 12/17/21 Sruthi Shelton, LeonardoD [address] [place] [phone] Pharmacist Internal Medicine 08/16/23 documented as of this encounter
--- OUTSIDE RECORDS SUMMARY | 2024-07-24 12:40 | XMS_ITS | Encounter Summary ---
Author Organization [facility] Address [address] [facility] 7t [place] [address] Care Team Providers Care Job Captain Name Role Phone Chanda Garcia MD Primary Care Provide r Sruthi Shelton PharmD Unavailable [phone] Reason for Visit * Reason Comments Med Refill Encounter Details Date Type Department Care Team ([facility] st Contact Info) Description 07/13/2022 Refill [facility] MEDICINE [address] [place], [place] [phone] Jenise Sanabria MD [address] [place], [place] [phone] Parkinson's disease (CMS/HCC) Social History Tobacco Use [...] agitans documented in this encounter Care Teams Job Captain Relationship Specialty Start Date End Date Chanda Garcia MD [address] [place], [place] [phone] PCP - General Family Medicine 12/17/21 Sruthi Shelton PharmD [address] [place] [address] Pharmacist Internal Medicine 08/16/23 documented as of this encounter
--- OUTSIDE RECORDS SUMMARY | 2024-07-24 12:40 | XMS_ITS | Encounter Summary ---
Author Organization [employer] Address [address] [facility] 7t [place] [address] Care Team Providers Care Resident Service Coordinator Name Role Phone Chanda Garcia MD Primary Care Provide r Sruthi Shelton PharmD Unavailable [phone]- [phone] Reason for Visit * Reason Onset Date Comments Nurse Triage 09/05/2023 Encounter Details Date Type Department Care Team (Late st Contact Info) Description 09/05/2023 Telephone [facility] MEDICINE 230 [place] [address] Chanda Garcia MD [address] [place] [address] Nurse Triage Social History Tobacco Use Types [...] follow-up in 2 weeks on09/22/23 @ 9:30am. data review specialist this appointment date and time with pt [...] accepted this outcome Please contact pt at [phone] (coding analyst) documented in this encounter Plan of Treatment [...] documented as of this encounter Care Teams Resident Service Coordinator Relationship Specialty Start Date End Date Chanda Garcia MD [address] [place] [address] PCP - General Family Medicine 12/17/21 Sruthi Shelton, LeonardoD [address] [place] [address] Pharmacist Internal Medicine 08/16/23 documented as of this encounter
--- OUTSIDE RECORDS SUMMARY | 2024-07-24 12:40 | XMS_ITS | Clinical Summary ---
Author Organization [employer] Address [address] [facility] 7t [place] [address] Care Team Providers Care Benchroom Shop Optician Name Role Phone Chanda Garcia MD Primary [...] FOR 30 DAYS 023 Active sodium chloride ([place]) 0.65 % nasal spray 1 spray. 019 Active pregabalin (Lyrica) 100 MG capsule TOME CHRISTOS C PSULA DOS VECES AL D A FOR 90 DAYS 023 Active FREESTYLE LITE test strip USE TO TEST TWICE DAILY 100 strip 11 023 Active Blood Glucose Monitoring Suppl (FreeStyle [place] Lite) w/Device kitIndications:Ty pe 2 diabetes mellitus without complication, unspecified whether ferry terminal supervisor insulin use ([facility]) Use to test blood sugar [...] 6. 55 each Active Fluocinolone Acetonide Scalp (Murchison-Smoothe/FS Scalp) 0.01 % oilIndications:Se bopsoriasis Apply at [...] hyperglycemia, without long-term current use of insulin ([facility]) TOME DOS TABLETAS POR VIA [...] VIA [facility] 28 tablet 025 Active triamcinolone (Kenalog) 0.1 [...] evening meal. 270 tablet 024 2024 Discontinued omega-3 acid ethyl esters [...] than 2 weeks Colon cancer screening 02/21/2023 'Shuhv-sut-xeqno' infant with signs of mal nutrition 02/21/2023 [...] there is no improvement. -Referred today to outpatient coding specialist and matchbook assembler. Vulvar itching 12/29/2022 Assessment & Plan (02/23/2024 [...] paget should be ruled out. -Referred to matchbook assembler today. Assessment & Plan (12/29/2022 5:42 PM [...] symptoms are not improving would refer to matchbook assembler to r/o chronic conditions as lichen,paget and [...] 10:12 AM EST): Pt has history of OK and a PE. She is completely asymptomiatic [...] GFR is normal, she follows up with automatic vulcanizing operator Microalbuminuria 11/24/2020 Parkinson's disease 09/26/2018 Assessment & [...] home Patient will be follow up with CDLYUDMILA and with me in 3 months Assessment [...] weeks -reports also to be following w insurance agent Assessment & Plan (10/31/2022 5:12 PM EDT): [...] Type Department Care Team Description 07/19/2024 Refill [facility] MEDICINE [address] [place] [address] Chanda Garcia MD 07/19/2024 Refill [facility] MEDICINE [address] [place] [address] Chanda Garcia MD 07/18/2024 9:15 AM EDT Office Visit [facility] MEDICINE [address] [place] [address] Steffanie Martinez MD Cervicalgia (Primary Dx) 07/18/2024 Travel 07/18/2024 Refill [facility] MEDICINE [address] [place] [address] Chanda Garcia MD Parkinson's disease, unspecified whether dyskinesia present, unspecified whether manifestations fluctuate ([facility]) 07/16/2024 10:30 AM EDT Office Visit [facility] MEDICINE [address] [place] [address] Steffanie Martinez MD Cervicalgia (Primary Dx) 07/16/2024 Travel 06/30/2024 Refill [facility] MEDICINE [address] [place] [address] Esa Trejo MD 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 Refill [facility] MEDICINE [address] [place] [address] Chanda Garcia MD 06/08/2024 Refill [facility] MEDICINE [address] [place] [address] Chanda Garcia MD Xerosis cutis; Generalized pruritus 06/07/[address] [address] Chanda Garcia MD AUGUST RECALL 05/31/2024 2:00 PM EST Office Visit [address] [address] Chanda Garcia MD Intertrigo (Primary Dx); Cervicalgia; Anxiety; Parkinson's disease, unspecified whether dyskinesia present, unspecified whether manifestations fluctuate ([facility]); Type 2 diabetes mellitus with hyperglycemia, without long-term current use of insulin ([facility]); Diabetic nephropathy associated with type 2 diabetes mellitus ([facility]) 05/31/2024 Travel 05/29/[address] [address] Pao Hough [place] Chart Prep 05/24/[address] [address] Chanda Garcia MD Seasonal allergic rhinitis, unspecified trigger 05/20/2024 Patient Outreach [address] [phone] Chanda Garcia MD Pre-visit Planning (SDOH screening negative and tobacco screening negative) 05/16/[address] [phone] Chanda Garcia MD Prior Authorization (CCA PA Request: Calcipotriene 0.005%) 05/09/2024 Refill [facility] MEDICINE [address] [place] [phone] Chanda Garcia MD Primary hypertension 05/04/2024 Refill [facility] MEDICINE [address] [place] [address] Esa Trejo MD Scalp psoriasis; Psoriasis vulgaris [...] is your housing situation today? I have jeinfer gerardo 11/08/[address] you [...] 08/28/2024 025, 10/20/2023, 05/16/2023, Additional history exists Depression Screening 10/19/2024 10/20/2023, 10/20/19 24 Alcohol/Substance Use Screening 11/21/2024 11/22/2023 Mammogram 12/18/2024 12/19/2023, 11/23, 09/13/2021, Additional history exists Tobacco Screening 04/05/2025 04/05/2024 SDOH Screening 05/20/2025 05/20/2024 Lipid Panel 07/22/2025 07/22/2024, 08/22, 06/20/2022, Additional history exists Colorectal Cancer Screening 03/13/2026 FIT DNA/Cologuard 03/13/2026 [...] Procedure Name Priority Date/Time Associated Diagnosis Comments LIPID PANEL, STANDARD Routine 07/22/2024 1:00 PM EDT Type 2 diabetes mellitus with hyperglycemia, without long-term current use of insulin (CMS/HCC) CBC WITH AUTO DIFFERENTIAL Routine 07/22/2024 1:00 PM EDT Type 2 diabetes mellitus with hyperglycemia, without long-term current use of insulin (CMS/HCC) COMPREHENSIVE METABOLIC PANEL Routine 07/22/2024 1:00 PM EDT Type 2 diabetes mellitus with hyperglycemia, without long-term current use of insulin (CMS/HCC) POCT GLYCATED HEMOGLOBIN, TOTAL Routine 05/31/2024 3:09 PM EST Type 2 diabetes mellitus with hyperglycemia, without long-term current use of insulin (CMS/HCC) POCT GLUCOSE Routine 05/31/2024 3:08 PM EST Type 2 diabetes mellitus with hyperglycemia, without long-term current use of insulin (CMS/HCC) BI MAMMOGRAM SCREENING TOMOSYNTHESIS BILATERAL Routine 12/19/2023 1:00 PM EDT LAB COLOGUARD?? COLON CANCER SCREEN Routine 03/13/2023 [...] Relevant to Health Maintenance Results * (ABNORMAL) CBC auto differential (07/22/2024 1:00 PM EDT) White Blood Count 6.4 4.8 - 10.8 X10*3/uL [facility] Red Blood Count 4.50 4.20 - 5.50 X10*6/uL [facility] Hemoglobin 10.9(L) 12.0 - 16.0 g/dl [facility] Hematocrit 34.5(L) 37.0 - 47.0 % [facility] Mean Corpuscular Volume 76.7(L) 80.0 - 98.0 fL [facility] Mean Corpuscular Hemoglobin 24.2(L) 27.0 - 33.0 pg [facility] Mean Corpuscular HGB Conc 31.6 31.0 - 35.0 g/dl [facility] Red Cell Distribution Width 15.8 11.0 - 16.0 % [facility] Platelet Count 380 160 - 400 X10*3/uL [facility] Mean Platelet Volume 9.7 9.4 - 12.3 fL [facility] Neutrophils Percent Auto 63.0 45 - 73 % [facility] Imm Gran Pct Auto 0.5(H) 0.0 - 0.4 % [facility] Lymphocytes Percent Auto 23.5 20 - 40 % [facility] Monocytes Percent Auto 8.3 2 - 11 % [facility] Eosinophils Percent Auto 3.4 0 - 4 % [facility] Basophils Percent Auto 1.3 0 - 2 % [facility] NRBC Pct Auto 0.0 0.0 - 0.2 /100WBC [facility] Neutrophils Absolute Auto 4.0 2.0 - 8.3 x10*3/uL [facility] Imm Gran Abs Auto 0.03 0.00 - 0.03 X10*3/uL [facility] Lymphocytes Absolute Auto 1.5 1.2 - 4.9 X10*3/uL [facility] Monocytes Absolute Auto 0.5 0.1 - 1.2 X10*3/uL [facility] Eosinophils Absolute Auto 0.2 0.0 - 0.4 X10*3/uL [facility] Basophils Absolute Auto 0.1 0.0 - 0.2 X10*3/uL [facility] NRBC Abs Auto 0.000 0.0 - 0.012 X10*3/uL [facility] Blood Venous blood specimen / Unknown 07/22/2024 1:00 PM EDT 07/22/2024 1:00 PM EDT Chanda Damico MD LAB BLOOD ORDERABLES Final Result [facility] [address] [place] [address] [phone] * (ABNORMAL) Lipid Panel, Standard (07/22/2024 1:00 PM EDT) Triglycerides 202(H) <150 mg/dL [facility] Comment:Desirable Triglyceri de: less than 150 mg/dLBorderline High Triglyceride 150-199 mg/dLHigh Triglyceride: 200-499 mg/dLVery High Triglyceride: greater than or equal to 5OO mg/dL Cholesterol 147 <200 mg/dL [facility] Comment:Desirable Cholestero l: less than 200 mg/dLBorderline High Cholesterol: 200-239 mg/dLHigh Cholesterol: greater than 239 mg/dL LDL Cholesterol Calculated 58 <100 mg/dL [facility] Comment:Desirable LDL: less than 100 mg/dLNear Optimal/Above Optimal LDL: 110- 129 mg/dLBorderline High LDL: 130-159 mg/dLHigh LDL: 160-189 mg/dLVery High LDL: greater than or equal to 190 mg/dL HDL Cholesterol 49 >40 mg/dL [facility] Comment:Desirable HDL: great er than 40 mg/dL Note: This HDL assay may give artificially low results in patients with liver disease. Blood Venous blood specimen / Unknown 07/22/2024 1:00 PM EDT 07/22/2024 1:00 PM EDT us Chanda Damico MD LAB BLOOD ORDERABLES Final Result [facility] [address] [place] [address] [phone] * (ABNORMAL) Comprehensive Metabolic Panel (07/22/2024 1:00 PM EDT) Sodium 139 135 - 145 mmol/L [facility] Potassium 3.5 3.3 - 5.1 mmol/L [facility] Chloride 101 96 - 108 mmol/L [facility] Carbon Dioxide 30(H) 22 - 29 mmol/L [facility] Anion Gap 12 12 - 20 [facility] Urea Nitrogen (BUN) 22(H) 9 - 16 mg/dL [facility] Creatinine, Serum 0.78 0.5 - 1.4 mg/dL [facility] Estimated Glomerular Filt Rate >60 [facility] Comment:Chronic Kidney Disea se: Estimated GFR < 60 mL/min/1.10u4Gqybea Kidney Disease: Estimated GFR < 15 mL/min/1.73m2 Glucose 169(H) 60 - 115 mg/dL [facility] Calcium 9.5 8.4 - 10.2 mg/dL [facility] Bilirubin, Total 0.4 0.0 - 1.0 mg/dL [facility] Aspartate Amino Transferase 20 5 - 31 U/L [facility] Alanine Aminotransferase 14 0 - 31 U/L [facility] Total Protein 7.3 6.5 - 8.0 g/dL [facility] Albumin Level 4.3 3.5 - 5.0 g/dL [facility] Alkaline Phosphatase 72 39 - 117 U/L [facility] Blood Venous blood specimen / Unknown 07/22/2024 1:00 PM EDT 07/22/2024 1:00 PM EDT Chanda Damico MD LAB BLOOD ORDERABLES Final Result [facility] [address] [place] [address] [phone] * (ABNORMAL) POCT HGB A1C (05/31/2024 3:09 PM EST) Hemoglobin A1C 7.1(A) 4.0 - 6.0 % Blood 05/31/2024 3:09 PM EST Chanda Damico MD POINT OF CARE TEST EN TER/EDIT ORDERABLES Final Result * POCT Glucose (05/31/2024 3:08 PM EST) Glucose Blood, POC 177 60 - 200 mg/dL Blood Capillary blood specimen / Unknown 05/31/2024 3:08 PM EST Chanda Damico MD POINT OF CARE TEST EN TER/EDIT ORDERABLES Final Result * BI Mammogram Screening Tomosynthesis Bilateral (12/19/2023 1:00 PM EDT) Anatomical Region Laterality Modality Breast Bilateral Mammography 12/19/2023 1:00 PM EDT Narrative 01/12/2024 3:16 PM EDT ? [facility] ? [address] ?[place] [address] ? Mammography Report ? Signed ? Patient: Colon,Anh A ?MR#: [id number] ?? 09 ? : 1950 ?Acct:[id number] ? Age/Sex: 73 / F ?ADM Date: 12/19/23 ? Loc: HO.MAMMO ? Attending Dr: Huma Hamilton DO ? Ordering Physician: Huma Hamilton DO ?Results: 1N ?? egative ? Date of Service: 12/19/23 ?Follow Up: 1 Year From Orig ?? inal Mammogram ? Procedure(s): MM tomosynthesis screening BI ?? Accession Number(s): [id number] ? cc: Chanda Garcia MD; Huma Hamilton [...] DD/ 1300 ? TD/TT: 12/19/23 1314 ? Coin Wrapping Machine Operator: ? Procedure Note Celestine, Image - 01/12/2024 [facility] [address] [place] [address] Mammography Report Signed Patient: Anh Scanlon AMR#: [id number] 09 : 2Acct:[id number] Age/Sex: 73 / FADM Date: 12/19/23 Loc: HO.MAMMO Attending Dr: Huma Hamilton DO Ordering Physician: Huma Hamiltonults: 1N egative Date of Service: 12/19/23Follow Up: 1 Year From Orig inal Mammogram Procedure(s): MM tomosynthesis screening BI Accession Number(s): [id number] cc: Chanda Garcia MD; Huma Hamilton DO [...] 01/12/24 1514 DD/ 1300 TD/TT: 12/19/23 1314 Coin Wrapping Machine Operator: Huma Hamilton DO IMG BI PROCEDURES Edited Res ult - Final * Cologuard?? colon cancer screening (03/13/2023 8:04 AM EST) Cologuard Result Negative Negative 03/27/20 5:16 PM EST [facility] (CLIA #:[id number]) Comment: NEGATIVE TEST RESULT. A negative Cologuard [...] screened with both Cologuard and colonoscopy. (Marcus Villareal et al, N Engl J Med 2014;370(14):1286- 1297) The normal value (reference range) for this assay is negative. COLOGUARD RE-SCREENING RECOMMENDATION: Periodic colorectal cancer screening is an important part of preventive healthcare for asymptomatic individuals at average risk for colorectal cancer. ??Following a negative Cologuard result, the [place] [employer] Society and U.S. Multi-Society Task Force screening guidelines recommend a Cologuard re-screening interval of 3 years. References: [place] [employer] Guideline for Colorectal Cancer Screening: https://www.cancer.org/cancer/fjusd-kfcaub-fmvurn/hdvkvjsyh-ixjpbopwn-ochgkco/ac s-rec ommendations.html.; Joseph GRANADOS, Maegan BOUCHER, Melany MANCILLA, Colorectal Cancer Screening: Recommendations for Physicians and Patients from the U.S. Multi-Society Task Force on Colorectal Cancer Screening , Am J Gastroenterology 2017; 112:0660-6020. TEST DESCRIPTION: Composite algorithmic analysis of stool [...] screened with both Cologuard and colonoscopy. (Marcus Villareal et al, N Engl J Med 2014;370(14):9687-7445.) Cologuard may produce a false negative or false positive result (no colorectal cancer or precancerous polyp present at colonoscopy follow up). A negative Cologuard test result does not guarantee the absence of CRC or advanced adenoma (pre-cancer). The current Cologuard screening interval is every 3 years. ([place] [employer] Society and U.S. Multi-Society Task Force). Cologuard performance data in a 10,000 patient pivotal study using colonoscopy as the reference method can be accessed at the following location: www.Teros/results. Additional description of the Cologuard test process, warnings and precautions can be found at www.cologuard.com. Stool specimen (specimen) 03/13/2023 8:04 AM EST 03/14/2023 2:30 PM EST Chanda Damico MD LAB MOLECULAR DIAGNOS TICS ORDERABLES Final Result Performing Organization Address City/[facility]/ZIP Co de Phone Number [facility] (CLIA #:[id number]) [address] [address], * HEPATITIS C AB W/REFL TO HCV RNA, QN, PCR (08/20/2020 8:54 AM EDT) HEPATITIS C ANTIBODY NON-REACT CHRIS NON-REACT CHRIS [facility] INDEX 0.01 <1.00 [facility] Comment: ?? HCV antibody was non-reactive. There is no laboratory ?? evidence of HCV infection. ?? In most cases, no further action is required. However, if recent HCV exposure is suspected, a test for HCV RNA (test code 77936) is suggested. ?? For additional information please refer to http://education.Application Security.IntenseDebate/faq/TGP91c1 (This link is being provided for informational/ educational purposes only.) ?? 08/20/2020 8:54 AM EDT Historical Provider HISTORICAL/NON ORDERABLE LABS Final Result Performing Organization Address [facility] de Phone Number [facility] [address] from Last 3 Months or Most Recently Relevant to Health Maintenance Insurance [facility] - SDO [facility] Care Teams Benchroom Shop Optician Relationship Specialty Start Date End Date Chanda Garcia MD [address] [place] [address] PCP - General Family Medicine 12/17/21 Sruthi Shelton, LeonardoD [address] [place] [address] Pharmacist Internal Medicine 08/16/23
--- OUTSIDE RECORDS SUMMARY | 2024-07-24 12:40 | XMS_ITS | Clinical Summary ---
Author Organization [facility] Address [address] [place] [address] Care Team Providers Care Sql Programmer Analyst Name Role Phone Unavailable Primary Care Provider [...]
--- OUTSIDE RECORDS SUMMARY | 2024-07-24 12:40 | XMS_ITS | Encounter Summary ---
Author Organization [employer] Address [address] [facility] 7t [place] [address] Care Team Providers Care Third Grade Teacher Name Role Phone Chanda Garcia MD Primary Care Provide r Sruthi Shelton PharmD Unavailable +- [phone] Reason for Visit * Reason Comments Med Refill Encounter Details Date Type Department Care Team (Late st Contact Info) Description 10/23/2023 Refill [facility] [address] [place] [address] Chanda Mcintosh MD [address] [place] [address] Social History Tobacco Use Types Packs/Day Years [...] documented as of this encounter Care Teams Third Grade Teacher Relationship Specialty Start Date End Date Chanda Garcia MD [address] [place] [address] PCP - General Family Medicine 12/17/21 Sruthi Shelton, PharmD [address] [place] [address] Pharmacist Internal Medicine 08/16/23 documented as of this encounter
--- OUTSIDE RECORDS SUMMARY | 2024-07-24 12:40 | XMS_ITS | Clinical Summary ---
Author Organization [facility] Address [address] [facility] [address] [place] [address] Phone Care Team Providers Care Pipe Fitter [address] Service Name Role Phone Jenise Sanabria MD Primary Care Provider [phone]- [phone] Allergies Active Allergy Reactions Criticality Noted Date [...] Assessment & Plan: Pt has history of [place] and a PE. She is completely asymptomiatic [...] 02/20/2018, 01/25/2017, 07/18/2005, Additional history exists Insurance [facility] ([id number]) [place] [id number] [facility] ([id number]) [place] [id number] Care Teams [address] Service Relationship Specialty Start Date End Date Jenise Sanabria MD [address] [place] [address] [phone] PCP - General Internal Medicine 05/11/22
--- OUTSIDE RECORDS SUMMARY | 2024-07-24 12:40 | XMS_ITS | Encounter Summary ---
Author Organization [employer] Address [address] [facility] 7t [place] [address] Care Team Providers Care School Admissions Representative Name Role Phone Chanda Garcia MD Primary Care Provide r rSuthi Shelton PharmD Unavailable [phone]- [phone] Reason for Visit * Reason Comments Med Change Request Encounter Details Date Type Department Care Team ([facility] st Contact Info) Description 07/19/2024 Refill [facility] [address] [place] [address] Chanda Garcia MD [address] [place], [place] [phone] Social History Tobacco Use Types Packs/Day Years [...] documented as of this encounter Care Teams School Admissions Representative Relationship Specialty Start Date End Date Chanda Garcia MD [address] [place] [address] PCP - General Family Medicine 12/17/21 Sruthi Shelton PharmD [address] [place] [address] Pharmacist Internal Medicine 08/16/23 documented as of this encounter
--- OUTSIDE RECORDS SUMMARY | 2024-07-24 12:40 | XMS_ITS | Encounter Summary ---
Author Organization [employer] [facility] Address [address] [facility] 7t [place] [address] Care Team Providers Care Content Director Name Role Phone Chanda Garcia MD Primary Care Provide r Sruthi Shelton PharmD Unavailable [phone] Reason for Visit * Reason Comments Med Refill Encounter Details Date Type Department Care Team (Late st Contact Info) Description 07/07/2022 Refill [facility] [address] [place], [place] [phone] Huma Hamilton DO [address] [place], [place] [phone] Coronary artery disease, unspecified vessel or lesion type, unspecified whether angina present, unspecified whether [place] or transplanted heart Social History Tobacco Use [...] type, unspecified whether angina present, unspecified whether [place] or transplanted heart documented in this encounter Care Teams Content Director Relationship Specialty Start Date End Date Chanda Garcia MD [address] [place] [address] PCP - General Family Medicine 12/17/21 Sruthi Shelton, Sapna [address] [place] [address] Pharmacist Internal Medicine 08/16/23 documented as of this encounter
--- OUTSIDE RECORDS SUMMARY | 2024-07-24 12:40 | XMS_ITS | Encounter Summary ---
Author Organization [email or web address] [facility] Address [address] [facility] 7t [place] [address] Care Team Providers Care Rescue Worker Name Role Phone Chanda Garcia MD Primary Care Provide r Sruthi Shelton PharmD Unavailable [phone] Encounter Details Date Type Department Care Team [...] on filedocumented in this encounter Care Teams Rescue Worker Relationship Specialty Start Date End Date Chanda Garcia MD [address] [place] [address] PCP - General Family Medicine 12/17/21 Sruthi Shelton, PharmD [address] [place], [place] [phone] Pharmacist Internal Medicine 08/16/23 documented as of this encounter
--- OUTSIDE RECORDS SUMMARY | 2024-07-24 12:40 | XMS_ITS | Encounter Summary ---
Author Organization [employer] Address [address] [facility] 7t [place] [address] Care Team Providers Care Hourly Caregiver Name Role Phone Chanda Garcia MD Primary Care Provide r Sruthi Shelton PharmD Unavailable [phone]- [phone] Reason for Visit * Reason Onset Date Comments ER Follow-up 11/08/2023 Encounter Details Date Type Department Care Team (Late st Contact Info) Description 11/08/2023 Telephone [facility] [address] [place] [address] Chanda Garcia MD [address] [place] [address] ER Follow-up Social History Tobacco Use Types [...] Keys RN - 11/08/2023 11:15 AM EDT [facility] admission 11/02-11/04. Please contact pt. For HDF, thank you! * Telephone Encounter - Jeff Coronel - 11/08/2023 10:38 AM EDT Patient calling to report ED visit on : Date: 10/30 Hospital: [facility] Seen for: Vomiting, Fever, Body Aches Patient advised will forward to team nurse for follow up Vietnamese Speaker documented in this encounter Plan of [...] documented as of this encounter Care Teams Hourly Caregiver Relationship Specialty Start Date End Date Chanda Garcia MD [address] [place] [address] PCP - General Family Medicine 12/17/21 Sruthi Shelton, LeonardoD [address] [place] [address] Pharmacist Internal Medicine 08/16/23 documented as of this encounter
--- OUTSIDE RECORDS SUMMARY | 2024-07-24 12:41 | XMS_ITS | Encounter Summary ---
Author Organization [employer] Address [address] [facility] 7t [place] [address] Care Team Providers Care Ferryboat Operator Name Role Phone Chanda Garcia MD Primary Care Provide r Sruthi Shelton PharmD Unavailable [phone] Reason for Visit * Reason Comments Med Refill Encounter Details Date Type Department Care Team ([facility] st Contact Info) Description 02/24/2023 Refill [facility] [address] [place] [address] Chanda Garcia MD 230 [place], [place] [phone] Social History Tobacco Use Types Packs/Day Years [...] on filedocumented in this encounter Care Teams Ferryboat Operator Relationship Specialty Start Date End Date Chanda Garcia MD [address] [place] [address] PCP - General Family Medicine 12/17/21 Sruthi Shelton, Sapna [address] [place] [address] Pharmacist Internal Medicine 08/16/23 documented as of this encounter
--- OUTSIDE RECORDS SUMMARY | 2024-07-24 12:41 | XMS_ITS | Encounter Summary ---
Author Organization [employer] [facility] Address [address] [facility] 7t [place] [address] Care Team Providers Care Mining Speculator Name Role Phone Chanda Garcia MD Primary Care Provide r Sruthi Shelton PharmD Unavailable [phone] Reason for Visit * Reason Comments Med Refill Encounter Details Date Type Department Care Team (Late st Contact Info) Description 07/29/2022 Refill [facility] [address] [place] [address] Jenise Sanabria MD 230 [place], [place] [phone] Primary hypertension Social History Tobacco Use Types [...] hypertension documented in this encounter Care Teams Mining Speculator Relationship Specialty Start Date End Date Chanda Garcia MD 230 [place] [address] PCP - General Family Medicine 12/17/21 Sruthi Shelton, LeonardoD [address] [place] [address] Pharmacist Internal Medicine 08/16/23 documented as of this encounter
--- OUTSIDE RECORDS SUMMARY | 2024-07-24 12:41 | XMS_ITS | Encounter Summary ---
Author Organization [employer] Address [address] [facility] 7t [place] [address] Care Team Providers Care Community Development Officer Name Role Phone Chanda Garcia MD Primary Care Provide r Sruthi Shelton PharmD Unavailable +- [phone] Encounter Details Date Type Department Care Team (Late st Contact Info) Description 06/08/2023 Orders Only [facility] [address] [place] [address] Chanda Garcia MD [address] [place] [address] Social History Tobacco Use Types Packs/Day Years [...] the past 12 months, has t he [employer], gas, oil or water company threatened to [...] on filedocumented in this encounter Care Teams Community Development Officer Relationship Specialty Start Date End Date Chanda Garcia MD [address] [place] [address] PCP - General Family Medicine 12/17/21 Sruthi Shelton PharmD [address] [place] [address] Pharmacist Internal Medicine 08/16/23 documented as of this encounter
--- OUTSIDE RECORDS SUMMARY | 2024-07-24 12:41 | XMS_ITS | Encounter Summary ---
Author Organization [employer] Address 75 [facility] 7t [place] [address] Care Team Providers Care Cement Boat And Barge Loader Name Role Phone Chanda Garcia MD Primary Care Provide r Sruthi Shelton PharmD Unavailable +- [phone] Reason for Visit * Reason Comments Med Change Request Encounter Details Date Type Department Care Team ([facility] st Contact Info) Description 06/30/2024 Refill [facility] [address] [place] [address] Esa Trejo MD [address] [place], [place] [phone] Sebopsoriasis Social History Tobacco Use Types Packs/Day [...] documented as of this encounter Care Teams Cement Boat And Barge Loader Relationship Specialty Start Date End Date Chanda Garcia MD [address] [place] [address] PCP - General Family Medicine 12/17/21 Sruthi Shelton PharmD [address] [place] [address] Pharmacist Internal Medicine 08/16/23 documented as of this encounter
--- OUTSIDE RECORDS SUMMARY | 2024-07-24 12:41 | XMS_ITS | Data Portability ---
Author Organization [employer] [facility] in - Mr. Number Address [address] [place] [id number] Care Team Providers Care Paperhanger Apprentice Name Role Phone IWONA GONZALEZ Primary Care Provider HIM ABIGAIL OTHER Assessment Encounter Date Assessment Date Assessment LastModified by Organization Details LastModified Time 11/03/2023 11/03/2023 As noted, we were called to see this patient regarding concerns of rash and fever with abd pain. Evaluation in the field was performed by my faa certified powerplant mechanic colleague, as noted above, I provided real-time direction and supervision for this visit. 73 F w diabetes presents with 1 week of rash. recent dx of UTI for which she is taking macrobid. She was at [place] last week vacationing w family when she developed a rash on her legs and arms. She swam in the pool, went on a boat in the [place], no hiking or swimming in fresh water. [facility] [...] likely needs imaging and blood work today. [email or web address] Not available 11/03/2023 17:06:18 Plan of Treatment [...] [facility] active Not Available Not Available No t [...] % 96 % 16 /min 82 /min 05665.6 8 g 128 mm[Hg] 64 mm[Hg] Not Available [employer] - production 4 16:28:04 Social History None recorded. Functional Status None recorded. Mental Status None recorded. Family History Nothing Reported. Medical History No medical history recorded. Gynecological HistoryNo gynecological history recorded. Obstetrics History GPAL:G 0 P 0 0 0 0 Past Encounters Encounter ID Performer Location Encounter Start Date Encounter Closed Date Diagnosis/Indication Diagnosis SNOMED-CT Code Diagnosis ICD10 Code Diagnosis Note [id number] King Gibson MD Main - [address] [address] 11/03/2023 16:27:53 11/03/2023 17:06:38 Health Concerns Section Related Observation LastModified by Organization Detai ls LastModified Time None Recorded Concern Status LastModified by Organization Details LastModified Time None Recorded Advance Directives Directive None Recorded Payers Encounter Date Sequence Insurance Name Policy Number Policy Hutton Covered Member ID Hutton Member ID Guarantor Name 11/03/2023 1 [facility] - DOS ON OR AFTER 2022 - DUAL ELIGIBLE - SKILLED NURSING OPTIONS AND ONE CARE (MEDICARE REPLACEMENT/ADV ANTAGE - HMO) Anh Colon [id number] Anh Colon Notes Date Note Type Note [...] rash for specific cause.Francisco Gibson MD [address] [facility],[address], [place], [address], [employer] - [employer] 11/03/2023 17:06:35 OBGyn Episode No OBEpisode recorded.
== END 2024-07-24 11:37 | disposition home or self-care (01) ==
LOC: HO.HKA 10:40
PROVIDERS: PCP Internal Medicine; Visit Provider Internal Medicine Nephrology
DX: E11.29 Type 2 diabetes mellitus with other diabetic kidney complication (principal); R80.9 Proteinuria, unspecified; I10 Essential (primary) hypertension
CPT/HCPCS: 99214

== ENCOUNTER → 2024-07-24 10:40 | Outpatient (BNVA) | payer OTHER, SELFPAY | PROVIDERS: PCP Internal Medicine; Visit Provider Internal Medicine Nephrology | DX: E11.29 Type 2 diabetes mellitus with other diabetic kidney complication (principal); R80.9 Proteinuria, unspecified; I10 Essential (primary) hypertension | CPT/HCPCS: 99212 ==

== ENCOUNTER 2024-12-05 11:04 | Outpatient (REF) | payer OTHER, SELFPAY ==
--- OUTSIDE RECORDS SUMMARY | 2024-12-05 10:45 | XMS_ITS | Encounter Summary ---
Author Organization [employer] Address [address] [facility] 7t [place] [address] Care Team Providers Care Lead Auditor Name Role Phone Chanda Garcia MD Primary Care Provide r Sruthi Shelton PharmD Unavailable [phone] Reason for Referral * Consultation (Routine) - Pending Review Specialty Diagnoses / Procedures Referred By Amando michelle Referred To Contact Podiatry Diagnoses Type 2 diabetes mellitus with hyperglycemia, without long-term current use of insulin (CMS/HCC) Chanda Garcia MD [address] [place] [address] Phone: tel: fax: Referral ID Status Reason Start Date Expiration Date Visits Requested Visits Authorized [id number] Pending Review Specialty Services Required 12/05/2024 12/05/2025 1 1 Encounter Details Date Type Department Care Team (Late st Contact Info) Description 12/05/2024 10:45 AM EDT Office Visit [facility] [address] [place] [phone] Chanda Garcia MD [address] [place] [address] [phone] Type 2 diabetes mellitus with hyperglycemia, without long-term current use of insulin (CMS/HCC); Burning sensation; Microcytic anemia; Bilateral impacted cerumen Social History Tobacco Use Types Packs/Day Years [...] Date Recorded Patient Health Questionnaire-9 Score 0 12/05/2024 Patient Health Questionnaire-9 Score 0 12/05/2024 Last PHQ-9: Questionnaire Data Not on file 0 12/05/2024 Housing Stability Answer Date Recorded What is [...] Date Recorded Patient Health Questionnaire-2 Score 0 12/05/2024 Internet Access Answer Date Recorded Internet Access Q1 Yes 12/25/2023 Internet Access Q2 Not on file 12/25/2023 Comments No Sex and Gender Information Value Date Recorded Sex Assigned at Female 02/21/2022 10:14 AM EDT Legal Sex Female 10:14 AM EDT Gender Identity Female 02/21/2022 10:14 AM EDT Sexual Orientation Choose not to disclose 2021 10:14 AM EDT documented as of this encounter Last Filed Vital Signs Vital Sign Reading Time Taken Comments Blood Pressure 150/88 12/05/2024 11:00 AM EDT Pulse 64 12/05/2024 10:34 AM EDT Temperature 36.2 C (97.2 F) 12/05/2024 10:34 AM EDT Respiratory Rate 20 12/05/2024 10:34 AM EDT Oxygen Saturation - - Inhaled Oxygen Concentration - - Weight 72.1 kg (159 lb) 12/05/2024 10:34 AM EDT Height 160 cm (5' 3 ) 12/05/2024 10:34 AM EDT Body Mass Index 28.17 12/05/2024 10:34 AM EDT documented in this encounter Functional Status * Over the past 2 weeks, how often have you been bothered by any of the following problems? Question Answer Date of Assessment Author Patient Health Questionnaire -2 Score 0 12/05/2024 10:35 AM EDT Birgit Evans MA * Little interest or pleasure in doing things Answer Date of Assessment Author Not at all 12/05/2024 10:35 AM EDT Birgit Evans MA * Feeling down, depressed, or hopeless Answer Date of Assessment Author Not at all 12/05/2024 10:35 AM EDT Birgit Evans MA * Trouble falling or staying asleep, or sleeping too much Answer Date of Assessment Author Not at all 12/05/2024 10:35 AM EDT Birgit Evans MA * Feeling tired or having little energy Answer Date of Assessment Author Not at all 12/05/2024 10:35 AM EDT Birgit Evnas MA * Poor appetite or overeating Answer Date of Assessment Author Not at all 12/05/2024 10:35 AM EDT Birgit Evans MA * Feeling bad about yourself - or that you are a failure or have let yourself or your family down Answer Date of Assessment Author Not at all 12/05/2024 10:35 AM EDT Birgit Evans MA * Trouble concentrating on things, such as reading the newspaper or watching television Answer Date of Assessment Author Not at all 12/05/2024 10:35 AM EDT Birgit Evans MA * Moving or speaking so slowly that other people could have noticed? Or the opposite - being so fidgety or restless that you have been moving around a lot more than usual. Answer Date of Assessment Author Not at all 12/05/2024 10:35 AM EDT Birgit Evans MA * Thoughts that you would be better off or hurting yourself in some way Answer Date of Assessment Author Not at all 12/05/2024 10:35 AM EDT Birgit Evans MA * Patient Health Questionnaire-9 Score Answer Date of Assessment Author 0 12/05/2024 10:35 AM EDT Birgit Evans MA * Over the last 2 weeks, how often have you been bothered by any of the following problems? Question Answer Date of Assessment Author Feeling nervous, anxious, or on edge 0 12/05/2024 10:35 AM EDT Birgit Evans MA Not being able to stop or co ntrol worrying 0 12/05/2024 10:35 AM EDT Birgit Evans MA Worrying too much about diff erent things 0 12/05/2024 10:35 AM EDT Birgit Evans MA Trouble relaxing 0 12/05/2024 10:35 AM EDT Birgit Evans MA Being so restless that it is hard to sit still 0 12/05/2024 10:35 AM EDT Birgit Evasn MA Becoming easily annoyed or irritable 0 12/05/2024 10:35 AM EDT Birgit Evans MA Feeling afraid as if somethi ng awful might happen 0 12/05/2024 10:35 AM EDT Birgit Evans MA JAMI-7 Total Score 0 12/05/2024 10:35 AM EDT Birgit Evans MA documented as of this encounter Plan of Treatment Scheduled Orders Name Type Priority Associated Diagnoses Orde r Schedule CBC auto differential Lab Routine Microcytic anemia Expected: 12/05/2024 (Approximate), Expires: 12/05/2025 Iron And Total Iron Binding Capacity Lab Routine Microcytic anemia Expected: 12/05/2024, Expires: 12/05/2025 Ferritin Lab Routine Microcytic anemia Expected: 12/05/2024, Expires: 12/05/2025 Basic Metabolic Panel Lab Routine Burning sensation Expected: 12/05/2024 (Approximate), Expires: 12/05/2025 Magnesium Lab Routine Burning sensation Expected: 12/05/2024, Expires: 12/05/2025 Vitamin B12/Folate, Serum Panel Lab Routine Burning sensation Expected: 12/05/2024, Expires: 12/05/2025 RPR (Monitor) with Reflex to Titer Lab Routine Burning sensation Expected: 12/05/2024, Expires: 12/05/2025 TSH W/Reflex to FT4 Lab Routine Burning sensation Expected: 12/05/2024 (Approximate), Expires: 12/05/2025 Scheduled Referrals Name Type Priority Associated Diagnoses Orde r Schedule Referral to Podiatry Outpatient Referral Routine Type 2 diabetes mellitus with hyperglycemia, without long-term current use of insulin ([facility]) Expected: 12/05/2024 (Approximate), Expires: 12/05/2025 documented as of this encounter Goals Goal Patient Goal Type Associated Problems Recent Progress Patient-Stated? Author Blood Pressure < 140/90 Blood Pressure 150/88( 025 11:00 AM EDT) No Sruthi Webb, PharmD documented as of this encounter Procedures Procedure Name Priority Date/Time Associated Diagnosis Comments POCT GLYCATED HEMOGLOBIN, TOTAL Routine 12/05/2024 10:34 AM EDT Type 2 diabetes mellitus with hyperglycemia, without long-term current use of insulin ([facility]) POCT GLUCOSE Routine 12/05/2024 10:34 AM EDT Type 2 diabetes mellitus with hyperglycemia, without long-term current use of insulin ([facility]) documented in this encounter Results * (ABNORMAL) POCT HGB A1C (12/05/2024 10:34 AM EDT) Hemoglobin A1C 6.8(A) 4.0 - 5.7 % QC Media Lot # [id number] Lot# Expiration Date Blood 12/05/2024 10:3 4 AM EDT Chanda Damico MD POINT OF CARE TEST EN TER/EDIT ORDERABLES Final Result * POCT Glucose (12/05/2024 10:34 AM EDT) Glucose Blood, POC 131 60 - 200 mg/dL QC Media Lot # [id number] Lot# Expiration Date [id number] Blood Capillary blood specimen / Unknown 12/05/2024 10:34 AM EDT Chanda Damico MD POINT OF CARE TEST EN TER/EDIT ORDERABLES Final Result documented in this encounter Visit Diagnoses Diagnosis Type 2 diabetes mellitus with hyperglycemia, without long-term current use of insulin ([facility]) Burning sensation Disturbance of skin sensation Microcytic anemia Unspecified iron deficiency anemia Bilateral impacted cerumen Impacted cerumen documented in this encounter Additional Health Concerns Assessment Noted Time PHQ-9 Depression Total Score: 0 12/06/19 10:35 AM EDT documented as of this encounter Care Teams Lead Auditor Relationship Specialty Start Date End Date Chanda Garcia MD [address] [place] [address] PCP - General Family Medicine 12/17/21 Sruthi Shelton, LeonardoD [address] [place] [address] Pharmacist Internal Medicine 08/16/23 documented as of this encounter
--- OUTSIDE RECORDS SUMMARY | 2024-12-05 12:13 | XMS_ITS | Clinical Summary ---
Author Organization [facility] Address [address] [place] [address] Care Team Providers Care Unemployment Insurance Director Name Role Phone Unavailable Primary Care Provider Unavailabl e Social History Tobacco Use Types Packs/Day Years Used Date Smoking Tobacco: Never Assessed Comments Unknown Sex and Gender Information Value Date Recorded Sex Assigned at Not on file Legal Sex Female 6:34 PM EST Gender Identity Not on file [...]
--- OUTSIDE RECORDS SUMMARY | 2024-12-05 12:13 | XMS_ITS | Clinical Summary ---
Author Organization [facility] Address [address] [place], [place] [phone] Phone Care Team Providers Care Milling Machine Tender Name Role Phone Pcp, Unknown Primary Care Provider Unavailabl e Unknown, Unknown MD Unavailable Unavailable Social History Tobacco Use Types Packs/Day Years Used Date Smoking Tobacco: Never Assessed Education Answer Date Recorded Are you interested in more education? Not on blanca e 08/19/2022 Are you concerned about learning? Not on file 08/19/2022 No 08/19/2022 No 08/19/2022 Digital Access Answer Date Recorded No 09/20/2022 No 09/20/2022 No 09/20/2022 Reliable internet access at home? Not on file 09/20/2022 Device with a working camera? Not on file Comments Unknown Sex and Gender Information Value Date Recorded Sex Assigned at Not on file Legal Sex Female 10:56 AM EST Gender Identity Not on file Sexual Orientation Not on file Plan of Treatment Not on file Medical Devices Not on file Insurance [facility] MEDICARE REPLACEMENT [place] [id number] MEDICARE REPLACEMENT MEDICARE REPLACEMENT MEDICARE REPLACEMENT [facility] MEDICARE REPLACEMENT MEDICARE REPLACEMENT MEDICARE REPLACEMENT [place] [id number] [facility] MEDICARE REPLACEMENT [facility] MEDICARE [facility]PLACEMENT [facility] Care Teams Milling Machine Tender Relationship Specialty Start Date End Date Pcp, Unknown PCP - General 03/27/19 Unknown, Unknown, 03/27/19 Additional Source Comments The information contained in this document represents components of the legal health record. It is not the complete legal health record.[facility]
--- OUTSIDE RECORDS SUMMARY | 2024-12-05 12:13 | XMS_ITS | Patient Health Record ---
Author Organization [facility] Address [address] [place] [address] Care Team Providers Care Nuclear Operations Specialist Name Role Phone Jarett Sullivan Unavailable [phone] Reason For Referral No Information Plan Of Treatment No Information
--- OUTSIDE RECORDS SUMMARY | 2024-12-05 12:13 | XMS_ITS | Clinical Summary ---
Author Organization [facility] Address [address] [facility] [address] [place] [address] Phone Care Team Providers Care Commercial Front Load Operator Name Role Phone Jenise Sanabria MD Primary Care Provider [phone]- [phone] Allergies Active Allergy Reactions Criticality Noted Date [...] Assessment & Plan: Pt has history of [place] and a PE. She is completely asymptomiatic [...] 023 Vitamin D deficiency 02/17/2015 12/07/2022 Immunizations Immunization Administration Dates Next Due Hep B, Adolescent [...] Visual Foot Exam 05/25/2020 Influenza Vaccine (#1) 2024 9, 02/20/2018, 01/25/2017, Additional history exists Hepatitis B Vaccine Aged Out 09/14/2006, 05/15/2006, 01/30/2006 No longer eligible based on patient's age to complete this topic Pneumococcal Vaccine: 50+ Years Completed 02/20/2018, 01/25/2017, 07/18/2005, Additional history exists Pneumococcal Vaccine: Peds (0 to 5 Years) and At-Risk Patients (6 to 49 Years) Discontinued 02/20/2018, 01/25/2017, 07/18/2005, Additional history exists Insurance [facility] ([id number]) [facility] ([id number]) [place] [id number] Care Teams Commercial Front Load Operator Relationship Specialty Start Date End Date Jenise Sanabria MD [address] [place], [place] [phone] PCP - General Internal Medicine 05/11/22
[2024-12-05 13:40] LABS: MANUAL DIFF FLAG NO
[2024-12-05 13:44] LABS: Hematocrit 32.8 % (37.0-47.0); Hemoglobin 10.5 g/dl (12.0-16.0); Imm Gran Abs Auto 0.03 X10*3/uL (0.00-0.03); Imm Gran Pct Auto 0.5 % (0.0-0.4); Lymphocytes Absolute Auto 1.4 X10*3/uL (1.2-4.9); Mean Corpuscular HGB Conc 32.0 g/dl (31.0-35.0); Mean Corpuscular Hemoglobin 23.6 pg (27.0-33.0); Mean Corpuscular Volume 73.7 fL (80.0-98.0); NRBC Abs Auto 0.000 X10*3/uL (0.0-0.012); NRBC Pct Auto 0.0 /100WBC (0.0-0.2); Platelet Count 320 X10*3/uL (160-400); Red Blood Count 4.45 X10*6/uL (4.20-5.50); White Blood Count 6.4 X10*3/uL (4.8-10.8)
[2024-12-05 14:03] LABS: Anion Gap 15 (12-20); Blood Urea Nitrogen 13 mg/dL (9-16); Calcium 9.6 mg/dL (8.4-10.2); Carbon Dioxide 26 mmol/L (22-29); Chloride 102 mmol/L (96-108); Estimated Glomerular Filt Rate > 60; Iron 28 mcg/dL (30-160); Magnesium 1.7 mg/dL (1.6-2.6); Percent Iron Saturation 8 % (15-50); Potassium 3.6 mmol/L (3.3-5.1); Sodium 139 mmol/L (135-145); Total Iron Binding Capacity 333 mcg/dL (228-428); Unsaturated Iron Binding 305 ug/dL
[2024-12-05 14:20] LABS: Ferritin 8 ng/mL (10-250)
[2024-12-05 14:30] LABS: Folate 12.0 ng/mL (> or = 4.0); Vitamin B12 301 pg/mL (200-900)
== END 2024-12-05 11:05 | disposition home or self-care (01) ==
LOC: HO.HHCL 11:04
PROVIDERS: PCP Internal Medicine; Visit Provider Internal Medicine
DX: Z11.3 Encounter for screening for infections with a predominantly sexual mode of transmission (principal); R20.8 Other disturbances of skin sensation; D50.9 Iron deficiency anemia, unspecified
CPT/HCPCS: 36415; 80048; 82607; 82728; 82746; 83540; 83735; 84443; 85025; 86592

== ENCOUNTER 2024-12-24 12:30 | Outpatient (REF) | payer OTHER, SELFPAY ==
--- OUTSIDE RECORDS SUMMARY | 2024-12-24 13:40 | XMS_ITS | Clinical Summary ---
Author Organization [facility] Address [address] [facility] [address] [place] [address] Phone Care Team Providers Care Outlet Manager Name Role Phone Jenise Sanabria MD Primary Care Provider [phone]- [phone] Allergies Active Allergy Reactions Criticality Noted Date [...] Assessment & Plan: Pt has history of [place] and a PE. She is completely asymptomiatic [...] 02/20/2018, 01/25/2017, 07/18/2005, Additional history exists Insurance [facility] ([id number]) [facility] ([id number]) [place] [id number] Care Teams Outlet Manager Relationship Specialty Start Date End Date Jenise Sanabria MD [address] [place], [place] [phone] PCP - General Internal Medicine 05/11/22
--- OUTSIDE RECORDS SUMMARY | 2024-12-24 13:40 | XMS_ITS | Encounter Summary ---
Author Organization [employer] Address [address] [facility] 7t [place] [address] Care Team Providers Care Gold Tooler Name Role Phone Chanda Garcia MD Primary Care Provide r Sruthi Shelton PharmD Unavailable +1- [phone] Encounter Details Date Type Department Care Team (Late st Contact Info) Description 06/08/2023 Orders Only [facility] MEDICINE [address] [place] [address] Chanda Garcia MD [address] [place] [address] Social History Tobacco Use Types Packs/Day Years [...] the past 12 months, has t he [employer], gas, oil or water Loccie threatened to shut off services in your [...] on filedocumented in this encounter Care Teams Gold Tooler Relationship Specialty Start Date End Date Chanda Garcia MD [address] [place] [address] PCP - General Family Medicine 12/17/21 Sruthi Shelton PharmD [address] [place] [address] Pharmacist Internal Medicine 08/16/23 documented as of this encounter
--- OUTSIDE RECORDS SUMMARY | 2024-12-24 13:40 | XMS_ITS | Encounter Summary ---
Author Organization [facility] Address [address] [facility] 7t [place] [address] Care Team Providers Care Director Of First Impressions Name Role Phone Chanda Garcia MD Primary Care Provide r Sruthi Shelton PharmD Unavailable [phone]- [phone] Reason for Visit * Reason Comments Med Refill Encounter Details Date Type Department Care Team ([facility] st Contact Info) Description 05/09/2024 Refill [facility] MEDICINE [address] [place], [place] [phone] Chanda Garcia MD [address] [place], [place] [phone] Primary hypertension Social History Tobacco Use Types [...] 150/88( 025 11:00 AM EDT) No Sruthi Webb PharmD documented as of this encounter Visit Diagnoses Diagnosis Primary hypertension Unspecified essential hypertension documented in this encounter Additional Health Concerns Assessment Noted Time PHQ-9 Depression Total Score: 0 10/20/19 24 9:25 AM EDT documented as of this encounter Care Teams Director Of First Impressions Relationship Specialty Start Date End Date Chanda Garcia MD [address] [place] [address] PCP - General Family Medicine 12/17/21 Sruthi Shelton PharmD [address] [place] [address] Pharmacist Internal Medicine 08/16/23 documented as of this encounter
--- OUTSIDE RECORDS SUMMARY | 2024-12-24 13:40 | XMS_ITS | Clinical Summary ---
Author Organization [facility] Address [address] [place], [place] [phone] Phone Care Team Providers Care Senior Industrial Engineer Name Role Phone Pcp, Unknown Primary Care [...] file Medical Devices Not on file Insurance [facility] MEDICARE REPLACEMENT [place] [id number] MEDICARE REPLACEMENT MEDICARE REPLACEMENT MEDICARE REPLACEMENT [facility] MEDICARE REPLACEMENT MEDICARE REPLACEMENT MEDICARE REPLACEMENT [place] [id number] [facility] MEDICARE REPLACEMENT [facility] MEDICARE [facility]PLACEMENT [facility] Care Teams Senior Industrial Engineer Relationship Specialty Start Date End Date Pcp, Unknown PCP - General 03/27/19 Unknown, Unknown, 03/27/19 Additional Source Comments The information contained in this document represents components of the legal health record. It is not the complete legal health record.[facility]
--- OUTSIDE RECORDS SUMMARY | 2024-12-24 13:40 | XMS_ITS | Clinical Summary ---
Author Organization [facility] Address [address] [place] [address] Care Team Providers Care Cordage Sales Representative Name Role Phone Unavailable Primary Care Provider [...]
--- OUTSIDE RECORDS SUMMARY | 2024-12-24 13:40 | XMS_ITS | Encounter Summary ---
Author Organization [employer] Address [address] [facility] 7t [place] [address] Care Team Providers Care Environmental Sciences Professor Name Role Phone Chanda Garcia MD Primary Care Provide r Sruthi Shelton PharmD Unavailable [phone]- [phone] Reason for Visit * Reason Onset Date Comments Nurse Triage 09/05/2023 Encounter Details Date Type Department Care Team ([facility] st Contact Info) Description 09/05/2023 Telephone [facility] MEDICINE [address] [place] [address] Chanda Garcia MD [address] [place] [address] Nurse Triage Social History Tobacco Use Types [...] weeks not and is working with Dr. rTejo on this. Pts PA was denied for medication Otezla and pt has follow-up in 2 weeks on09/22/23 @ 9:30am. 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
--- OUTSIDE RECORDS SUMMARY | 2024-12-24 13:40 | XMS_ITS | Encounter Summary ---
Author Organization [employer] Address [address] [facility] 7t [place] [address] Care Team Providers Care Hoop Machine Operator Name Role Phone Chanda Garcia MD Primary Care Provide r Sruthi Shelton PharmD Unavailable [phone]- [phone] Reason for Visit * Reason Onset Date Comments ER Follow-up 11/08/2023 Encounter Details Date Type Department Care Team (Late st Contact Info) Description 11/08/2023 Telephone [facility] MEDICINE [address] [place] [address] Chanda Garcia MD [address] [place], [place] [phone] ER Follow-up Social History Tobacco Use Types [...] Keys RN - 11/08/2023 11:15 AM EDT [facility] admission 11/02-11/04. Please contact pt. For HDF, thank you! * Telephone Encounter - Jeff Coronel - 11/08/2023 10:38 AM EDT Patient calling to report ED visit on : Date: 10/30 Hospital: [facility] Seen for: Vomiting, Fever, Body Aches Patient advised will forward to team nurse for follow up Emirati Speaker documented in this encounter Plan of [...] documented as of this encounter Care Teams Hoop Machine Operator Relationship Specialty Start Date End Date Chanda Garcia MD [address] [place] [address] PCP - General Family Medicine 12/17/21 Sruthi Shelton, LeonardoD [address] [place] [address] Pharmacist Internal Medicine 08/16/23 documented as of this encounter
--- OUTSIDE RECORDS SUMMARY | 2024-12-24 13:40 | XMS_ITS | Encounter Summary ---
Author Organization [employer] Address [address] [facility] 7t [place] [address] Care Team Providers Care Medical Liaison Name Role Phone Chanda Garcia MD Primary Care Provide r Sruthi Shelton PharmD Unavailable [phone]- [phone] Reason for Visit * Reason Comments Med Refill Encounter Details Date Type Department Care Team ([facility] st Contact Info) Description 02/24/2023 Refill [facility] MEDICINE [address] [place] [address] Chanda Garcia MD [address] [place], [place] [phone] Social History Tobacco Use Types Packs/Day Years [...] on filedocumented in this encounter Care Teams Medical Liaison Relationship Specialty Start Date End Date Chanda Garcia MD [address] [place] [address] PCP - General Family Medicine 12/17/21 Sruthi Shelton, Sapna [address] [place] [address] Pharmacist Internal Medicine 08/16/23 documented as of this encounter
--- OUTSIDE RECORDS SUMMARY | 2024-12-24 13:40 | XMS_ITS | Encounter Summary ---
Author Organization [employer] [facility] Address [address] [facility] 7t [place] [address] Care Team Providers Care Project Manager Retail Name Role Phone Chanda Garcia MD Primary Care Provide r Sruthi Shelton PharmD Unavailable [phone]- [phone] Reason for Visit * Reason Comments Med Refill Encounter Details Date Type Department Care Team ([facility] st Contact Info) Description 07/13/2022 Refill [facility] MEDICINE [address] [place], [place] [phone] Jenise Sanabria MD [address] [place], [place] [phone] Parkinson's disease (CMS/HCC) Social History Tobacco Use [...] agitans documented in this encounter Care Teams Project Manager Retail Relationship Specialty Start Date End Date Chanda Garcia MD [address] [place] [address] PCP - General Family Medicine 12/17/21 Sruthi Shelton, Sapna [address] [place] [address] Pharmacist Internal Medicine 08/16/23 documented as of this encounter
--- OUTSIDE RECORDS SUMMARY | 2024-12-24 13:40 | XMS_ITS | Encounter Summary ---
Author Organization [employer] [facility] Address [address] [facility] [address] [place] [address] Care Team Providers Care Financial Compliance Officer Name Role Phone Chanda Garcia MD Primary Care Provide r Sruthi Shelton PharmD Unavailable [phone]- [phone] Encounter Details Date Type Department Care Team [...] on filedocumented in this encounter Care Teams Financial Compliance Officer Relationship Specialty Start Date End Date Chanda Garcia MD [address] [place] [address] PCP - General Family Medicine 12/17/21 Sruthi Shelton, PharmD [address] [place], [place] [phone] Pharmacist Internal Medicine 08/16/23 documented as of this encounter
--- OUTSIDE RECORDS SUMMARY | 2024-12-24 13:40 | XMS_ITS | Encounter Summary ---
Author Organization [facility] Address [address] [facility] 7t [place] [address] Care Team Providers Care Oyster Bed Worker Name Role Phone Chanda Garcia MD Primary Care Provide r Sruthi Shelton PharmD Unavailable [phone]- [phone] Reason for Visit * Reason Comments Med Refill Encounter Details Date Type Department Care Team ([facility] st Contact Info) Description 07/29/2022 Refill [facility] MEDICINE [address] [place], [place] [phone] Jenise Sanabria MD [address] [place] [address] Primary hypertension Social History Tobacco Use Types [...] hypertension documented in this encounter Care Teams Oyster Bed Worker Relationship Specialty Start Date End Date Chanda Garcia MD [address] [place], [place] [phone] PCP - General Family Medicine 12/17/21 Sruthi Shelton, LeonardoD [address] [place] [address] Pharmacist Internal Medicine 08/16/23 documented as of this encounter
--- OUTSIDE RECORDS SUMMARY | 2024-12-24 13:40 | XMS_ITS | Encounter Summary ---
Author Organization [employer] [facility] Address [address] [facility] 7t [place] [address] Care Team Providers Care Material Assembler Name Role Phone Chanda Garcia MD Primary Care Provide r Sruthi Shelton PharmD Unavailable Encounter Details Date Type Department Care Team (Late st Contact Info) Description 05/16/2022 Orders Only [facility] MEDICINE [address] [place] [address] Nimisha Ann LPN Social History Tobacco Use [...] on filedocumented in this encounter Care Teams Material Assembler Relationship Specialty Start Date End Date Chanda Garcia MD [address] [place] [phone] PCP - General Family Medicine 12/17/21 Sruthi Shelton, PharmD [address] [place] [address] Pharmacist Internal Medicine 08/16/23 documented as of this encounter
--- OUTSIDE RECORDS SUMMARY | 2024-12-24 13:40 | XMS_ITS | Encounter Summary ---
Author Organization [employer] Address [address] [facility] [address]t [place] [address] Care Team Providers Care Biblical Languages Professor Name Role Phone Chanda Garcia MD Primary Care Provide r Sruthi Shelton PharmD Unavailable [phone]- [phone] Reason for Visit * Reason Comments Med Refill Encounter Details Date Type Department Care Team ([facility] st Contact Info) Description 12/23/2024 Refill [facility] MEDICINE [address] [place], [place] [phone] Chanda Garcia MD [address] [place], [place] [phone] Neck pain Social History Tobacco Use Types Packs/Day Years [...] as of this encounter Visit Diagnoses Diagnosis Neck pain Cervicalgia documented in this encounter Additional Health Concerns Assessment Noted Time PHQ-9 Depression Total Score: 0 12/06/19 25 10:35 AM EDT documented as of this encounter Care Teams Biblical Languages Professor Relationship Specialty Start Date End Date Chanda Garcia MD [address] [place] [address] PCP - General Family Medicine 12/17/21 Sruthi Shelton PharmD [address] [place] [address] Pharmacist Internal Medicine 08/16/23 documented as of this encounter
--- OUTSIDE RECORDS SUMMARY | 2024-12-24 13:40 | XMS_ITS | Encounter Summary ---
Author Organization [employer] Address [address] [facility] 7t [place] [address] Care Team Providers Care Research Mechanic Name Role Phone Chanda Garcia MD Primary Care Provide r Sruthi Shelton PharmD Unavailable [phone]- [phone] Reason for Visit * Reason Comments Med Refill Encounter Details Date Type Department Care Team ([facility] st Contact Info) Description 04/21/2024 Refill [facility] MEDICINE [address] [place] [address] Chanda Garcia MD [address] [place], [place] [phone] Parkinson's disease, unspecified whether dyskinesia present, unspecified [...] documented as of this encounter Care Teams Research Mechanic Relationship Specialty Start Date End Date Chanda Garcia MD [address] [place] [address] PCP - General Family Medicine 12/17/21 Sruthi Shelton, LeonardoD [address] [place] [address] Pharmacist Internal Medicine 08/16/23 documented as of this encounter
--- OUTSIDE RECORDS SUMMARY | 2024-12-24 13:40 | XMS_ITS | Encounter Summary ---
Author Organization [employer] Address [address] [facility] [address] [place] [address] Care Team Providers Care Courier Name Role Phone Chanda Garcia MD Primary Care Provide r Sruthi Shelton PharmD Unavailable [phone]- [phone] Reason for Visit * Reason Comments Med Refill Encounter Details Date Type Department Care Team ([facility] st Contact Info) Description 12/19/2024 Refill [facility] MEDICINE [address] [place], [place] [phone] Chanda Garcia MD [address] [place], [place] [phone] Primary hypertension Social History Tobacco Use Types [...] documented as of this encounter Care Teams Courier Relationship Specialty Start Date End Date Chanda Garcia MD [address] [place] [address] PCP - General Family Medicine 12/17/21 Sruthi Shelton PharmD [address] [place] [address] Pharmacist Internal Medicine 08/16/23 documented as of this encounter
--- OUTSIDE RECORDS SUMMARY | 2024-12-24 13:40 | XMS_ITS | Clinical Summary ---
Author Organization [employer] Address [address] [facility] [address] [place] [address] Care Team Providers Care Glassware Finisher Name Role Phone Chanda Garcia MD Primary Care Provide r Sruthi Shelton PharmD Unavailable [phone] Allergies Active Allergy Reactions Criticality Noted Date [...] FOR 30 DAYS 023 Active sodium chloride (Purdy) 0.65 % nasal spray 1 spray. 019 Active pregabalin (Lyrica) 100 MG capsule TOME CHRISTOS C PSULA DOS VECES AL D A FOR 90 DAYS 023 Active FREESTYLE LITE test strip USE TO TEST TWICE DAILY 100 strip 11 023 Active Blood Glucose Monitoring Suppl (FreeStyle Grainfield Lite) w/Device kitIndications:Ty pe 2 diabetes mellitus without complication, unspecified whether half-way insulin use ([facility]) Use to test blood sugar two times [...] 6. 55 each Active Fluocinolone Acetonide Scalp (Eagle Nest-Smoothe/FS Scalp) 0.01 % oilIndications:Se bopsoriasis Apply at night 3 times weekly and cover with scarf 118.28 mL 11 Active Clobetasol Propionate 0.05 % shampooIndication s:Sebopsoriasis Apply 3 times weekly on days not using Ketoconazole shampoo. 118 mL 11 Active Banophen 25 MG capsule TAKE 1-2 [...] tablet by mouth 3 times daily. Active acetaminophen (Tylenol 8 Hour) 650 MG ER tabletIndications :Neck pain Take 1 tablet (650 mg) by mouth every 8 (eight) hours if needed for mild pain. Do not crush, chew, or split. 40 tablet 1 11/01/2 024 Active rosuvastatin (Crestor) 10 MG tabletIndications [...] AL CHIP 60 g 11 025 Active trihexyphenidyl (Artane) 2 MG tabletIndications :Parkinson's disease, unspecified whether dyskinesia present, unspecified whether manifestations fluctuate (CMS/HCC) TAKE 1 TABLET (2 MG) BY MOUTH WITH BREAKFAST, WITH LUNCH, AND WITH EVENING MEAL. 270 tablet 025 Active omega-3 acid ethyl esters (Lovaza) 1 g capsule TAKE 2 CAPSULES BY MOUTH TWICE DAY 360 capsule 1 025 Active clonazePAM (KlonoPIN) 0.5 MG tabletIndications :Anxiety TOME 1 TABLETA POR VIA ORAL [facility] 28 tablet 2 025 Active ketoconazole (NIZOral) 2 % shampooIndication s:Sebopsoriasis APLIQUE AL AREA AFECTADA 3 TIMES WEEKLY 120 mL 11 025 Active metFORMIN (Glucophage) 500 MG tabletIndications :Type 2 diabetes mellitus with hyperglycemia, without long-term current use of insulin (CMS/HCC) TAKE 2 TABLETS BY MOUTH TWICE A DAY WITH MORNING AND EVENING MEALS 360 tablet 1 025 Active cetirizine (ZyrTEC) 10 MG tabletIndications :Seasonal allergic rhinitis, unspecified trigger TAKE 1 TABLET BY MOUTH EVERY DAY 90 tablet 1 025 Active ferrous gluconate (Fergon) 324 (38 Fe) MG tabletIndications :Iron deficiency anemia, unspecified iron deficiency anemia type Take 1 tablet (324 mg) by mouth every other day. 15 tablet 2 025 2025 Active ascorbic acid (Vitamin C) 500 MG tabletIndications :Iron deficiency anemia, unspecified iron deficiency anemia type Take one every other day with iron supplement 15 tablet 11 025 Active triamcinolone (Kenalog) 0.1 % creamIndications: Xerosis cutis,Generalized pruritus MIX WITH CERAVE AND APPLY AFTER SHOWERS 80 g 2 025 Active hydroCHLOROthiazi de (HYDRODiuril) 50 MG tabletIndications :Primary hypertension TAKE 1 TABLET BY MOUTH ONCE PER DAY. 90 tablet 3 025 Active hydrALAZINE (Apresoline) 25 MG tablet TAKE 1 TABLET (25 MG) BY MOUTH 3 TIMES DAILY 270 tablet 1 025 Active hydroCHLOROthiazi de (HYDRODiuril) 50 MG tabletIndications :Primary hypertension Take 1 tablet (50 mg) by mouth Once per day. 30 tablet 11 024 2024 Discontinued hydrALAZINE (Apresoline) 25 MG tablet TAKE 1 TABLET (25 MG) BY MOUTH 3 TIMES DAILY 270 tablet 1 025 2024 Discontinued triamcinolone (Kenalog) 0.1 % creamIndications: Xerosis cutis,Generalized pruritus MIX WITH CERAVE AND APPLY AFTER SHOWERS 80 g 2 025 2024 Discontinued carbamide peroxide (Debrox) 6.5 % otic solutionIndicatio ns:Bilateral impacted cerumen Administer 5-10 drops into affected ear(s) 2 times daily for 4 days. 30 mL 025 2024 Discontinued carbamide peroxide (Debrox) 6.5 % otic solutionIndicatio ns:Bilateral impacted cerumen Administer 5-10 drops into affected ear(s) 2 times daily for 4 days. 30 mL 025 2024 Active Problems Problem Noted Date Diagnosed Date Burning sensation 12/05/2024 Assessment & Plan (12/05/2024 5:20 PM EDT): I will order blood work today patient will be contacted with results Microcytic anemia 12/05/2024 Assessment & Plan (12/05/2024 5:20 PM EDT): Previous labs are showing microcytic anemia I will order iron panel and repeat CBC patient will be contacted with results Bilateral impacted cerumen 12/05/2024 Assessment & Plan (12/05/2024 5:19 PM EDT): Debrox prescribed today patient to return back in 5 days for ear lavage Cervicalgia 05/31/2024 Assessment & Plan (06/03/2024 5:09 [...] than 2 weeks Colon cancer screening 02/21/2023 'Vpson-mdm-ihxvy' infant with signs of mal nutrition 02/21/2023 [...] there is no improvement. -Referred today to chemical preparer and apartment rental agent. Vulvar itching 12/29/2022 Assessment & Plan (02/23/2024 [...] paget should be ruled out. -Referred to apartment rental agent today. Assessment & Plan (12/29/2022 5:42 PM [...] symptoms are not improving would refer to apartment rental agent to r/o chronic conditions as lichen,paget and [...] 10:12 AM EST): Pt has history of [place] and a PE. She is completely asymptomiatic [...] GFR is normal, she follows up with calibration engineer Microalbuminuria 11/24/2020 Parkinson's disease 09/26/2018 Assessment & [...] weeks -reports also to be following w predictive maintenance technician Assessment & Plan (10/31/2022 5:12 PM EDT): [...] 2 diabetes mellitus 02/17/2015 Assessment & Plan (12/05/2024 5:19 PM EDT): Diabetes is: almost at goal - Lab Results Component Value Date HGBA1C 6.8 (A) 12/05/2024 HGBA1C 7.1 (A) 05/31/2024 HGBA1C 6.9 (A) 10/20/2023 - Lab Results Component Value Date MICROALBUR 0.7 11/05/2021 CREATININE 0.67 12/05/2024 -Changes: None - Diabetic eye exam: Pending - Diabetic foot exam: Referral done today - Continue lifestyle modifications - Continue current medications - Follow up: 3 months Assessment & Plan (11/22/2023 12:45 PM EDT): [...] Encounters Date Type Department Care Team Description 12/23/[address] [address] Chanda Garcia MD Neck pain 12/19/[address] [address] Chanda Garcia MD Primary hypertension 12/14/[address] [address] Chanda Garcia MD Xerosis cutis; Generalized pruritus 12/10/2024 1:30 PM EDT Clinical Support [address] [phone] Dee Keys RN Impacted cerumen of both ears 12/10/[address] [address] Dee Keys RN Referral 12/10/2024 Travel 12/07/2024 Results Follow-Up [facility] [address] [place], [place] [phone] Chanda Garcia MD POCT Glucose, POCT HGB A1C, CBC auto differential, Additional followed-up results: 7 12/05/2024 10:45 AM EDT Office Visit [address] [address] Chanda Garcia MD Type 2 diabetes mellitus with hyperglycemia, without long-term current use of insulin ([facility]); Burning sensation; Microcytic anemia; Bilateral impacted cerumen 12/05/2024 Travel 12/03/2024 Telephone [facility] [address] [place] [address] Chanda Garcia MD Chart Prep 11/07/2024 Refill [facility] [address], [place] [phone] Jenise Sanabria MD Seasonal allergic rhinitis, unspecified trigger 10/27/2024 Refill [facility] [address], [place] [phone] Jenise Sanabria MD Type 2 diabetes mellitus with hyperglycemia, without long-term current use of insulin ([facility]) 09/28/2024 Refill [facility] [address], [place] [phone] Esa Trejo MD 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 Months Immunizations Immunization Administration Dates Next Due Hep [...] 20 12/05/2024 10:34 AM EDT Oxygen Saturation 100% 04/05/2024 3:17 PM EST Inhaled Oxygen Concentration - - Weight 72.1 kg (159 lb) 12/05/2024 10:34 AM EDT Height 160 cm (5' 3 ) 12/05/2024 10:34 AM EDT Body Mass Index 28.17 12/05/2024 10:34 AM EDT Plan of Treatment Health Maintenance Due [...] COVID-19 Vaccine ( season) 2023 10/03/2020, 09/06/2020 Mammogram 12/18/2024 12/19/2023, 11/23, 09/13/2021, Additional history exists Influenza Vaccine (#1) 2024 , 02/21/2023, 02/08/2022, Additional history exists SDOH Screening 05/20/2025 05/20/2024 Diabetes: Hemoglobin A1C 06/07/2025 025, 05/31/2024, 10/20/2023, Additional history exists Lipid Panel 07/22/2025 07/22/2024, 08/22, 06/20/2022, Additional history exists Alcohol/Substance Use Screening 12/05/2025 12/05/2024 Depression Screening 12/05/2025 12/05/2024, 12/06/19 Tobacco Screening 12/05/2025 12/05/2024 Colorectal Cancer Screening 03/13/2026 FIT DNA/Cologuard 03/13/2026 03/13/2023 DTaP/Tdap/Td Vaccines (3 - Td or Tdap) 06/10/2032 06/10/2022, 08/27/2012, 01/30/2006 Hepatitis B Vaccines Aged Out 09/14/2006, 05/15/2006, 01/30/2006 No longer eligible based on patient's age to complete this topic Pneumococcal Vaccine: 50+ Years Completed 02/20/2018, 01/25/2017, 07/18/2005, Additional history exists Hepatitis C Screening Completed 08/20/2020 HIB Vaccines Aged Out No longer eligi [...] patient's age to complete this topic Meningococcal B Vaccine Aged Out No l onger eligible based on patient's age to complete [...] Pressure 150/88( 025 11:00 AM EDT) No Piers-GambSruthi hughes, Sapna Procedures Procedure Name Priority Date/Time Associated Diagnosis Comments NH REMOVAL IMPACTED CERUMEN IRRIGATION/LVG UNILAT Routine 12/10/2024 1:47 PM EDT Impacted cerumen of both ears TSH W/REFLEX TO FT4 Routine 12/05/2024 1 1:13 AM EDT Burning sensation RPR (MONITOR) W/REFL TITER Routine 12/05/2024 11:13 AM EDT Burning sensation VITAMIN B12/FOLATE, SERUM PANEL Routine 12/05/2024 11:13 AM EDT Burning sensation MAGNESIUM Routine 12/05/2024 11:13 AM EDT Burning sensation BASIC METABOLIC PANEL Routine 12/05/2024 11:13 AM EDT Burning sensation FERRITIN Routine 12/05/2024 11:13 AM EDT Microcytic anemia IRON AND TOTAL IRON BINDING CAPACITY Routine 12/05/2024 11:13 AM EDT Microcytic anemia CBC WITH AUTO DIFFERENTIAL Routine 12/05/2024 11:13 AM EDT Microcytic anemia POCT GLYCATED HEMOGLOBIN, TOTAL Routine 12/05/2024 10:34 AM EDT Type 2 diabetes mellitus with hyperglycemia, without long-term current use of insulin (CMS/HCC) POCT GLUCOSE Routine 12/05/2024 10:34 AM EDT Type 2 diabetes mellitus with hyperglycemia, without long-term current use of insulin (CMS/HCC) LIPID PANEL, STANDARD Routine 07/22/2024 1:00 PM EDT Type 2 diabetes mellitus with hyperglycemia, without long-term current use of insulin (CMS/HCC) BI MAMMOGRAM SCREENING TOMOSYNTHESIS BILATERAL Routine 12/19/2023 1:00 PM EDT LAB COLOGUARD COLON CANCER SCREEN Routine 03/13/2023 8:04 AM [...] Recently Relevant to Health Maintenance Results * NH REMOVAL IMPACTED CERUMEN IRRIGATION/LVG UNILAT (12/10/2024 1:47 PM EDT) Dee Epperson RN - 12/10/2024 1:47 PM EDT Dee Keys RN 12/10/2024 1:51 PM Ear Cerumen Removal Date/Time: 12/10/2024 1:47 PM Performed by: Dee Keys RN Authorized by: Chanda Damico MD Consent: Consent obtained: Verbal Consent given by: Patient Risks, benefits, and alternatives were discussed: yes Risks discussed: Pain, dizziness and incomplete removal Alternatives discussed: Referral Barnum protocol: Procedure explained and questions answered to patient or proxy's satisfaction: yes Patient identity confirmed: Verbally with patient and provided demographic data Procedure details: Location: L ear and R ear Procedure type: irrigation Procedure outcomes: cerumen removed Post-procedure details: Inspection: No bleeding, some cerumen remaining and TM intact Procedure completion: Procedure terminated at patient's request Comments: Large amount of cerumen removed from L ear, ear canal clear after irrigation. Pt. Unable to tolerate irrigation of R ear, pt. C/o pain in ear canal and requests referral to ENT as she prefers their method of removal. Reports ENT last removed cerumen approx 1 year ago. us Chanda Damico MD IN CLINIC/BEDSIDE ORD ERABLES Final Result * Vitamin B12/Folate, Serum Panel (12/05/2024 11:13 AM EDT) Vitamin B12 301 200 - 900 pg/mL [facility] Comment:NORMAL 200-900 PG/ML INDETERMINATE 160-199 PG/ML DEFICIENT < 160 PG/ML Folate 12.0 > or = 4.0 ng/mL [facility] Comment:Reference Values:> o r = 4.0 ng/mL< 4.0 ng/mL suggests folate deficiency Methotrexate, aminopterin and folinic acid(leucovorin) are chemotherapeutic agents whose molecularstructures are similar to folate; therefore, the Architectfolate assay cannot be used for patients using these drugs. Blood Venous blood specimen / Unknown 12/05/2024 11:13 AM EDT 12/05/2024 1:35 PM EDT Chanda Damico MD LAB BLOOD ORDERABLES Final Result Performing Organization Address City/[facility]/ZIP Co de Phone Number [facility] [address] [place] [phone] * TSH W/Reflex to FT4 (12/05/2024 11:13 AM EDT) TSH reflex Free T4 3.02 0.32 - 4.0 uIU/mL [facility] Blood Venous blood specimen / Unknown 12/05/2024 11:13 AM EDT 12/05/2024 1:40 PM EDT Chanda Damico MD LAB BLOOD ORDERABLES Final Result Performing Organization Address [facility] Co de Phone Number [facility] [address] [place] [phone] * (ABNORMAL) CBC auto differential (12/05/2024 11:13 AM EDT) White Blood Count 6.4 4.8 - 10.8 X10*3/uL [facility] Red Blood Count 4.45 4.20 - 5.50 X10*6/uL [facility] Hemoglobin 10.5(L) 12.0 - 16.0 g/dl [facility] Hematocrit 32.8(L) 37.0 - 47.0 % [facility] Mean Corpuscular Volume 73.7(L) 80.0 - 98.0 fL [facility] Mean Corpuscular Hemoglobin 23.6(L) 27.0 - 33.0 pg [facility] Mean Corpuscular HGB Conc 32.0 31.0 - 35.0 g/dl [facility] Red Cell Distribution Width 16.5(H) 11.0 - 16.0 % [facility] Platelet Count 320 160 - 400 X10*3/uL [facility] Mean Platelet Volume 9.9 9.4 - 12.3 fL [facility] Neutrophils Percent Auto 68.7 45 - 73 % [facility] Imm Gran Pct Auto 0.5(H) 0.0 - 0.4 % [facility] Lymphocytes Percent Auto 22.2 20 - 40 % [facility] Monocytes Percent Auto 5.5 2 - 11 % [facility] Eosinophils Percent Auto 1.7 0 - 4 % [facility] Basophils Percent Auto 1.4 0 - 2 % [facility] NRBC Pct Auto 0.0 0.0 - 0.2 /100WBC [facility] Neutrophils Absolute Auto 4.4 2.0 - 8.3 x10*3/uL [facility] Imm Gran Abs Auto 0.03 0.00 - 0.03 X10*3/uL [facility] Lymphocytes Absolute Auto 1.4 1.2 - 4.9 X10*3/uL [facility] Monocytes Absolute Auto 0.4 0.1 - 1.2 X10*3/uL [facility] Eosinophils Absolute Auto 0.1 0.0 - 0.4 X10*3/uL [facility] Basophils Absolute Auto 0.1 0.0 - 0.2 X10*3/uL [facility] NRBC Abs Auto 0.000 0.0 - 0.012 X10*3/uL [facility] Blood Venous blood specimen / Unknown 12/05/2024 11:13 AM EDT 12/05/2024 1:35 PM EDT us Chanda Damico MD LAB BLOOD ORDERABLES Final Result [facility] [address], [place] [phone] * (ABNORMAL) Iron And Total Iron Binding Capacity (12/05/2024 11:13 AM EDT) Iron 28(L) 30 - 160 mcg/dL [facility] Total Iron Binding Capacity 333 228 - 428 mcg/dL [facility] Percent Iron Saturation 8(L) 15 - 50 % [facility] Unsaturated Iron Binding 305 ug/dL [facility] Blood Venous blood specimen / Unknown 12/05/2024 11:13 AM EDT 12/05/2024 1:40 PM EDT Chanda Damico MD LAB BLOOD ORDERABLES Final Result Performing Organization Address City/[facility]/ZIP Co de Phone Number [facility] [address] [place] [phone] * RPR (Monitor) with Reflex to??Titer (12/05/2024 11:13 AM EDT) Pathologist [facility] RPR (Monitor) w/Refl Titer NON-REACTI VE NON-REACT CHRIS [facility] Comment:THIS TEST WAS PERFOR MED AT:[facility] [address] [phone] GRAHAM MD Rapid Plasma Reagin Ab Titer TNP [facility] Blood Venous blood specimen / Unknown 12/05/2024 11:13 AM EDT 12/05/2024 1:35 PM EDT us Chanda Damico MD LAB BLOOD ORDERABLES Final Result Performing Organization Address City/[facility]/ZIP Co de Phone Number [facility] [address], [place] [phone] * Magnesium (12/05/2024 11:13 AM EDT) Pathologist [facility] Magnesium 1.7 1.6 - 2.6 mg/dL [facility] Blood Venous blood specimen / Unknown 12/05/2024 11:13 AM EDT 12/05/2024 1:40 PM EDT us Chanda Damico MD LAB BLOOD ORDERABLES Final Result Performing Organization Address [facility] Co de Phone Number [facility] [address] [place] [phone] * (ABNORMAL) Ferritin (12/05/2024 11:13 AM EDT) Ferritin 8(L) 10 - 250 ng/mL [facility] Blood Venous blood specimen / Unknown 12/05/2024 11:13 AM EDT 12/05/2024 1:40 PM EDT us Chanda Damico MD LAB BLOOD ORDERABLES Final Result Performing Organization Address [facility] de Phone Number [facility] [address] [place] [phone] * Basic Metabolic Panel (12/05/2024 11:13 AM EDT) Sodium 139 135 - 145 mmol/L [facility] Potassium 3.6 3.3 - 5.1 mmol/L [facility] Chloride 102 96 - 108 mmol/L [facility] Carbon Dioxide 26 22 - 29 mmol/L [facility] Anion Gap 15 12 - 20 [facility] Urea Nitrogen (BUN) 13 9 - 16 mg/dL [facility] Creatinine, Serum 0.67 0.5 - 1.4 mg/dL [facility] Estimated Glomerular Filt Rate >60 [facility] Comment:Chronic Kidney Disea se: Estimated GFR < 60 mL/min/1.83m1Jnjxmk Kidney Disease: Estimated GFR < 15 mL/min/1.73m2 Glucose 108 60 - 115 mg/dL [facility] Calcium 9.6 8.4 - 10.2 mg/dL [facility] Blood Venous blood specimen / Unknown 12/05/2024 11:13 AM EDT 12/05/2024 1:40 PM EDT Chanda Damico MD LAB BLOOD ORDERABLES Final Result [facility] [address] [place] [phone] * (ABNORMAL) POCT HGB A1C (12/05/2024 10:34 AM EDT) Hemoglobin A1C 6.8(A) 4.0 - 5.7 % [employer] Lot # [id number] Lot# Expiration Date 333, Blood 12/05/2024 10:3 4 AM EDT Chanda Damico MD POINT OF CARE TEST EN TER/EDIT ORDERABLES Final Result * POCT Glucose (12/05/2024 10:34 AM EDT) Glucose Blood, POC 131 60 - 200 mg/dL [employer] Lot # [id number] Lot# Expiration Date [id number] Blood Capillary blood specimen / Unknown 12/05/2024 10:34 AM EDT Chanda Damico MD POINT OF CARE TEST EN TER/EDIT ORDERABLES Final Result * (ABNORMAL) Lipid Panel, Standard (07/22/2024 1:00 PM EDT) Triglycerides 202(H) <150 mg/dL [facility] Comment:Desirable Triglyceri de: less than 150 mg/dLBorderline High Triglyceride 150-199 mg/dLHigh Triglyceride: 200-499 mg/dLVery High Triglyceride: greater than or equal to 5OO mg/dL Cholesterol 147 <200 mg/dL [facility] Comment:Desirable Cholestero l: less than 200 mg/dLBorderline High Cholesterol: 200-239 mg/dLHigh Cholesterol: greater than 239 mg/dL LDL Cholesterol Calculated 58 <100 mg/dL [facility] Comment:Desirable LDL: less than 100 mg/dLNear Optimal/Above Optimal LDL: 110- 129 mg/dLBorderline High LDL: 130-159 mg/dLHigh LDL: 160-189 mg/dLVery High LDL: greater than or equal to 190 mg/dL HDL Cholesterol 49 >40 mg/dL [facility] Comment:Desirable HDL: great er than 40 mg/dL Note: This HDL assay may give artificially low results in patients with liver disease. Blood Venous blood specimen / Unknown 07/22/2024 1:00 PM EDT 07/22/2024 1:00 PM EDT us Chanda Damico MD LAB BLOOD ORDERABLES Final Result [facility] [address] [place] [phone] * BI Mammogram Screening Tomosynthesis Bilateral (12/19/2023 1:00 PM EDT) Anatomical Region Laterality Modality Breast Bilateral Mammography 12/19/2023 1:00 PM EDT Narrative 01/12/2024 3:16 PM EDT [address] [place] [address] Mammography Report Signed Patient: Anh Scanlon MR#: [id number] 09 : 1950 Acct:[id number] Age/Sex: 73 / F ADM Date: 12/19/23 Loc: HO.MAMMO Attending Dr: Huma Hamilton DO Ordering Physician: Huma Hamilton DO Results: 1N egative Date of Service: 12/19/23 Follow Up: 1 Year From Orig ina Mammogram Procedure(s): MM tomosynthesis screening BI Accession Number(s): [id number] cc: Chanda Garcia MD; Huma Hamilton DO [...] 01/12/24 1514 DD/ 1300 TD/TT: 12/19/23 1314 Pipe Recovery Specialist: Procedure Note Donotuseinterpreter, Image - [facility] [address] [place] [address] Mammography Report Signed Patient: Anh Scanlon AMR#: [id number] 09 : 1950cct:[id number] Age/Sex: 73 / FADM Date: 12/19/23 Loc: HO.MAMMO Attending Dr: Huma Hamilton DO Ordering Physician: Huma Hamiltonesults: 1N egative Date of Service: 12/19/23Follow Up: 1 Year From Orig ina Mammogram Procedure(s): MM tomosynthesis screening BI Accession Number(s): [id number] cc: Chanda Garcia MD; Huma Hamilton DO [...] 01/12/24 1514 DD/ 1300 TD/TT: 12/19/23 1314 Pipe Recovery Specialist: Huma Hamilton DO [facility] BI PROCEDURES Edited Res ult - Final * Cologuard?? colon cancer screening (03/13/2023 8:04 AM EST) Cologuard Result Negative Negative 03/27/20 5:16 PM EST [employer] (CLIA #:[id number]) Comment: NEGATIVE TEST RESULT. A negative Cologuard result indicates a low likelihood that a colorectal cancer (CRC) or advanced adenoma (adenomatous polyps with more advanced pre-malignant features) is present. The chance that a person with a negative Cologuard test has a colorectal cancer is less than 1 in 1500 (negative predictive value >99.9%) or has an advanced adenoma is less than 5.3% (negative predictive value 94.7%). These data are based on a prospective cross-sectional study of 10,000 individuals at average risk for colorectal cancer who were screened with both Cologuard and colonoscopy. (Marcus Reaves al, N Engl J Med 2014;370(14):3780-7863) The normal value (reference range) for this assay is negative. COLOGUARD RE-SCREENING RECOMMENDATION: Periodic colorectal cancer screening is an important part of preventive healthcare for asymptomatic individuals at average risk for colorectal cancer. Following a negative Cologuard result, the [place] [employer] and U.S. Multi-Society Task Force screening guidelines recommend a Cologuard re-screening interval of 3 years. References: [place] [employer] Guideline for Colorectal Cancer Screening: https://www.cancer.org/cancer/uproz-knzcol-fghnmp/ourblvieb-unjcaabey-kzdrmed/ac s-rec ommendations.html.; Joseph DK, Maegan CR, Melany PeryrK, Colorectal Cancer Screening: Recommendations for Physicians and Patients from the U.S. Multi-Society Task Force on Colorectal Cancer Screening , Am J Gastroenterology 2017; 112:7892-3366. TEST DESCRIPTION: Composite algorithmic analysis of stool DNA-biomarkers with hemoglobin immunoassay. Quantitative values of individual biomarkers are not [...] (Marcus Reaves al, N Engl J Med 2014;370(14):3912-5470.) Cologuard may produce a false negative or false positive result (no colorectal cancer or precancerous polyp present at colonoscopy follow up). A negative Cologuard test result does not guarantee the absence of CRC or advanced adenoma (pre-cancer). The current Cologuard screening interval is every 3 years. ([employer] and [place].S. Multi-Society Task Force). Cologuard performance data in a 10,000 patient pivotal study using colonoscopy as the reference method can be accessed at the following location: [email or web address]/results. Additional description of the Cologuard test process, warnings and precautions can be found at www.[email or web address].com. Stool specimen (specimen) 03/13/2023 8:04 AM EST 03/14/2023 2:30 PM EST Chanda Damico MD LAB MOLECULAR DIAGNOS TICS ORDERABLES Final Result [facility] (CLIA #:[id number]) [address] [place] [address], * HEPATITIS C AB W/REFL TO HCV RNA, QN, PCR (08/20/2020 8:54 AM EDT) HEPATITIS C ANTIBODY NON-REACT CHRIS NON-REACT CHRIS [facility] INDEX 0.01 <1.00 [facility] Comment: HCV antibody was non-reactive. There is no laboratory evidence of HCV infection. In most cases, no further action is required. However, if recent HCV exposure is suspected, a test for HCV RNA (test code 74300) is suggested. For additional information please refer to http://education.Think Finance.HiLo Tickets/faq/YNF18u8 (This link is being provided for informational/ educational purposes only.) 08/20/2020 8:54 AM EDT Historical Provider HISTORICAL/NON ORDERABLE LABS Final Result Performing Organization Address [facility] Co de Phone Number [facility] [address] [place] [address], from Last 3 Months or Most Recently Relevant to Health Maintenance Insurance [facility] [employer] OPTIONS (HMO D-SNP) [facility] Care Teams Glassware Finisher Relationship Specialty Start Date End Date Chanda Garcia MD [address] [place], [place] PCP - General Family Medicine 12/17/21 Sruthi Shelton, Sapna [address] [place] [address] Pharmacist Internal Medicine 08/16/23
--- OUTSIDE RECORDS SUMMARY | 2024-12-24 13:40 | XMS_ITS | Encounter Summary ---
Author Organization [employer] Address [address] [facility] 7t [place] [address] Care Team Providers Care Curriculum Coordinator Name Role Phone Chanda Garcia MD Primary Care Provide r Sruthi Shelton PharmD Unavailable [phone]- [phone] Reason for Visit * Reason Comments Med Change Request Encounter Details Date Type Department Care Team ([facility] st Contact Info) Description 06/30/2024 Refill [facility] MEDICINE [address] [place] [address] Esa Trejo MD [address] [place], [place] [phone] Sebopsoriasis Social History Tobacco Use Types Packs/Day [...] documented as of this encounter Care Teams Curriculum Coordinator Relationship Specialty Start Date End Date Chanda Garcia MD [address] [place] [address] PCP - General Family Medicine 12/17/21 Sruthi Shelton PharmD [address] [place] [address] Pharmacist Internal Medicine 08/16/23 documented as of this encounter
--- OUTSIDE RECORDS SUMMARY | 2024-12-24 13:40 | XMS_ITS | Encounter Summary ---
Author Organization [employer] Address [address] [facility] 7t [place] [address] Care Team Providers Care Ladies Locker Room Attendant Name Role Phone Chanda Garcia MD Primary Care Provide r Sruthi Shelton PharmD Unavailable [phone]- [phone] Reason for Visit * Reason Comments Med Refill Encounter Details Date Type Department Care Team (Late st Contact Info) Description 10/23/2023 Refill [facility] [address] [place] [address] Chanda Mcintosh MD [address] [place] [address] Social History Tobacco Use Types Packs/Day Years [...] documented as of this encounter Care Teams Ladies Locker Room Attendant Relationship Specialty Start Date End Date Chanda Garcia MD [address] [place] [address] PCP - General Family Medicine 12/17/21 Sruthi Shelton, LeonardoD [address] [place] [address] Pharmacist Internal Medicine 08/16/23 documented as of this encounter
--- OUTSIDE RECORDS SUMMARY | 2024-12-24 13:40 | XMS_ITS | Encounter Summary ---
Author Organization [employer] Address [address] [facility] 7t [place] [address] Care Team Providers Care Government Minister Name Role Phone Chanda Garcia MD Primary Care Provide r Sruthi Shelton PharmD Unavailable [phone]- [phone] Reason for Visit * Reason Comments Med Refill Encounter Details Date Type Department Care Team ([facility] st Contact Info) Description 07/07/2022 Refill [facility] [address] [place], [place] [phone] Huma Hamilton DO [address] [place], [place] [phone] Coronary artery disease, unspecified vessel or lesion type, unspecified whether angina present, unspecified whether citizen [place] or transplanted heart Social History Tobacco Use [...] type, unspecified whether angina present, unspecified whether citizen [place] or transplanted heart documented in this encounter Care Teams Government Minister Relationship Specialty Start Date End Date Chanda Garcia MD [address] [place] [address] PCP - General Family Medicine 12/17/21 Sruthi Shelton, LeonardoD [address] [place] [address] Pharmacist Internal Medicine 08/16/23 documented as of this encounter
--- OUTSIDE RECORDS SUMMARY | 2024-12-24 13:41 | XMS_ITS | Encounter Summary ---
Author Organization [facility] Address [address] [facility] [address] [place] [address] Phone Care Team Providers Care Glass Products Inspector Name Role Phone Pcp, Unknown Primary Care Provider Unavailabl e Unknown, Unknown MD Unavailable Unavailable Encounter Details Date Type Department Care Team (Late st Contact Info) Description 03/27/2019 Ancillary Orders [facility] [address] [place] [address] Debbie Britt PA [address] [place] [address] [email or web address] Social History Tobacco Use Types Packs/Day Years Used Date Smoking Tobacco: Never Assessed Comments Unknown Sex and Gender Information Value Date Recorded Sex Assigned at Not on file Legal Sex Female 10:56 AM EST Gender Identity Not on file Sexual Orientation Not on file documented as of this encounter Plan of Treatment Not on file documented as of this encounter Results * Holter Monitor 48 Hours (03/27/2019 11:43 AM EST) Anatomical Region Laterality Modality Heart Other Narrative 03/27/2019 12:43 PM EST 48-hour monitor: Baseline rhythm is sinus with a minimum heart rate of 42, maximum 82, average 58 bpm. The longest pause duration is 1.5 seconds. Rare PACs and PVCs present. There is no diary submitted. There are no patient event markers. Impression: Normal 48-hour monitor. No diary submitted. Procedure Note Kareem Orozco MD - 03/27/2019 48-hour monitor: Baseline rhythm is sinus with a minimum heart rate of 42,maximum 82, average 58 bpm. The longest pause duration is 1.5 seconds.Rare PACs and PVCs present. There is no diary submitted. There are nopatient event markers. Impression: Normal 48-hour monitor. No diary submitted. Debbie NAVARRO [facility] ORDERA BLES Final Result documented in this encounter Visit Diagnoses Diagnosis Palpitations Palpitations documented in this encounter Care Teams Glass Products Inspector Relationship Specialty Start Date End Date Pcp, Unknown PCP - General 03/27/19 Unknown, Unknown, 03/27/19 documented as of this encounter Additional Source Comments The information contained in this document represents components of the legal health record. It is not the complete legal health record.[facility]
== END 2024-12-24 12:31 | disposition home or self-care (01) ==
LOC: HO.MAMMO 12:30
PROVIDERS: PCP Internal Medicine; Visit Provider Internal Medicine
DX: Z12.31 Encounter for screening mammogram for malignant neoplasm of breast (principal)
CPT/HCPCS: 77063; 77067

== ENCOUNTER → 2024-12-24 13:00 | Outpatient (BNV) | payer OTHER, SELFPAY | PROVIDERS: PCP Internal Medicine; Visit Provider Internal Medicine | DX: Z12.31 Encounter for screening mammogram for malignant neoplasm of breast (principal) | CPT/HCPCS: 77063; 77067 ==

== ENCOUNTER 2024-12-26 13:26 | Outpatient (AMB) | payer OTHER, SELFPAY ==
--- NOTE | 2024-12-26 13:32 | A.OFFVIS_ITS ---
Intake Visit Reasons: 6 Months Forge Heater Required: Yes Forge Heater Name: #[id number] Allergies losartan Allergy (Unknown, Verified 12/26/24 13:37) anaphylaxis Medication List - Last Reconciled 12/26/24 by Sheba Cabrera CNP acetaminophen 500 mg PO Q6H PRN aspirin 81 mg PO DAILY atorvastatin (Lipitor) 40 mg PO DAILY benztropine 1 mg PO BID blood sugar diagnostic As directed blood-glucose meter As directed calcipotriene 0.005% 1 appl topical BID PRN clobetasol 0.05% 1 appl topical BID PRN clobetasol 0.05% 1 appl topical BID PRN clobetasol 0.05% 1 appl topical SUTUTH@0900 PRN clonazepam 0.5 mg PO BEDTIME fluocinolone and shower cap 0.01 % 1 appl topical SUTUTH@2100 PRN hydralazine 50 mg PO TID hydralazine 25 mg PO TID hydrochlorothiazide 50 mg PO DAILY hydrocortisone 2.5% 1 appl topical BID PRN lancets As directed lidocaine 4% 1 patch topical DAILY PRN meloxicam 15 mg orally a day as needed; 90 days metformin 1,000 mg PO BID metoprolol succinate ER 100 mg PO BID naproxen 500 mg PO BID PRN omega-3 acid ethyl esters 2 caps PO BID pantoprazole 40 mg PO DAILY@0630 pramipexole 0.25 mg PO TID 90 days pregabalin 100 mg PO BID rosuvastatin 10 mg DAILY triamcinolone acetonide 0.1% 1 appl topical BID PRN trihexyphenidyl 2 mg PO DAILY HPI Comments Details: 74-year-old woman with HTN, DM, neuropathy, fibromyalgia, and parkinson disease. Her insurance did not cover anticholinergic drugs. She was doing okay. She had some ongoing neck pain. Tremors were okay. No functional impairment. No difficulty eating, drinking, or swallowing. No falls. 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 Rash Non-STEMI (non-ST elevated myocardial infarction) Anal fistula Gallstone Parkinson disease High cholesterol Diabetes HTN (hypertension) Surgical History H/O hemorrhoidectomy History of hysterectomy Family History Sister Malignant neoplasm of breast (female) Social History Household Members: Spouse Housing: House Do you presently have visiting nurse or other home services: Yes (medication and vital signs) Alcohol intake: never Patient Tobacco Use Status: Never used Tobacco service: No Review of Systems Const Denies chills, Denies daytime sleepiness, Denies difficulty sleeping, Denies fatigue, Denies fever(s), Denies frequent falls, Denies headache(s), Denies increased appetite, Denies poor appetite, Denies snoring, Denies weakness, Denies weight gain and Denies weight loss Eyes Denies loss of vision ENT Denies vertigo, Denies dizziness and Denies headache(s) Card Denies chest pain at rest, Denies chest pain with activity, Denies syncope, Denies leg edema and Denies palpitations Resp Denies snoring GI Denies constipation, Denies heartburn, Denies diarrhea and Denies nausea Denies urinary frequency, Denies urinary incontinence and Denies urinary urgency Musc Denies abnormal gait, Denies numbness and Denies tingling Skin/Breast Denies dry skin and Denies rash Neuro Denies abnormal gait, Denies vertigo, Denies dizziness, Denies syncope, Denies frequent falls, Denies headache(s), Denies lack of coordination, Denies loss of vision, Denies memory loss, Denies numbness, Denies restless legs, Denies seizure-like activity, Denies tingling, Denies paresthesias, Reports tremor(s) and Denies weakness Psych Denies anxiety, Denies depression, Denies auditory hallucinations, Denies memory loss, Denies visual hallucinations and Denies suicidal ideation Endo Denies fatigue and Denies palpitations Physical Exam Const Other: General Appearance:? normal, in no acute distress. Skin:? no rashes, no significant birthmarks. Heart:? S1, S2 normal, no murmurs. Lungs:? clear anteriorly and posteriorly. Extremities:? no edema. Psych:? alert, oriented, cognitive function intact, cooperative with exam. Neuro Other: Mental Status:?Normal attention, orientation, memory and affect.? Cranial Nerves:?Pupils are equal, round and reactive to light. External occular muscles are intact. Visual valerio are full. Face is symmetrical. Facial sensations are normal. Tongue is midline. Palate elevates symmetrically. Shoulder shrugging is normal. Hearing to bedside conversation is normal. Sensory Exam:?....? Coordination:?No ataxia,?no titubation.? Gait Exam: Within normal limits. Extrapyramidal System:?Mild right hand/arm cogwheeling rigidity, slow fine finger movement to bilateral hands.Slightly decreased facial expressions. Slight bradykinesia. Pronator Drift:?Not present.? Involuntary Movements:?Mild right hand resting tremor. Speech:?Normal.? Results Reviewed Results Reviewed: 03/11/20 NCV/EMG LE Bilateral mid lumbar radiculopathy. Assessment & Plan Assessment & Plan (1) Parkinson disease: Code(s): G20 - Parkinson's disease Category: Medical Qualifiers: Dyskinesia presence: unspecified whether dyskinesia Fluctuating manifestations: with fluctuating manifestations Qualified Code(s): G20.A2 - Parkinson's disease without dyskinesia, with fluctuations Plan: Continue trihexyphenidyl 2mg 1 tablet twice a day. Continue pramipexole 0.25mg 1 tablet three times a day. (2) Fibromyalgia: Code(s): M79.7 - Fibromyalgia Category: Medical Plan: Continue pregabalin 100mg 1 capsule twice a day. Continue meloxicam 15mg 1 tablet daily. Coding Level of Care Code Est Pt Level 4 (57731) Diagnoses Parkinson's disease with fluctuating manifestations, unspecified whether dyskinesia present G20.A2 Dyskinesia presence: unspecified whether dyskinesia Fluctuating manifestations: with fluctuating manifestations Fibromyalgia M79.7
--- OUTSIDE RECORDS SUMMARY | 2024-12-26 14:43 | XMS_ITS | Encounter Summary ---
Author Organization [employer] Address [address] [facility] 7t [place] [address] Care Team Providers Care Supervisor Detasseling Crew Name Role Phone Chanda Garcia MD Primary Care Provide r Sruthi Shelton PharmD Unavailable [phone] Reason for Visit * Reason Comments Med Refill Encounter Details Date Type Department Care Team ([facility] st Contact Info) Description 12/23/2024 Refill [facility] MEDICINE [address] [place], [place] [phone] Chanda Garcia MD [address] [place], [place] [phone] Neck pain Social History Tobacco Use Types [...] documented as of this encounter Care Teams Supervisor Detasseling Crew Relationship Specialty Start Date End Date Chanda Garcia MD [address] [place] [address] PCP - General Family Medicine 12/17/21 Sruthi Shelton PharmD [address] [place] [address] Pharmacist Internal Medicine 08/16/23 documented as of this encounter
--- OUTSIDE RECORDS SUMMARY | 2024-12-26 14:43 | XMS_ITS | Encounter Summary ---
Author Organization [employer] Address [address] [facility] 7t [place] [address] Care Team Providers Care Modeling Analyst Name Role Phone Chanda Garcia MD Primary Care Provide r Sruthi Shelton PharmD Unavailable [phone]- [phone] Reason for Visit * Reason Onset Date Comments Nurse Triage 09/05/2023 Encounter Details Date Type Department Care Team ([facility] st Contact Info) Description 09/05/2023 Telephone [facility] MEDICINE [address] [place] [address] Chanda Garcia MD [address] [place] [address] Nurse Triage Social History Tobacco Use Types [...] follow-up in 2 weeks on09/22/23 @ 9:30am. clinical review specialist this appointment date and time [...] accepted this outcome Please contact pt at [phone] (requisition approver) documented in this encounter Plan of Treatment [...] documented as of this encounter Care Teams Modeling Analyst Relationship Specialty Start Date End Date Chanda Garcia MD [address] [place] [address] PCP - General Family Medicine 12/17/21 Sruthi Shelton, LeonardoD [address] [place] [address] Pharmacist Internal Medicine 08/16/23 documented as of this encounter
--- OUTSIDE RECORDS SUMMARY | 2024-12-26 14:43 | XMS_ITS | Clinical Summary ---
Author Organization [facility] Address [address] [place], [place] [phone] Phone Care Team Providers Care Canvas Cutter Machine Name Role Phone Pcp, Unknown Primary Care [...] file Medical Devices Not on file Insurance [facility] MEDICARE REPLACEMENT [place] REY[place] [id number] MEDICARE REPLACEMENT MEDICARE REPLACEMENT MEDICARE REPLACEMENT [facility] MEDICARE REPLACEMENT MEDICARE REPLACEMENT MEDICARE REPLACEMENT RAMON REYNA [id number] [facility] MEDICARE REPLACEMENT [facility] MEDICARE REPLACEMENT [facility] MEDICARE REPLACEMENT Care Teams Canvas Cutter Machine Relationship Specialty Start Date End Date Pcp, Unknown PCP - General 03/27/19 Unknown, Unknown, 03/27/19 Additional Source Comments The information contained in this document represents components of the legal health record. It is not the complete legal health record.[facility]
--- OUTSIDE RECORDS SUMMARY | 2024-12-26 14:43 | XMS_ITS | Patient Health Record ---
Author Organization [facility] Address [address] [place] [address] Care Team Providers Care Pasteurizing Supervisor Name Role Phone Jarett Sullivan Unavailable [phone] Reason For Referral No Information Plan Of Treatment No Information
--- OUTSIDE RECORDS SUMMARY | 2024-12-26 14:43 | XMS_ITS | Encounter Summary ---
Author Organization [employer] [facility] Address [address] [facility] 7t [place] [address] Care Team Providers Care Clearing Distribution Clerk Name Role Phone Chanda Garcia MD Primary Care Provide r Sruthi Shelton PharmD Unavailable [phone] Encounter Details Date Type Department Care Team (Late st Contact Info) Description 05/16/2022 Orders Only [facility] MEDICINE [address] [place] [address] Nimisha Ann LPN Social History Tobacco Use [...] on filedocumented in this encounter Care Teams Clearing Distribution Clerk Relationship Specialty Start Date End Date Chanda Garcia MD [address] [place] [phone] PCP - General Family Medicine 12/17/21 Sruthi Shelton, PharmD [address] [place] [address] Pharmacist Internal Medicine 08/16/23 documented as of this encounter
--- OUTSIDE RECORDS SUMMARY | 2024-12-26 14:43 | XMS_ITS | Encounter Summary ---
Author Organization [employer] Address [address] [facility] 7t [place] [address] Care Team Providers Care Band Salvager Name Role Phone Chanda Garcia MD Primary Care Provide r Sruthi Shelton PharmD Unavailable +- [phone] Encounter Details Date Type Department Care Team (Late st Contact Info) Description 06/08/2023 Orders Only [facility] MEDICINE [address] [place] [address] Chanda Garcia MD [address] [place] [address] Social History Tobacco Use Types Packs/Day Years [...] the past 12 months, has t he [employer], gas, oil or water [employer] threatened to shut off services in your [...] on filedocumented in this encounter Care Teams Band Salvager Relationship Specialty Start Date End Date Chanda Garcia MD [address] [place] [address] PCP - General Family Medicine 12/17/21 Sruthi Shelton PharmD [address] [place] [address] Pharmacist Internal Medicine 08/16/23 documented as of this encounter
--- OUTSIDE RECORDS SUMMARY | 2024-12-26 14:43 | XMS_ITS | Encounter Summary ---
Author Organization [facility] Address [address] [place] [address] Phone Care Team Providers Care Sleep Scientist Name Role Phone Pcp, Unknown Primary Care Provider Unavailabl e Unknown, Unknown MD Unavailable Unavailable Encounter Details Date Type Department Care Team (Late st Contact Info) Description 03/27/2019 Ancillary Orders [facility] [address] [place] [address] Debbie Britt PA [address] [place] [address] Palpitations Social History Tobacco Use Types Packs/Day [...] Palpitations documented in this encounter Care Teams Sleep Scientist Relationship Specialty Start Date End Date Pcp, Unknown PCP - General 03/27/19 Unknown, Unknown, 03/27/19 documented as of this encounter Additional Source Comments The information contained in this document represents components of the legal health record. It is not the complete legal health record.[facility]
--- OUTSIDE RECORDS SUMMARY | 2024-12-26 14:43 | XMS_ITS | Encounter Summary ---
Author Organization [employer] [facility] Address [address] [facility] 7t [place] [address] Care Team Providers Care Director Medical Name Role Phone Chanda Garcia MD Primary Care Provide r Sruthi Shelton PharmD Unavailable [phone] Reason for Visit * Reason Comments Med Refill Encounter Details Date Type Department Care Team ([facility] st Contact Info) Description 07/13/[address] [facility] MED[facility] [address] [place], [place] [phone] Jenise Sanabria MD [address] [place], [place] [phone] Parkinson's disease (CMS/HCC) Social History Tobacco Use [...] agitans documented in this encounter Care Teams Director Medical Relationship Specialty Start Date End Date Chanda Garcia MD [address] [place] [address] PCP - General Family Medicine 12/17/21 Sruthi Shelton, Sapna [address] [place] [address] Pharmacist Internal Medicine 08/16/23 documented as of this encounter
--- OUTSIDE RECORDS SUMMARY | 2024-12-26 14:43 | XMS_ITS | Encounter Summary ---
Author Organization [employer] Address [address] [facility] 7t [place] [address] Care Team Providers Care Data Warehousing Engineer Name Role Phone Chanda Garcia MD Primary Care Provide r Sruthi Shelton PharmD Unavailable [phone]- [phone] Reason for Visit * Reason Comments Med Refill Encounter Details Date Type Department Care Team ([facility] st Contact Info) Description 02/24/[address] [facility] [address] [place] [address] Chanda Garcia MD [address] [place], [place] [phone] Social History Tobacco Use Types Packs/Day Years [...] on filedocumented in this encounter Care Teams Data Warehousing Engineer Relationship Specialty Start Date End Date Chanda Garcia MD [address] [place] [address] PCP - General Family Medicine 12/17/21 Sruthi Shelton, Sapna [address] [place] [address] Pharmacist Internal Medicine 08/16/23 documented as of this encounter
--- OUTSIDE RECORDS SUMMARY | 2024-12-26 14:43 | XMS_ITS | Encounter Summary ---
Author Organization [employer] Address [address] [facility] [address] [place] [address] Care Team Providers Care Manager Flight Name Role Phone Chanda Garcia MD Primary Care Provide r Sruthi Shelton PharmD Unavailable [phone] Reason for Visit * Reason Comments Med Refill Encounter Details Date Type Department Care Team ([facility] st Contact Info) Description 07/07/2022 Refill [facility] [address] [place], [place] [phone] Huma Hamilton DO [address] [place], [place] [phone] Coronary artery disease, unspecified vessel or lesion type, unspecified whether angina present, unspecified whether [place] or transplanted heart Social History Tobacco Use [...] type, unspecified whether angina present, unspecified whether [place] or transplanted heart documented in this encounter Care Teams Manager Flight Relationship Specialty Start Date End Date Chanda Garcia MD [address] [place] [address] PCP - General Family Medicine 12/17/21 Sruthi Shelton, LeonardoD [address] [place] [address] Pharmacist Internal Medicine 08/16/23 documented as of this encounter
--- OUTSIDE RECORDS SUMMARY | 2024-12-26 14:43 | XMS_ITS | Clinical Summary ---
Author Organization [employer] Address [address] [facility] 7t [place] [address] Care Team Providers Care Medical Art Therapist Name Role Phone Chanda Garcia MD Primary Care Provide r Sruthi Shelton PharmD Unavailable [phone] Allergies Active Allergy Reactions Criticality Noted Date [...] FOR 30 DAYS 023 Active sodium chloride ([place]) 0.65 % nasal spray 1 spray. 019 Active pregabalin (Lyrica) 100 MG capsule TOME CHRISTOS C PSULA DOS VECES AL D A FOR 90 DAYS 023 Active FREESTYLE LITE test strip USE TO TEST TWICE DAILY 100 strip 11 023 Active Blood Glucose Monitoring Suppl (FreeStyle [place] Lite) w/Device kitIndications:Ty pe 2 diabetes mellitus without complication, unspecified whether penitentiary insulin use ([facility]) Use to test blood sugar two times [...] 6. 55 each Active Fluocinolone Acetonide Scalp ([place]-Smoothe/FS Scalp) 0.01 % oilIndications:Se bopsoriasis Apply at [...] VIA [facility]AL [facility] 28 tablet 2 025 Active ketoconazole [...] day with iron supplement 15 tablet 11 08/16/2 025 Active triamcinolone (Kenalog) 0.1 % creamIndications: Xerosis cutis,Generalized pruritus MIX WITH CERAVE AND APPLY AFTER SHOWERS 80 g 2 025 Active hydroCHLOROthiazi de (HYDRODiuril) 50 MG tabletIndications :Primary hypertension TAKE 1 TABLET BY MOUTH ONCE PER DAY. 90 tablet 3 Active hydrALAZINE (Apresoline) 25 MG tablet TAKE 1 TABLET (25 MG) BY MOUTH 3 TIMES DAILY 270 tablet 1 025 Active cyclobenzaprine (Flexeril) 5 MG tabletIndications :Neck pain TAKE 1 TABLET (5 MG) BY MOUTH 3 TIMES DAILY FOR 10 DAYS. 30 tablet 025 2024 Active hydroCHLOROthiazi de (HYDRODiuril) 50 MG tabletIndications :Primary hypertension Take 1 tablet (50 mg) by mouth Once per day. 30 tablet 11 024 2024 Discontinued cyclobenzaprine (Flexeril) 5 MG tabletIndications :Neck pain Take 1 tablet (5 mg) by mouth 3 times daily for 10 days. 30 tablet 024 2024 Discontinued hydrALAZINE (Apresoline) 25 [...] than 2 weeks Colon cancer screening 02/21/2023 '[id number]' with signs of mal nutrition 02/21/2023 Excessive [...] there is no improvement. -Referred today to talent partner and block stacker. Vulvar itching 12/29/2022 Assessment & Plan (02/23/2024 [...] paget should be ruled out. -Referred to block stacker today. Assessment & Plan (12/29/2022 5:42 PM [...] symptoms are not improving would refer to block stacker to r/o chronic conditions as lichen,paget and [...] 10:12 AM EST): Pt has history of CO and a PE. She is completely asymptomiatic [...] GFR is normal, she follows up with practice advisor Microalbuminuria 11/24/2020 Parkinson's disease 09/26/2018 Assessment & [...] weeks -reports also to be following w school crossing guard Assessment & Plan (10/31/2022 5:12 PM EDT): [...] Type Department Care Team Description 12/23/2024 Refill [facility] [address] [place] [address] Chanda Garcia MD Neck pain 12/19/2024 Refill [facility] [address] [place] [address] Chanda Garcia MD Primary hypertension 12/14/2024 Refill [facility] [address] [place], [place] [phone] Chanda Garcia MD Xerosis cutis; Generalized pruritus 12/10/2024 1:30 PM EDT Clinical Support [facility] [address] [place] [address] Dee Keys, DEVONTE Impacted cerumen of both ears 12/10/2024 Telephone [facility] [address], [place] [phone] Dee Keys RN Referral 12/10/2024 Travel 12/07/2024 Results Follow-Up [facility] MED & PEDS [address] [place] [address] Chanda Garcia MD POCT Glucose, POCT HGB A1C, CBC auto differential, Additional followed-up results: 7 12/05/2024 10:45 AM EDT Office Visit [facility] [address] [place] [phone] Chanda Garcia MD Type 2 diabetes mellitus with hyperglycemia, without long-term current use of insulin ([facility]); Burning sensation; Microcytic anemia; Bilateral impacted cerumen 12/05/2024 Travel 12/03/2024 Telephone [facility] [address] [place] [address] Chanda Garcia MD Chart Prep 11/07/2024 Refill [facility] [address] [place] [phone] Jenise Sanabria MD Seasonal allergic rhinitis, unspecified trigger 10/27/2024 Refill [facility] [address] [place] [address] Jenise Sanabria MD Type 2 diabetes mellitus with hyperglycemia, without long-term current use of insulin ([facility]) 09/28/2024 Refill [facility] [address] [place] [phone] Esa Trejo MD 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 [...] CT Colonography 1950 Colonoscopy 1950 FIT 1950 Sigmoidoscopy 1950 Diabetes: Foot Exam 06/28/1961 [...] X-Ray: Bitewings 10/23/2021 10/23/19 21, 10/23/2018, 04/25/2017 FOBT 03/13/2024 03/13/2023 Mammogram 12/18/2024 12/19/2023, 11/23, 09/13/2021, Additional history exists COVID-19 Vaccine ( season) 2024 10/03/2020, 09/06/2020 Influenza Vaccine (#1) 2024 , 02/21/2023, 02/08/2022, Additional history exists SDOH Screening 05/20/2025 05/20/2024 Diabetes: Hemoglobin A1C 06/07/2025 025, 05/31/2024, 10/20/2023, Additional history exists Lipid Panel 07/22/2025 07/22/2024, 05, 06/20/2022, Additional history exists Alcohol/Substance Use Screening [...] Blood Pressure 150/88( 025 11:00 AM EDT) Sruthi Dias PharmD Procedures Procedure Name Priority Date/Time Associated Diagnosis Comments LA REMOVAL IMPACTED CERUMEN IRRIGATION/LVG UNILAT Routine 12/10/2024 [...] RADIOGRAPHIC IMAGE Routine 10/22/2020 12:00 AM EDT ZNEO HISTORICAL HEPATITIS C AB W/REFL TO HCV RNA, QN, PCR Routine 08/20/2020 8:54 AM EDT PROPHYLAXIS - ADULT Routine 04/26/2019 1 2:00 AM EST PERIODIC ORAL EVALUATION - ESTABLISHED PATIENT Routine 04/26/2019 12:00 AM EST INTRAORAL - COMPLETE SERIES OF RADIOGRAPHIC IMAGES Routine 04/25/2017 12:00 AM EST from Last 3 Months or Most Recently Relevant to Health Maintenance Results * LA REMOVAL IMPACTED CERUMEN IRRIGATION/LVG UNILAT (12/10/2024 1:47 PM EDT) Narrative Dee Keys RN - 12/10/2024 1:47 PM EDT Dee Keys RN 12/10/2024 1:51 PM Ear Cerumen Removal Date/Time: 12/10/2024 1:47 PM Performed by: Dee Keys RN Authorized by: Chanda Damico MD Consent: Consent obtained: Verbal Consent given by: Patient Risks, benefits, and alternatives were discussed: yes Risks discussed: Pain, dizziness and incomplete removal Alternatives discussed: Referral [place] protocol: Procedure explained and questions answered to [...] B12/Folate, Serum Panel (12/05/2024 11:13 AM EDT) Pathologist [facility] Vitamin B12 301 200 - 900 pg/mL [facility] Comment:NORMAL 200-900 PG/ML INDETERMINATE 160-199 PG/ML DEFICIENT < 160 PG/ML Folate 12.0 > or = 4.0 ng/mL [facility] Comment:Reference Values:> o r = 4.0 [...] BLOOD ORDERABLES Final Result Performing Organization Address [facility]/ZIP Co de Phone Number [facility] [address] [place] [phone] * TSH W/Reflex to FT4 (12/05/2024 11:13 AM EDT) [facility] TSH reflex Free T4 3.02 0.32 - 4.0 uIU/mL [facility] Blood Venous blood specimen / Unknown 12/05/2024 11:13 AM EDT 12/05/2024 1:40 PM EDT us Chanda Damico MD LAB BLOOD ORDERABLES Final Result Performing Organization Address City/[facility]/ZIP Co de Phone Number [facility] [address] [place] [phone] * (ABNORMAL) CBC auto differential (12/05/2024 11:13 AM EDT) [facility] White Blood Count 6.4 4.8 - 10.8 X10*3/uL [facility] Red Blood Count 4.45 4.20 - 5.50 X10*6/uL [facility] Hemoglobin 10.5(L) 12.0 - 16.0 g/dl [facility] Hematocrit 32.8(L) 37.0 - 47.0 % [facility] Mean Corpuscular Volume 73.7(L) 80.0 - 98.0 fL [facility] Mean Corpuscular Hemoglobin 23.6(L) 27.0 - 33.0 pg [facility] Mean Corpuscular HGB Conc 32.0 31.0 - 35.0 g/dl [facility] Red Cell Distribution Width 16.5(H) 11.0 - 16.0 % [facility] Platelet Count 320 160 - 400 X10*3/uL [facility] Mean Platelet Volume 9.9 9.4 - 12.3 fL [facility] Neutrophils Percent Auto 68.7 45 - 73 % [facility] Imm Gran Pct Auto 0.5(H) 0.0 - 0.4 % [facility] Lymphocytes Percent Auto 22.2 20 - 40 % [facility] Monocytes Percent Auto 5.5 2 - 11 % [facility] Eosinophils Percent Auto 1.7 0 - 4 % [facility] Basophils Percent Auto 1.4 0 - 2 % [facility] NRBC Pct Auto 0.0 0.0 - 0.2 /100WBC [facility] Neutrophils Absolute Auto 4.4 2.0 - 8.3 x10*3/uL [facility] Imm Gran Abs Auto 0.03 0.00 - 0.03 X10*3/uL [facility] Lymphocytes Absolute Auto 1.4 1.2 - 4.9 X10*3/uL [facility] Monocytes Absolute Auto 0.4 0.1 - 1.2 X10*3/uL [facility] Eosinophils Absolute Auto 0.1 0.0 - 0.4 X10*3/uL [facility] Basophils Absolute Auto 0.1 0.0 - 0.2 X10*3/uL [facility] NRBC Abs Auto 0.000 0.0 - 0.012 X10*3/uL [facility] Blood Venous blood specimen / Unknown 12/05/2024 11:13 AM EDT 12/05/2024 1:35 PM EDT Chanda Damico MD LAB BLOOD ORDERABLES Final Result Performing Organization Address [facility] Co de Phone Number [facility] [address] [place] [phone] * (ABNORMAL) Iron And Total Iron Binding Capacity (12/05/2024 11:13 AM EDT) Iron 28(L) 30 - 160 mcg/dL [facility] Total Iron Binding Capacity 333 228 - 428 mcg/dL [facility] Percent Iron Saturation 8(L) 15 - 50 % [facility] Unsaturated Iron Binding 305 ug/dL [facility] Blood Venous blood specimen / Unknown 12/05/2024 11:13 AM EDT 12/05/2024 1:40 PM EDT Chanda Damico MD LAB BLOOD ORDERABLES Final Result Performing Organization Address [facility] Phone Number [facility] [address] [place] [phone] * RPR (Monitor) with Reflex to??Titer (12/05/2024 11:13 AM EDT) RPR (Monitor) w/Refl Titer NON-REACTI VE NON-REACT CHRIS [facility] Comment:THIS TEST WAS PERFOR MED AT:[employer] ([employer])[address] [place] [phone] GRAHAM MD Rapid Plasma Reagin Ab Titer TNP [facility] Blood Venous blood specimen / Unknown 12/05/2024 11:13 AM EDT 12/05/2024 1:35 PM EDT Chanda Damico MD LAB BLOOD ORDERABLES Final Result Performing Organization Address [facility] Co de Phone Number [facility] [address] [place] [phone] * Magnesium (12/05/2024 11:13 AM EDT) [facility] Magnesium 1.7 1.6 - 2.6 mg/dL [facility] Blood Venous blood specimen / Unknown 12/05/2024 11:13 AM EDT 12/05/2024 1:40 PM EDT Chanda Damico MD LAB BLOOD ORDERABLES Final Result Performing Organization Address [facility] de Phone Number [facility] [address] [place] [phone] * (ABNORMAL) Ferritin (12/05/2024 11:13 AM EDT) [facility] Ferritin 8(L) 10 - 250 ng/mL [facility] Blood Venous blood specimen / Unknown 12/05/2024 11:13 AM EDT 12/05/2024 1:40 PM EDT us Chanda Damico MD LAB BLOOD ORDERABLES Final Result Performing Organization Address [facility] de Phone Number [facility] [address] [place] [phone] * Basic Metabolic Panel (12/05/2024 11:13 AM EDT) [facility] Sodium 139 135 - 145 mmol/L [facility] Potassium 3.6 3.3 - 5.1 mmol/L [facility] Chloride 102 96 - 108 mmol/L [facility] Carbon Dioxide 26 22 - 29 mmol/L [facility] Anion Gap 15 12 - 20 [facility] Urea Nitrogen (BUN) 13 9 - 16 mg/dL [facility] Creatinine, Serum 0.67 0.5 - 1.4 mg/dL [facility] Estimated Glomerular Filt Rate >60 [facility] Comment:Chronic Kidney Disea se: Estimated GFR < 60 mL/min/1.02z3Mpjayv Kidney Disease: Estimated GFR < 15 mL/min/1.73m2 Glucose 108 60 - 115 mg/dL [facility] Calcium 9.6 8.4 - 10.2 mg/dL [facility] Blood Venous blood specimen / Unknown 12/05/2024 11:13 AM EDT 12/05/2024 1:40 PM EDT Chanda Damico MD LAB BLOOD ORDERABLES Final Result [facility] [address] [place] [phone] * (ABNORMAL) POCT HGB A1C (12/05/2024 10:34 AM EDT) Hemoglobin A1C 6.8(A) 4.0 - 5.7 % QC Media Lot # [id number] Lot# Expiration Date 291, Blood 12/05/2024 10:3 4 AM EDT Chanda Damico MD POINT OF CARE TEST EN TER/EDIT ORDERABLES Final Result * POCT Glucose (12/05/2024 10:34 AM EDT) Glucose Blood, POC 131 60 - 200 mg/dL [employer] Lot # [id number] Lot# Expiration Date ,677,563 Blood Capillary blood specimen / Unknown 12/05/2024 10:34 AM EDT Chanda Damico MD POINT OF CARE TEST EN TER/EDIT ORDERABLES Final Result * (ABNORMAL) Lipid Panel, Standard (07/22/2024 1:00 PM EDT) Triglycerides 202(H) <150 mg/dL [facility] Comment:Desirable Triglyceri de: less than 150 mg/dLBorderline High Triglyceride 150-199 mg/dLHigh Triglyceride: 200-499 mg/dLVery High Triglyceride: greater than or equal to 5OO mg/dL Cholesterol 147 <200 mg/dL [facility] Comment:Desirable Cholestero l: less than 200 mg/dLBorderline High Cholesterol: 200-239 mg/dLHigh Cholesterol: greater than 239 mg/dL LDL Cholesterol Calculated 58 <100 mg/dL [facility] Comment:Desirable LDL: less than 100 mg/dLNear Optimal/Above Optimal LDL: 110- 129 mg/dLBorderline High LDL: 130-159 mg/dLHigh LDL: 160-189 mg/dLVery High LDL: greater than or equal to 190 mg/dL HDL Cholesterol 49 >40 mg/dL [facility] Comment:Desirable HDL: great er than 40 mg/dL Note: This HDL assay may give artificially low results in patients with liver disease. Blood Venous blood specimen / Unknown 07/22/2024 1:00 PM EDT 07/22/2024 1:00 PM EDT Chanda Damico MD LAB BLOOD ORDERABLES Final Result [facility] [address] [place] [address] [phone] * BI Mammogram Screening Tomosynthesis Bilateral (12/19/2023 1:00 PM EDT) Anatomical Region Laterality Modality Breast Bilateral Mammography 12/19/2023 1:00 PM EDT Narrative 01/12/2024 3:16 PM EDT [facility] [address] [place] [address] [place] [address] Mammography Report Signed Patient: Anh Scanlon MR#: [id number] 09 : 1950 Acct:[id number] Age/Sex: 73 / F ADM Date: 12/19/23 Loc: HO.MAMMO Attending Dr: Huma Hamilton DO Ordering Physician: Huma Hamilton DO Results: 1N egative Date of Service: 12/19/23 Follow Up: 1 Year From Orig inal Mammogram Procedure(s): MM tomosynthesis screening BI Accession Number(s): [id number] cc: Chanda Garcia MD; Huma Hamilton DO [...] 01/12/24 1514 DD/ 1300 TD/TT: 12/19/23 1314 Enamel Buffer: Procedure Note Donotuseinterpreter, Image - 01/12/2024 [facility] [address] [place] [address] Mammography Report Signed Patient: Anh Scanlon AMR#: [id number] 09 : 1950cct:[id number] Age/Sex: 73 / FADM Date: 12/19/23 Loc: HO.MAMMO Attending Dr: Huma Hamilton DO Ordering Physician: Huma Hamiltonults: 1N egative Date of Service: 12/19/23Follow Up: 1 Year From Orig inal Mammogram Procedure(s): MM tomosynthesis screening BI Accession Number(s): [id number] cc: Chanda Garcia MD; Huma Hamilton DO [...] 01/12/24 1514 DD/ 1300 TD/TT: 12/19/23 1314 Enamel Buffer: Huma Hamilton DO IMG BI PROCEDURES Edited Res ult - Final * Cologuard?? colon cancer screening (03/13/2023 8:04 AM EST) Cologuard Result Negative Negative 03/27/20 5:16 PM EST [facility] (CLIA #:[id number]) Comment: NEGATIVE TEST RESULT. A negative Cologuard [...] (Marcus Reaves al, N Engl J Med 2014;370(14):2805-1329) The normal value (reference range) for this assay is negative. COLOGUARD RE-SCREENING RECOMMENDATION: Periodic colorectal cancer screening is an important part of preventive healthcare for asymptomatic individuals at average risk for colorectal cancer. Following a negative Cologuard result, the [place] Cancer Society and U.S. Multi-Society Task Force screening guidelines recommend a Cologuard re-screening interval of 3 years. References: [place] [employer] Guideline for Colorectal Cancer Screening: https://www.cancer.org/cancer/dfsqg-ygksqs-wlkexb/vwijquena-eulvypmyh-yzklyrr/ac s-rec ommendations.html.; Joseph DK, Maegan BOUCHER, Melany PerryK, Colorectal Cancer Screening: Recommendations for Physicians and Patients from the U.S. Multi-Society Task Force on Colorectal Cancer Screening , Am J Gastroenterology 2017; 112:4589-0837. TEST DESCRIPTION: Composite algorithmic analysis of stool [...] screened with both Cologuard and colonoscopy. (Marcus Govea, N Engl J Med 2014;370(14):3908-2214.) Cologuard may produce a false negative or false positive result (no colorectal cancer or precancerous polyp present at colonoscopy follow up). A negative Cologuard test result does not guarantee the absence of CRC or advanced adenoma (pre-cancer). The current Cologuard screening interval is every 3 years. ([place] [employer] Society and U.S. Multi-Society Task Force). Cologuard performance data in a 10,000 patient pivotal study using colonoscopy as the reference method can be accessed at the following location: www.bookletmobile.USConnect/results. Additional description of the Cologuard test process, warnings and precautions can be found at www.cologuard.com. Stool specimen (specimen) 03/13/2023 8:04 AM EST 03/14/2023 2:30 PM EST Chanda Damico MD LAB MOLECULAR DIAGNOS TICS ORDERABLES Final Result Performing Organization Address [facility] Co de Phone Number [facility] (CLIA #:[id number]) [address] [place] [address], * HEPATITIS C AB W/REFL TO HCV RNA, QN, PCR (08/20/2020 8:54 AM EDT) HEPATITIS C ANTIBODY NON-REACT CHRIS NON-REACT CHRIS [facility] INDEX 0.01 <1.00 [facility] Comment: HCV antibody was non-reactive. There is no laboratory evidence of HCV infection. In most cases, no further action is required. However, if recent HCV exposure is suspected, a test for HCV RNA (test code 80395) is suggested. For additional information please refer to http://education.[employer].USConnect/faq/KLE63g0 (This link is being provided for informational/ educational purposes only.) 08/20/2020 8:54 AM EDT Rosi Provider HISTORICAL/NON ORDERABLE LABS Final Result Performing Organization Address [facility] Co de Phone Number [facility] [address] from Last 3 Months or Most Recently Relevant to Health Maintenance Insurance [facility] OPTIONS (HMO D-SNP) [facility]AL [facility] Care Teams Medical Art Therapist Relationship Specialty Start Date End Date Chanda Garcia MD [address] [place] [phone] PCP - General Family Medicine 12/17/21 Sruthi Shelton, PharmD [address] [place] [phone] Pharmacist Internal Medicine 08/16/23
--- OUTSIDE RECORDS SUMMARY | 2024-12-26 14:43 | XMS_ITS | Encounter Summary ---
Author Organization [employer] Address [address] [facility] 7t [place] [address] Care Team Providers Care Arts And Sciences Dean Name Role Phone Chanda Garcia MD Primary Care Provide r Sruthi Shelton PharmD Unavailable [phone]- [phone] Reason for Visit * Reason Onset Date Comments ER Follow-up 11/08/2023 Encounter Details Date Type Department Care Team (Late st Contact Info) Description 11/08/2023 Telephone [facility] [address] [place] [address] Chanda Garcia MD [address] [place], [place] [phone] ER Follow-up Social History Tobacco Use Types [...] Keys RN - 11/08/2023 11:15 AM EDT [facility] admission 11/02-11/04. Please contact pt. For HDF, thank you! * Telephone Encounter - Jeff Coronel - 11/08/2023 10:38 AM EDT Patient calling to report ED visit on : Date: 10/30 Hospital: [facility] Seen for: Vomiting, Fever, Body Aches Patient advised will forward to team nurse for follow up [place]ian Speaker documented in this encounter Plan of [...] documented as of this encounter Care Teams Arts And Sciences Dean Relationship Specialty Start Date End Date Chanda Garcia MD [address] [place] [address] PCP - General Family Medicine 12/17/21 Sruthi Shelton, LeonardoD [address] [place] [address] Pharmacist Internal Medicine 08/16/23 documented as of this encounter
--- OUTSIDE RECORDS SUMMARY | 2024-12-26 14:43 | XMS_ITS | Encounter Summary ---
Author Organization [employer] Address [address] [facility] 7t [place] [address] Care Team Providers Care Resident Care Manager Name Role Phone Chanda Garcia MD Primary Care Provide r Sruthi Shelton PharmD Unavailable [phone] Reason for Visit * Reason Comments Med Refill Encounter Details Date Type Department Care Team (Late st Contact Info) Description 10/23/2023 Refill [facility] [address] [place] [address] Chanda Mcintosh MD [address] [place] [address] Social History Tobacco Use Types Packs/Day Years [...] Pressure 150/88( 025 11:00 AM EDT) No Srutih Webb PharmD documented as of this encounter Visit Diagnoses Not on filedocumented in this encounter Additional Health Concerns Assessment Noted Time PHQ-9 Depression Total Score: 0 10/20/19 24 9:25 AM EDT documented as of this encounter Care Teams Resident Care Manager Relationship Specialty Start Date End Date Chanda Garcia MD [address] [place] [address] PCP - General Family Medicine 12/17/21 Sruthi Shelton, LeonardoD [address] [place] [address] Pharmacist Internal Medicine 08/16/23 documented as of this encounter
--- OUTSIDE RECORDS SUMMARY | 2024-12-26 14:43 | XMS_ITS | Encounter Summary ---
Author Organization [employer] Address [address] [facility] [address]t [place] [address] Care Team Providers Care Video Game Animator Name Role Phone Chanda Garcia MD Primary Care Provide r Sruthi Shelton PharmD Unavailable [phone]- [phone] Reason for Visit * Reason Comments Med Change Request Encounter Details Date Type Department Care Team ([facility] st Contact Info) Description 06/30/2024 Refill [facility] [address] [place] [address] Esa Trejo MD [address] [place], [place] [phone] Sebopsoriasis Social History Tobacco Use Types Packs/Day [...] documented as of this encounter Care Teams Video Game Animator Relationship Specialty Start Date End Date Chanda Garcia MD [address] [place] [address] PCP - General Family Medicine 12/17/21 Sruthi Shelton PharmD [address] [place] [address] Pharmacist Internal Medicine 08/16/23 documented as of this encounter
--- OUTSIDE RECORDS SUMMARY | 2024-12-26 14:43 | XMS_ITS | Encounter Summary ---
Author Organization [employer] Address [address] [facility] 7[address] [place] [address] Care Team Providers Care Recreation Instructor Name Role Phone Chanda Garcia MD Primary Care Provide r Sruthi Shelton PharmD Unavailable [phone] Reason for Visit * Reason Comments Med Refill Encounter Details Date Type Department Care Team ([facility] st Contact Info) Description 04/21/2024 Refill [facility] MEDICINE [address] [place] [address] Chanda Garcia MD [address] [place], [place] [phone] Parkinson's disease, unspecified whether dyskinesia present, unspecified [...] documented as of this encounter Care Teams Recreation Instructor Relationship Specialty Start Date End Date Chanda Garcia MD [address] [place] [address] PCP - General Family Medicine 12/17/21 Sruthi Shelton, LeonardoD [address] [place] [address] Pharmacist Internal Medicine 08/16/23 documented as of this encounter
--- OUTSIDE RECORDS SUMMARY | 2024-12-26 14:43 | XMS_ITS | Clinical Summary ---
Author Organization [facility] Address [address] [place] [address] Care Team Providers Care Cnc Operator Programmer Name Role Phone Unavailable Primary Care Provider [...]
--- OUTSIDE RECORDS SUMMARY | 2024-12-26 14:43 | XMS_ITS | Encounter Summary ---
Author Organization [facility] [employer] Address [address] [facility] 7t [place] [address] Care Team Providers Care Can Cutter Name Role Phone Chanda Garcia MD Primary Care Provide r Sruthi Shelton PharmD Unavailable [phone] Reason for Visit * Reason Comments Med Refill Encounter Details Date Type Department Care Team ([facility] st Contact Info) Description 05/09/2024 Refill [facility] MEDICINE [address] [place], [place] [phone] Chanda Garcia MD [address] [place], [place] [phone] Primary hypertension Social History Tobacco Use Types [...] documented as of this encounter Care Teams Can Cutter Relationship Specialty Start Date End Date Chanda Garcia MD [address] [place] [address] PCP - General Family Medicine 12/17/21 Sruthi Shelton PharmD [address] [place] [address] Pharmacist Internal Medicine 08/16/23 documented as of this encounter
--- OUTSIDE RECORDS SUMMARY | 2024-12-26 14:43 | XMS_ITS | Encounter Summary ---
Author Organization [employer] [facility] Address [address] [facility] 7t [place] [address] Care Team Providers Care Immigration Case Manager Name Role Phone Chanda Garcia MD Primary Care Provide r Sruthi Shelton PharmD Unavailable [phone] Encounter Details Date Type Department Care Team [...] on filedocumented in this encounter Care Teams Immigration Case Manager Relationship Specialty Start Date End Date Chnada Garcia MD [address] [place] [address] PCP - General Family Medicine 12/17/21 Sruthi Shelton, PharmD [address] [place], [place] [phone] Pharmacist Internal Medicine 08/16/23 documented as of this encounter
--- OUTSIDE RECORDS SUMMARY | 2024-12-26 14:43 | XMS_ITS | Encounter Summary ---
Author Organization [employer] [facility] Address [address] [facility] 7[address] [place] [address] Care Team Providers Care Scalehouse Attendant Name Role Phone Chanda Garcia MD Primary Care Provide r Sruthi Shelton PharmD Unavailable [phone] Reason for Visit * Reason Comments Med Refill Encounter Details Date Type Department Care Team ([facility] st Contact Info) Description 07/29/2022 Refill [facility] MEDICINE [address] [place], [place] [phone] Jenise Sanabria MD [address] [place] [address] Primary hypertension Social History Tobacco Use Types [...] hypertension documented in this encounter Care Teams Scalehouse Attendant Relationship Specialty Start Date End Date Chanda Garcia MD [address] [place], [place] [phone] PCP - General Family Medicine 12/17/21 Sruthi Shelton, LeonardoD [address] [place] [address] Pharmacist Internal Medicine 08/16/23 documented as of this encounter
--- OUTSIDE RECORDS SUMMARY | 2024-12-26 14:43 | XMS_ITS | Clinical Summary ---
Author Organization [facility] Address [address] [facility] [address] [place] [address] Phone Care Team Providers Care Rest Room Matron Name Role Phone Jenise Sanabria MD Primary Care Provider [phone] Allergies Active Allergy Reactions Criticality Noted Date [...] Assessment & Plan: Pt has history of OR and a PE. She is completely asymptomiatic [...] 02/20/2018, 01/25/2017, 07/18/2005, Additional history exists Insurance [facility] ([id number]) [facility] ([id number]) [place] [id number] Care Teams Rest Room Matron Relationship Specialty Start Date End Date Jenise Sanabria MD [address] [place], [place] [phone] PCP - General Internal Medicine 05/11/22
== END 2024-12-26 13:50 | disposition home or self-care (01) ==
LOC: HO.HSM 13:27
PROVIDERS: PCP Internal Medicine; Referring Provider Nurse Practitioner Family; Visit Provider Registered Nurse
DX: G20.A2 Parkinson's disease without dyskinesia, with fluctuations (principal); M79.7 Fibromyalgia
CPT/HCPCS: 99214

== ENCOUNTER → 2024-12-26 13:26 | Outpatient (BNVA) | payer OTHER, SELFPAY | PROVIDERS: PCP Internal Medicine; Referring Provider Nurse Practitioner Family; Visit Provider Registered Nurse | DX: G20.A2 Parkinson's disease without dyskinesia, with fluctuations (principal); M79.7 Fibromyalgia | CPT/HCPCS: 99212 ==

== ENCOUNTER 2025-03-13 13:37 | Outpatient (REF) | payer OTHER, SELFPAY ==
--- NOTE | ~2025-03-13 | XR_ITS ---
EXAMINATION: XR KNEE, LEFT CLINICAL INFORMATION: pain COMPARISON: None available. TECHNIQUE: Four views of the left knee. FINDINGS: There is mild narrowing of the medial joint space. There are small marginal osteophytes along the medial joint line, medial trochlea, and superior pole patella. Minute marginal osteophyte is seen involving lateral patella. Intercondylar tubercles are minimally peaked. There is no joint effusion. Chronic appearing calcification or ossification is present adjacent the proximal superficial aspect of fibula. XR/XR knee LT 4V IMPRESSION: Mild osteoarthritis. Electronically signed by: Jez Feng MD 03/13/2025 02:40 PM JOSE
--- OUTSIDE RECORDS SUMMARY | 2025-03-13 13:00 | XMS_ITS | Encounter Summary ---
Author Organization [employer] [facility] Address [address] [facility] 7t [place] [address] Care Team Providers Care Police Artist Name Role Phone Chanda Garcia MD Primary Care Provide r Sruthi Shelton PharmD Unavailable [phone]- [phone] Reason for Referral * Consultation (Routine) - Pending Review Specialty Diagnoses / Procedures Referred By Amando michelle Referred To Contact Cardiology Diagnoses RBBB (right bundle branch block) Primary hypertension Bradycardia, sinus Chanda Garcia MD [address] [place] [phone] Phone: tel: fax: Referral ID Status Reason Start Date Expiration Date Visits Requested Visits Authorized [id number] Pending Review Specialty Services Required 03/13/2026 1 1 Scheduling Instructions Patient nolan acevedo current cardiology office closed and move out she will like to be refer again to a cardiology office in the area of [place] Encounter Details Date Type Department Care Team (Late st Contact Info) Description 03/13/2025 1:00 PM EST Office Visit [facility] MEDICINE [address] [place] [address] [phone] Chanda Garcia MD [address] [place] [address] [phone] Chronic pain of left knee (Primary Dx); Type 2 diabetes mellitus with hyperglycemia, without long-term current use of insulin (HCC); Dietary counseling; Exercise counseling; RBBB (right bundle branch block); Primary hypertension; Bradycardia, sinus; Encounter for immunization; Xerostomia Social History Tobacco Use Types Packs/Day Years [...] Sign Reading Time Taken Comments Blood Pressure 124/74 03/13/2025 12:58 PM EST Pulse 58 03/13/2025 12:58 PM EST Temperature - - Respiratory Rate 20 03/13/2025 12:58 PM EST Oxygen Saturation 99% 03/13/2025 12:58 PM EST Inhaled Oxygen Concentration - - Weight 72.4 kg (159 lb 9.6 oz) 03/13/2025 12:58 PM EST Height 160 cm (5' 3 ) 03/13/2025 12:58 PM EST Body Mass Index 28.27 03/13/2025 12:58 PM EST documented in this encounter Progress Notes * Chanda Damico MD - 03/13/2025 1:00 PM EST SUBJECTIVE: Anh Scanlon is a 74 y.o. year old female who presents for Chronic Disease Management . Anh Scanlon, 74 years Neck Pain - Persistent severe neck pain prior to the visit - Previous acupuncture treatment with no relief - Offered injection for pain, but did not proceed - Missed pain management appointment in June 2023 Dry Mouth and Lips - Ongoing dryness of mouth and lips, worsened in winter but also present in summer - Uses topical ointment and pharmacy products with no improvement - Attributed to current medications Knee Pain - Bilateral knee pain, more pronounced in the left knee - Pain onset approximately 2-3 months prior to the visit - Pain occurs when standing, throbbing sensation at night - No history of trauma or injury Ear Symptoms - Recent sensation of decreased hearing - Attempted ear cleaning by provider approximately 2 weeks prior to the visit, partial relief Vision - History of eye surgery on Monday prior to the visit - Reports improved vision post-surgery Social History Social History Narrative Not on file Problem List[1] Right elbow pain Left-sided low back pain without sciatica Angioedema Chronic cough Chronic kidney disease due to hypertension Diabetic nephropathy associated with type 2 diabetes mellitus (HCC) Disorder of spleen History of abdominal hysterectomy Lung mass Hypertension Microalbuminuria Mixed hyperlipidemia Myocardial infarction (HCC) Flushing reaction Asymptomatic varicose veins of both lower extremities Petechiae Encounter for preventive health examination RBBB (right bundle branch block) Nodular adrenal cortex (CMS/HCC) Obesity Parkinson's disease (CMS/HCC) (HCC) Restless legs Right tennis elbow Type 2 diabetes mellitus (HCC) Vitamin D deficiency Right hand pain Anxiety COVID-19 virus infection Vulvar itching Clogged ear, bilateral Bradycardia, sinus Skin rash Colon cancer screening 'Oypzn-siy-ehaaw' infant with signs of malnutrition Excessive cerumen in both ear canals Intertrigo UTI symptoms Hypokalemia Hypomagnesemia Bandemia Superficial burn of back of right hand Bladder pain Neck pain Cervicalgia Burning sensation Microcytic anemia Bilateral impacted cerumen Chronic pain of left knee Family History[2] Review of Systems Constitutional: Negative. HENT: Negative. Respiratory: Negative. Cardiovascular: Negative. Musculoskeletal: Positive for arthralgias, myalgias and neck pain. OBJECTIVE: Vitals: 03/13/25 1258 BP: 124/74 BP Location: Left arm Patient Position: Sitting BP Cuff Size: Adult Pulse: 58 Resp: 20 SpO2: 99% Weight: 159 lb 9.6 oz (72.4 kg) Height: 5' 3 (1.6 m) Physical Exam Constitutional: Appearance: Normal appearance. Cardiovascular: Rate and Rhythm: Normal rate and regular rhythm. Pulmonary: Effort: Pulmonary effort is normal. Breath sounds: Normal breath sounds. Abdominal: General: Abdomen is flat. Palpations: Abdomen is soft. Musculoskeletal: Right lower leg: No edema. Left lower leg: No edema. Neurological: Mental Status: She is alert. Follow Up: No follow-ups on file. Medications Ordered Prior to Encounter[3] Problem List Items Addressed This Visit Type 2 diabetes mellitus (HCC) Relevant Orders POCT Glucose (Completed) RBBB (right bundle branch block) Relevant Orders Referral to Cardiology Hypertension Relevant Orders Referral to Cardiology Bradycardia, sinus Relevant Orders Referral to Cardiology Chronic pain of left knee - Primary Relevant Orders XR Knee 4+ Views Left Other Visit Diagnoses Dietary counseling Exercise counseling Type 2 diabetes mellitus with hyperglycemia, without long-term current use of insulin (HCC): - Glycemic control is stable, with recent glucose markers within target range. - Continue current diabetes management. Monitor glucose levels as previously instructed. RBBB (right bundle branch block): - RBBB present. No history of myocardial infarction. - Provided referral for cardiology evaluation. Primary hypertension: - Hypertension present. - Continue current antihypertensive regimen. Bradycardia, sinus: - Sinus bradycardia noted. - Provided referral for cardiology evaluation. Chronic pain of left knee: - Chronic left knee pain present. - Ordered radiograph of left knee. Continue acetaminophen and pregabalin (Lyrica) for pain management. Encounter for immunization: - Immunizations up to date. COVID-19 and influenza vaccines discussed. - Administer influenza vaccine during visit. Xerostomia: - Xerostomia attributed to current medications. - Recommended frequent hydration, use of lip balm, and sugar-free candies to stimulate salivation. Advised to discuss possible medication alternatives with prescribing physician. Chronic neck pain: - Chronic neck pain present. - Provided referral for pain management. Continue acetaminophen and pregabalin (Lyrica) for pain control. Referral for cardiology: - Cardiology evaluation indicated for RBBB and sinus bradycardia. - Provided referral for cardiology. Offered transportation assistance; patient opted for referral only. Referral for pain management: - Pain management referral indicated for chronic neck pain. - Provided referral for pain management. Advised patient to attend scheduled appointment. Referral for gastroenterology: - Gastroenterology referral requested. - Will provide referral for gastroenterology. This note was drafted using [employer] (AI) technology. The patient/patient's guardian has been informed and has consented to the use of this technology: Yes [1] Patient Active Problem List Diagnosis Right elbow pain Left-sided low back pain without sciatica Angioedema Chronic cough Chronic kidney disease due to hypertension Diabetic nephropathy associated with type 2 diabetes mellitus (HCC) Disorder of spleen History of abdominal hysterectomy Lung mass Hypertension Microalbuminuria Mixed hyperlipidemia Myocardial infarction (HCC) Flushing reaction Asymptomatic varicose veins of both lower extremities Petechiae Encounter for preventive health examination RBBB (right bundle branch block) Nodular adrenal cortex (CMS/HCC) Obesity Parkinson's disease (CMS/HCC) (HCC) Restless legs Right tennis elbow Type 2 diabetes mellitus (HCC) Vitamin D deficiency Right hand pain Anxiety COVID-19 virus infection Vulvar itching Clogged ear, bilateral Bradycardia, sinus Skin rash Colon cancer screening 'Rwivj-okr-qagop' with signs of malnutrition Excessive cerumen in both ear canals Intertrigo UTI symptoms Hypokalemia Hypomagnesemia Bandemia Superficial burn of back of right hand Bladder pain Neck pain Cervicalgia Burning sensation Microcytic anemia Bilateral impacted cerumen Chronic pain of left knee [2] No family history on file. [3] Current Outpatient Medications on File Prior to Visit Medication Sig Dispense Refill acetaminophen (Tylenol 8 Hour) 650 MG ER tablet Take 1 tablet (650 mg) by mouth every 8 (eight) hours if needed for mild pain. Do not crush, chew, or split. 40 tablet 1 apremilast (Otezla) 10 & 20 & 30 MG tablet therapy pack tablet therapy pack D1 10mg then D 2: 10 mg twice daily; D 3 10 mg in the morning and 20 mg in the evening; D 4 20 mg twice daily; D 5 20 mg in the morning and 30 mg in the evening. Then 30 mg twice daily starting on D 6. 55 each 0 ascorbic acid (Vitamin C) 500 MG tablet Take one every other day with iron supplement 15 tablet 11 aspirin 81 MG EC tablet Take 81 mg by mouth. wasekvq-mvsrzwcystpfj-lnxdhdra (Excedrin Migraine) 250-250-65 MG tablet Take 1 tablet as needed at onset of headache, do not take more than 2 days per week Banophen 25 MG capsule TAKE 1-2 CAPSULES BY MOUTH EVERY 6 HOURS NEEDED FOR RASH/ITCHING 30 capsule 1 Blood Glucose Monitoring Suppl ([employer] Lite) w/Device kit Use to test blood sugar two times daily 1 kit 0 calcipotriene (Dovonex) 0.005 % ointment APLIQUE AL AREA AFECTADA DOS VECES AL CHIP 60 g 11 cetirizine (ZyrTEC) 10 MG tablet TAKE 1 TABLET BY MOUTH EVERY DAY 90 tablet 1 cholecalciferol (Vitamin D-3) 50 MCG (2000 UT) capsule Take 1 capsule by mouth. clobetasol (Temovate) 0.05 % cream Apply topically 2 times daily. For up to 2 weeks as needed for significant flares clobetasol (Temovate) 0.05 % external solution APPLY TO SCALP TWICE DAILY NEEDED FOR FLAKING FORUP TO 2 WEEKS, BREAK 1 WEEK & REPEAT NEEDED. Clobetasol Propionate 0.05 % shampoo Apply 3 times weekly on days not using Ketoconazole shampoo. 118 mL 11 clonazePAM (KlonoPIN) 0.5 MG tablet TOME 1 TABLETA POR VIA ORAL TODOS [place] THOMAS EN LA MANANA 28 tablet 2 estradiol (Estrace) 0.1 MG/GM vaginal cream INSERT 1 GRAM INTO THE VAGINA IN THE MORNING FOR 14 DAYS. 42.5 g 1 ferrous gluconate (Fergon) 324 (38 Fe) MG tablet Take 1 tablet (324 mg) by mouth every other day. 15 tablet 2 Fluocinolone Acetonide Scalp (Ramireno-Smoothe/FS Scalp) 0.01 % oil Apply at night 3 times weekly and cover with scarf 118.28 mL 11 FREESTYLE LITE test strip USE TO TEST TWICE DAILY 100 strip 11 hydrALAZINE (Apresoline) 25 MG tablet TAKE 1 TABLET (25 MG) BY MOUTH 3 TIMES DAILY 270 tablet 1 hydrALAZINE (Apresoline) 50 MG tablet Take 1 tablet by mouth 3 times daily. hydroCHLOROthiazide (HYDRODiuril) 50 MG tablet TAKE 1 TABLET BY MOUTH ONCE PER DAY. 90 tablet 3 ketoconazole (NIZOral) 2 % shampoo APLIQUE AL AREA AFECTADA 3 TIMES WEEKLY 120 mL 11 meloxicam (Mobic) 7.5 MG tablet Take 1 tablet by mouth if needed each day. metFORMIN (Glucophage) 500 MG tablet TAKE 2 TABLETS BY MOUTH TWICE A DAY WITH MORNING AND EVENING MEALS 360 tablet 1 metoprolol succinate XL (Toprol-XL) 100 MG 24 hr tablet Take 1 tablet by mouth 2 times daily. omega-3 acid ethyl esters (Lovaza) 1 g capsule TAKE 2 CAPSULES BY MOUTH TWICE DAY 360 capsule 1 pantoprazole (ProtoNix) 40 MG EC tablet TAKE 1 TABLET BY MOUTH EVERY DAY BEFORE BREAKFAST 90 tablet3 polyvinyl alcohol (Liquifilm Tears) 1.4 % ophthalmic solution Administer 1 drop into affected eye(s) every 6 (six) hours. pramipexole (Mirapex) 0.25 MG tablet TOME CHRISTOS TABLETA MORE VECES AL D A FOR 30 DAYS pregabalin (Lyrica) 100 MG capsule TOME CHRISTOS C PSULA DOS VECES AL D A FOR 90 DAYS rosuvastatin (Crestor) 10 MG tablet TOME 1 TABLETA POR VIA ORAL TODOS [place] THOM[place] 90 tablet 3 sodium chloride (Hickory) 0.65 % nasal spray 1 spray. triamcinolone (Kenalog) 0.1 % cream MIX WITH CERAVE AND APPLY AFTER SHOWERS 80 g 2 trihexyphenidyl (Artane) 2 MG tablet TAKE 1 TABLET (2 MG) BY MOUTH WITH BREAKFAST, WITH LUNCH, AND WITH EVENING MEAL. 270 tablet 0 No current facility-administered medications on file prior to visit. documented in this encounter Plan of Treatment Scheduled Referrals Name Type Priority Associated Diagnoses Order Schedule Referral to Cardiology Outpatient Referral Routine RBBB (right bundle branch block) Primary hypertension Bradycardia, sinus Expected: 03/13/2025 (Approximate), Expires: 03/13/2026 documented as of this encounter Goals Goal Patient Goal Type Associated Problems Recent Progress Patient-Stated? Author Blood Pressure < 140/90 Blood Pressure 124/74( 025 12:58 PM EST) No Sruthi Webb PharmD Help patients manage their type 2 diabetes Care Plan Help patients manage their type 2 diabetes No Annette Patterson Weekly blood pressure task Care Plan Weekly blood pressure task No Annette Patterson Help patients manage their type 2 diabetes Care Plan Help patients manage their type 2 diabetes No Annette Patterson Patient has chronic kidney disease Care Plan Patient has chronic kidney disease No Annette Patterson Weekly blood pressure task Care Plan Weekly blood pressure task No Annette Patterson Patient has chronic kidney disease Care Plan Patient has chronic kidney disease No Annette Patterson Weekly blood pressure task Care Plan Weekly blood pressure task No Homer-R eyes, [place], [place] Weekly blood pressure task Care Plan Weekly blood pressure task No Homer-R eyes, [place], [place] Patient has chronic kidney disease Care Plan Patient has chronic kidney disease No Homer-R eyes, [place], [place] Patient has chronic kidney disease Care Plan Patient has chronic kidney disease No Homer-R eyes, [place], [place] Weekly blood pressure task Care Plan Weekly blood pressure task No Homer-R eyes, [place], [place] Weekly blood pressure task Care Plan Weekly blood pressure task No Homer-R eyes, [place], [place] Patient has chronic kidney disease Care Plan Patient has chronic kidney disease No Homer-R eyes, [place], [place] Patient has chronic kidney disease Care Plan Patient has chronic kidney disease No Homer-R eyes, [place], [place] documented as of this encounter Procedures Procedure Name Priority Date/Time Associated Diagnosis Comments XR KNEE 4+ VIEWS LEFT Routine 03/13/2025 2:25 PM EST Chronic pain of left knee POCT GLUCOSE Routine 03/13/2025 12:59 PM EST Type 2 diabetes mellitus with hyperglycemia, without long-term current use of insulin (HCC) documented in this encounter Results * XR Knee 4+ Views Left (03/13/2025 2:25 PM EST) Anatomical Region Laterality Modality Lower Extremities, Knee Left [facility] 03/13/2025 2:25 PM EST Narrative 03/13/2025 2:43 PM EST [address] [address] XRay Report Signed Patient: Anh Scanlon MR#: [id number] 09 : 1950 Acct:[id number] Age/Sex: 74 / F ADM Date: 03/13/25 Loc: [facility] Attending Dr: Chanda Damico MD Ordering Physician: Chanda Garcia MD Date of Service: 03/13/25 Procedure(s): XR knee LT 4V Accession Number(s): [id number] cc: Chanda Garcia MD Reason for Exam: pain EXAMINATION: XR KNEE, LEFT CLINICAL INFORMATION: pain COMPARISON: None available. TECHNIQUE: Four views of the left knee. FINDINGS: There is mild narrowing of the medial joint space. There are small marginal osteophytes along the medial joint line, medial trochlea, and superior pole patella. Minute marginal osteophyte is seen involving lateral patella. Intercondylar tubercles are minimally peaked. There is no joint effusion. Chronic appearing calcification or ossification is present adjacent the proximal superficial aspect of fibula. XR/XR knee LT 4V IMPRESSION: Mild osteoarthritis. Electronically signed by: Jez Feng MD 03/13/2025 02:40 PM EST Dictated By: Jez Feng MD Signed By: <Electronically signed by Jez Feng MD in OV> 03/13/25 1440 DD/ 1425 TD/TT: 03/13/25 1430 Corrosion Control Specialist: Procedure Note Donotuseinterpreter, Image - 03/13/[address] [address] XRay Report Signed Patient: Anh Scanlon AMR#: [id number] 09 : 1950cct:[id number] Age/Sex: 74 / FADM Date: 03/13/25 Loc: [id number] Attending Dr: Chanda Damico MD Ordering Physician: Chanda Garcia MD Date of Service: 03/13/25 Procedure(s): XR knee LT 4V Accession Number(s): [id number] cc: Chanda Garcia MD Reason for Exam: pain EXAMINATION: XR KNEE, LEFT CLINICAL INFORMATION: pain COMPARISON: None available. TECHNIQUE: Four views of the left knee. FINDINGS: There is mild narrowing of the medial joint space. There are small marginal osteophytes along the medial joint line, medial trochlea, and superior pole patella. Minute marginal osteophyte is seen involving lateral patella. Intercondylar tubercles are minimally peaked. There is no joint effusion. Chronic appearing calcification or ossification is present adjacent the proximal superficial aspect of fibula. XR/XR knee LT 4V IMPRESSION: Mild osteoarthritis. Electronically signed by: Jez Feng MD 03/13/2025 02:40 PM EST Dictated By: Jez Feng MD Signed By: <Electronically signed by Jez Feng MD in OV> 03/13/25 1440 DD/ 1425 TD/TT: 03/13/25 1430 Corrosion Control Specialist: us Chanda Damico MD IMG XR PROCEDURES Fin al Result * POCT Glucose (03/13/2025 12:59 PM EST) Glucose Blood, POC 129 60 - 200 mg/dL QC Media Lot # [id number] Lot# Expiration Date 72 Blood Capillary blood specimen / Unknown 03/13/2025 12:59 PM EST us Chanda Damico MD POINT OF CARE TEST EN TER/EDIT ORDERABLES Final Result documented in this encounter Visit Diagnoses Diagnosis Chronic pain of left knee- Primary Type 2 diabetes mellitus with hyperglycemia, without long-term current use of insulin (HCC) Dietary counseling Dietary surveillance and counseling Exercise counseling RBBB (right bundle branch block) Right bundle branch block Primary hypertension Unspecified essential hypertension Bradycardia, sinus Other specified cardiac dysrhythmias Encounter for immunization Xerostomia Disturbance of salivary secretion documented in this encounter Additional Health Concerns Active Problems Noted Date Diagnosed Date Help patients manage their type 2 diabetes 03/06 Weekly blood pressure task 03/06/2025 Help patients manage their type 2 diabetes 03/06 Patient has chronic kidney disease 03/06/2025 Weekly blood pressure task 03/06/2025 Patient has chronic kidney disease 03/06/2025 Weekly blood pressure task 03/13/2025 Weekly blood pressure task 03/13/2025 Patient has chronic kidney disease 03/13/2025 Patient has chronic kidney disease 03/13/2025 Weekly blood pressure task 03/13/2025 Weekly blood pressure task 03/13/2025 Patient has chronic kidney disease 03/13/2025 Patient has chronic kidney disease 03/13/2025 Assessment Noted Time PHQ-9 Depression Total Score: 0 12/06/19 10:35 AM EDT documented as of this encounter Care Teams Police Artist Relationship Specialty Start Date End Date Chanda Garcia MD [address] [place] [address] PCP - General Family Medicine 12/17/21 Sruthi Shelton PharmD [address] [place] [address] Pharmacist Internal Medicine 08/16/23 documented as of this encounter
--- OUTSIDE RECORDS SUMMARY | 2025-03-13 19:04 | XMS_ITS | Encounter Summary ---
Author Organization [employer] Address [address] [facility] 7t [place] [address] Care Team Providers Care Quality Associate Name Role Phone Chanda Garcia MD Primary Care Provide r Sruthi Shelton PharmD Unavailable [phone]- [phone] Reason for Visit * Reason Comments Med Refill Encounter Details Date Type Department Care Team ([facility] st Contact Info) Description 05/09/2024 Refill [facility] [address] [place], [place] [phone] Chanda Garcia MD [address] [place], [place] [phone] Primary hypertension Social History Tobacco Use Types [...] 12:58 PM EST) No Sruthi Webb PharmD documented as of this encounter Visit Diagnoses Diagnosis Primary hypertension Unspecified essential hypertension documented in this encounter Additional Health Concerns Assessment Noted Time PHQ-9 Depression Total Score: 0 10/20/19 24 9:25 AM EDT documented as of this encounter Care Teams Quality Associate Relationship Specialty Start Date End Date Chanda Garcia MD [address] [place] [address] PCP - General Family Medicine 12/17/21 Sruthi Shelton PharmD [address] [place] [address] Pharmacist Internal Medicine 08/16/23 documented as of this encounter
--- OUTSIDE RECORDS SUMMARY | 2025-03-13 19:04 | XMS_ITS | Encounter Summary ---
Author Organization [employer] [facility] Address [address] [facility] 7t [place] [address] Care Team Providers Care Boiler Shop Supervisor Name Role Phone Chanda Garcia MD Primary Care Provide r Sruthi Shelton PharmD Unavailable [phone]- [phone] Encounter Details Date Type Department Care Team [...] on filedocumented in this encounter Care Teams Boiler Shop Supervisor Relationship Specialty Start Date End Date Chanda Garcia MD [address] [place] [address] PCP - General Family Medicine 12/17/21 Sruthi Shelton, PharmD [address] [place], [place] [phone] Pharmacist Internal Medicine 08/16/23 documented as of this encounter
--- OUTSIDE RECORDS SUMMARY | 2025-03-13 19:04 | XMS_ITS | Encounter Summary ---
Author Organization [employer] [facility] Address [address] [facility] 7t [place] [address] Care Team Providers Care Production Machine Computer Operator Name Role Phone Chanda Garcia MD Primary Care Provide r Sruthi Shelton PharmD Unavailable [phone]- [phone] Reason for Visit * Reason Comments Med Refill Encounter Details Date Type Department Care Team ([facility] st Contact Info) Description 07/29/2022 Refill [facility] MED[facility]INE [address] [place], [place] [phone] Jenise Sanabria MD [address] [place] [address] Primary hypertension Social History Tobacco Use Types [...] hypertension documented in this encounter Care Teams Production Machine Computer Operator Relationship Specialty Start Date End Date Chanda Garcia MD [address] [place], [place] [phone] PCP - General Family Medicine 12/17/21 Sruthi Shelton, LeonardoD [address] [place] [address] Pharmacist Internal Medicine 08/16/23 documented as of this encounter
--- OUTSIDE RECORDS SUMMARY | 2025-03-13 19:04 | XMS_ITS | Encounter Summary ---
Author Organization [facility] [employer] Address [address] [facility] 7t [place] [address] Care Team Providers Care Display Fabrication Supervisor Name Role Phone Chanda Garcia MD Primary Care Provide r Sruthi Shelton PharmD Unavailable [phone]- [phone] Reason for Visit * Reason Onset Date Comments Nurse Triage 09/05/2023 Encounter Details Date Type Department Care Team ([facility] st Contact Info) Description 09/05/2023 Telephone [facility] MEDICINE [address] [place] [address] Chanda Garcia MD [address] [place] [address] Nurse Triage Social History Tobacco Use Types [...] accepted this outcome Please contact pt at [phone] (interpreter) documented in this encounter Plan of Treatment Not on file documented as of this encounter Goals Goal Patient Goal Type Associated Problems Recent Progress Patient-Stated? Author Blood Pressure < 140/90 Blood Pressure 124/74( 025 12:58 PM EST) No Sruthi Webb, PharmD documented as of this encounter Visit Diagnoses Not on filedocumented in this encounter Additional Health Concerns Assessment Noted Time PHQ-9 Depression Total Score: 0 07/05/19 24 11:08 AM EDT documented as of this encounter Care Teams Display Fabrication Supervisor Relationship Specialty Start Date End Date Chanda Garcia MD [address] [place] [address] PCP - General Family Medicine 12/17/21 Sruthi Shelton, LeonardoD [address] [place] [address] Pharmacist Internal Medicine 08/16/23 documented as of this encounter
--- OUTSIDE RECORDS SUMMARY | 2025-03-13 19:04 | XMS_ITS | Encounter Summary ---
Author Organization [employer] Address [address] [facility] 7t [place] [address] Care Team Providers Care Supervisor Keymodule Assembly Name Role Phone Chanda Garcia MD Primary Care Provide r Sruthi Shelton PharmD Unavailable [phone]- [phone] Reason for Visit * Reason Comments Med Refill Encounter Details Date Type Department Care Team ([facility] st Contact Info) Description 07/13/2022 Refill [facility] MED[facility] [address] [place], [place] [phone] Jenise Sanabria MD [address] [place], [place] [phone] Parkinson's disease (CMS/HCC) Social History Tobacco Use [...] encounter Visit Diagnoses Diagnosis Parkinson's disease (CMS/HCC) (HCC) Paralysis agitans documented in this encounter Care Teams Supervisor Keymodule Assembly Relationship Specialty Start Date End Date Chanda Garcia MD [address] [place], [place] [phone] PCP - General Family Medicine 12/17/21 Sruthi Shelton PharmD [address] [place] [address] Pharmacist Internal Medicine 08/16/23 documented as of this encounter
--- OUTSIDE RECORDS SUMMARY | 2025-03-13 19:04 | XMS_ITS | Encounter Summary ---
Author Organization [employer] Address [address] [facility] 7t [place] [address] Care Team Providers Care Interlocking Machine Operator Name Role Phone Chanda Garcia MD Primary Care Provide r Sruthi Shetlon PharmD Unavailable [phone]- [phone] Reason for Visit * Reason Comments Med Refill Encounter Details Date Type Department Care Team (Late st Contact Info) Description 10/23/2023 Refill [facility] [address] [place] [address] Chanda Mcintosh MD [address] [place] [address] Social History Tobacco Use Types Packs/Day Years [...] documented as of this encounter Care Teams Interlocking Machine Operator Relationship Specialty Start Date End Date Chanda Garcia MD [address] [place] [address] PCP - General Family Medicine 12/17/21 Sruthi Shelton, PharmD [address] [place] [address] Pharmacist Internal Medicine 08/16/23 documented as of this encounter
--- OUTSIDE RECORDS SUMMARY | 2025-03-13 19:04 | XMS_ITS | Encounter Summary ---
Author Organization [employer] Address [address] [facility] 7t [place] [address] Care Team Providers Care Gas Pumping Station Operator Name Role Phone Chanda Garcia MD Primary Care Provide r Sruthi Shelotn PharmD Unavailable [phone]- [phone] Reason for Visit * Reason Comments Med Refill Encounter Details Date Type Department Care Team ([facility] st Contact Info) Description 04/21/2024 Refill [facility] MEDICINE [address] [place] [address] Chanda Garcia MD [address] [place], [place] [phone] Parkinson's disease, unspecified whether dyskinesia present, unspecified [...] dyskinesia present, unspecified whether manifestations fluctuate (CMS/HCC) (HCC) documented in this encounter Additional Health Concerns Assessment Noted Time PHQ-9 Depression Total Score: 0 10/20/19 24 9:25 AM EDT documented as of this encounter Care Teams Gas Pumping Station Operator Relationship Specialty Start Date End Date Chanda Garcia MD [address] [place] [address] PCP - General Family Medicine 12/17/21 Sruthi Shelton, PharmD [address] [place] [address] Pharmacist Internal Medicine 08/16/23 documented as of this encounter
--- OUTSIDE RECORDS SUMMARY | 2025-03-13 19:04 | XMS_ITS | Encounter Summary ---
Author Organization [email or web address] Address [address] [facility] 7t [place] [address] Care Team Providers Care Clipper Automatic Name Role Phone Chanda Garcia MD Primary Care Provide r Sruthi Shelton PharmD Unavailable [phone]- [phone] Reason for Visit * Reason Onset Date Comments ER Follow-up 11/08/2023 Encounter Details Date Type Department Care Team (Late st Contact Info) Description 11/08/2023 Telephone [facility] MEDICINE [address] [place] [address] Chanda Garcia MD [address] [place], [place] [phone] ER Follow-up Social History Tobacco Use Types [...] Keys RN - 11/08/2023 11:15 AM EDT [facility] 11/02-11/04. Please contact pt. For HDF, thank you! * Telephone Encounter - Jeff Coronel - 11/08/2023 10:38 AM EDT Patient calling to report ED visit on : Date: 10/30 Hospital: [facility] Seen for: Vomiting, Fever, Body Aches Patient advised will forward to team nurse for follow up Uzbek Speaker documented in this encounter Plan of [...] documented as of this encounter Care Teams Clipper Automatic Relationship Specialty Start Date End Date Chanda Garcia MD [address] [place] [address] PCP - General Family Medicine 12/17/21 Sruthi Shelton, LeonardoD [address] [place] [address] Pharmacist Internal Medicine 08/16/23 documented as of this encounter
--- OUTSIDE RECORDS SUMMARY | 2025-03-13 19:04 | XMS_ITS | Encounter Summary ---
Author Organization [employer] [facility] Address [address] [facility] 7t [place] [address] Care Team Providers Care Solar Site Assessment Specialist Name Role Phone Chanda Garcia MD Primary Care Provide r Sruthi Shelton PharmD Unavailable Encounter Details Date Type Department Care Team (Late st Contact Info) Description 05/16/2022 Orders Only [facility] MEDICINE [address] [place] [address] Nimisha Ann LPN Social History Tobacco Use [...] on filedocumented in this encounter Care Teams Solar Site Assessment Specialist Relationship Specialty Start Date End Date Chanda Garcia MD [address] [place] [address] PCP - General Family Medicine 12/17/21 Sruthi Shelton, PharmD [address] [place] [address] Pharmacist Internal Medicine 08/16/23 documented as of this encounter
--- OUTSIDE RECORDS SUMMARY | 2025-03-13 19:04 | XMS_ITS | Encounter Summary ---
Author Organization [employer] Address [address] [facility] 7t [place] [address] Care Team Providers Care Worm Raiser Name Role Phone Chanda Garcia MD Primary Care Provide r Sruthi Shelton PharmD Unavailable [phone]- [phone] Reason for Visit * Reason Comments Med Refill Encounter Details Date Type Department Care Team ([facility] st Contact Info) Description 07/07/2022 Refill [facility] [address] [place], [place] [phone] Huma Hamilton DO [address] [place], [place] [phone] Coronary artery disease, unspecified vessel or lesion type, unspecified whether angina present, unspecified whether [place] or transplanted heart Social History Tobacco Use [...] type, unspecified whether angina present, unspecified whether [place] or transplanted heart documented in this encounter Care Teams Worm Raiser Relationship Specialty Start Date End Date Chanda Garcia MD [address] [place] [address] PCP - General Family Medicine 12/17/21 Sruthi Shelton, LeonardoD [address] [place] [address] Pharmacist Internal Medicine 08/16/23 documented as of this encounter
--- OUTSIDE RECORDS SUMMARY | 2025-03-13 19:04 | XMS_ITS | Encounter Summary ---
Author Organization [employer] Address [address] [facility] [address]t [place] [address] Care Team Providers Care Snuff Blender Name Role Phone Chanda Garcia MD Primary Care Provide r Sruthi Shelton PharmD Unavailable +- [phone] Encounter Details Date Type Department Care Team (Latest Contact Info) Description 03/13/2025 Travel Social History Tobacco Use Types Packs/Day [...] 12:58 PM EST) No Sruthi Webb, PharmD Help patients manage their type 2 [...] Care Plan Weekly blood pressure task No Nicole Dixon MA Weekly blood pressure task Care Plan Weekly blood pressure task No Homer-Luciano eyesNicole MA Patient has chronic kidney disease Care Plan Patient has chronic kidney disease No Homer-Luciano eyesNicole [place] Patient has chronic kidney disease Care Plan Patient has chronic kidney disease No Chayito eyesNicole [place] Weekly blood pressure task Care Plan Weekly blood pressure task No Homer-Nicole Ortega MA Weekly blood pressure task Care Plan Weekly blood pressure task No Homer-R eyesNicole MA Patient has chronic kidney disease Care Plan Patient has chronic kidney disease No Chayito eyesNicole MA Patient has chronic kidney disease Care Plan Patient has chronic kidney disease Nicole Crum MA documented as of this encounter Visit Diagnoses Not on filedocumented in this encounter Additional Health Concerns Active [...] documented as of this encounter Care Teams Snuff Blender Relationship Specialty Start Date End Date Chanda Garcia MD [address] [place] [address] PCP - General Family Medicine 12/17/21 Sruthi Shelton PharmD [address] [place] [address] Pharmacist Internal Medicine 08/16/23 documented as of this encounter
--- OUTSIDE RECORDS SUMMARY | 2025-03-13 19:04 | XMS_ITS | Continuity of Care Document ---
Author Organization [place] - [facility], [facility] Address [address] [place] [address] Care Team Providers Care Dude Ranch Manager Name Role Phone RICARDAMELISA KEBEDE, IWONA Primary Care Provider Assessment Encounter Date Assessment Date Assessment LastModified by Organization Details LastModified Time 02/17/2025 02/17/2025 74-year-old female presents for evaluation of right ear pain and decreased hearing from both ears. On examination the external auditory canals are narrow and there are bilateral dry cerumen impactions. Cerumen was only partially removed from both ears as the patient cannot tolerate debridement in the medial canals. The left TM was only partially visualized, which appeared scarred but intact. The right TM could not be visualized due to the remaining cerumen impaction. There was some otorrhagia in the right mid canal secondary to where cerumen was adherent to the skin. Patient also has significant tenderness and crepitus of the right TMJ. [email or web address] Not available 02/17/2025 12:33:30 Plan of Treatment Reminders Order Date Submit Date Provider Last Modified By Organization Details Last Modified Time Details Appointments Hearing Test Same Day (First) 2024 03:30P M Hearing Test Not available Not available Not available Establish ed 15 2024 04:00P M RAMON DONIS Not available Not available Not available Lab None recorded. Referral None recorded. Procedures None recorded. Surgeries None recorded. Imaging None recorded. Medication Orders fluticaso ne propionat e 50 mcg/actua tion nasal spray,bobo pension 2024 025 [facility]/Pharmacy #[id number], [address] [place], [address], 02/17/2025 12:18:50 ciproflox acin 0.3 %-dexamet hasone 0.1 % ear drops,bobo pension 2024 025 [facility]/Pharmacy #[id number], [address] [place], [address], 02/17/2025 12:18:47 Patient TargetsNo targets recorded. Patient InstructionsNo instructions recorded. Reason for Referral None Reported. Problems Name Problem SNOMED Code Status Onset Date Resolution Date Notes Provider Name and Address Organization Details Recorded Time Chronic rhinitis 83840928 Active 2014 Chronic rhinitis ; Note: Date Diagnose d: 5 12:19 PM (J31.0) Note: Date Diagnose d: 5 12:19 PM (J31.0) Not Available [facility] 4 00:49:15 Impacted cerumen of bilateral ears [id number] 9108 Active 2023 DASHA RUSSELL MD [address] [place] [address],[place] [address], [place], [address] , [place] - [facility] 4 11:08:12 Bilateral tinnitus [id number] 2 Active 2023 DASHA RUSSELL MD [address] [place] [address],[place] [address], [place], [address] , [place] - [facility] 4 11:08:17 Sensorine ural hearing loss of bilateral ears 863915586 Active 2023 Marcos GRIFFIN [address] [place] [address],[facility], [place], [address] , [place] - [facility] 4 11:16:53 Referred otalgia of right ear 354891232099 9100 Active 2024 RAMON PERES 100 [facility], [place], [address] , [place] - [facility] 5 12:08:26 Otorrhagi a of right ear 909403266259 9109 Active 2024 RAMON PERES [address], [place], [address] , [place] - [facility] 12:09:06 Allergic rhinitis 69241522 Active 2024 RAMON PERES [address], [place], [address] , [place] - [facility] 12:16:37 Seasonal allergic rhinitis 267380953 Active 2024 RAMON PERES [address] [facility],[facility], [place], [address] , [place] - [facility] 12:16:46 Non-aller gic rhinitis 146298905257 Active 2024 RAMON PERES [address],[place] [address], [place], [address] , [place] - [facility] 12:16:46 Problem Notes None recorded. Procedures Surgical History Date Name Laterality Status Provider Name and Address Organization Details Recorded Time 02/18/20 25 Cerumen removal without microscope bilat completed RAMON PERES 100 [facility],[place] [address], [place], [address], [facility] - [facility] 02/17/2025 12:26:40 10/31/19 24 Cerumen removal with microscope completed DASHA RUSSELL MD [address] [facility],[place] [address], [place], [address], [facility] - [facility] 10/31/2023 13:21:52 10/31/19 24 Tympanometry - 47193 completed Marcos GRIFFIN 100 [facility],[place] [address], [place], [address], [facility] - [facility] 10/31/2023 11:15:44 10/31/19 24 [employer] - 84198 completed Marcos GRIFFIN [address] [facility] [address],[place] [address], [place], [address], [place] - [facility] 10/31/2023 11:15:27 Imaging Results None recorded. Procedure Notes None recorded. Medical Equipment None Reported. Allergies No known drug allergies Medications Name Sig Start Date Stop Date Status Note LastModified by Organization Details LastModified Time losartan 50 mg tablet 02/17 completed Medicati on ID: [id number] B rand Name: losartan Send Method: E-Prescr ibed Sub s Allowed: subs OK Medic ationGen ericName : losartan Medicat ion ID: [id number] B rand Name: losartan Send Method: E-Prescr ibed Sub s Allowed: subs OK Medic ationGen ericName : losartan Not Available Not Available Not Available silver sulfadiaz ine 1 % topical cream APLIQUE AL KAYLAN AFECTADA DOS VECES AL D A 02/14 completed Not Available Not Available Not Available metformin 500 mg tablet TAKE 2 TABLETS BY MOUTH TWICE A DAY WITH MORNING AND EVENING MEALS active Not Available Not Available No t Available prednison e 10 mg tablet 02/17 completed Not Available Not Available Not Available ketoconaz ole 2 % shampoo APLIQUE AL AREA AFECTADA 3 TIMES WEEKLY active Not Available Not Available No t Available Vitamin C 500 mg tablet TAKE 1 TABLET BY MOUTH EVERY OTHER DAY WITH IRON SUPPLEME NT active Not Available Not Available No t Available cetirizin e 10 mg tablet TOME 1 TABLETA POR V A ORAL TODOS LOS D active Not Available Not Available No t Available metoprolo l tartrate 100 mg tablet 02/17 completed Medicati on ID: [id number] B rand Name: metoprol ol tartrate Send Method: E-Prescr ibed Sub s Allowed: subs OK Medic ationGen ericName : metoprol ol tartrate Medicat ion ID: [id number] B rand Name: metoprol ol tartrate Send Method: E-Prescr ibed Sub s Allowed: subs OK Medic ationGen ericName : metoprol ol tartrate Not Available Not Available Not Available hydrochlo rothiazid e 50 mg tablet TAKE 1 TABLET BY MOUTH ONCE PER DAY. active Not Available Not Available No t Available meloxicam 15 mg tablet TOME 1 TABLETA POR V A ORAL TODOS LOS D CUANDO SEA NECESARI O active Not Available Not Available No t Available metronida zole 0.75 % (37.5 mg/5 gram) vaginal gel INSERT ONE APPLICAT OR INTO VAGINA AT BEDTIME FOR 7 NIGHTS active Not Available Not Available No t Available clonazepa m 0.5 mg tablet TOME 1 TABLETA POR VIA ORAL TODOS [facility] active Not Available Not Available No t Available metoprolo l succinate ER 100 mg tablet,ex tended release 24 hr TOME 1 TABLETA POR V A ORAL DOS VECES AL D A FOR 90 DAYS active Not Available Not Available No t Available verapamil ER (SR) 180 mg tablet,ex tended release TOME CHRISTOS TABLETA TODOS LOS D AL ACOSTARS E 02/17 completed Not Available Not Available Not Available clobetaso l 0.05 % topical cream APPLY TWICE DAILY TO AFFECTED AREAS FOR UP TO 2 WEEKS NEEDED FOR SIGNIFIC ANT FLARE UPS. active Not Available Not Available No t Available hydralazi ne 25 mg tablet TAKE 1 TABLET (25 MG) BY MOUTH 3 TIMES DAILY active Not Available Not Available No t Available triamcino lone acetonide 0.1 % topical cream MIX WITH CERAVE AND APPLY AFTER SHOWERS active Not Available Not Available No t Available simvastat in 40 mg tablet 02/17 completed Medicati on ID: [id number] B rand Name: simvasta tin Send Method: E-Prescr ibed Sub s Allowed: subs OK Medic ationGen ericName : simvasta tin Medi cation ID: [id number] B rand Name: simvasta tin Send Method: E-Prescr ibed Sub s Allowed: subs OK Medic ationGen ericName : simvasta tin Not Available Not Available Not Available acetamino phen ER 650 mg tablet,ex tended release TAKE 1 TABLET BY MOUTH EVERY 8 HOURS IF NEEDED FOR MILD PAIN. DO NOT CRUSH, CHEW, OR SPLIT 02/17 completed Not Available Not Available Not Available meloxicam 7.5 mg tablet TOME 1 TABLETA POR VIA ORAL TODOS [place] CUANDO SEA NECESARI O FOR 30 DAYS 02/17 completed Not Available Not Available Not Available nifedipin e ER 60 mg tablet,ex tended release 24 hr TOME CHRISTOS TABLETA TODOS LOS D EN LA MA OBI 02/17 completed Not Available Not Available Not Available hydralazi ne 100 mg tablet TOME 1 TABLETA POR V A ORAL DOS VECES AL D A CON ALIMENTO FOR 30 DAYS 10/30 completed Not Available Not Available Not Available pantopraz ole 40 mg tablet,de layed release TOME 1 TABLETA POR V A ORAL TODOS LOS D ANTES DEL DESAYUNO active Not Available Not Available No t Available clotrimaz ole-betam ethasone 1 %-0.05 % topical cream APPLY TOPICALL Y 2 TIMES DAILY FOR 28 DAYS. 02/17 completed Not Available Not Available Not Available diphenhyd ramine 25 mg tablet 02/17 completed Medicati on ID: [id number] B rand Name: diphenhy dramine HCl Send Method: E-Prescr ibed Sub s Allowed: subs OK Medic ationGen ericName : diphenhy dramine HCl Medi cation ID: [id number] B rand Name: diphenhy dramine HCl Send Method: E-Prescr ibed Sub s Allowed: subs OK Medic ationGen ericName : diphenhy dramine HCl Not Available Not Available Not Available Ear Drops (carbamid e peroxide) 6.5 % ADMINIST ER 5-10 DROPS INTO AFFECTED EAR(S) 2 TIMES DAILY FOR 4 DAYS. active Not Available Not Available No t Available pramipexo le 0.25 mg tablet TOME 1 TABLETA POR V A ORAL MORE VECES AL D A active Not Available Not Available No t Available Banophen 25 mg capsule TAKE 1-2 CAPSULES BY MOUTH EVERY 6 HOURS NEEDED FOR RASH/ITC RONALD active Not Available Not Available No t Available aspirin 81 mg chewable tablet active Medicati on ID: [id number] B rand Name: aspirin Send Method: E-Prescr ibed Sub s Allowed: subs OK Medic ationGen ericName : aspirin Medicati on ID: [id number] B rand Name: aspirin Send Method: E-Prescr ibed Sub s Allowed: subs OK Medic ationGen ericName : aspirin Not Available Not Available Not Available verapamil ER (SR) 240 mg tablet,ex tended release TOME CHRISTOS TABLETA TODOS LOS D AL ACOSTARS E *DO NOT CRUSH/CH EW* 02/17 completed Not Available Not Available Not Available hydralazi ne 50 mg tablet TOME 1 TABLETA POR V A ORAL MORE VECES AL D A CON ALIMENTO FOR 90 DAYS 02/17 completed Not Available Not Available Not Available metoprolo l succinate ER 25 mg tablet,ex tended release 24 hr TOME DOS TABLETAS POR V A ORAL CADA MA OBI Y TOME CHRISTOS TABLETA CADA NOCHE 10/30 completed Not Available Not Available Not Available estradiol 0.01% (0.1 mg/gram) vaginal cream PLACE 1 G VAGINALL Y DAILY X14 DAYS, THEN 1 G VAGINALL Y TWICE A WEEK ONGOING. 02/17 completed Not Available Not Available Not Available Vitamin D2 1,250 mcg (50,000 unit) capsule active Medicati on ID: [id number] B rand Name: Vitamin D2 Send Method: E-Prescr ibed Sub s Allowed: subs OK Medic ationGen ericName : Vitamin D2 Medic ation ID: [id number] B rand Name: Vitamin D2 Send Method: E-Prescr ibed Sub s Allowed: subs OK Medic ationGen ericName : Vitamin D2 Not Available Not Available Not Available trihexyph enidyl 2 mg tablet TOME CHRISTOS TABLETA POR V A ORAL DOS VECES AL D A active Not Available Not Available No t Available clobetaso l 0.05 % scalp solution APPLY TO SCALP TWICE DAILY NEEDED FOR FLAKING FOR UP TO 2 WEEKS, BREAK 1 WEEK & REPEAT NEEDED. active Not Available Not Available No t Available fluticaso ne propionat e 50 mcg/actua tion nasal spray,bobo pension [place] 1 spray every day by intranas al route. 2024 active Not Available Not Available Not Avai lable loratadin e 10 mg tablet Take 1 tablet by mouth once a day 02/17 completed Medicati on ID: [id number] B rand Name: loratadi ne Send Method: E-Prescr ibed Sub s Allowed: subs OK Speci al Instruct ion: one daily as directed Medicat ionGener icName: pabloatashaunna ne Medic ation ID: [id number] B rand Name: loratadi ne Send Method: [...] 1,250 mg) tablet active Medicati on ID: [id number] B rand Name: Calcium 500 Send Method: E-Prescr ibed Sub s Allowed: subs OK Medic ationGen ericName : Calcium 500 Medi cation ID: [id number] B rand Name: Calcium 500 Send Method: E-Prescr ibed Sub s Allowed: subs OK Medic ationGen ericName : Calcium 500 Not Available Not Available Not Available cyclobenz aprine 5 mg tablet TAKE 1 TABLET (5 MG) BY MOUTH 3 TIMES DAILY FOR 10 DAYS. 02/17 completed Not Available Not Available Not Available clonazepa m 0.5 mg disintegr ating tablet 02/17 completed Medicati on ID: [id number] B rand Name: clonazep am Send Method: E-Prescr ibed Sub s Allowed: subs OK Medic ationGen ericName : clonazep am Medic ation ID: [id number] B rand Name: clonazep am Send Method: E-Prescr ibed Sub s Allowed: subs OK Medic ationGen ericName : clonazep am Not Available Not Available Not Available ciproflox acin 0.3 %-dexamet hasone 0.1 % ear drops,bobo pension INSTILL 4 DROPS INTO AFFECTED EAR(S) BY OTIC ROUTE 2 TIMES PER DAY FOR 7 DAYS 2024 active Not Available Not Available Not Avai lable rosuvasta tin 10 mg tablet TOME 1 TABLETA POR VIA ORAL TODOS [place] [facility] active Not Available Not Available No t Available clobetaso l 0.05 % shampoo APPLY 3 TIMES WEEKLY ON DAYS NOT USING KETOCONA ZOLE SHAMPOO. active Not Available Not Available No t Available nitrofura ntoin monohydra te/macroc rystals 100 mg capsule TOME 1 C PSULA POR V A ORAL DOS VECES AL D A FOR 7 DAYS 02/17 completed Not Available Not Available Not Available omega-3 acid ethyl esters 1 gram capsule TOME 2 C PSULAS POR V A ORAL DOS VECES AL D A active Not Available Not Available No t Available fluocinol one 0.01 % scalp oil and shower cap APPLY AT NIGHT 3 TIMES WEEKLY AND COVER WITH SCARF 02/17 completed Not Available Not Available Not Available pregabali n 100 mg capsule TOME 1 C PSULA POR V A ORAL DOS VECES AL D A active Not Available Not Available No t Available ferrous gluconate 324 mg (38 mg iron) tablet TAKE 1 TABLET (324 MG) BY MOUTH EVERY OTHER DAY. active Not Available Not Available No t Available FreeStyle Lite Meter kit USE TO TEST BLOOD SUGAR TWO TIMES DAILY 02/17 completed Not Available Not Available Not Available FreeStyle Lite Strips USE TO TEST TWICE DAILY 02/17 completed Not Available Not Available Not Available Chest Congestio n Relief 100 mg/5 mL oral liquid TAKE 10 ML BY MOUTH IF NEEDED IN THE MORNING, AT NOON, AND AT BEDTIME FOR COUGH FOR UP TO 10 DAYS. active Not Available Not Available No t Available omeprazol e 20 mg tablet,de layed release 02/17 completed Medicati on ID: [id number] B rand Name: omeprazo le Send Method: E-Prescr ibed Sub s Allowed: subs OK Speci al Instruct ion: Take 1 tablet by mouth every day before a meal Med icationG enericNa me: omeprazo le Medic ation ID: [id number] B rand Name: omeprazo le Send Method: E-Prescr ibed Sub s Allowed: subs OK Speci al Instruct ion: Take 1 tablet by mouth every day before a meal Med icationG enericNa me: omeprazo le Not Available Not Available Not Available fenofibra te 40 mg tablet 02/17 completed Medicati on ID: [id number] B rand Name: fenofibr ate Send Method: E-Prescr ibed Sub s Allowed: subs OK Medic ationGen ericName : fenofibr ate Medi cation ID: [id number] B rand Name: fenofibr ate Send Method: E-Prescr ibed Sub s Allowed: subs OK Medic ationGen ericName : fenofibr ate Not Available Not Available Not Available tramadol ER 150 mg capsule 24h,exten ded release(2 5-75) Take 1 capsule by mouth once a day as needed for pain 02/17 completed Medicati on ID: [id number] D uration Value: 7 Brand Name: tramadol Send Method: E-Prescr ibed Sub s Allowed: subs OK Medic ationGen ericName : tramadol Medicat ion ID: [id number] D uration Value: 7 Brand Name: tramadol Send Method: E-Prescr ibed Sub s Allowed: subs OK Medic ationGen ericName : tramadol Not Available Not Available Not Available Paxlovid 300 mg (150 mg x 2)-100 mg tablets in a dose pack LUCY AGUERO TABLETAS POR V A ORAL DOS VECES AL D A POR 5 D 02/17 completed Not Available Not Available Not Available Vitals None Recorded Social History None [...] Diagnosis SNOMED-CT Code Diagnosis ICD10 Code Diagnosis IMO Codes Diagnosis Note [id number] RAMON PERES [facility] on [address] [place] [address] 02/17/2025 11:15:08 02/17/2025 16:45:47 Impacted cerumen of bilateral ears [id number] 475179 H61.23 After completing the course of Ciprodex I recommend applying 3 drops of mineral oil into each ear every other day until her follow-up to soften the remaining cerumen. Sensorineu ral hearing loss of bilateral ears [id number] H90.3 Audiometri c testing will be obtained at her follow-up in March. Referred o talgia of right ear [id number] 455709 H92.01 M26.621 M79.11 The patient's periauricu lar pressure sensation is most likely consistent with intermitte nt inflammati on of the jaw joint or spasm of the surroundin g musculatur e. 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 I recommende d the patient use light massage, warm compresses and anti-infla mmatories for symptomati c management . Stressed chewing evenly on both sides of the mouth to keep from overworkin g the jaw joint. Use soft food diet as needed. Jaw Joint Program informatio n sheet was shared. If this treatment plan is ineffectiv e, recommend follow up with their dentist. Referral to physical therapist who specialize s in TMJ disorders could also be considered . Otorrhagia of right ear [id number] 931509 H92.21 [id number] Ciprodex to be used in the right ear due to the otorrhagia from cerumen carlosemen t. Allergic rhinitis 767940 04 J30.89 [id number] On exam she has a left septal deviation and turbinate hypertroph y. Recommend trying Flonase once daily to see if this improves her nasal congestion and rhinitis. Health Concerns Section Related Observation LastModified by Organization Detai ls LastModified Time None Recorded Concern Status LastModified by Organization Details LastModified Time None Recorded Payers Encounter Date Sequence Insurance Name Policy Number Policy Hutton Covered Member ID Hutton Member ID Guarantor Name 02/17/2025 1 [facility] - DOS ON OR AFTER 2022 - MEDICARE ADVANTAGE [place] (MEDICARE REPLACEMENT/ADV ANTAGE - PPO) Casandra Scanlon [id number] Anh Scanlon Notes Date Note Type Note Provider Name and Address Organization Details Recorded Time 02/17/2025 text/html ROS as noted in the HPI 74-year-old female presents for evaluation of right ear pain and decreased hearing from both ears. She also reports tinnitus in both ears and right ear pressure. She last had audiometric testing in 10/2023 that showed moderate high-frequency SNHL including speech frequencies, but the patient declined hearing aids at that time. At the last visit she was also found to have bilateral cerumen impactions. Patient states the right ear pain is intermittent and worse with chewing. She primarily chews on the right side of her mouth and will feel clicking and popping of the jaw joint on the right side. 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 Patient is scheduled for audiometric testing in our office on 04/02. Patient also has concerns about nasal congestion and nasal drainage. She has tried nasal sprays in the past but has not used anything in recent years. BARBARA WISDOM MD [address] [place] [address], [place], [address], [place] - [facility] 02/18/2025 12:49:17 OBGyn Episode No OBEpisode recorded.
--- OUTSIDE RECORDS SUMMARY | 2025-03-13 19:04 | XMS_ITS | Data Portability ---
Author Organization [place] - [facility], Allergy Address [address] [place] [phone] Care Team Providers Care Quality Nurse Name Role Phone AMADA GOMEZZIWONA RO Primary Care Provider Assessment Encounter Date Assessment [...] ear blockage. [email or web address] Not available 10/31/2023 13:22:45 02/17/2025 02/17/2025 74-year-old female presents for evaluation [...] tenderness and crepitus of the right TMJ. [email or web address] Not available 02/17/2025 12:33:30 Plan of Treatment [...] mcg/actua tion nasal spray,bobo pension 2024 025 [facility] #[id number], [address] [place], [address], 02/17/2025 12:18:50 ciproflox acin 0.3 %-dexamet hasone 0.1 % ear drops,[facility] pensi 2024 025 [facility] #[id number], [address] [place], [address], 02/17/2025 12:18:47 Patient TargetsNo targets recorded. Patient [...] Address Organization Details Recorded Time Chronic rhinitis [id number] Active 2014 Chronic rhinitis ; Note: Date Diagnose d: 5 12:19 PM (J31.0) Note: Date Diagnose d: 5 12:19 PM (J31.0) Not Available [facility] 4 00:49:15 Impacted cerumen of bilateral ears [id number] 9108 Active 2023 DASHA RUSSELL MD [address] [facility],[place] [address], [place], [address] , [place] - [facility] 4 11:08:12 Bilateral tinnitus [id number] 2 Active 2023 DASHA RUSSELL MD [address] [facility],[place] [address], [address] , [place] - [facility] 4 11:08:17 Sensorine ural hearing loss of bilateral ears 811801821 Active 2023 Marcos GRIFFIN [address] [facility],[place] [address], [place], [address] , [facility] - [facility] [place] 4 11:16:53 Referred otalgia of right ear 834380908471 9100 Active 2024 RAMON PERES [address] [facility],[place] [address], [place], [address] , [facility] - [facility] [place] 5 12:08:26 Otorrhagi a of right ear 034436240992 9109 Active 2024 RAMON PERES [address] [facility],[place] [address], [place], [address] , [facility] - [facility] [place] 5 12:09:06 Allergic rhinitis 33142673 Active 2024 RAMON PERES [address] [facility],[place] [address], [facility] [place], [address] , [facility] - [facility] [place] 5 12:16:37 Seasonal allergic rhinitis 155708610 Active 2024 RAMON PERES [address] [facility],[place] [address], [place], [address] , [facility] - [facility] [place] 5 12:16:46 Non-aller gic rhinitis 647467372701 Active 2024 RAMON PERES [address] [facility],[place] [address], [facility] [place], [address] , [facility] - [facility] [place] 5 12:16:46 Problem Notes None recorded. Procedures Surgical History Date Name Laterality Status Provider Name and Address Organization Details Recorded Time 02/18/20 25 Cerumen removal without microscope bilat completed RAMON PERES [address] [facility],[place] [address], [place], [address], [facility] - [facility] [place] 02/17/2025 12:26:40 10/31/19 24 Cerumen removal with microscope completed DASHA RUSSELL MD [address] [facility],[place] [address], [place], [address], [place] - [facility] [place] 10/31/2023 13:21:52 10/31/19 24 Tympanometry - 79788 completed ERIC GONZALEZ, AuD [address] [facility], [place], [address], [facility] - [facility] 10/31/2023 11:15:44 10/31/19 24 [employer] - 29631 completed ERIC GONZALEZ, AuD [address] [facility], [place], [address], [facility] - [facility] 10/31/2023 11:15:27 Imaging Results None recorded. Procedure Notes None recorded. Medical Equipment None Reported. Allergies No known drug allergies Medications Name Sig Start Date Stop Date Status Note LastModified by Organization Details LastModified Time losartan 50 mg tablet 02/17 completed Medicati on ID: [id number] B rand Name: losartan Send Method: E-Prescr ibed Sub s Allowed: subs OK Medic ationGen ericName : losartan Medicat ion ID: [id number] B rand Name: losartan Send Method: E-Prescr [...] mg tablet 02/17 completed Medicati on ID: [id number] B rand Name: metoprol ol tartrate Send Method: E-Prescr ibed Sub s Allowed: subs OK Medic ationGen ericName : metoprol ol tartrate Medicat ion ID: [id number] B rand Name: metoprol ol tartrate Send [...] VIA [facility]AL [facility] active Not Available Not Available No t [...] mg tablet 02/17 completed Medicati on ID: [id number] B rand Name: simvasta tin Send Method: E-Prescr ibed Sub s Allowed: subs OK Medic ationGen ericName : simvasta tin Medi cation ID: [id number] B rand Name: simvasta tin Send Method: [...] mg tablet 02/17 completed Medicati on ID: [id number] B rand Name: diphenhy dramine HCl Send Method: E-Prescr ibed Sub s Allowed: subs OK Medic ationGen ericName : diphenhy dramine HCl Medi cation ID: [id number] B rand Name: diphenhy dramine HCl Send [...] mg chewable tablet active Medicati on ID: [id number] B rand Name: aspirin Send Method: E-Prescr ibed Sub s Allowed: subs OK Medic ationGen ericName : aspirin Medicati on ID: [id number] B rand Name: aspirin Send Method: E-Prescr [...] (50,000 unit) capsule active Medicati on ID: [id number] B rand Name: Vitamin D2 Send Method: E-Prescr ibed Sub s Allowed: subs OK Medic ationGen ericName : Vitamin D2 Medic ation ID: [id number] B rand Name: Vitamin D2 Send Method: [...] e 50 mcg/actua tion nasal spray,bobo pension [place] 1 spray every day by intranas al route. 2024 active Not Available Not Available Not Avai lable loratadin e 10 mg tablet Take 1 tablet by mouth once a day 02/17 completed Medicati on ID: [id number] B rand Name: loratadi ne Send Method: E-Prescr ibed Sub s Allowed: subs OK Speci al Instruct ion: one daily as directed Medicat ionGener icName: ciera ne Medic ation ID: [id number] B rand Name: ciera ne Send Method: E-Prescr ibed Sub s [...] 1,250 mg) tablet active Medicati on ID: [id number] B rand Name: Calcium 500 Send Method: E-Prescr ibed Sub s Allowed: subs OK Medic ationGen ericName : Calcium 500 Medi cation ID: [id number] B rand Name: Calcium 500 Send Method: [...] ating tablet 02/17 completed Medicati on ID: [id number] B rand Name: clonazep am Send Method: E-Prescr ibed Sub s Allowed: subs OK Medic ationGen ericName : clonazep am Medic ation ID: [id number] B rand Name: clonazep am Send Method: [...] layed release 02/17 completed Medicati on ID: [id number] B rand Name: omeprazo le Send Method: E-Prescr ibed Sub s Allowed: subs OK Speci al Instruct ion: Take 1 tablet by mouth every day before a meal Med icationG enericNa me: omeprazo le Medic ation ID: [id number] B rand Name: omeprazo le Send Method: E-Prescr ibed Sub s Allowed: subs OK Speci al Instruct ion: Take 1 tablet by mouth every day before a meal Med icationG enericNa me: omeprazo le Not Available Not Available Not Available fenofibra te 40 mg tablet 02/17 completed Medicati on ID: [id number] B rand Name: fenofibr ate Send Method: E-Prescr ibed Sub s Allowed: subs OK Medic ationGen ericName : fenofibr ate Medi cation ID: [id number] B rand Name: fenofibr ate Send Method: E-Prescr ibed Sub s Allowed: subs OK Medic ationGen ericName : fenofibr ate Not Available Not Available Not Available tramadol ER 150 mg capsule 24h,exten ded release(2 5-75) Take 1 capsule by mouth once a day as needed for pain 02/17 completed Medicati on ID: [id number] D uration Value: 7 Brand Name: tramadol Send Method: E-Prescr ibed Sub s Allowed: subs OK Medic ationGen ericName : tramadol Medicat ion ID: [id number] D uration Value: 7 Brand Name: tramadol [...] ICD10 Code Diagnosis IMO Codes Diagnosis Note 7006 DASHA RUSSELL MD [facility] on [address] [place] [address] 10/31/2023 10:16:34 10/31/2023 13:59:06 Impacted cerumen of bilateral ears 0761814272 877994 H61.23 Bilateral tinnitus 702[address] 35256 102 H93.13 Sensorineu ral hearing loss of bilateral ears 969272094 H90.3 Audiologic al evaluation results: Right ear: Moderate high frequency sensorineu ral hearing loss. Left ear: Moderate high frequency sensorineu ral hearing loss. Tympanomet ry: Right Ear:Type A Left Ear:Type A [id number] RAMON PERES [facility] on [address] [place] [address] 02/17/2025 11:15:08 02/17/2025 16:45:47 Impacted cerumen of bilateral ears 5152970328 628318 H61.23 After completing the course of Ciprodex I recommend applying 3 drops of mineral oil into each ear every other day until her follow-up to soften the remaining cerumen. Sensorineu ral hearing loss of bilateral ears 915769323 H90.3 Audiometri c testing will be obtained at her follow-up in March. Referred o talgia of right ear [id number] 803071 H92.01 M26.621 M79.11 The patient's periauricu lar [...] be considered . Otorrhagia of right ear 9336579678 806059 H92.21 2791732 Ciprodex to be used in the right ear due to the otorrhagia from cerumen debridemen t. Allergic rhinitis 578985 04 J30.89 [id number] On exam she has a left septal deviation and turbinate hypertroph y. Recommend trying Flonase once daily to see if this improves her nasal congestion and rhinitis. Health Concerns Section Related Observation LastModified by Organization Detai ls LastModified Time None Recorded Concern Status LastModified by Organization Details LastModified Time None Recorded Advance Directives Directive None Recorded Payers Insurance Date Sequence Insurance Name Policy Number Policy Hutton Covered Member ID Hutton Member ID Guarantor Name 02/21/2025 1 [facility] - DOS ON OR AFTER 2022 - MEDICARE ADVANTAGE [place] (MEDICARE REPLACEMENT/ADV ANTAGE - PPO) Casandra Scanlon [id number] Anh Colon Notes Date Note Type Note Provider Name and Address Organization Details Recorded Time 10/31/2023 text/html ROS as noted in the [facility] 73-year-old female presents today for evaluation of hearing loss. She was noted to have obstructive cerumen. She does note tinnitus and difficulty hearing. She has not had a hearing test in years. She denies any loud noise exposure or any ear infections. DASHA RUSSELL MD [address] [facility],[place] [address], [place], [address], [facility] 10/31/2023 13:24:04 02/17/2025 text/html ROS as noted in the [facility] 74-year-old female presents for evaluation of right [...] anything in recent years. BARBARA WISDOM MD [address] [facility],[place] [address], [place], [address], [facility] 02/18/2025 12:49:17 OBGyn Episode No OBEpisode recorded.
--- OUTSIDE RECORDS SUMMARY | 2025-03-13 19:04 | XMS_ITS | Encounter Summary ---
Author Organization [employer] Address [address] [facility] [address] [place] [address] Care Team Providers Care Mechanical Energy Engineer Name Role Phone Chanda Garcia MD Primary Care Provide r Sruthi Shelton PharmD Unavailable [phone] Reason for Visit * Reason Onset Date Comments chart prep 03/13/2025 Encounter Details Date Type Department Care Team ([facility] st Contact Info) Description 03/13/2025 Telephone [facility] MEDICINE [address] [place] [address] Chanda Garcia MD [address] [place] [address] chart prep Social History Tobacco Use Types Packs/Day Years [...] the past 12 months, has t he [employer], gas, oil or water company threatened to [...] encounter Miscellaneous Notes * Telephone Encounter - Nicole Cornell MA - 03/13/2025 10:10 AM EST Chart Prep Labs: done Images: done Referrals: complete ENT Referral faxed to office and a letter mailed to the pt with instructions tocall and schedule appt if not heard back from the office. Referral complete. Vaccines due: Covid, Flu, RSV, and Zoster Screenings: eye exam and foot exam Overdue care gaps: A1c, Glucose, PHQ-9, and JAMI-7 documented in this encounter Plan of Treatment Not on file documented as of this encounter Goals Goal Patient Goal Type Associated Problems Recent Progress Patient-Stated? Author Blood Pressure < 140/90 Blood Pressure 124/74( 025 12:58 PM EST) No Sruthi Webb, PharmD Help patients manage their type 2 diabetes Care Plan Help patients manage their type 2 diabetes Annette Feng Weekly blood pressure task Care Plan Weekly [...] Nicole, [place] documented as of this encounter Visit [...] documented as of this encounter Care Teams Mechanical Energy Engineer Relationship Specialty Start Date End Date Chanda Garcia MD [address] [place] [address] PCP - General Family Medicine 12/17/21 Sruthi Shelton, Sapna [address] [place] [address] Pharmacist Internal Medicine 08/16/23 documented as of this encounter
--- OUTSIDE RECORDS SUMMARY | 2025-03-13 19:04 | XMS_ITS | Encounter Summary ---
Author Organization [employer] Address [address] [facility] [address] [place] [address] Care Team Providers Care Online Program Coordinator Name Role Phone Chanda Garcia MD Primary Care Provide r Sruthi Shelton PharmD Unavailable [phone] Reason for Visit * Reason Comments Med Change Request Encounter Details Date Type Department Care Team ([facility] st Contact Info) Description 06/30/2024 Refill [facility] MEDICINE [address] [place] [address] Esa Trejo MD [address] [place], [place] [phone] Sebopsoriasis Social History Tobacco Use Types Packs/Day [...] documented as of this encounter Care Teams Online Program Coordinator Relationship Specialty Start Date End Date Chanda Garcia MD [address] [place] [address] PCP - General Family Medicine 12/17/21 Sruthi Shelton, LeonardoD [address] [place] [address] Pharmacist Internal Medicine 08/16/23 documented as of this encounter
--- OUTSIDE RECORDS SUMMARY | 2025-03-13 19:04 | XMS_ITS | Clinical Summary ---
Author Organization [employer] Address [address] [facility] 7[address] [place] [address] Care Team Providers Care Water Operator Name Role Phone Chanda Garcia MD [...] FOR 30 DAYS 023 Active sodium chloride (Larimore) 0.65 % nasal spray 1 spray. 019 Active pregabalin (Lyrica) 100 MG capsule TOME CHRISTOS C PSULA DOS VECES AL D A FOR 90 DAYS 023 Active FREESTYLE LITE test strip USE TO TEST TWICE DAILY 100 strip 11 023 Active Blood Glucose Monitoring Suppl (FreeStyle [place] Lite) w/Device kitIndications:Ty pe 2 diabetes mellitus without complication, unspecified whether mcfp insulin use Use to test blood sugar two times [...] 6. 55 each Active Fluocinolone Acetonide Scalp (Dunmore-Smoothe/FS Scalp) 0.01 % oilIndications:Se bopsoriasis Apply at night 3 times weekly and cover with scarf 118.28 mL 11 Active Clobetasol Propionate 0.05 % shampooIndication s:Sebopsoriasis Apply 3 times weekly on days not using Ketoconazole shampoo. 118 mL 11 Active estradiol (Estrace) 0.1 MG/GM vaginal creamIndications: [...] crush, chew, or split. 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 270 tablet 025 Active omega-3 acid ethyl esters (Lovaza) 1 g capsule TAKE 2 CAPSULES BY MOUTH TWICE DAY 360 capsule 1 025 Active clonazePAM (KlonoPIN) 0.5 MG tabletIndications :Anxiety TOME 1 TABLETA POR V[facility] 28 tablet 2 025 Active ketoconazole (NIZOral) 2 % shampooIndication s:Sebopsoriasis APLIQUE AL AREA AFECTADA 3 TIMES WEEKLY 120 mL 11 025 Active metFORMIN (Glucophage) 500 MG tabletIndications :Type 2 diabetes mellitus with hyperglycemia, without long-term current use of insulin (HCC) TAKE 2 TABLETS BY MOUTH TWICE A [...] TIMES DAILY 270 tablet 1 025 Active Banophen 25 MG capsule TAKE 1-2 CAPSULES BY MOUTH EVERY 6 HOURS NEEDED FOR RASH/ITCHING 30 capsule 1 025 Active Banophen 25 MG capsule TAKE 1-2 CAPSULES BY MOUTH EVERY 6 HOURS NEEDED FOR RASH/ITCHING 30 capsule 1 024 2024 Discontinued Active Problems Problem Noted Date Diagnosed Date Chronic pain of left knee 03/13/2025 Xerostomia 03/13/2025 Burning sensation 12/05/2024 Assessment & Plan (12/05/2024 [...] than 2 weeks Colon cancer screening 02/21/2023 'Vmwgd-bjj-oloim' infant with signs of mal nutrition 02/21/2023 [...] there is no improvement. -Referred today to visual merchandising associate and assembler cards and announcements. Vulvar itching 12/29/2022 Assessment & Plan (02/23/2024 [...] paget should be ruled out. -Referred to assembler cards and announcements today. 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 She is completely asymptomiatic [...] GFR is normal, she follows up with submersible pilot Microalbuminuria 11/24/2020 Parkinson's disease ([facility]) 09/26/2018 Assessment & Plan (06/03/2024 5:09 PM [...] weeks -reports also to be following w branch lending manager Assessment & Plan (10/31/2022 5:12 PM EDT): [...] 2 diabetes mellitus 02/17/2015 Assessment & Plan (02/06/2025 3:11 PM EDT): -POCT glucose elevated at 213 mg/dL -diet and routine activity recommended Orders: POCT Glucose Assessment & Plan (12/05/2024 5:19 PM EDT): [...] Diagnosed Date Resolved Date Acute pulmonary embolism ([facility]) 06/10/2022 05/31/2024 Encounters Date Type Department Care Team Description 03/13/2025 1:00 PM EST Office Visit [facility] [place] [address] Chanda Garcia MD Chronic pain of left knee (Primary Dx); Type 2 diabetes mellitus with hyperglycemia, without long-term current use of insulin ([facility]); Dietary counseling; Exercise counseling; RBBB (right bundle branch block); Primary hypertension; Bradycardia, sinus; Encounter for immunization; Xerostomia 03/13/2025 Travel 03/13/[address] [address] Chanda Garcia MD chart prep 03/06/2025 Patient Outreach [address] [address] Chanda Garcia MD Pre-visit Planning (SDOH screening negative and tobacco screening negative) 02/15/[address] [address] Chanda Garcia MD 02/06/[address] [address] aTta Truong NP 02/05/2025 10:00 AM EDT Office Visit [address] [address] Tata Truong NP Pre-op examination (Primary Dx); Type 2 diabetes mellitus with hyperglycemia, without long-term current use of insulin ([facility]) 02/05/2025 Travel 02/04/[address] [address] Chanda Garcia MD Chartprep 01/03/[address] [address] Chanda Garcia MD Pre Op 12/24/2024 Orders Only [address] [address] Chanda Garcia MD 12/23/[address] [facility] [address] [place] [address] Chanda Garcia MD Neck pain 12/19/[address] [facility] [address] [place] [address] Chanda Garcia MD Primary hypertension 12/14/[address] [facility] [address] [place] [address] Chanda Garcia MD Xerosis cutis; Generalized pruritus from Last 3 Months Immunizations Immunization Administration Dates Next Due Hep B, Adolescent or Pediatric 09/14/2006,2006,01/30/2006 Influenza High-dose Quadriva lent Preservative Free 02/21/2023,02/08/2022 Influenza injectable quadriv alent IIV4 with preservative 03/10/2016,02/17/2015 Influenza injectable quadriv alent preservative free 01/16/2019 Influenza, High Dose Seasona l, Preservative Free 03/13/2025,02/20/2018,01/25/2017 Influenza, IIV3, injectable 01/30/2014, 0 Influenza, Split (incl. christi fied surface antigen) 01/02/2013,12/29/2011 Influenza, trivalent, adjuvanted 01/22/2024 Pneumococcal Conjugate PCV 13 01/25/2017 Pneumococcal Polysaccharide [...] Pulse 58 03/13/2025 12:58 PM EST Temperature 36.7 C (98 F) 02/05/2025 10:00 AM EDT Respiratory Rate 20 03/13/2025 12:58 PM EST Oxygen Saturation 99% 03/13/2025 12:58 PM EST Inhaled Oxygen Concentration - - Weight 72.4 kg (159 lb 9.6 oz) 03/13/2025 12:58 PM EST Height 160 cm (5' 3 ) 03/13/2025 12:58 PM EST Body Mass Index 28.27 03/13/2025 12:58 PM EST Plan of Treatment Health Maintenance Due Date Last Done Comments CT Colonography 1950 Colonoscopy 1950 FIT 1950 Sigmoidoscopy 1950 Diabetes: Foot Exam 06/28/1961 Eye Exam 06/28/1961 RSV Patients and Patients Aged 60 years or older (1 - Risk 50-74 years 1-dose series) 06/28/2001 Zoster Vaccines (2 of 3) 06/23/2017 04/28/2017 Dental Oral Exam 10/26/2019 04/26/2019, 05/2018, 12/21/2017, Additional history exists Dental Prophylaxis 10/26/2019 04/26/2019, 0 10/23/2018, 12/01/2017, Additional history exists Dental X-Ray: Full Mouth 04/26/2020 04/25/2017, 09/22 Dental X-Ray: Bitewings 10/23/2021 10/23/19 21, 10/23/2018, 04/25/2017 FOBT 03/13/2024 03/13/2023 COVID-19 Vaccine ( season) 2024 10/03/2020, 09/06/2020 Diabetes: Hemoglobin A1C 06/07/2025 025, 05/31/2024, 10/20/2023, Additional history exists Lipid Panel 07/22/2025 07/22/2024, 08/22, 06/20/2022, Additional history exists Alcohol/Substance Use Screening 12/05/2025 12/05/2024 Depression Screening 12/05/2025 12/05/2024, 12/06/19 25 Mammogram 12/24/2025 12/24/2024, 11/23, 12/13/2022, Additional history exists SDOH Screening 03/06/2026 03/06/2025 Colorectal Cancer Screening 03/13/2026 FIT DNA/Cologuard 03/13/2026 03/13/2023 Tobacco Screening 03/13/2026 03/13/2025 DTaP/Tdap/Td Vaccines (3 - Td or Tdap) 06/10/2032 06/10/2022, 08/27/2012, 01/30/2006 Hepatitis B Vaccines Aged Out 09/14/2006, 05/15/2006, 01/30/2006 No longer eligible based on patient's age to complete this topic Pneumococcal Vaccine: 50+ Years Completed 02/20/2018, 01/25/2017, 07/18/2005, Additional history exists Hepatitis C Screening Completed 08/20/2020 Influenza Vaccine Completed 03/13/2025, , 02/21/2023, Additional history exists HIB Vaccines Aged Out [...] 025 12:58 PM EST) No Sruthi Webb, LeonardoD Help patients manage their type 2 diabetes Care Plan Help patients manage their type 2 diabetes Annette Feng Weekly blood pressure task Care Plan Weekly blood pressure task Annette Feng Help patients manage their type 2 diabetes Care Plan Help patients manage their type 2 diabetes Annette Feng Patient has chronic kidney disease Care Plan Patient has chronic kidney disease Annette Feng Weekly blood pressure task Care Plan Weekly blood pressure task No Annette Patterson Patient has chronic kidney disease Care Plan Patient has chronic kidney disease Annette Feng Weekly blood pressure task Care Plan Weekly blood pressure task No Nicole Dixon MA Weekly blood pressure task Care Plan Weekly blood pressure task No Chayito eyesNicole [place] Patient has chronic kidney disease Care Plan Patient has chronic kidney disease No HomerNicole Morris [place] Patient has chronic kidney disease Care Plan Patient has chronic kidney disease No Nicole Dixon MA Weekly blood pressure task Care Plan Weekly blood pressure task No Nicole Dixon MA Weekly blood pressure task Care Plan Weekly blood pressure task No Nicole Dixon MA Patient has chronic kidney disease Care Plan Patient has chronic kidney disease No Nicole Dixon MA Patient has chronic kidney disease Care Plan Patient has chronic kidney disease No Nicole Dixon MA Procedures Procedure Name Priority Date/Time Associated Diagnosis Comments XR KNEE 4+ VIEWS LEFT Routine 03/13/2025 2:25 PM EST Chronic pain of left knee POCT GLUCOSE Routine 03/13/2025 12:59 PM EST Type 2 diabetes mellitus with hyperglycemia, without long-term current use of insulin (HCC) POCT GLUCOSE Routine 02/05/2025 10:02 AM EDT Type 2 diabetes mellitus with hyperglycemia, without long-term current use of insulin (HCC) BI MAMMOGRAM SCREENING TOMOSYNTHESIS BILATERAL Routine 12/24/2024 12:30 PM EDT POCT GLYCATED HEMOGLOBIN, TOTAL Routine 12/05/2024 10:34 AM EDT Type 2 diabetes mellitus with hyperglycemia, without long-term current use of insulin (CMS/HCC) LIPID PANEL, STANDARD Routine 07/22/2024 1:00 PM EDT Type 2 diabetes mellitus with hyperglycemia, without long-term current use of insulin (CMS/HCC) LAB COLOGUARD COLON CANCER SCREEN Routine 03/13/2023 [...] Recently Relevant to Health Maintenance Results * XR Knee 4+ Views Left (03/13/2025 2:25 PM EST) Anatomical Region Laterality Modality Lower Extremities, Knee Left Radiogra phic Imaging 03/13/2025 2:25 PM EST Narrative 03/13/2025 2:43 PM EST [facility] [address] [place] [address] XRay Report Signed Patient: Anh Scanlon MR#: [id number] 09 : 1950 Acct:[id number] Age/Sex: 74 / F ADM Date: 03/13/25 Loc: HO.HHCX Attending Dr: Chanda Damico MD Ordering Physician: Chanda Garcia MD Date of Service: 03/13/25 Procedure(s): XR knee LT 4V Accession Number(s): [id number] cc: Chanda Garcia MD Reason for Exam: [...] 03/13/25 1440 DD/ 1425 TD/TT: 03/13/25 1430 Senior Gl Accountant: Procedure Note Donotuseinterpreter, Image - 03/13/2025 [facility] [address] [place] [address] XRay Report Signed Patient: Anh Scanlon AMR#: [id number] 09 : 2Acct:[id number] Age/Sex: 74 / FADM Date: 03/13/25 Loc: .HHX Attending Dr: Chanda Damico MD Ordering Physician: Chanda Garcia MD Date of Service: 03/13/25 Procedure(s): XR knee LT 4V Accession Number(s): [id number] cc: Chanda Garcia MD Reason for Exam: [...] MD 03/13/2025 02:40 PM EST Dictated By: Jze Feng MD Signed By: <Electronically signed by Jez Feng MD in OV> 03/13/25 1440 DD/ 1425 TD/TT: 03/13/25 1430 Senior Gl Accountant: us Chanda Damico MD IMG XR PROCEDURES Fin al Result * POCT Glucose (03/13/2025 12:59 PM EST) Only the most recent of2 resultswithin the time period is included. Glucose Blood, POC 129 60 - 200 mg/dL QC Media Lot # [id number] Lot# Expiration Date 7,726 Blood Capillary blood specimen / Unknown 03/13/2025 12:59 PM EST Chanda Damico MD POINT OF CARE TEST EN TER/EDIT ORDERABLES Final Result * BI Mammogram Screening Tomosynthesis Bilateral (12/24/2024 12:30 PM EDT) Anatomical Region Laterality Modality Breast Bilateral Mammography 12/24/2024 12:3 0 PM EDT Narrative 12/27/2024 11:33 AM EDT [facility] [address] [place] [address] Mammography Report Signed Patient: Anh Scanlon MR#: [id number] 09 : 1950 Acct:[id number] Age/Sex: 74 / F ADM Date: 12/24/24 Loc: HO.MAMMO Attending Dr: Chanda Damico MD Ordering Physician: Chanda Garcia MD Results: 1Negative Date of Service: 12/24/24 Follow Up: 1 Year From Orig ina Mammogram Procedure(s): MM tomosynthesis screening BI Accession Number(s): [id number] cc: Chanda Garcia MD EXAMINATION: MM SCREENING DIGITAL BREAST TOMOSYNTHESIS, BILATERAL CLINICAL INFORMATION: Screening. Asymptomatic. COMPARISON: Mammography: Comparison is made with available priors TECHNIQUE: Digital breast mammography with tomosynthesis is performed in both the craniocaudal and mediolateral oblique views along with computer-aided detection (CAD). FINDINGS: There are scattered areas of fibroglandular [...] mammogram. Electronically signed by: Kassandra Prado DO 12/27/2024 11:30 AM EDT Dictated By: Kassandra Prado DO Signed By: <Electronically signed by Kassandra Prado DO in OV> 12/27/24 1130 DD/ 1230 TD/TT: 12/24/24 1250 Senior Gl Accountant: Procedure Note Donotbeverlyinterpreter, Image - 12/27/2024 [facility] [address] [place] [address] Mammography Report Signed Patient: Anh Scanlon AMR#: [id number] 09 : 1950cct:[id number] Age/Sex: 74 / FADM Date: 12/24/24 Loc: HO.MAMMO Attending Dr: Chanda Damico MD Ordering Physician: Chanda Garcia MDResults: 1Negative Date of Service: 12/24/24Follow Up: 1 Year From Orig inal Mammogram Procedure(s): MM tomosynthesis screening BI Accession Number(s): [id number] cc: Chanda Garcia MD EXAMINATION: MM SCREENING DIGITAL BREAST TOMOSYNTHESIS, BILATERAL CLINICAL INFORMATION: Screening. Asymptomatic. COMPARISON: Mammography: Comparison is made with available priors TECHNIQUE: Digital breast mammography with tomosynthesis is performed in both the craniocaudal and mediolateral oblique views along with computer-aided detection (CAD). FINDINGS: There are scattered areas of fibroglandular [...] mammogram. Electronically signed by: Kassandra Prado DO 12/27/2024 11:30 AM EDT Dictated By: Kassandra Pardo DO Signed By: <Electronically signed by Kassandra Prado DO in OV> 12/27/24 1130 DD/ 1230 TD/TT: 12/24/24 1250 Senior Gl Accountant: Chanda Damico MD IMG BI PROCEDURES Fin al Result * (ABNORMAL) POCT HGB A1C (12/05/2024 10:34 AM EDT) Hemoglobin A1C 6.8(A) 4.0 - 5.7 % QC Media Lot # [id number] Lot# Expiration Date 033,951 Blood 12/05/2024 10:3 4 AM EDT Chanda Damico MD POINT OF CARE TEST EN TER/EDIT ORDERABLES Final Result * (ABNORMAL) Lipid Panel, Standard (07/22/2024 1:00 PM EDT) Triglycerides 202(H) <150 mg/dL [facility] Comment:Desirable Triglyceri de: less than 150 mg/dLBorderline High Triglyceride 150-199 mg/dLHigh Triglyceride: 200-499 mg/dLVery High Triglyceride: greater than or equal to 5OO mg/dL Cholesterol 147 <200 mg/dL [facility] Comment:Desirable Cholestero l: less than 200 mg/dLBorderline High Cholesterol: 200-239 mg/dLHigh Cholesterol: greater than 239 mg/dL LDL Cholesterol Calculated 58 <100 mg/dL [facility] Comment:Desirable LDL: less than 100 mg/dLNear Optimal/Above Optimal LDL: 110- 129 mg/dLBorderline High LDL: 130-159 mg/dLHigh LDL: 160-189 mg/dLVery High LDL: greater than or equal to 190 mg/dL HDL Cholesterol 49 >40 mg/dL [facility] Comment:Desirable HDL: grea ter than 40 mg/dL Note: This HDL assay may give artificially low results in patients with liver disease. Blood Venous blood specimen / Unknown 07/22/2024 1:00 PM EDT 07/22/2024 1:00 PM EDT Chanda Damico MD LAB BLOOD ORDERABLES Final Result [facility] [address] [place] [address] [phone] * Cologuard?? colon cancer screening (03/13/2023 8:04 AM EST) Cologuard Result Negative Negative 03/27/20 5:16 PM EST [employer] (CLIA #:[id number]) Comment: NEGATIVE TEST RESULT. A negative Cologuard [...] (Marcus Reaves al, N Engl J Med 2014;370(14):7296-8651) The normal value (reference range) for this assay is negative. COLOGUARD RE-SCREENING RECOMMENDATION: Periodic colorectal cancer screening is an important part of preventive healthcare for asymptomatic individuals at average risk for colorectal cancer. Following a negative Cologuard result, the [place] [employer] Society and U.S. Multi-Society Task Force screening guidelines recommend a Cologuard re-screening interval of 3 years. References: [place] [employer] Guideline for Colorectal Cancer Screening: https://www.cancer.org/cancer/shamv-gzruxw-zzajtz/afhmggmwt-bsujpjzvk-iuyvqnm/ac s-rec ommendations.html.; Joseph DK, Maegan CR, Melany PerryK, Colorectal Cancer Screening: Recommendations for Physicians and Patients from the U.S. Multi-Society Task Force on Colorectal Cancer Screening , Am J Gastroenterology 2017; 112:4476-9620. TEST DESCRIPTION: Composite algorithmic analysis of stool [...] (Marcus Reaves al, N Engl J Med 2014;370(14):3639-0523.) Cologuard may produce a false negative or false positive result (no colorectal cancer or precancerous polyp present at colonoscopy follow up). A negative Cologuard test result does not guarantee the absence of CRC or advanced adenoma (pre-cancer). The current Cologuard screening interval is every 3 years. ([place] [employer] Society and U.S. Multi-Society Task Force). Cologuard performance data in a 10,000 patient pivotal study using colonoscopy as the reference method can be accessed at the following location: www.[place]/results. Additional description of the Cologuard test process, warnings and precautions can be found at www.[employer].com. Stool specimen (specimen) 03/13/2023 8:04 AM EST 03/14/2023 2:30 PM EST Chanda Damico MD LAB MOLECULAR DIAGNOS TICS ORDERABLES Final Result [employer] (CLIA #:[id number]) [address] [place] [address], * HEPATITIS C AB W/REFL TO HCV RNA, QN, PCR (08/20/2020 8:54 AM EDT) HEPATITIS C ANTIBODY NON-REACT CHRIS NON-REACT CHRIS [facility] INDEX 0.01 <1.00 [facility] Comment: HCV antibody was non-reactive. There is no laboratory evidence of HCV infection. In most cases, no further action is required. However, if recent HCV exposure is suspected, a test for HCV RNA (test code 19838) is suggested. For additional information please refer to http://education.[employer]/faq/DUU25w4 (This link is being provided for informational/ educational purposes only.) 08/20/2020 8:54 AM EDT us Historical Provider HISTORICAL/NON ORDERABLE LABS Final Result [facility] [address] from Last 3 Months or Most Recently Relevant to Health Maintenance Additional Health Concerns Active Problems Noted Date [...] 03/13/2025 Patient has chronic kidney disease 03/13/2025 Insurance [facility] OPTIONS (O D-SNP) D[facility]AL [facility] Care Teams Water Operator Relationship Specialty Start Date End Date Chanda Garcia MD [address] [place] [address] PCP - General Family Medicine 12/17/21 Sruthi Shelton PharmD [address] [place], [place] Pharmacist Internal Medicine 08/16/23
--- OUTSIDE RECORDS SUMMARY | 2025-03-13 19:05 | XMS_ITS | Data Portability ---
Author Organization [facility] [employer] [facility], [facility] Medical [facility] Address [address] [place] [address] Care Team Providers Care Hot Blast Worker Name Role Phone IWONA GONZALEZ Primary Care Provider [phone] HIM [facility] OTHER Assessment Encounter Date Assessment Date Assessment LastModified by Organization Details LastModified Time 11/03/2023 11/03/2023 As noted, we were called to see this patient regarding concerns of rash and fever with abd pain. Evaluation in the field was performed by my customer project manager colleague, as noted above, I provided real-time direction and supervision for this visit. 73 F w diabetes presents with 1 week of rash. recent dx of UTI for which she is taking macrobid. She was at [place] last week vacationing [facility] when she developed a rash on her legs and arms. She swam in the pool, went on a boat in the [place], no hiking or swimming in fresh water. danishaleah was called to eval for the rash [...] VIA [facility] active Not Available Not Available No t [...] Vitals Date Recorded Body temperature Oxygen saturation Respiratory rate Heart rate Body weight Systolic And Diastolic Provider Name and Address Organization Details Last Updated DateTime 4 100.4 [degF] 96 % 16 /min 82 /min 89445.6 8 g 128/64 mm[Hg] Not Available [employer] - production 4 16:28:04 Social History None [...] ICD10 Code Diagnosis IMO Codes Diagnosis Note [id number] King Gibson MD Main - instED [address] [place] [phone] 11/03/2023 16:27:53 11/03/2023 17:06:38 Health Concerns Section Related Observation LastModified by Organization Detai ls LastModified Time None Recorded Concern Status LastModified by Organization Details LastModified Time None Recorded Advance Directives Directive None Recorded Payers Insurance Date Sequence Insurance Name Policy Number Policy Hutton Covered Member ID Hutton Member ID Guarantor Name 03/14/2024 1 [facility] - DOS ON OR AFTER 2022 - DUAL ELIGIBLE - LONG TERM OPTIONS AND ONE CARE (MEDICARE REPLACEMENT/ADV ANTAGE - HMO) Anh Colon [id number] Anh Colon Notes Date Note Type Note Provider Name and Address Organization Details Recorded Time 11/03/2023 text/html ROS as noted in the HPI CRC Nurse Triage Notes (Emma Guillermo): Reason [...] rash for specific cause.Francisco Gibson MD [address] [facility],[address], [place], [address], [employer] 11/03/2023 17:06:35 OBGyn Episode No OBEpisode recorded.
--- OUTSIDE RECORDS SUMMARY | 2025-03-13 19:05 | XMS_ITS | Encounter Summary ---
Author Organization [employer] Address [address] [facility] [address] [place] [address] Care Team Providers Care Protective Signal Superintendent Name Role Phone Chanda Garcia MD Primary Care Provide r Sruthi Shelton PharmD Unavailable [phone] Reason for Visit * Reason Comments Med Refill Encounter Details Date Type Department Care Team ([facility] st Contact Info) Description 02/24/2023 Refill [facility] [address] [place] [address] Chanda Garcia MD [address] [place], [place] [phone] Social History Tobacco Use Types Packs/Day Years [...] on filedocumented in this encounter Care Teams Protective Signal Superintendent Relationship Specialty Start Date End Date Chanda Garcia MD [address] [place] [address] PCP - General Family Medicine 12/17/21 Sruthi Shelton, Sapna [address] [place] [address] Pharmacist Internal Medicine 08/16/23 documented as of this encounter
--- OUTSIDE RECORDS SUMMARY | 2025-03-13 19:05 | XMS_ITS | Encounter Summary ---
Author Organization [employer] Address [address] [place] [address] Care Team Providers Care Gis Application Developer Name Role Phone Chanda Garcia MD Primary Care Provide r Sruthi Shelton PharmD Unavailable [phone]- [phone] Encounter Details Date Type Department Care Team (Late st Contact Info) Description 06/08/2023 Orders Only [facility] MEDICINE [address] [place] [address] Chanda Garcia MD [address] [place] [address] Social History Tobacco Use Types Packs/Day Years [...] the past 12 months, has t he [employer], gas, oil or water [employer] threatened to shut off services in your [...] on filedocumented in this encounter Care Teams Gis Application Developer Relationship Specialty Start Date End Date Chanda Garcia MD [address] [place] [address] PCP - General Family Medicine 12/17/21 Sruthi Shelton PharmD [address] [place] [address] Pharmacist Internal Medicine 08/16/23 documented as of this encounter
--- OUTSIDE RECORDS SUMMARY | 2025-03-13 19:05 | XMS_ITS | Patient Health Record ---
Author Organization [facility] Address [address] [place] [address] Care Team Providers Care Compliance Lead Name Role Phone Jarett Sullivan Unavailable [phone] Reason For Referral No Information Plan Of Treatment No Information
== END 2025-03-13 13:38 | disposition home or self-care (01) ==
LOC: HO.HHCX 13:37
PROVIDERS: PCP Internal Medicine; Visit Provider Internal Medicine
DX: M25.562 Pain in left knee (principal); G89.29 Other chronic pain
CPT/HCPCS: 73564

== ENCOUNTER → 2025-03-13 13:43 | Outpatient (BNV) | payer OTHER, SELFPAY | PROVIDERS: PCP Internal Medicine; Visit Provider Radiology Diagnostic Radiology | DX: M17.12 Unilateral primary osteoarthritis, left knee (principal) | CPT/HCPCS: 73564 ==

== ENCOUNTER 2025-04-09 09:21 | Outpatient (REF) | payer OTHER, SELFPAY ==
--- OUTSIDE RECORDS SUMMARY | 2025-04-09 10:37 | XMS_ITS | Encounter Summary ---
Author Organization [employer] Address [address] [facility] [place] [address] Care Team Providers Care Filler Mixer Name Role Phone Chanda Garcia MD Primary Care Provide r Sruthi Shelton PharmD Unavailable [phone]- [phone] Reason for Visit * Reason Onset Date Comments Nurse Triage 09/05/2023 Encounter Details Date Type Department Care Team ([facility] st Contact Info) Description 09/05/2023 Telephone [facility] MEDICINE [address] [place] [address] Chanda Garcia MD [address] [place] [address] Nurse Triage Social History Tobacco Use Types [...] follow-up in 2 weeks on09/22/23 @ 9:30am. wildlife rehabilitator this appointment date and time with pt [...] accepted this outcome Please contact pt at [phone] (science interpreter) documented in this encounter Plan of Treatment [...] documented as of this encounter Care Teams Filler Mixer Relationship Specialty Start Date End Date Chanda Garcia MD [address] [place] [address] PCP - General Family Medicine 12/17/21 Sruthi Shelton, LeonardoD [address] [place] [address] Pharmacist Internal Medicine 08/16/23 documented as of this encounter
--- OUTSIDE RECORDS SUMMARY | 2025-04-09 10:38 | XMS_ITS | Encounter Summary ---
Author Organization [employer] Address [address] [facility] [place] [address] Care Team Providers Care Screw Machine Repairer Name Role Phone Chanda Garcia MD Primary Care Provide r Sruthi Shelton PharmD Unavailable [phone]- [phone] Reason for Visit * Reason Comments Med Refill Encounter Details Date Type Department Care Team ([facility] st Contact Info) Description 05/09/2024 Refill [facility] MEDICINE [address] [place], [place] [phone] Chanda Garcia MD [address] [place], [place] [phone] Primary hypertension Social History Tobacco Use Types [...] documented as of this encounter Care Teams Screw Machine Repairer Relationship Specialty Start Date End Date Chanda Garcia MD [address] [place] [address] PCP - General Family Medicine 12/17/21 Sruthi Shelton PharmD [address] [place] [address] Pharmacist Internal Medicine 08/16/23 documented as of this encounter
--- OUTSIDE RECORDS SUMMARY | 2025-04-09 10:38 | XMS_ITS | Encounter Summary ---
Author Organization [employer] Address [address] [facility] [address] [place] [address] Care Team Providers Care Multiple Launch Rocket System Crewmember Name Role Phone Chanda Garcia MD Primary Care Provide r Sruthi Shelton PharmD Unavailable [phone]- [phone] Reason for Visit * Reason Comments Med Refill Encounter Details Date Type Department Care Team ([facility] st Contact Info) Description 04/21/2024 Refill [facility] MEDICINE [address] [place] [address] Chanda Garcia MD [address] [place], [place] [phone] Parkinson's disease, unspecified whether dyskinesia present, unspecified [...] documented as of this encounter Care Teams Multiple Launch Rocket System Crewmember Relationship Specialty Start Date End Date Chanda Garcia MD [address] [place] [address] PCP - General Family Medicine 12/17/21 Sruthi Shelton, PharmD [address] [place] [address] Pharmacist Internal Medicine 08/16/23 documented as of this encounter
--- OUTSIDE RECORDS SUMMARY | 2025-04-09 10:38 | XMS_ITS | Patient Health Record ---
Author Organization [facility] Address [address] [place] [address] Care Team Providers Care Pointing Machine Operator Name Role Phone Jarett Sullivan Unavailable [phone] Reason For Referral No Information Plan Of Treatment No Information
--- OUTSIDE RECORDS SUMMARY | 2025-04-09 10:38 | XMS_ITS | Encounter Summary ---
Author Organization [employer] Address [address] [facility] [address] [place] [address] Care Team Providers Care Cone Treater Name Role Phone Chanda Garcia MD Primary Care Provide r Sruthi Shelton PharmD Unavailable [phone]- [phone] Reason for Visit * Reason Comments Med Refill Encounter Details Date Type Department Care Team ([facility] st Contact Info) Description 07/13/2022 Refill [facility] MEDICINE [address] [place], [place] [phone] Jenise Sanabria MD [address] [place], [place] [phone] Parkinson's disease (CMS/HCC) Social History Tobacco Use [...] agitans documented in this encounter Care Teams Cone Treater Relationship Specialty Start Date End Date Chanda Garcia MD [address] [place], [place] [phone] PCP - General Family Medicine 12/17/21 Sruthi Shelton PharmD [address] [place] [address] Pharmacist Internal Medicine 08/16/23 documented as of this encounter
--- OUTSIDE RECORDS SUMMARY | 2025-04-09 10:38 | XMS_ITS | Clinical Summary ---
Author Organization [employer] Address [address] [facility] 7t [place] [address] Care Team Providers Care Fur Dressing Supervisor Name Role Phone Chanda Garcia MD Primary Care Provide r Sruthi Shelton PharmD Unavailable [phone] Allergies Active Allergy Reactions Criticality Noted Date [...] FOR 30 DAYS 023 Active sodium chloride ([place]) 0.65 % nasal spray 1 spray. 019 Active pregabalin (Lyrica) 100 MG capsule TOME CHRISTOS C PSULA DOS VECES AL D A FOR 90 DAYS 023 Active FREESTYLE LITE test strip USE TO TEST TWICE DAILY 100 strip 11 023 Active Blood Glucose Monitoring Suppl (FreeStyle [place] Lite) w/Device kitIndications:Ty pe 2 diabetes mellitus without complication, unspecified whether fci insulin use Use to test blood sugar [...] 6. 55 each Active Fluocinolone Acetonide Scalp (Hulett-Smoothe/FS Scalp) 0.01 % oilIndications:Se bopsoriasis Apply at night 3 times weekly and cover with scarf 118.28 mL 11 Active Clobetasol Propionate 0.05 % shampooIndication s:Sebopsoriasis Apply 3 times weekly on days not using Ketoconazole shampoo. 118 mL Active estradiol (Estrace) 0.1 MG/GM vaginal creamIndications: Pruritus vulvae INSERT 1 GRAM INTO THE VAGINA IN THE MORNING FOR 14 DAYS. 42.5 g 1 Active meloxicam (Mobic) 7.5 MG tablet Take 1 tablet by mouth if needed each day. Active clobetasol (Temovate) 0.05 % cream Apply [...] chew, or split. 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 APLIQUE AL AREA AFECTADA DOS VECES AL CHIP 60 g Active trihexyphenidyl (Artane) 2 MG tabletIndications :Parkinson's [...] THOMAS EN LA MANANA 28 tablet 2 025 Active ketoconazole (NIZOral) 2 % shampooIndication s:Sebopsoriasis APLIQUE AL AREA AFECTADA 3 TIMES WEEKLY 120 mL 11 025 Active metFORMIN (Glucophage) 500 MG tabletIndications :Type 2 diabetes mellitus with hyperglycemia, without long-term current use of insulin ([facility]) TAKE 2 TABLETS BY MOUTH TWICE A [...] iron supplement 15 tablet 11 025 Active hydroCHLOROthiazi de (HYDRODiuril) 50 MG tabletIndications :Primary hypertension TAKE 1 TABLET BY MOUTH ONCE PER DAY. 90 tablet 3 025 Active hydrALAZINE (Apresoline) 25 MG tablet TAKE 1 TABLET (25 MG) BY MOUTH 3 TIMES DAILY 270 tablet 1 025 Active Banophen 25 MG capsule TAKE 1-2 CAPSULES BY MOUTH EVERY 6 HOURS NEEDED FOR RASH/ITCHING 30 capsule 1 025 Active triamcinolone (Kenalog) 0.1 % creamIndications: Xerosis cutis,Generalized pruritus MIX WITH CERAVE AND APPLY AFTER SHOWERS 80 g 2 11/24/2 025 Active rosuvastatin (Crestor) 10 MG tabletIndications :Other hyperlipidemia TAKE 1 TABLET BY MOUTH EVERY DAY 90 tablet Active pantoprazole (ProtoNix) 40 MG EC tabletIndications :Chronic GERD TAKE 1 TABLET BY MOUTH EVERY DAY BEFORE BREAKFAST 90 tablet Active metoprolol succinate XL (Toprol-XL) 100 MG 24 hr tablet Take 1 tablet (100 mg) by mouth Once per day. TAKE 1 TABLET BY MOUTH 2 TWICE A DAY 180 tablet 1 Active metoprolol succinate XL (Toprol-XL) 100 MG 24 hr tablet Take 1 tablet by mouth 2 times daily. 024 2024 Discontinued rosuvastatin (Crestor) 10 MG tabletIndications :Other hyperlipidemia TOME 1 TABLETA POR VIA ORAL TODOS [place] THOMAS 90 tablet 3 024 2024 Discontinued pantoprazole (ProtoNix) 40 MG EC tabletIndications :Chronic GERD TAKE 1 TABLET BY MOUTH EVERY DAY BEFORE BREAKFAST 90 tablet 3 024 2024 Discontinued triamcinolone (Kenalog) 0.1 % creamIndications: Xerosis cutis,Generalized pruritus MIX WITH CERAVE AND APPLY AFTER SHOWERS 80 g 2 025 2024 Discontinued Active Problems Problem Noted Date [...] than 2 weeks Colon cancer screening 02/21/2023 'Dzkeo-[id number]-[id number]' infant with signs of mal nutrition 02/21/2023 [...] there is no improvement. -Referred today to bed and breakfast innkeeper and self sealing fuel tank repairer. Vulvar itching 12/29/2022 Assessment & Plan (02/23/2024 [...] paget should be ruled out. -Referred to self sealing fuel tank repairer today. Assessment & Plan (12/29/2022 5:42 PM [...] symptoms are not improving would refer to self sealing fuel tank repairer to r/o chronic conditions as lichen,paget and [...] 10:12 AM EST): Pt has history of [place] and a PE. She is completely asymptomiatic [...] GFR is normal, she follows up with dehydration plant operator Microalbuminuria 11/24/2020 Parkinson's disease ([facility]) 09/26/2018 Assessment & Plan (06/03/2024 5:09 PM [...] -reports also to be following w back end web developer Assessment & Plan (10/31/2022 5:12 PM EDT): [...] Diagnosed Date Resolved Date Acute pulmonary embolism ([facility]/HCC) 06/10/2022 05/31/2024 Encounters Date Type Department Care Team Description 04/07/2025 Refill [facility] [address] [place] [phone] Chanda Garcia MD 03/31/2025 Results Follow-Up [address] [address] Chanda Garcia MD XR Knee 4+ Views Left 03/19/2025 Refill [facility] [address] [place] [address] Chanda Garcia MD Other hyperlipidemia; Chronic GERD 03/15/2025 Refill [facility] [address] [place], [place] [phone] Chanda Garcia MD Xerosis cutis; Generalized pruritus 03/13/2025 1:00 PM EST Office Visit [address] [address] Chanda Garcia MD Chronic pain of left knee (Primary Dx); Type 2 diabetes mellitus with hyperglycemia, without long-term current use of insulin (HCC); Dietary counseling; Exercise counseling; RBBB (right bundle branch block); Primary hypertension; Bradycardia, sinus; Encounter for immunization; Xerostomia 03/13/2025 Travel 03/13/[address] [address] Chanda Garcia MD chart prep 03/06/2025 Patient Outreach [address] [address] Chanda Garcia MD Pre-visit Planning (SDOH screening negative and tobacco screening negative) 02/15/[address] [address] Chanda Garcia MD 02/06/[address] [address] Tata Truong NP 02/05/2025 10:00 AM EDT Office Visit [address] [address] Tata Truong NP Pre-op examination (Primary Dx); Type 2 diabetes mellitus with hyperglycemia, without long-term current use of insulin (HCC) 02/05/2025 Travel 02/04/[address] [address] Chanda Garcia MD Chartprep from Last 3 Months Immunizations Immunization Administration [...] season) 2024 10/03/2020, 09/06/2020 Diabetes: Hemoglobin A1C 06/07/20252 025, 05/31/2024, 10/20/2023, Additional history exists Lipid Panel 07/22/2025 07/22/2024, 08/22, 06/20/2022, Additional history exists Alcohol/Substance Use Screening 12/05/2025 12/05/2024 Depression Screening 12/05/2025 12/05/2024, 12/06/19 25 Mammogram 12/24/2025 12/24/2024, 08/10/2023, 12/13/2022, Additional history exists SDOH Screening 03/06/2026 [...] Author Blood Pressure < 140/90 Blood Pressure 124/74(2024 12:58 PM EST) Sruthi Finney, PharmD Help patients manage their type 2 diabetes Care Plan Help patients manage their type 2 diabetes Annette Feng Weekly blood pressure task Care Plan Weekly blood pressure task Annette Feng Help patients manage their type 2 diabetes Care Plan Help patients manage their type 2 diabetes Annette eFng Patient has chronic kidney disease Care Plan Patient has chronic kidney disease No Annette Patterson Weekly blood pressure task Care Plan Weekly blood pressure task No Annette Patterson Patient has chronic kidney disease Care Plan Patient has chronic kidney disease No Annette Patterson Weekly blood pressure task Care Plan Weekly blood pressure task No Homer-Samipetty anthony, Nicole, [place] Weekly blood pressure task Care Plan Weekly blood pressure task No Homer-Sami es, Nicole, [place] Patient has chronic kidney disease Care Plan Patient has chronic kidney disease No Homer-Sami es, Nicole, [place] Patient has chronic kidney disease Care Plan Patient has chronic kidney disease No Homer-Sami es, Nicole, [place] Weekly blood pressure task Care Plan Weekly blood pressure task No Homer-Sami es Nicole, [place] Weekly blood pressure task Care Plan Weekly blood pressure task No Homer-Sami es, Nicole, [place] Patient has chronic kidney disease Care Plan Patient has chronic kidney disease No Homer-Sami es, Nicole, [place] Patient has chronic kidney disease Care Plan Patient has chronic kidney disease No Lior anthony [place], [place] Weekly blood pressure task Care Plan Weekly blood pressure task No Huma Mcfarland LPN Weekly blood pressure task Care Plan Weekly blood pressure task No Huma Mcfarland LPN Patient has chronic kidney disease Care Plan Patient has chronic kidney disease No Huma Mcfarland LPN Patient has chronic kidney disease Care Plan Patient has chronic kidney disease No Huma Mcfarland LPN Weekly blood pressure task Care Plan Weekly blood pressure task No Chanda Garcia MD Weekly blood pressure task Care Plan Weekly blood pressure task No Chanda Garcia MD Patient has chronic kidney disease Care Plan Patient has chronic kidney disease No Chanda Garcia MD Patient has chronic kidney disease Care Plan Patient has chronic kidney disease No Chanda Garcia MD Procedures Procedure Name Priority Date/Time Associated Diagnosis [...] Laterality Modality Lower Extremities, Knee Left [facility] 03/13/2025 2:25 PM EST Narrative 03/13/2025 2:43 PM EST [address] [address] XRay Report Signed Patient: Anh Scanlon MR#: [id number] 09 : 1950 Acct:[id number] Age/Sex: 74 / F ADM Date: 03/13/25 Loc: .HHX Attending Dr: Chanda Damico MD Ordering Physician: Chanda Garcia MD Date of Service: 03/13/25 Procedure(s): XR knee LT 4V Accession Number(s): [id number] cc: Chanda Garcia MD Reason for Exam: [...] by: Jez Feng MD 03/13/2025 02:40 PM [facility] Dictated By: Jez Feng MD Signed By: <Electronically signed by Jez Feng MD in OV> 03/13/25 1440 DD/ 1425 TD/TT: 03/13/25 1430 Property Management Specialist: Procedure Note Donotuseinterpreter, Image - 03/13/[address] [address] XRay Report Signed Patient: Anh Scanlon AMR#: [id number] 09 : 1950cct:[id number] Age/Sex: 74 / FADM Date: 03/13/25 Loc: HO.HHCX Attending Dr: Chanda Damico MD Ordering Physician: Chanda Garcia MD Date of Service: 03/13/25 Procedure(s): XR knee LT 4V Accession Number(s): [id number] cc: Chanda Garcia MD Reason for Exam: [...] 03/13/25 1440 DD/ 1425 TD/TT: 03/13/25 1430 Property Management Specialist: us Chanda Damico MD IMG XR PROCEDURES Fin al Result * POCT Glucose (03/13/2025 12:59 PM EST) Only the most recent of2 resultswithin the time period is included. Glucose Blood, POC 129 60 - 200 mg/dL QC Media Lot # [id number] Lot# Expiration Date Blood Capillary blood specimen / Unknown 03/13/2025 12:59 PM EST Chanda Damico MD POINT OF CARE TEST EN TER/EDIT ORDERABLES Final Result * BI Mammogram Screening Tomosynthesis Bilateral (12/24/2024 12:30 PM EDT) Anatomical Region Laterality Modality Breast Bilateral Mammography 12/24/2024 12:3 0 PM EDT Narrative 12/27/2024 11:33 AM EDT [facility] [address] [place] [address] Mammography Report Signed Patient: Anh Scanlon MR#: [id number] 09 : 1950 Acct:[id number] Age/Sex: 74 / F ADM Date: 12/24/24 Loc: VIVIANAO Attending Dr: Chanda Damico MD Ordering Physician: Chanda Garcia MD Results: 1Negative Date of Service: 12/24/24 Follow Up: 1 Year From Orig inal Mammogram Procedure(s): MM tomosynthesis screening BI Accession Number(s): [id number] cc: Chanda Garcia MD EXAMINATION: MM SCREENING [...] Kassandra Prado DO 12/27/2024 11:30 AM EDT RP Dictated By: Kassandra Prado DO Signed By: <Electronically signed by Kassandra Prado DO in OV> 12/27/24 1130 DD/ 1230 TD/TT: 12/24/24 1250 Property Management Specialist: Procedure Note Donotuseinterpreter, Image - 12/27/2024 [facility] [address] [place] [address] Dr. Bahena, [place]AMILETH [address] Mammography Report Signed Patient: Anh Scanlon AMR#: [id number] 09 : 1950cct:[id number] Age/Sex: 74 / FADM Date: 12/24/24 Loc: HO.MAMMO Attending Dr: Chanda Damico MD Ordering Physician: Chanda Garcia MDResults: 1Negative Date of Service: 12/24/24Follow Up: 1 Year From Orig inal Mammogram Procedure(s): MM tomosynthesis screening BI Accession Number(s): [id number] cc: Chanda Garcia MD EXAMINATION: MM SCREENING [...] 12/27/24 1130 DD/ 1230 TD/TT: 12/24/24 1250 Property Management Specialist: Chanda Damico MD IMG BI PROCEDURES Fin al Result * (ABNORMAL) POCT HGB A1C (12/05/2024 10:34 AM EDT) Hemoglobin A1C 6.8(A) 4.0 - 5.7 % QC Media Lot # [id number] Lot# Expiration Date 434, Blood 12/05/2024 10:3 4 AM EDT Chanda Damico MD POINT OF CARE TEST EN TER/EDIT ORDERABLES Final Result * (ABNORMAL) Lipid Panel, Standard (07/22/2024 1:00 PM EDT) Triglycerides 202(H) <150 mg/dL [facility] Comment:Desirable Triglyceri de: less than 150 mg/dLBorderline High Triglyceride 150-199 mg/dLHigh Triglyceride: 200-499 mg/dLVery High Triglyceride: greater than or equal to 5OO mg/dL Cholesterol 147 <200 mg/dL [facility] Comment:Desirable Cholestero l: less than 200 mg/dLBorderline High Cholesterol: 200-239 mg/dLHigh Cholesterol: greater than 239 mg/dL LDL Cholesterol Calculated 58 <100 mg/dL [facility] Comment:Desirable LDL: less than 100 mg/dLNear Optimal/Above Optimal LDL: 110- 129 mg/dLBorderline High LDL: 130-159 mg/dLHigh LDL: 160-189 mg/dLVery High LDL: greater than or equal to 190 mg/dL HDL Cholesterol 49 >40 mg/dL [facility] Comment:Desirable HDL: great er than 40 mg/dL Note: This HDL assay may give artificially low results in patients with liver disease. Blood Venous blood specimen / Unknown 07/22/2024 1:00 PM EDT 07/22/2024 1:00 PM EDT Chanda Damico MD LAB BLOOD ORDERABLES Final Result [facility] [address] [place] [phone] * Cologuard?? colon cancer screening (03/13/2023 8:04 AM EST) Cologuard Result Negative Negative 03/27/20 23 5:16 PM EST [employer] (CLIA #:[id number]) Comment: NEGATIVE TEST RESULT. A negative Cologuard [...] (Marcus Reaves al, N Engl J Med 2014;370(14):4354-0927) The normal value (reference range) for this assay is negative. COLOGUARD RE-SCREENING RECOMMENDATION: Periodic colorectal cancer screening is an important part of preventive healthcare for asymptomatic individuals at average risk for colorectal cancer. Following a negative Cologuard result, the [place] Cancer Society and U.S. Multi-Society Task Force screening guidelines recommend a Cologuard re-screening interval of 3 years. References: [place] Cancer Society Guideline for Colorectal Cancer Screening: https://www.cancer.org/cancer/folgc-hfrmfl-opyroz/fdiiabkkc-bpmyrxalo-akjqgsz/ac s-rec ommendations.html.; Joseph DK, Maegan BOUCHER, Melany PerryK, Colorectal Cancer Screening: Recommendations for Physicians and Patients from the U.S. Multi-Society Task Force on Colorectal Cancer Screening , Am J Gastroenterology 2017; 112:3975-3494. TEST DESCRIPTION: Composite algorithmic analysis of stool [...] (Marcus Reaves al, N Engl J Med 2014;370(14):2800-7880.) Cologuard may produce a false negative or false positive result (no colorectal cancer or precancerous polyp present at colonoscopy follow up). A negative Cologuard test result does not guarantee the absence of CRC or advanced adenoma (pre-cancer). The current Cologuard screening interval is every 3 years. ([place] Cancer Society and U.S. Multi-Society Task Force). Cologuard performance data in a 10,000 patient pivotal study using colonoscopy as the reference method can be accessed at the following location: www.EvolveMol.Allylix/results. Additional description of the Cologuard test process, warnings and precautions can be found at www.DriftToItog500Shopsrd.com. Stool specimen (specimen) 03/13/2023 8:04 AM EST 03/14/2023 2:30 PM EST Chanda Damico MD LAB MOLECULAR DIAGNOS TICS ORDERABLES Final Result Performing Organization Address [facility] Co de Phone Number [employer] (CLIA #:[id number]) [place] [address], * HEPATITIS C AB W/REFL TO HCV RNA, QN, PCR (08/20/2020 8:54 AM EDT) HEPATITIS C ANTIBODY NON-REACT CHRIS NON-REACT CHRIS [facility] INDEX 0.01 <1.00 [facility] Comment: HCV antibody was non-reactive. There is no laboratory evidence of HCV infection. In most cases, no further action is required. However, if recent HCV exposure is suspected, a test for HCV RNA (test code 98860) is suggested. For additional information please refer to http://education.Noribachi.Allylix/faq/RFG74c8 (This link is being provided for informational/ educational purposes only.) 08/20/2020 8:54 AM EDT Historical Provider HISTORICAL/NON ORDERABLE LABS Final Result Performing Organization Address City/[facility]/ZIP Co de Phone Number [facility] [address] [place] [address], from Last 3 Months or Most Recently [...] kidney disease 03/13/2025 Weekly blood pressure task 03/19/2025 Weekly blood pressure task 03/19/2025 Patient has chronic kidney disease 03/19/2025 Patient has chronic kidney disease 03/19/2025 Weekly blood pressure task 03/31/2025 Weekly blood pressure task 03/31/2025 Patient has chronic kidney disease 03/31/2025 Patient has chronic kidney disease 03/31/2025 [facility] [place] REYNA [id number] [facility] Care Teams Fur Dressing Supervisor Relationship Specialty Start Date End Date Chanda Garcia MD [address] [place] [address] PCP - General Family Medicine 12/17/21 Sruthi Shelton PharmD [address] [place] [phone] Pharmacist Internal Medicine 08/16/23
--- OUTSIDE RECORDS SUMMARY | 2025-04-09 10:38 | XMS_ITS | Encounter Summary ---
Author Organization [employer] Address [address] [facility] 7t [place] [address] Care Team Providers Care General Farm Manager Name Role Phone Chanda Garcia MD Primary Care Provide r Sruthi Shelton PharmD Unavailable [phone] Encounter Details Date Type Department Care Team (Late st Contact Info) Description 06/08/2023 Orders Only [facility] [address] [place] [address] Chanda Garcia MD [address] [place] [address] Social History Tobacco Use Types Packs/Day Years [...] the past 12 months, has t he [email or web address], gas, oil or water Distill threatened to shut off services in your [...] on filedocumented in this encounter Care Teams General Farm Manager Relationship Specialty Start Date End Date Chanda Garcia MD [address] [place] [address] PCP - General Family Medicine 12/17/21 Sruthi Shelton PharmD [address] [place] [address] Pharmacist Internal Medicine 08/16/23 documented as of this encounter
--- OUTSIDE RECORDS SUMMARY | 2025-04-09 10:38 | XMS_ITS | Encounter Summary ---
Author Organization [employer] Address [address] [facility] 7t [place] [address] Care Team Providers Care Underwriting Internship Name Role Phone Chanda Garcia MD Primary Care Provide r Sruthi Shelton PharmD Unavailable [phone] Reason for Visit * Reason Comments Med Refill Encounter Details Date Type Department Care Team ([facility] st Contact Info) Description 04/07/2025 Refill [facility] [address] [place] [address] Chanda Garcia MD [address] [place], [place] [phone] Social History Tobacco Use Types Packs/Day Years [...] 140/90 Blood Pressure 124/74(2024 12:58 PM EST) No Sruthi Shelton, LeonardoD Help patients manage their type 2 [...] Plan Weekly blood pressure task No Nicole Kovacs MA Weekly blood pressure task Care Plan Weekly blood pressure task No Nicole Kovacs MA Patient has chronic kidney disease Care Plan Patient has chronic kidney disease No Nicole Kovacs [place] Patient has chronic kidney disease Care Plan Patient has chronic kidney disease No Nicole Kovacs MA Weekly blood pressure task Care Plan Weekly blood pressure task No Nicole Kovacs MA Weekly blood pressure task Care Plan Weekly blood pressure task No Nicole Kovacs MA Patient has chronic kidney disease Care Plan Patient has chronic kidney disease No Nicole Kovacs MA Patient has chronic kidney disease Care Plan Patient has chronic kidney disease No Nicole Kovacs MA Weekly blood pressure task Care Plan [...] chronic kidney disease No Chanda Garcia MD documented as of this encounter Visit Diagnoses [...] 03/31/2025 Patient has chronic kidney disease 03/31/2025 Assessment Noted Time PHQ-9 Depression Total Score: 0 12/06/19 25 10:35 AM EDT documented as of this encounter Care Teams Underwriting Internship Relationship Specialty Start Date End Date Chanda Garcia MD [address] [place] [address] PCP - General Family Medicine 12/17/21 Sruthi Shelton, LeonardoD [address] [place] [address] Pharmacist Internal Medicine 08/16/23 documented as of this encounter
--- OUTSIDE RECORDS SUMMARY | 2025-04-09 10:38 | XMS_ITS | Encounter Summary ---
Author Organization [employer] Address [address] [facility] 7t [place] [address] Care Team Providers Care Farm Field Manager Name Role Phone Chanda Garcia MD Primary Care Provide r Sruthi Shelton PharmD Unavailable [phone] Reason for Visit * Reason Comments Med Change Request Encounter Details Date Type Department Care Team ([facility] st Contact Info) Description 06/30/2024 Refill [facility] [address] [place] [address] Esa Trejo MD [address] [place], [place] [phone] Sebopsoriasis Social History Tobacco Use Types Packs/Day [...] documented as of this encounter Care Teams Farm Field Manager Relationship Specialty Start Date End Date Chanda Garcia MD [address] [place] [address] PCP - General Family Medicine 12/17/21 Sruthi Shelton, LeonardoD [address] [place] [address] Pharmacist Internal Medicine 08/16/23 documented as of this encounter
--- OUTSIDE RECORDS SUMMARY | 2025-04-09 10:38 | XMS_ITS | Encounter Summary ---
Author Organization [employer] Address [address] [facility] 7t [place] [address] Care Team Providers Care Textile Worker Name Role Phone Chanda Garcia MD Primary Care Provide r Sruthi Shelton PharmD Unavailable [phone] Reason for Visit * Reason Comments Med Refill Encounter Details Date Type Department Care Team ([facility] st Contact Info) Description 02/24/2023 Refill [facility] [address] [place] [address] Chanda Garcia MD [address] [place], [place] [phone] Social History Tobacco Use Types Packs/Day Years [...] on filedocumented in this encounter Care Teams Textile Worker Relationship Specialty Start Date End Date Chanda Garcia MD [address] [place] [address] PCP - General Family Medicine 12/17/21 Sruthi Shelton, Sapna [address] [place] [address] Pharmacist Internal Medicine 08/16/23 documented as of this encounter
--- OUTSIDE RECORDS SUMMARY | 2025-04-09 10:38 | XMS_ITS | Encounter Summary ---
Author Organization [facility] Address [address] [facility] 7t [place] [address] Care Team Providers Care Softball Winder Name Role Phone Chanda Garcia MD Primary Care Provide r Sruthi Shelton PharmD Unavailable [phone] Reason for Visit * Reason Comments Med Refill Encounter Details Date Type Department Care Team ([facility] st Contact Info) Description 07/29/2022 Refill [facility] [address] [place], [place] [phone] Jenise Sanabria MD [address] [place] [address] Primary hypertension Social History Tobacco Use Types [...] hypertension documented in this encounter Care Teams Softball Winder Relationship Specialty Start Date End Date Chanda Garcia MD [address] [place], [place] [phone] PCP - General Family Medicine 12/17/21 Sruthi Shelton, LeonardoD [address] [place] [address] Pharmacist Internal Medicine 08/16/23 documented as of this encounter
--- OUTSIDE RECORDS SUMMARY | 2025-04-09 10:38 | XMS_ITS | Encounter Summary ---
Author Organization [employer] Address [address] [facility] 7t [place] [address] Care Team Providers Care Coil Maker Name Role Phone Chanda Garcia MD Primary Care Provide r Sruthi Shelton PharmD Unavailable [phone]- [phone] Reason for Visit * Reason Comments Med Refill Encounter Details Date Type Department Care Team ([facility] st Contact Info) Description 07/07/2022 Refill [facility] [address] [place], [place] [phone] Huma Hamilton DO [address] [place], [place] [phone] Coronary artery disease, unspecified vessel or lesion type, unspecified whether angina present, unspecified whether [place] or transplanted heart Social History Tobacco Use [...] type, unspecified whether angina present, unspecified whether [place] or transplanted heart documented in this encounter Care Teams Coil Maker Relationship Specialty Start Date End Date Chanda Garcia MD [address] [place] [address] PCP - General Family Medicine 12/17/21 Sruthi Shelton, LeonardoD [address] [place] [address] Pharmacist Internal Medicine 08/16/23 documented as of this encounter
--- OUTSIDE RECORDS SUMMARY | 2025-04-09 10:38 | XMS_ITS | Encounter Summary ---
Author Organization [employer] Address [address] [facility] 7t [place] [address] Care Team Providers Care Station Jailer Name Role Phone Chanda Garcia MD Primary Care Provide r Sruthi Shelton PharmD Unavailable [phone]- [phone] Reason for Visit * Reason Onset Date Comments ER Follow-up 11/08/2023 Encounter Details Date Type Department Care Team (Late st Contact Info) Description 11/08/2023 Telephone [facility] [address] [place] [address] Chanda Garcia MD [address] [place], [place] [phone] ER Follow-up Social History Tobacco Use Types [...] 11/08/2023 11:15 AM EDT [facility] admission 11/02-11/04. Please contact pt. For HDF, thank you! * Telephone Encounter - Jeff Coronel - 11/08/2023 10:38 AM EDT Patient calling to report ED visit on : Date: 10/30 Hospital: [facility] Seen for: Vomiting, Fever, Body Aches [...] documented as of this encounter Care Teams Station Jailer Relationship Specialty Start Date End Date Chanda Garcia MD [address] [place] [address] PCP - General Family Medicine 12/17/21 Sruthi Shelton, LeonardoD [address] [place] [address] Pharmacist Internal Medicine 08/16/23 documented as of this encounter
--- OUTSIDE RECORDS SUMMARY | 2025-04-09 10:38 | XMS_ITS | Encounter Summary ---
Author Organization [employer] Address [address] [facility] 7t [place] [address] Care Team Providers Care Aquaculture Director Name Role Phone Chanda Garcia MD Primary Care Provide r Sruthi Shelton PharmD Unavailable [phone]- [phone] Reason for Visit * Reason Comments Med Refill Encounter Details Date Type Department Care Team (Late st Contact Info) Description 10/23/2023 Refill [facility] 230 [place] [address] Chanda Mcintosh MD [address] [place] [address] Social History Tobacco Use Types Packs/Day Years [...] documented as of this encounter Care Teams Aquaculture Director Relationship Specialty Start Date End Date Chanda Garcia MD 230 [place] [address] PCP - General Family Medicine 12/17/21 Sruthi Shelton, PharmD [address] [place] [address] Pharmacist Internal Medicine 08/16/23 documented as of this encounter
--- OUTSIDE RECORDS SUMMARY | 2025-04-09 10:38 | XMS_ITS | Encounter Summary ---
Author Organization [employer] [facility] Address [address] [facility] 7t [place] [address] Care Team Providers Care Production Packager Name Role Phone Chanda Garcia MD Primary Care Provide r Sruthi Shelton PharmD Unavailable Encounter Details Date Type Department Care Team (Late st Contact Info) Description 05/16/2022 Orders Only [facility] MEDICINE [address] [place] [address] Nimisha Ann LPN Social History Tobacco Use [...] on filedocumented in this encounter Care Teams Production Packager Relationship Specialty Start Date End Date Chanda Garcia MD [address] [place] [phone] PCP - General Family Medicine 12/17/21 Sruthi Shelton, PharmD [address] [place] [address] Pharmacist Internal Medicine 08/16/23 documented as of this encounter
--- OUTSIDE RECORDS SUMMARY | 2025-04-09 10:38 | XMS_ITS | Encounter Summary ---
Author Organization [employer] [facility] Address [address] [facility] 7t [place] [address] Care Team Providers Care Butt Trimmer Name Role Phone Chanda Garcia MD Primary Care Provide r Sruthi Shelton PharmD Unavailable [phone]- [phone] Encounter Details Date Type Department Care Team [...] on filedocumented in this encounter Care Teams Butt Trimmer Relationship Specialty Start Date End Date Chanda Garcia MD [address] [place] [address] PCP - General Family Medicine 12/17/21 Sruthi Shelton, PharmD [address] [place], [place] [phone] Pharmacist Internal Medicine 08/16/23 documented as of this encounter
[2025-04-09 11:48] LABS: Anion Gap 12 (12-20); Blood Urea Nitrogen 23 mg/dL (9-16); Carbon Dioxide 29 mmol/L (22-29); Chloride 100 mmol/L (96-108); Estimated Glomerular Filt Rate > 60; Potassium 3.4 mmol/L (3.3-5.1); Sodium 138 mmol/L (135-145)
[2025-04-09 12:06] LABS: Protein/Creatinine Ratio, Ur 0.09 (<0.2); Total Protein Urine Random 12 mg/dL (<12)
== END 2025-04-09 09:22 | disposition home or self-care (01) ==
LOC: HO.HHCL 09:21
PROVIDERS: PCP Internal Medicine; Visit Provider Internal Medicine Nephrology
DX: E11.29 Type 2 diabetes mellitus with other diabetic kidney complication (principal); R80.9 Proteinuria, unspecified
CPT/HCPCS: 36415; 80051; 82565; 82570; 84156; 84520

== ENCOUNTER 2025-04-16 13:33 | Outpatient (AMB) | payer OTHER, SELFPAY ==
--- OUTSIDE RECORDS SUMMARY | 2025-04-16 13:38 | XMS_ITS | Encounter Summary ---
Author Organization [employer] Address [address] [facility] 7t [place] [address] Care Team Providers Care Teaching Associate Name Role Phone Chanda Garcia MD Primary Care Provide r Sruthi Shelton PharmD Unavailable [phone]- [phone] Reason for Visit * Reason Onset Date Comments ER Follow-up 11/08/2023 Encounter Details Date Type Department Care Team (Late st Contact Info) Description 11/08/2023 Telephone [facility] 230 [place] [address] Chanda Garcia MD 230 [place], [place] [phone] ER Follow-up Social History Tobacco Use Types [...] Keys RN - 11/08/2023 11:15 AM EDT [facility] admission 11/02-11/04. Please contact pt. For HDF, thank you! * Telephone Encounter - Jeff Coronel - 11/08/2023 10:38 AM EDT Patient calling to report ED visit on : Date: 10/30 Hospital: [facility] Seen for: Vomiting, Fever, Body Aches Patient advised will forward to team nurse for follow up Algerian Speaker documented in this encounter Plan of [...] documented as of this encounter Care Teams Teaching Associate Relationship Specialty Start Date End Date Chanda Garcia MD [address] [place] [address] PCP - General Family Medicine 12/17/21 Sruthi Shelton, LeonardoD [address] [place] [phone] Pharmacist Internal Medicine 08/16/23 documented as of this encounter
--- OUTSIDE RECORDS SUMMARY | 2025-04-16 13:38 | XMS_ITS | Continuity of Care Document ---
Author Organization [place] [facility], [facility] Address [address] [place] [address] Care Team Providers Care Neon Sign Erector Name Role Phone RICARDAMELISA KEBEDE, IWONA Primary [...] tenderness and crepitus of the right TMJ. [email or web address] Not available 02/17/2025 12:33:30 Plan of Treatment Reminders Order Date Submit Date Provider Last Modified By Organization Details Last Modified Time Details Appointments Establish ed 15 2025 10:30A M RAMON DONIS Not available Not available Not available Lab None recorded. Referral None recorded. Procedures None recorded. Surgeries None recorded. Imaging None recorded. Medication Orders fluticaso ne propionat e 50 mcg/actua tion nasal spray,bobo pension 2024 025 [facility] #[id number], [address] [facility], [place], [address], 02/17/2025 12:18:50 ciproflox acin 0.3 %-dexamet hasone 0.1 % ear drops,bobo pension 2024 025 [facility] #[id number], [address] [facility], [place], [address], 02/17/2025 12:18:47 Patient TargetsNo targets recorded. Patient InstructionsNo instructions recorded. Reason for Referral None Reported. Problems Name Problem SNOMED Code Status Onset Date Resolution Date Notes Provider Name and Address Organization Details Recorded Time Chronic rhinitis 69140780 Active 2014 Chronic rhinitis ; Note: Date Diagnose d: 5 12:19 PM (J31.0) Note: Date Diagnose d: 5 12:19 PM (J31.0) Not Available [facility] 4 00:49:15 Impacted cerumen of bilateral ears 393774732680 9108 Active 2023 DASHA RUSSELL MD [address] [facility],[place] [address], [place], [address] , [place] - [facility] 4 11:08:12 Bilateral tinnitus 227454496959 2 Active 2023 DASHA RUSSELL MD [address] [facility],[place] [address], [place], [address] , [place] - [facility] 4 11:08:17 Sensorine ural hearing loss of bilateral ears 397533464 Active 2023 Marcos GRIFFIN [address] [facility],[place] [address], [place], [address] , [place] - [facility] 4 11:16:53 Referred otalgia of right ear 373042405329 9100 Active 2024 RAMON PERES [address] [facility] [address], [place], [address] , [place] - [facility] 5 12:08:26 Otorrhagi a of right ear 413533211712 9109 Active 2024 RAMON PERES [address] [facility] [address], [place], [address] , [place] - [facility] 12:09:06 Allergic rhinitis 94001458 Active 2024 RAMON PERES [address] [facility],[address], [address] , [facility] - [facility] 12:16:37 Seasonal allergic rhinitis 626614441 Active 2024 RAMON PERES [address] [place] [address],[address] [place], [address] , [facility] - [facility] 12:16:46 Non-aller gic rhinitis 565651097027 Active 2024 RAMON PERES [address] [place] [address],[address] [place], [address] , [facility] - [facility] 12:16:46 Problem Notes None recorded. Procedures Surgical History Date Name Laterality Status Provider Name and Address Organization Details Recorded Time 04/02/20 25 Cerumen removal without microscope bilat completed RAMON DONIS [address] [facility],[address], [address], [place] - [facility] 04/07/2025 21:48:17 02/18/20 25 Cerumen removal without microscope bilat completed RAMON PERES [address] [facility],[address], [address], [facility] - [facility] 02/17/2025 12:26:40 10/31/19 24 Cerumen removal with microscope completed DASHA RUSSELL MD [address] [facility],[address], [address], [facility] - [facility] 10/31/2023 13:21:52 10/31/19 24 Tympanometry - [address] completed Marcos GRIFFIN [address] [place] [address],[address], [address], [facility] - [facility] 10/31/2023 11:15:44 10/31/19 24 [employer] - [address] completed Marcos GRIFFIN [address] [place] [address],[address], [address], [facility] - [facility] 10/31/2023 11:15:27 Imaging Results None recorded. Procedure Notes None recorded. Medical Equipment None Reported. Allergies Allergen ID Allergen Name Allergen Category Reaction Reaction Severity Criticality Documentation Date Start Date Code Code System Note Provider Name and Address Organization Details Recorded Time 181714 losartan medicatio n swelling Not available Not available 04/02/20252015 60686 RxNorm Not Available [employer] - External Data Service - prod 03:37:37 Medications Name Sig Start Date Stop Date Status Note LastModified by Organization Details LastModified Time losartan 50 mg tablet 02/17 completed Medicati on ID: [id number] B rand Name: losartan Send Method: E-Prescr ibed Sub s Allowed: subs OK Medic ationGen ericName : losartan Medicat ion ID: [id number] B rand Name: losartan Send Method: E-Prescr [...] mg tablet 02/17 completed Medicati on ID: [id number] B rand Name: metoprol ol tartrate Send Method: E-Prescr ibed Sub s Allowed: subs OK Medic ationGen ericName : metoprol ol tartrate Medicat ion ID: [id number] B rand Name: metoprol ol tartrate Send [...] VIA ORAL [place] [facility] active Not Available Not Available No t [...] mg tablet 02/17 completed Medicati on ID: [id number] B rand Name: simvasta tin Send Method: E-Prescr ibed Sub s Allowed: subs OK Medic ationGen ericName : simvasta tin Medi cation ID: [id number] B rand Name: simvasta tin Send Method: [...] No t Available diphenhyd ramine 25 mg capsule TAKE 1-2 CAPSULES BY MOUTH EVERY 6 HOURS NEEDED FOR RASH/ITC RONALD active Not Available Not Available No t Available clotrimaz ole-betam ethasone 1 %-0.05 % topical cream APPLY TOPICALL Y 2 TIMES DAILY FOR 28 DAYS. 02/17 completed Not Available Not Available Not Available diphenhyd ramine 25 mg tablet 02/17 completed Medicati on ID: [id number] B rand Name: diphenhy dramine HCl Send Method: E-Prescr ibed Sub s Allowed: subs OK Medic ationGen ericName : diphenhy dramine HCl Medi cation ID: [id number] B rand Name: diphenhy dramine HCl Send [...] mg chewable tablet active Medicati on ID: [id number] B rand Name: aspirin Send Method: E-Prescr ibed Sub s Allowed: subs OK Medic ationGen ericName : aspirin Medicati on ID: [id number] B rand Name: aspirin Send Method: E-Prescr [...] (50,000 unit) capsule active Medicati on ID: [id number] B rand Name: Vitamin D2 Send Method: E-Prescr ibed Sub s Allowed: subs OK Medic ationGen ericName : Vitamin D2 Medic ation ID: [id number] B rand Name: Vitamin D2 Send Method: [...] e 50 mcg/actua tion nasal spray,bobo pension ROCIAR 1 VEZ BY INTRANAS AL ROUTE TODOS LOS D active Not Available Not Available No t Available loratadin e 10 mg tablet Take 1 tablet by mouth once a day 02/17 completed Medicati on ID: [id number] B rand Name: pabloatashaunna shaw Send Method: E-Prescr ibed Sub s Allowed: subs OK Speci al Instruct ion: one daily as directed Medicat ionGener icName: ciera shaw Medic ation ID: [id number] B rand Name: loratadi ne Send Method: E-Prescr ibed Sub s Allowed: subs OK Speci al Instruct ion: one daily as directed Medicat ionGener icName: loratadi ne Not Available Not Available Not Available calcipotr iene 0.005 % topical ointment APLIQUE AL AREA AFECTADA DOS VECES AL CHIP active Not Available Not Available No t Available mineral oil topical Instill 4 drops into affected ear(s) as directed 2024 active Not Available Not Available Not Avai lable Calcium-5 00 500 mg (as calcium carbonate 1,250 mg) tablet active Medicati on ID: [id number] B rand Name: Calcium 500 Send Method: E-Prescr ibed Sub s Allowed: subs OK Medic ationGen ericName : Calcium 500 Medi cation ID: [id number] B rand Name: Calcium 500 Send Method: [...] ating tablet 02/17 completed Medicati on ID: [id number] B rand Name: clonazep am Send Method: E-Prescr ibed Sub s Allowed: subs OK Medic ationGen ericName : clonazep am Medic ation ID: [id number] B rand Name: clonazep am Send Method: E-Prescr ibed Sub s Allowed: subs OK Medic ationGen ericName : clonazep am Not Available Not Available Not Available ciproflox acin 0.3 %-dexamet hasone 0.1 % ear drops,bobo pension INSTILL 4 DROPS INTO AFFECTED EAR(S) DOS VECES AL D A FOR 7 DAYS 03/30 completed Not Available Not Available Not Available rosuvasta tin 10 mg tablet TOME 1 [...] layed release 02/17 completed Medicati on ID: [id number] B rand Name: omeprazo le Send Method: E-Prescr ibed Sub s Allowed: subs OK Speci al Instruct ion: Take 1 tablet by mouth every day before a meal Med icationG enericNa me: omeprazo le Medic ation ID: [id number] B rand Name: omeprazo le Send Method: E-Prescr ibed Sub s Allowed: subs OK Speci al Instruct ion: Take 1 tablet by mouth every day before a meal Med icationG enericNa me: omeprazo le Not Available Not Available Not Available fenofibra te 40 mg tablet 02/17 completed Medicati on ID: [id number] B rand Name: fenofibr ate Send Method: E-Prescr ibed Sub s Allowed: subs OK Medic ationGen ericName : fenofibr ate Medi cation ID: [id number] B rand Name: fenofibr ate Send Method: E-Prescr ibed Sub s Allowed: subs OK Medic ationGen ericName : fenofibr ate Not Available Not Available Not Available tramadol ER 150 mg capsule 24h,exten ded release(2 5-75) Take 1 capsule by mouth once a day as needed for pain 02/17 completed Medicati on ID: [id number] D uration Value: 7 Brand Name: tramadol Send Method: E-Prescr ibed Sub s Allowed: subs OK Medic ationGen ericName : tramadol Medicat ion ID: [id number] D uration Value: 7 Brand Name: tramadol [...] Not Available Vitals None Recorded Social History Question Answer Notes LastModified by Organizat ion Details LastModified Time Tobacco Smoking Status Never Smoker DASHA RUSSELL MD [address] [place] [address], [address], [facility] 10/31/2023 11:10:05 Do You Have Any Pets? No Information not available 04/02/2025 Are You Passively Exposed To Smoke? No Information not available 04/02/2025 Are There Any Smokers In Your House? No Information not available 04/02/2025 Sex: Unknown Functional Status Question Answer Note LastModified by Organization Details LastModified Time Do you use any illicit or recreational drugs? No Information not available 04/02/2025 Do you or have you ever used any other forms of tobacco or nicotine? No Information not available 04/02/2025 What type of noise exposure are you exposed to? noExposureToExcessiveNoise Infor mation not available 04/02/2025 Mental Status None recorded. Family History Nothing Reported. Medical History Condition Response Allergies/Hayfever Y Diabetes Y Hearing Loss N Hypertension Y GERD/Reflux Y Gynecological HistoryNo gynecological history recorded. Obstetrics History GPAL:G 0 P 0 0 0 0 Past Encounters Encounter ID Performer Location Encounter Start Date Encounter Closed Date Diagnosis/Indication Diagnosis SNOMED-CT Code Diagnosis ICD10 Code Diagnosis IMO Codes Diagnosis Note [id number] RAMON PERES [facility] on [address] [place] [address] 02/17/2025 11:15:08 02/17/2025 16:45:47 Impacted cerumen of bilateral ears [id number] 326860 H61.23 After completing the course of Ciprodex I recommend applying 3 drops of mineral oil into each ear every other day until her follow-up to soften the remaining cerumen. Sensorineu ral hearing loss of bilateral ears 604368012 H90.3 Audiometri c testing will be obtained at her follow-up in March. Referred o talgia of right ear [id number] 111026 H92.01 M26.621 M79.11 The patient's periauricu lar [...] be considered . Otorrhagia of right ear 3026019118 911628 H92.21 3900651 Ciprodex to be used in the right ear due to the otorrhagia from cerumen debridemen t. Allergic rhinitis 256732 04 J30.89 [id number] On exam she has a left septal [...] Hutton Member ID Guarantor Name 02/17/2025 1 [facility] - DOS ON OR AFTER 2022 - MEDICARE ADVANTAGE [place] & [place] (MEDICARE REPLACEMENT/ADV ANTAGE - PPO) Anh Scanlon [id number] Anh Scanlon Notes Date Note Type Note [...] anything in recent years. BARBARA WISDOM MD [address] [place] [address], [phone], [place] - [facility] 02/18/2025 12:49:17 OBGyn Episode No OBEpisode recorded.
--- OUTSIDE RECORDS SUMMARY | 2025-04-16 13:38 | XMS_ITS | Data Portability ---
Author Organization [place] [facility] Address [address] [place] [address] Care Team Providers Care Bench Worker Name Role Phone IWONA GONZALEZ Primary Care Provider [phone] Assessment Encounter Date Assessment Date Assessment LastModified [...] tenderness and crepitus of the right TMJ. [email or web address] Not available 02/17/2025 12:33:30 04/02/2025 04/02/2025 74-year-old Trinidadian-speaking female presents with her daughter for reevaluation of the ears. Cerumen impaction was successfully removed from the left canal, but only partially removed from the right despite use of instruments and suction due to patient intolerance. Audiometric testing was deferred today. Recommend a few drops of mineral oil into the right ear until follow-up in 2-3 weeks for repeat debridement. All questions were answered. [email or web address] Not available 04/07/2025 21:50:44 Plan of Treatment Reminders Order Date Submit Date Provider Last Modified By Organization Details Last Modified Time Details Appointments Establish ed 15 2025 10:30A M RAMON DONIS Not available Not available Not available Lab None recorded. Referral None recorded. Procedures None recorded. Surgeries None recorded. Imaging None recorded. Medication Orders mineral oil topical 2024 [id number], [address] [place] [address], [address], 04/02/2025 17:02:11 fluticaso ne propionat e 50 mcg/actua tion nasal spray,[facility] pension 2024 025 [id number], [address] [place], [address], 02/17/2025 12:18:50 ciproflox acin 0.3 %-dexamet hasone 0.1 % ear drops,[facility] pension 2024 025 [id number], [address] [place], [address], 02/17/2025 12:18:47 Patient TargetsNo targets recorded. Patient [...] Address Organization Details Recorded Time Chronic rhinitis 45514985 Active 2014 Chronic rhinitis ; Note: Date Diagnose d: 12:19 PM (J31.0) Note: Date Diagnose d: 11/5/201 5 12:19 PM (J31.0) Not Available [facility] 4 00:[facility]:15 Impacted cerumen of bilateral ears 460649500268 9108 Active 2023 DASHA RUSSELL MD [address], [place], [address] , [place] - [facility] 4 11:08:12 Bilateral tinnitus 720118221533 2 Active 2023 DASHA RUSSELL MD [address], [place], [address] , [place] - [facility] [place] [facility] 4 11:08:17 Sensorine ural hearing loss of bilateral ears 231456814 Active 2023 Marcos GRIFFIN [address], [place], [address] , [place] - [facility] 4 11:16:53 Referred otalgia of right ear 183826663723 9100 Active 2024 RAMON PERES [address], [place], [address] , [place] - [facility] [place] [facility] 5 12:08:26 Otorrhagi a of right ear 928330160966 9109 Active 2024 RAMON PERES [address], [place], [address] , [place] - [facility] [place] [facility] 5 12:09:06 Allergic rhinitis 58570615 Active 2024 RAMON PERES [address], [place], [address] , [place] [facility] [place] [facility] 5 12:16:37 Seasonal allergic rhinitis 364357133 Active 2024 RAMON PERES [address], [place], [address] , [place] - [facility] [place] [facility] 5 12:16:46 Non-aller gic rhinitis 216179229091 Active 2024 RAMON PREES [address] [facility],[place] [address], [place], [address] , [facility] 12:16:46 Problem Notes None recorded. Procedures Surgical History Date Name Laterality Status Provider Name and Address Organization Details Recorded Time 04/02/20 25 Cerumen removal without microscope bilat completed RAMON DONIS [address] [facility],[address], [address], [facility] 04/07/2025 21:48:17 02/18/20 25 Cerumen removal without microscope bilat completed RAMON PERES 100 [facility],[address], [address], [facility] 02/17/2025 12:26:40 10/31/19 24 Cerumen removal with microscope completed DASHA RUSSELL MD [address] [facility],[address], [address], [facility] 10/31/2023 13:21:52 10/31/19 24 Tympanometry - 90220 completed Marcos GRIFFIN 100 [facility],[address], [address], [facility] 10/31/2023 11:15:44 10/31/19 24 [employer] - 49254 completed Marcos GRIFFIN [address] [facility],[address], [address], [facility] 10/31/2023 11:15:27 Imaging Results None recorded. Procedure Notes None recorded. Medical Equipment None Reported. Allergies Allergen ID Allergen Name Allergen Category Reaction Reaction Severity Criticality Documentation Date Start Date Code Code System Note Provider Name and Address Organization Details Recorded Time 690477 losartan medicatio n swelling Not available Not available 04/02/20252015 24276 RxNorm Not Available [facility] - External Data Service - prod 03:37:37 Medications Name Sig Start Date Stop Date Status Note LastModified by Organization Details LastModified Time losartan 50 mg tablet 02/17 completed Medicati on ID: [id number] B rand Name: losartan Send Method: E-Prescr ibed Sub s Allowed: subs OK Medic ationGen ericName : losartan Medicat ion ID: [id number] B rand Name: losartan Send Method: E-Prescr [...] mg tablet 02/17 completed Medicati on ID: [id number] B rand Name: metoprol ol tartrate Send Method: E-Prescr ibed Sub s Allowed: subs OK Medic ationGen ericName : metoprol ol tartrate Medicat ion ID: [id number] B rand Name: metoprol ol tartrate Send [...] ORAL [place] [facility] [place] [facility] active Not Available Not Available No t [...] mg tablet 02/17 completed Medicati on ID: [id number] B rand Name: simvasta tin Send Method: E-Prescr ibed Sub s Allowed: subs OK Medic ationGen ericName : simvasta tin Medi cation ID: [id number] B rand Name: simvasta tin Send Method: [...] mg tablet 02/17 completed Medicati on ID: [id number] B rand Name: diphenhy dramine HCl Send Method: E-Prescr ibed Sub s Allowed: subs OK Medic ationGen ericName : diphenhy dramine HCl Medi cation ID: [id number] B rand Name: diphenhy dramine HCl Send [...] mg chewable tablet active Medicati on ID: [id number] B rand Name: aspirin Send Method: E-Prescr ibed Sub s Allowed: subs OK Medic ationGen ericName : aspirin Medicati on ID: [id number] B rand Name: aspirin Send Method: E-Prescr [...] (50,000 unit) capsule active Medicati on ID: [id number] B rand Name: Vitamin D2 Send Method: E-Prescr ibed Sub s Allowed: subs OK Medic ationGen ericName : Vitamin D2 Medic ation ID: [id number] B rand Name: Vitamin D2 Send Method: [...] a day 02/17 completed Medicati on ID: [id number] B rand Name: loratashaunna ne Send Method: E-Prescr ibed Sub s Allowed: subs OK Speci al Instruct ion: one daily as directed Medicat ionGener icName: loratashaunna shaw Medic ation ID: [id number] B rand Name: loratashaunna ne Send Method: E-Prescr ibed Sub s [...] 1,250 mg) tablet active Medicati on ID: [id number] B rand Name: Calcium 500 Send Method: E-Prescr ibed Sub s Allowed: subs OK Medic ationGen ericName : Calcium 500 Medi cation ID: [id number] B rand Name: Calcium 500 Send Method: [...] ating tablet 02/17 completed Medicati on ID: [id number] B rand Name: clonazep am Send Method: E-Prescr ibed Sub s Allowed: subs OK Medic ationGen ericName : clonazep am Medic ation ID: [id number] B rand Name: clonazep am Send Method: [...] layed release 02/17 completed Medicati on ID: [id number] B rand Name: omeprazo le Send Method: E-Prescr ibed Sub s Allowed: subs OK Speci al Instruct ion: Take 1 tablet by mouth every day before a meal Med icationG enericNa me: omeprazo le Medic ation ID: [id number] B rand Name: omeprazo le Send Method: E-Prescr ibed Sub s Allowed: subs OK Speci al Instruct ion: Take 1 tablet by mouth every day before a meal Med icationG enericNa me: omeprazo le Not Available Not Available Not Available fenofibra te 40 mg tablet 02/17 completed Medicati on ID: [id number] B rand Name: fenofibr ate Send Method: E-Prescr ibed Sub s Allowed: subs OK Medic ationGen ericName : fenofibr ate Medi cation ID: [id number] B rand Name: fenofibr ate Send Method: E-Prescr ibed Sub s Allowed: subs OK Medic ationGen ericName : fenofibr ate Not Available Not Available Not Available tramadol ER 150 mg capsule 24h,exten ded release(2 5-75) Take 1 capsule by mouth once a day as needed for pain 02/17 completed Medicati on ID: [id number] D uration Value: 7 Brand Name: tramadol Send Method: E-Prescr ibed Sub s Allowed: subs OK Medic ationGen ericName : tramadol Medicat ion ID: [id number] D uration Value: 7 Brand Name: tramadol [...] Smoking Status Never Smoker DASHA RUSSELL MD [address] [place] [address], [address], [facility] 10/31/2023 11:10:05 Do You Have Any [...] Note [id number] DASHA RUSSELL MD [facility] on [address] [place] [address] 10/31/2023 10:16:34 10/31/2023 13:59:06 Impacted cerumen of bilateral ears 2723167912 716724 H61.23 Bilateral tinnitus 36755 03980 102 H93.13 Sensorineu ral hearing loss of bilateral ears 581830828 H90.3 Audiologic al evaluation results: Right ear: Moderate high frequency sensorineu ral hearing loss. Left ear: Moderate high frequency sensorineu ral hearing loss. Tympanomet ry: Right Ear:Type A Left Ear:Type A [id number] RAMON PERES [facility] on [address] [place] [address] 02/17/2025 11:15:08 02/17/2025 16:45:47 Impacted cerumen of bilateral ears [id number] 744500 H61.23 After completing the course of Ciprodex I recommend applying 3 drops of mineral oil into each ear every other day until her follow-up to soften the remaining cerumen. Sensorineu ral hearing loss of bilateral ears 006990336 H90.3 Audiometri c testing will be obtained at her follow-up in March. Referred o talgia of right ear 4999781319 032993 H92.01 M26.621 M79.11 The patient's periauricu lar [...] be considered . Otorrhagia of right ear 1335222318 764939 H92.21 9035666 Ciprodex to be used in the right ear due to the otorrhagia from cerumen debridemen t. Allergic rhinitis 707571 04 J30.89 6049718047 On exam she has a left septal deviation and turbinate hypertroph y. Recommend trying Flonase once daily to see if this improves her nasal congestion and rhinitis. [id number] RAMON DONIS [facility] [address] [place] [address] 04/02/2025 15:35:23 04/02/2025 17:06:07 Impacted cerumen of bilateral ears 7220394942 278924 H61.23 Sensorineu ral hearing loss of bilateral ears 851719728 H90.3 Health Concerns Section Related Observation LastModified by Organization Detai ls LastModified Time None Recorded Concern Status LastModified by Organization Details LastModified Time None Recorded Advance Directives Directive None Recorded Payers Insurance Date Sequence Insurance Name Policy Number Policy Hutton Covered Member ID Hutton Member ID Guarantor Name 04/08/2025 1 [facility] - DOS ON OR AFTER 2022 - MEDICARE [place]VANTAGE [place] REPLACEMENT/ADV ANTAGE - PPO) Anh Scanlon [id number] Anh Scanlon Notes Date Note Type Note Provider Name and Address Organization Details Recorded Time 10/31/2023 text/html ROS as noted in the HPI 73-year-old female presents today for evaluation of hearing loss. She was noted to have obstructive cerumen. She does note tinnitus and difficulty hearing. She has not had a hearing test in years. She denies any loud noise exposure or any ear infections. DASHA RUSSELL MD [address] [place] [address], [address], [facility] 10/31/2023 13:24:04 02/17/2025 text/html ROS as [...] anything in recent years. BARBARA WISDOM MD [address] [place] [address],[address], [address], [facility] 02/18/2025 12:49:17 04/02/2025 text/html ROS as noted in the HPI 74-year-old Trin[place]-speaking female presents with her daughter for reevaluation of the ears. Daughter assisted with interpretation during today's visit. At the previous appointment, patient was noted to have bilateral cerumen impaction and recommended mineral oil to help soften the wax. She returns for reattempt of debridement and audiometric testing. AISHA OLSEN MD [address] [place] [address], [address], [facility] - [facility] 04/08/2025 08:36:11 OBGyn Episode No OBEpisode recorded.
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
--- OUTSIDE RECORDS SUMMARY | 2025-04-16 13:38 | XMS_ITS | Continuity of Care Document ---
Author Organization [place] - [facility], [facility] Address [address] [place] [address] Care Team Providers Care Managed Care Manager Name Role Phone IWONA GONZALEZ Primary Care Provider Assessment Encounter Date Assessment Date Assessment LastModified by Organization Details LastModified Time 04/02/2025 04/02/2025 74-year-old Kinyarwanda-speakin g female presents with her daughter for reevaluation [...] recorded. Medication Orders mineral oil topical 2024 025 [facility] #[id number], [address], [place], [address], 04/02/2025 17:02:11 Patient TargetsNo targets recorded. Patient InstructionsNo instructions recorded. Reason for Referral None Reported. Problems Name Problem SNOMED Code Status Onset Date Resolution Date Notes Provider Name and Address Organization Details Recorded Time Chronic rhinitis 83515756 Active 2014 Chronic rhinitis ; Note: Date Diagnose d: 12:19 PM (J31.0) Note: Date Diagnose d: 5 12:19 PM (J31.0) Not Available [facility] 4 00:49:15 Impacted cerumen of bilateral ears 553672621396 9108 Active 2023 DASHA RUSSELL MD [address], [place], [address] , [place] [facility] 4 11:08:12 Bilateral tinnitus 797113699235 2 Active 2023 DASHA RUSSELL MD [address], [place], [address] , [place] [facility] 4 11:08:17 Sensorine ural hearing loss of bilateral ears 497954635 Active 2023 Marcos GRIFFIN [address], [place], [address] , [place] [facility] 4 11:16:53 Referred otalgia of right ear 889986223075 9100 Active 2024 RAMON PERES [address], [place], [address] , [place] [facility] 5 12:08:26 Otorrhagi a of right ear 281354104236 9109 Active 2024 RAMON PERES [address], [place], [address] , [place] [facility] 5 12:09:06 Allergic rhinitis 81063109 Active 2024 RAMON PERES [address], [place], [address] , [place] [facility] 5 12:16:37 Seasonal allergic rhinitis 062234262 Active 2024 RAMON PERES [address], [place], [place], [address] , [place] - [facility] 5 12:16:46 Non-aller gic rhinitis 212342200315 Active 2024 RAMON PERES [address] [facility],[address], [address] , [facility] 12:16:46 Problem Notes None recorded. Procedures Surgical History Date Name Laterality Status Provider Name and Address Organization Details Recorded Time 04/02/20 25 Cerumen removal without microscope bilat completed RAMON DONIS [address] [facility],[address], [address], [facility] - [facility] 04/07/2025 21:48:17 02/18/20 25 Cerumen removal without microscope bilat completed RAMON PERES 100 [facility],[address], [address], [facility] 02/17/2025 12:26:40 10/31/19 24 Cerumen removal with microscope completed DASHA RUSSELL MD [address], [address], [facility] 10/31/2023 13:21:52 10/31/19 24 Tympanometry - 48641 completed Marcos GRIFFIN [address] [place] [address],[address], [address], [facility] 10/31/2023 11:15:44 10/31/19 24 [employer] - 21557 completed Marcos GRIFFIN [address] [place] [address], [address], [facility] 10/31/2023 11:15:27 Imaging Results None recorded. Procedure Notes None recorded. Medical Equipment None Reported. Allergies Allergen ID Allergen Name Allergen Category Reaction Reaction Severity Criticality Documentation Date Start Date Code Code System Note Provider Name and Address Organization Details Recorded Time 924301 losartan medicatio n swelling Not available Not available 04/02/20252015 94190 RxNorm Not Available [facility] - External Data Service - prod 03:37:37 Medications Name Sig Start Date Stop Date Status Note LastModified by Organization Details LastModified Time losartan 50 mg tablet 02/17 completed Medicati on ID: [id number] B rand Name: losartan Send Method: E-Prescr ibed Sub s Allowed: subs OK Medic ationGen ericName : losartan Medicat ion ID: [id number] B rand Name: losartan Send Method: E-Prescr [...] mg tablet 02/17 completed Medicati on ID: [id number] B rand Name: metoprol ol tartrate Send Method: E-Prescr ibed Sub s Allowed: subs OK Medic ationGen ericName : metoprol ol tartrate Medicat ion ID: [id number] B rand Name: metoprol ol tartrate Send [...] mg tablet 02/17 completed Medicati on ID: [id number] B rand Name: simvasta tin Send Method: E-Prescr ibed Sub s Allowed: subs OK Medic ationGen ericName : simvasta tin Medi cation ID: [id number] B rand Name: simvasta tin Send Method: [...] mg tablet 02/17 completed Medicati on ID: [id number] B rand Name: diphenhy dramine HCl Send Method: E-Prescr ibed Sub s Allowed: subs OK Medic ationGen ericName : diphenhy dramine HCl Medi cation ID: [id number] B rand Name: diphenhy dramine HCl Send [...] mg chewable tablet active Medicati on ID: [id number] B rand Name: aspirin Send Method: E-Prescr ibed Sub s Allowed: subs OK Medic ationGen ericName : aspirin Medicati on ID: [id number] B rand Name: aspirin Send Method: E-Prescr [...] (50,000 unit) capsule active Medicati on ID: [id number] B rand Name: Vitamin D2 Send Method: E-Prescr ibed Sub s Allowed: subs OK Medic ationGen ericName : Vitamin D2 Medic ation ID: [id number] B rand Name: Vitamin D2 Send Method: [...] a day 02/17 completed Medicati on ID: [id number] B rand Name: loratashaunna ne Send Method: E-Prescr ibed Sub s Allowed: subs OK Speci al Instruct ion: one daily as directed Medicat ionGener icName: loratashaunna shaw Medic ation ID: [id number] B rand Name: loratadi ne Send Method: [...] 1,250 mg) tablet active Medicati on ID: [id number] B rand Name: Calcium 500 Send Method: E-Prescr ibed Sub s Allowed: subs OK Medic ationGen ericName : Calcium 500 Medi cation ID: [id number] B rand Name: Calcium 500 Send Method: [...] ating tablet 02/17 completed Medicati on ID: [id number] B rand Name: clonazep am Send Method: E-Prescr ibed Sub s Allowed: subs OK Medic ationGen ericName : clonazep am Medic ation ID: [id number] B rand Name: clonazep am Send Method: [...] layed release 02/17 completed Medicati on ID: [id number] B rand Name: omeprazo le Send Method: E-Prescr ibed Sub s Allowed: subs OK Speci al Instruct ion: Take 1 tablet by mouth every day before a meal Med icationG enericNa me: omeprazo le Medic ation ID: [id number] B rand Name: omeprazo le Send Method: E-Prescr ibed Sub s Allowed: subs OK Speci al Instruct ion: Take 1 tablet by mouth every day before a meal Med icationG enericNa me: omeprazo le Not Available Not Available Not Available fenofibra te 40 mg tablet 02/17 completed Medicati on ID: [id number] B rand Name: fenofibr ate Send Method: E-Prescr ibed Sub s Allowed: subs OK Medic ationGen ericName : fenofibr ate Medi cation ID: [id number] B rand Name: fenofibr ate Send Method: E-Prescr ibed Sub s Allowed: subs OK Medic ationGen ericName : fenofibr ate Not Available Not Available Not Available tramadol ER 150 mg capsule 24h,exten ded release(2 5-75) Take 1 capsule by mouth once a day as needed for pain 02/17 completed Medicati on ID: [id number] D uration Value: 7 Brand Name: tramadol Send Method: E-Prescr ibed Sub s Allowed: subs OK Medic ationGen ericName : tramadol Medicat ion ID: [id number] D uration Value: 7 Brand Name: tramadol [...] Smoking Status Never Smoker DASHA RUSSELL MD [address] [place] [address], [address], [facility] - [facility] 10/31/2023 11:10:05 Do You Have Any [...] History Nothing Reported. Medical History Condition Response Diabetes Y Allergies/Hayfever Y Hearing Loss N GERD/Reflux Y Hypertension Y Gynecological HistoryNo gynecological history recorded. Obstetrics History GPAL:G 0 P 0 0 0 0 Past Encounters Encounter ID Performer Location Encounter Start Date Encounter Closed Date Diagnosis/Indication Diagnosis SNOMED-CT Code Diagnosis ICD10 Code Diagnosis IMO Codes Diagnosis Note [id number] RAMON DONIS [facility] [address] [place] [address] 04/02/2025 15:35:23 04/02/2025 17:06:07 Impacted cerumen of bilateral ears [id number] 856667 H61.23 Sensorineu ral hearing loss of bilateral ears 409371744 H90.3 Health Concerns Section Related Observation LastModified by Organization Detai ls LastModified Time None Recorded Concern Status LastModified by Organization Details LastModified Time None Recorded Payers Encounter Date Sequence Insurance Name Policy Number Policy Hutton Covered Member ID Hutton Member ID Guarantor Name 04/02/2025 1 [facility] - DOS ON OR AFTER 2022 - MEDICARE ADVANTAGE [place] ([place]ICARE REPLACEMENT/ADV ANTAGE - PPO) Anh Scanlon [id number] Anh Scanlon Notes Date Note Type Note Provider Name and Address Organization Details Recorded Time 04/02/2025 text/html ROS as noted in the HPI 74-year-old Kinyarwanda-speaking female presents with her daughter for reevaluation of the ears. Daughter assisted with interpretation during today's visit. At the previous appointment, patient was noted to have bilateral cerumen impaction and recommended mineral oil to help soften the wax. She returns for reattempt of debridement and audiometric testing. AISHA OLSEN MD [address] [place] [address], [phone], [facility] - [facility] 04/08/2025 08:36:11 OBGyn Episode No OBEpisode recorded.
--- OUTSIDE RECORDS SUMMARY | 2025-04-16 13:38 | XMS_ITS | Encounter Summary ---
Author Organization [employer] Address [address] [facility] 7t [place] [address] Care Team Providers Care Meal Grinder Tender Name Role Phone Chanda Garcia MD Primary Care Provide r Sruthi Shelton PharmD Unavailable [phone]- [phone] Reason for Visit * Reason Comments Med Refill Encounter Details Date Type Department Care Team (Late st Contact Info) Description 10/23/2023 Refill [facility] [address] [place] [address] Chanda Mcintosh MD [address] [place] [address] Social History Tobacco Use Types Packs/Day Years [...] documented as of this encounter Care Teams Meal Grinder Tender Relationship Specialty Start Date End Date Chanda Garcia MD [address] [place] [address] PCP - General Family Medicine 12/17/21 Sruthi Shelton, PharmD [address] [place] [address] Pharmacist Internal Medicine 08/16/23 documented as of this encounter
--- OUTSIDE RECORDS SUMMARY | 2025-04-16 13:38 | XMS_ITS | Encounter Summary ---
Author Organization [employer] Address [address] [facility] 7t [place] [address] Care Team Providers Care Building Inspector Name Role Phone Chanda Garcia MD Primary Care Provide r Sruthi Shelton PharmD Unavailable [phone]- [phone] Reason for Visit * Reason Onset Date Comments Nurse Triage 09/05/2023 Encounter Details Date Type Department Care Team ([facility] st Contact Info) Description 09/05/[address] [facility] [address] [place] [address] Chanda Garcia MD [address] [place] [address] Nurse Triage Social History Tobacco Use Types [...] follow-up in 2 weeks on09/22/23 @ 9:30am. loan reviewer this appointment date and time with [...] accepted this outcome Please contact pt at [phone] (press tender short goods) documented in this encounter Plan of Treatment [...] documented as of this encounter Care Teams Building Inspector Relationship Specialty Start Date End Date Chanda Garcia MD [address] [place] [address] PCP - General Family Medicine 12/17/21 Sruthi Shelton, LeonardoD [address] [place] [address] Pharmacist Internal Medicine 08/16/23 documented as of this encounter
--- OUTSIDE RECORDS SUMMARY | 2025-04-16 13:38 | XMS_ITS | Encounter Summary ---
Author Organization [employer] Address [address] [facility] 7t [place] [address] Care Team Providers Care Barrel Endshake Adjuster Name Role Phone Chanda Garcia MD Primary Care Provide r Sruthi Shelton PharmD Unavailable [phone]- [phone] Encounter Details Date Type Department Care Team (Late st Contact Info) Description 04/10/2025 Orders Only [facility] [address] [place], [place] [phone] Chanda Garcia MD [address] [place] [address] Social History Tobacco Use Types Packs/Day Years [...] chronic kidney disease No Chanda Garcia MD Weekly blood pressure task Care Plan Weekly blood pressure task No Nimisha Ann LPN Weekly blood pressure task Care Plan Weekly blood pressure task No Nimisha Ann LPN Patient has chronic kidney disease Care Plan Patient has chronic kidney disease No Nimisha Ann LPN Patient has chronic kidney disease Care Plan Patient has chronic kidney disease No Nimisha Ann LPN Weekly blood pressure task Care Plan [...] 03/31/2025 Patient has chronic kidney disease 03/31/2025 Weekly blood pressure task 04/09/2025 Weekly blood pressure task 04/09/2025 Patient has chronic kidney disease 04/09/2025 Patient has chronic kidney disease 04/09/2025 Weekly blood pressure task 04/10/2025 Weekly blood pressure task 04/10/2025 Patient has chronic kidney disease 04/10/2025 Patient has chronic kidney disease 04/10/2025 Assessment Noted Time PHQ-9 Depression Total Score: 0 12/06/19 25 10:35 AM EDT documented as of this encounter Care Teams Barrel Endshake Adjuster Relationship Specialty Start Date End Date Chanda Garcia MD [address] [place] [address] PCP - General Family Medicine 12/17/21 Sruthi Shelton PharmD [address] [place] [address] Pharmacist Internal Medicine 08/16/23 documented as of this encounter
--- OUTSIDE RECORDS SUMMARY | 2025-04-16 13:39 | XMS_ITS | Encounter Summary ---
Author Organization [employer] Address [address] [facility] 7t [place] [address] Care Team Providers Care Telecom Specialist Name Role Phone Chanda Garcia MD Primary Care Provide r Sruthi Shelton PharmD Unavailable [phone]- [phone] Reason for Visit * Reason Comments Med Refill Encounter Details Date Type Department Care Team ([facility] st Contact Info) Description 04/21/2024 Refill [facility]INE [address] [place] [address] Chanda Garcia MD [address] [place], [place] [phone] Parkinson's disease, unspecified whether dyskinesia present, unspecified [...] documented as of this encounter Care Teams Telecom Specialist Relationship Specialty Start Date End Date Chanda Garcia MD [address] [place] [address] PCP - General Family Medicine 12/17/21 Sruthi Shelton, PharmD [address] [place] [address] Pharmacist Internal Medicine 08/16/23 documented as of this encounter
--- OUTSIDE RECORDS SUMMARY | 2025-04-16 13:39 | XMS_ITS | Clinical Summary ---
Author Organization [facility] Address [address] [place], [place] [phone] Phone Care Team Providers Care Scourer Name Role Phone Pcp, Unknown Primary Care [...] Medical Devices Not on file Insurance [facility] MEDICARE REPLACEMENT RAMON REYNA [id number] MEDICARE REPLACEMENT MEDICARE REPLACEMENT MEDICARE REPLACEMENT [facility] MEDICARE REPLACEMENT MEDICARE REPLACEMENT MEDICARE REPLACEMENT RAMON REYNA [id number] [facility] MEDICARE REPLACEMENT [facility] MEDICARE [facility] Care Teams Scourer Relationship Specialty Start Date End Date Pcp, Unknown PCP - General 03/27/19 Unknown, Unknown, 03/27/19 Additional Source Comments The information contained in this document represents components of the legal health record. It is not the complete legal health record.[facility]
--- OUTSIDE RECORDS SUMMARY | 2025-04-16 13:39 | XMS_ITS | Encounter Summary ---
Author Organization [employer] [facility] Address [address] [facility] 7t [place] [address] Care Team Providers Care Water Carter Name Role Phone Chanda Garcia MD Primary Care Provide r Sruthi Shelton PharmD Unavailable Encounter Details Date Type Department Care Team (Late st Contact Info) Description 05/16/2022 Orders Only [facility] MEDICINE [address] [place] [id number] Nimisha Ann LPN Social History Tobacco Use [...] on filedocumented in this encounter Care Teams Water Carter Relationship Specialty Start Date End Date Chanda Garcia MD [address] [place] [phone] PCP - General Family Medicine 12/17/21 Sruthi Shelton, PharmD [address] [place] [address] Pharmacist Internal Medicine 08/16/23 documented as of this encounter
--- OUTSIDE RECORDS SUMMARY | 2025-04-16 13:39 | XMS_ITS | Patient Health Record ---
Author Organization [facility] Address [address] [place] [address] Care Team Providers Care Registered Nurse Bone Marrow Transplant Name Role Phone Jarett Sullivan Unavailable [phone] Reason For Referral No Information Plan Of Treatment No Information
--- OUTSIDE RECORDS SUMMARY | 2025-04-16 13:39 | XMS_ITS | Encounter Summary ---
Author Organization [employer] Address [address] [facility] 7t [place] [address] Care Team Providers Care Corporate Quality Manager Name Role Phone Chanda Garcia MD Primary Care Provide r Sruthi Shelton PharmD Unavailable [phone] Reason for Visit * Reason Comments Med Refill Encounter Details Date Type Department Care Team ([facility] st Contact Info) Description 07/13/2022 Refill [facility] [address] [place], [place] [phone] Jenise Sanabria MD [address] [place], [place] [phone] Parkinson's disease (CMS/HCC) Social History Tobacco Use [...] agitans documented in this encounter Care Teams Corporate Quality Manager Relationship Specialty Start Date End Date Chanda Garcia MD [address] [place], [place] [phone] PCP - General Family Medicine 12/17/21 Sruthi Shelton PharmD [address] [place] [address] Pharmacist Internal Medicine 08/16/23 documented as of this encounter
--- OUTSIDE RECORDS SUMMARY | 2025-04-16 13:39 | XMS_ITS | Encounter Summary ---
Author Organization [employer] [facility] Address [address] [facility] 7t [place] [address] Care Team Providers Care Upkeep Mechanic Name Role Phone Chanda Garcia MD Primary Care Provide r Sruthi Shelton PharmD Unavailable [phone] Encounter Details Date Type Department Care Team [...] on filedocumented in this encounter Care Teams Upkeep Mechanic Relationship Specialty Start Date End Date Chanda Garcia MD [address] [place] [address] PCP - General Family Medicine 12/17/21 Sruthi Shelton, PharmD [address] [place], [place] [phone] Pharmacist Internal Medicine 08/16/23 documented as of this encounter
--- OUTSIDE RECORDS SUMMARY | 2025-04-16 13:39 | XMS_ITS | Encounter Summary ---
Author Organization [facility] Address [address] [facility] [address] [place] [address] Phone Care Team Providers Care Laborer Pullet Farm Name Role Phone Pcp, Unknown Primary Care Provider Unavailabl e Unknown, Unknown MD Unavailable Unavailable Encounter Details Date Type Department Care Team (Late st Contact Info) Description 03/27/2019 Ancillary Orders [facility] [address] [place] [address] Debbie Britt PA [address] [place] [address] [email or web address] Palpitations Social History Tobacco Use Types Packs/Day [...] Palpitations documented in this encounter Care Teams Laborer Pullet Farm Relationship Specialty Start Date End Date Pcp, Unknown PCP - General 03/27/19 Unknown, Unknown, 03/27/19 documented as of this encounter Additional Source Comments The information contained in this document represents components of the legal health record. It is not the complete legal health record.[facility]
--- OUTSIDE RECORDS SUMMARY | 2025-04-16 13:39 | XMS_ITS | Encounter Summary ---
Author Organization [employer] Address [address] [facility] 7t [place] [address] Care Team Providers Care Laboratory Sampler Name Role Phone Chanda Garcia MD Primary Care Provide r Sruthi Shelton PharmD Unavailable [phone]- [phone] Reason for Visit * Reason Comments Med Refill Encounter Details Date Type Department Care Team ([facility] st Contact Info) Description 07/07/2022 Refill [facility] [address] [place], [place] [phone] Huma Hamilton DO [address] [place], [place] [phone] Coronary artery disease, unspecified vessel or lesion type, unspecified whether angina present, unspecified whether [place] or transplanted heart Social History Tobacco Use [...] type, unspecified whether angina present, unspecified whether [place] or transplanted heart documented in this encounter Care Teams Laboratory Sampler Relationship Specialty Start Date End Date Chanda Garcia MD [address] [place] [address] PCP - General Family Medicine 12/17/21 Sruthi Shelton, LeonardoD [address] [place] [address] Pharmacist Internal Medicine 08/16/23 documented as of this encounter
--- OUTSIDE RECORDS SUMMARY | 2025-04-16 13:39 | XMS_ITS | Encounter Summary ---
Author Organization [employer] [facility] Address [address] [facility] 7t [place] [address] Care Team Providers Care Teradata Developer Name Role Phone Chanda Garcia MD Primary Care Provide r Sruthi Shelton PharmD Unavailable [phone]- [phone] Reason for Visit * Reason Comments Med Refill Encounter Details Date Type Department Care Team ([facility] st Contact Info) Description 07/29/2022 Refill [facility] MEDIC[facility] [address] [place], [place] [phone] Jenise Sanabria MD [address] [place] [address] Primary hypertension Social History Tobacco Use Types [...] hypertension documented in this encounter Care Teams Teradata Developer Relationship Specialty Start Date End Date Chanda Garcia MD [address] [place], [place] [phone] PCP - General Family Medicine 12/17/21 Sruthi Shelton, LeonardoD [address] [place] [address] Pharmacist Internal Medicine 08/16/23 documented as of this encounter
--- OUTSIDE RECORDS SUMMARY | 2025-04-16 13:39 | XMS_ITS | Data Portability ---
Author Organization [facility] [employer] [facility], [facility] Address [address] [place] [address] Care Team Providers Care Optical Advisor Name Role Phone IWONA GONZALEZ Primary Care Provider HIM [facility] OTHER Assessment Encounter Date Assessment Date Assessment LastModified by Organization Details LastModified Time 11/03/2023 11/03/2023 As noted, we were called to see this patient regarding concerns of rash and fever with abd pain. Evaluation in the field was performed by my brickmason supervisor colleague, as noted above, I provided real-time direction and supervision for this visit. 73 F w diabetes presents with 1 week of rash. recent dx of UTI for which she is taking macrobid. She was at [place] last week vacationing w [facility] when she developed a rash on her [...] likely needs imaging and blood work today. [email or web address] Not available 11/03/2023 17:06:18 Plan of Treatment [...] [facility] active Not Available Not Available No t [...] [degF] 96 % 16 /min 82 /min 26339.6 8 g 128/64 mm[Hg] Not Available [employer] - production 4 16:28:04 Social History None [...] ICD10 Code Diagnosis IMO Codes Diagnosis Note [id number] King Gibson MD Main - instED [address] [place] [phone] 11/03/2023 16:27:53 11/03/2023 17:06:38 Health Concerns Section Related Observation LastModified by Organization Detai ls LastModified Time None Recorded Concern Status LastModified by Organization Details LastModified Time None Recorded Advance Directives Directive None Recorded Payers Insurance Date Sequence Insurance Name Policy Number Policy Hutton Covered Member ID Hutton Member ID Guarantor Name 03/14/2024 1 [facility] - DOS ON OR AFTER 2022 - DUAL ELIGIBLE - SHELTER OPTIONS AND ONE CARE (MEDICARE REPLACEMENT/ADV ANTAGE - HMO) Anh Colon [id number] Anh Colon Notes Date Note Type Note [...] rash for specific cause.Francisco Gibson MD [address] [facility],[address], [place], [address], SED [facility] - [facility] 11/03/2023 17:06:35 OBGyn Episode No OBEpisode recorded.
--- OUTSIDE RECORDS SUMMARY | 2025-04-16 13:39 | XMS_ITS | Encounter Summary ---
Author Organization [employer] Address [address] [facility] 7t [place] [address] Care Team Providers Care Sap Bpc Architect Name Role Phone Chanda Garcia MD Primary Care Provide r Sruthi Shelton PharmD Unavailable [phone]- [phone] Encounter Details Date Type Department Care Team (Late st Contact Info) Description 06/08/2023 Orders Only [facility] MEDICINE [address] [place] [address] Chanda Garcia MD [address] [place] [address] Social History Tobacco Use Types Packs/Day Years [...] the past 12 months, has t he [employer], gas, oil or water [employer] threatened to shut off services in your [...] on filedocumented in this encounter Care Teams Sap Bpc Architect Relationship Specialty Start Date End Date Chanda Garcia MD [address] [place] [address] PCP - General Family Medicine 12/17/21 Sruthi Shelton PharmD [address] [place] [address] Pharmacist Internal Medicine 08/16/23 documented as of this encounter
--- OUTSIDE RECORDS SUMMARY | 2025-04-16 13:39 | XMS_ITS | Encounter Summary ---
Author Organization [employer] Address [address] [facility] 7t [place] [address] Care Team Providers Care Blacksmith Helper Name Role Phone Chanda Garcia MD Primary Care Provide r Sruthi Shelton PharmD Unavailable [phone] Reason for Visit * Reason Comments Med Refill Encounter Details Date Type Department Care Team ([facility] st Contact Info) Description 02/24/2023 Refill [facility] MEDICINE [address] [place] [address] Chanda Garcia MD [address] [place], [place] [phone] Social History Tobacco Use Types Packs/Day Years [...] on filedocumented in this encounter Care Teams Blacksmith Helper Relationship Specialty Start Date End Date Chanda Garcia MD [address] [place] [address] PCP - General Family Medicine 12/17/21 Sruthi Shelton, Sapna [address] [place] [address] Pharmacist Internal Medicine 08/16/23 documented as of this encounter
--- OUTSIDE RECORDS SUMMARY | 2025-04-16 13:39 | XMS_ITS | Encounter Summary ---
Author Organization [employer] Address [address] [facility] 7t [place] [address] Care Team Providers Care Information Security Director Name Role Phone Chanda Garcia MD Primary Care Provide r Sruthi Shelton PharmD Unavailable [phone] Reason for Visit * Reason Comments Med Refill Encounter Details Date Type Department Care Team ([facility] st Contact Info) Description 05/09/2024 Refill [facility] MEDICINE [address] [place], [place] [phone] Chanda Garcia MD [address] [place], [place] [phone] Primary hypertension Social History Tobacco Use Types [...] documented as of this encounter Care Teams Information Security Director Relationship Specialty Start Date End Date Chanda Garcia MD [address] [place] [address] PCP - General Family Medicine 12/17/21 Sruthi Shelton PharmD [address] [place] [address] Pharmacist Internal Medicine 08/16/23 documented as of this encounter
--- OUTSIDE RECORDS SUMMARY | 2025-04-16 13:39 | XMS_ITS | Encounter Summary ---
Author Organization [employer] Address [address] [facility] 7t [place] [address] Care Team Providers Care Subgrade Tester Name Role Phone Chanda Garcia MD Primary Care Provide r Sruthi Shelton PharmD Unavailable [phone] Reason for Visit * Reason Comments Med Change Request Encounter Details Date Type Department Care Team ([facility] st Contact Info) Description 06/30/2024 Refill [facility] MEDICINE [address] [place] [address] Esa Trejo MD [address] [place], [place] [phone] Sebopsoriasis Social History Tobacco Use Types Packs/Day [...] documented as of this encounter Care Teams Subgrade Tester Relationship Specialty Start Date End Date Chanda Garcia MD [address] [place] [address] PCP - General Family Medicine 12/17/21 Sruthi Shelton, LeonardoD [address] [place] [address] Pharmacist Internal Medicine 08/16/23 documented as of this encounter
--- OUTSIDE RECORDS SUMMARY | 2025-04-16 13:39 | XMS_ITS | Clinical Summary ---
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 019 Active pregabalin (Lyrica) 100 MG capsule TOME CHRISTOS C PSULA DOS VECES AL D A FOR 90 DAYS 023 Active FREESTYLE LITE test strip USE TO TEST TWICE DAILY 100 strip 11 023 Active Blood Glucose Monitoring Suppl (FreeStyle [employer] Lite) w/Device kitIndications:Ty pe 2 diabetes mellitus without complication, unspecified whether fdc insulin use Use to test blood sugar [...] 6. 55 each Active Fluocinolone Acetonide Scalp (Gillham-Smoothe/FS Scalp) 0.01 % oilIndications:Se bopsoriasis Apply at [...] hyperglycemia, without long-term current use of insulin ([facility]) TAKE 2 TABLETS BY MOUTH TWICE A [...] Take 1 tablet (100 mg) by mouth 2 times daily. TAKE 1 TABLET BY MOUTH TWICE A DAY 180 tablet 1 Active [...] BREAKFAST 90 tablet 3 024 2024 Discontinued metoprolol succinate XL (Toprol-XL) 100 MG 24 hr tablet Take 1 tablet (100 mg) by mouth Once per day. TAKE 1 TABLET BY MOUTH 2 TWICE A DAY 180 tablet 1 025 2024 Discontinued(R eorder (will not trigger notification to Pharmacy)) Active Problems Problem Noted Date Diagnosed Date [...] than 2 weeks Colon cancer screening 02/21/2023 '[id number]-[id number]' with signs of mal nutrition 02/21/2023 Excessive [...] there is no improvement. -Referred today to dairy tester and senior writer. Vulvar itching 12/29/2022 Assessment & Plan (02/23/2024 [...] paget should be ruled out. -Referred to senior writer today. Assessment & Plan (12/29/2022 5:42 PM [...] symptoms are not improving would refer to senior writer to r/o chronic conditions as lichen,paget and [...] 10:12 AM EST): Pt has history of NH and a PE. 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 Check home BP BIW and prn CP/COEL/ABREU Non smoking patient. Mixed hyperlipidemia 02/17/2015 Nodular [...] Diagnosed Date Resolved Date Acute pulmonary embolism (CMS/HCC) 06/10/2022 05/31/2024 Encounters Date Type Department Care Team Description 04/10/2025 Orders Only [facility] MEDICINE [address] [place] [phone] Chanad Garcia MD 04/09/2025 Refill [facility] MED & PEDS [address] [place] [address] Chanda Garcia MD 04/07/2025 Refill [facility] MEDICINE [address] [place] [address] Chanda Garcia MD 03/31/2025 Results Follow-Up [facility] MEDICINE [address] [place] [phone] Chanda Garcia MD XR Knee 4+ Views Left 03/19/2025 Refill [facility] MEDICINE [address] [place] [address] Chanda Garcia MD Other hyperlipidemia; Chronic GERD 03/15/2025 Refill [facility] MEDICINE [address] [place] [address] Chanda Garcia MD Xerosis cutis; Generalized pruritus 03/13/2025 1:00 PM EST Office Visit [facility] MEDICINE [address] [place] [phone] Chanda Garcia MD Chronic pain of left knee (Primary Dx); Type 2 diabetes mellitus with hyperglycemia, without long-term current use of insulin (HCC); Dietary counseling; Exercise counseling; RBBB (right bundle branch block); Primary hypertension; Bradycardia, sinus; Encounter for immunization; Xerostomia 03/13/2025 Travel 03/13/[address] [address] Chanda Garcia MD chart prep 03/06/2025 Patient Outreach [address] [address] Chanda Garcia MD Pre-visit Planning (SDOH screening negative and tobacco screening negative) 02/15/[address] [address] Chanda Garcia MD 02/06/[address] [address] Tata Truong NP 02/05/2025 10:00 AM EDT Office Visit [address] [address] Tata Truong NP Pre-op examination (Primary Dx); Type 2 diabetes mellitus with hyperglycemia, without long-term current use of insulin (HCC) 02/05/2025 Travel 02/04/[address] [address] Chanda Garcia MD Chartprep from Last 3 [...] 12/05/2025 12/05/2024 Depression Screening 12/05/2025 12/05/2024, 12/06/19 Mammogram 12/24/2025 12/24/2024, 11/23, 12/13/2022, Additional history [...] Pressure 124/74(2024 12:58 PM EST) No Sruthi Shelton PharmD Help patients manage their type 2 [...] pressure task No Homer-Sami es, [place], [place] Weekly blood [...] pressure task No Homer-Sami es, [place], [place] Weekly blood [...] Procedure Name Priority Date/Time Associated Diagnosis Comments PROTEIN CREATININE RATIO, URINE Routine 04/09/2025 9:24 AM EST CREATININE, SERUM Routine 04/09/2025 9:2 4 AM EST UREA NITROGEN (BUN) Routine 04/09/2025 9 :24 AM EST ELECTROLYTE PANEL Routine 04/09/2025 9:2 4 AM EST XR KNEE 4+ VIEWS LEFT Routine 03/13/2025 2:25 PM EST Chronic pain of left knee POCT GLUCOSE (CPT-12390) Routine 03/13/2025 12:59 PM EST Type 2 diabetes mellitus with hyperglycemia, without long-term current use of insulin (HCC) POCT GLUCOSE (CPT-38137) Routine 02/05/2025 10:02 AM EDT Type 2 [...] Recently Relevant to Health Maintenance Results * Protein Creatinine Ratio, Urine (04/09/2025 9:24 AM EST) Creatinine, Urine 134.28 mg/dL [facility] Protein, Total, Random Urine 12 <12 mg/dL [facility] Protein/Creati nine Ratio, Ur 0.09 <0.2 [facility] Comment:The spot urine prote in:creatinine ratio may increase to 0.3during normal . 04/09/2025 9:24 AM EST 04/09/2025 11:11 AM EST us Generic External Data Provider LAB URINE ORDERAB LES Final Result [facility] [address] [place] [phone] * Creatinine, Serum (04/09/2025 9:24 AM EST) Creatinine, Serum 0.79 0.5 - 1.4 mg/dL [facility] Estimated Glomerular Filt Rate >60 [facility] Comment:Chronic Kidney Disea se: Estimated GFR < 60 mL/min/1.54v9Lwcnhg Kidney Disease: Estimated GFR < 15 mL/min/1.73m2 04/09/2025 9:24 AM EST 04/09/2025 11:27 AM EST us Generic External Data Provider LAB BLOOD ORDERAB LES Final Result Performing Organization Address [facility] Co de Phone Number [facility] [address] [place] [phone] * (ABNORMAL) BUN (Blood Urea Nitrogen) (04/09/2025 9:24 AM EST) Urea Nitrogen (BUN) 23(H) 9 - 16 mg/dL [facility] 04/09/2025 9:24 AM EST 04/09/2025 11:27 AM EST us Generic External Data Provider LAB BLOOD ORDERAB LES Final Result Performing Organization Address [facility] de Phone Number [facility] [address] [place] [phone] * Electrolyte Panel (04/09/2025 9:24 AM EST) Sodium 138 135 - 145 mmol/L [facility] Potassium 3.4 3.3 - 5.1 mmol/L [facility] Chloride 100 96 - 108 mmol/L [facility] Carbon Dioxide 29 22 - 29 mmol/L [facility] Anion Gap 12 12 - 20 [facility] 04/09/2025 9:24 AM EST 04/09/2025 11:27 AM EST us Generic External Data Provider LAB BLOOD ORDERAB LES Final Result Performing Organization Address [facility] Co de Phone Number [facility] [address] [place] [phone] * XR Knee 4+ Views Left (03/13/2025 2:25 PM EST) Anatomical Region Laterality Modality Lower Extremities, Knee Left Radiogra phic Imaging 03/13/2025 2:25 PM EST Narrative 03/13/2025 2:43 PM EST [address] [address] XRay Report Signed Patient: Anh Scanlon MR#: [id number] 09 : 1950 Acct:[id number] Age/Sex: 74 / F ADM Date: 03/13/25 Loc: HO.HHCX Attending Dr: Chanda Damico MD Ordering Physician: Chanda Garcia MD Date of Service: 03/13/25 Procedure(s): XR knee LT 4V Accession Number(s): [id number] cc: Chanda Garcia MD Reason for Exam: [...] 03/13/25 1440 DD/ 1425 TD/TT: 03/13/25 1430 Collar Starcher: Procedure Note Donotuseinterpreter, Image - 03/13/[address] [address] XRay Report Signed Patient: Anh Scanlon AMR#: [id number] 09 : 1950cct:[id number] Age/Sex: 74 / FADM Date: 03/13/25 Loc: HO.HHCX Attending Dr: Chanda Damico MD Ordering Physician: Chanda Garcia MD Date of Service: 03/13/25 Procedure(s): XR knee LT 4V Accession Number(s): [id number] cc: Chanda Garcia MD Reason for Exam: [...] 03/13/25 1440 DD/ 1425 TD/TT: 03/13/25 1430 Collar Starcher: us Chanda Damico MD IMG XR PROCEDURES [...] PM EDT Narrative 12/27/2024 11:33 AM EDT [facility] [address] [place] [address] Mammography Report Signed Patient: Anh Scanlon MR#: [id number] 09 : 1950 Acct:[id number] Age/Sex: 74 / F ADM Date: 12/24/24 Loc: HO.MAMMO Attending Dr: Chanda Damico MD Ordering Physician: Chanda Garcia MD Results: 1Negative Date of Service: 12/24/24 Follow Up: 1 Year From Orig inal Mammogram Procedure(s): MM tomosynthesis screening BI Accession Number(s): [id number] cc: Chanda Garcia MD EXAMINATION: MM SCREENING [...] 12/27/24 1130 DD/ 1230 TD/TT: 12/24/24 1250 Collar Starcher: Procedure Note Donotuseinterpreter, Image - 12/27/2024 [facility] [address] [place] [address] Mammography Report Signed Patient: Anh Scanlon AMR#: [id number] 09 : 2Acct:[id number] Age/Sex: 74 / FADM Date: 12/24/24 Loc: HO.MAMMO Attending Dr: Chanda Damico MD Ordering Physician: Chanda Garcia MDResults: 1Negative Date of Service: 12/24/24Follow Up: 1 Year From Orig inal Mammogram Procedure(s): MM tomosynthesis screening BI Accession Number(s): [id number] cc: Chanda Garcia MD EXAMINATION: MM SCREENING [...] 12/27/24 1130 DD/ 1230 TD/TT: 12/24/24 1250 Collar Starcher: us Chanda Damico MD IMG BI PROCEDURES Fin al Result * (ABNORMAL) POCT HGB A1C (12/05/2024 10:34 AM EDT) Hemoglobin A1C 6.8(A) 4.0 - 5.7 % QC Media Lot # [id number] Lot# Expiration Date [id number] Blood 12/05/2024 10:3 4 AM EDT Chanda Damico MD POINT OF CARE TEST EN TER/EDIT ORDERABLES Final Result * (ABNORMAL) Lipid Panel, Standard (07/22/2024 1:00 PM EDT) Triglycerides 202(H) <150 mg/dL [facility] Comment:Desirable Triglyceri de: less than 150 mg/dLBorderline High Triglyceride 150-199 mg/dLHigh Triglyceride: 200-499 mg/dLVery High Triglyceride: greater than or equal to 5OO mg/dL Cholesterol 147 <200 mg/dL [facility] Comment:Desirable Cholestero l: less than 200 mg/dLBorderline High Cholesterol: 200-239 mg/dLHigh Cholesterol: greater than 239 mg/dL LDL Cholesterol Calculated 58 <100 mg/dL [facility] Comment:Desirable LDL: less than 100 mg/dLNear Optimal/Above Optimal LDL: 110- 129 mg/dLBorderline High LDL: 130-159 mg/dLHigh LDL: 160-189 mg/dLVery High LDL: greater than or equal to 190 mg/dL HDL Cholesterol 49 >40 mg/dL [facility] Comment:Desirable HDL: great er than 40 mg/dL Note: This HDL assay may give artificially low results in patients with liver disease. Blood Venous blood specimen / Unknown 07/22/2024 1:00 PM EDT 07/22/2024 1:00 PM EDT Chanda Damico MD LAB BLOOD ORDERABLES Final Result [facility] [address] [place] [phone] * Cologuard?? colon cancer screening (03/13/2023 8:04 AM EST) Cologuard Result Negative Negative 03/27/20 5:16 PM EST [employer] (CLIA #:[id number]) Comment: NEGATIVE TEST RESULT. A negative Cologuard [...] Villareal et al, N Engl J Med 2014;370(14):9318-8474) The normal value (reference range) for this assay is negative. COLOGUARD RE-SCREENING RECOMMENDATION: Periodic colorectal cancer screening is an important part of preventive healthcare for asymptomatic individuals at average risk for colorectal cancer. Following a negative Cologuard result, the [place] [employer] Society and U.S. Multi-Society Task Force screening guidelines recommend a Cologuard re-screening interval of 3 years. References: [place] [employer] Guideline for Colorectal Cancer Screening: https://www.cancer.org/cancer/lqkzc-cokjbb-itmhok/tqndsmzof-xznrzvbgg-wepvfth/ac s-rec ommendations.html.; Joseph DK, Maegan BOUCHER, Melany PerryK, Colorectal Cancer Screening: Recommendations for Physicians and Patients from the U.S. Multi-Society Task Force on Colorectal Cancer Screening , Am J Gastroenterology 2017; 112:6308-4725. TEST DESCRIPTION: Composite algorithmic analysis of stool [...] Villareal et al, N Engl J Med 2014;370(14):5109-1450.) Cologuard may produce a false negative or false positive result (no colorectal cancer or precancerous polyp present at colonoscopy follow up). A negative Cologuard test result does not guarantee the absence of CRC or advanced adenoma (pre-cancer). The current Cologuard screening interval is every 3 years. ([place] [employer] Society and U.S. Multi-Society Task Force). Cologuard performance data in a 10,000 patient pivotal study using colonoscopy as the reference method can be accessed at the following location: www.[employer]/results. Additional description of the Cologuard test process, warnings and precautions can be found at www.[employer].com. Stool specimen (specimen) 03/13/2023 8:04 AM EST 03/14/2023 2:30 PM EST Chanda Damico MD LAB MOLECULAR DIAGNOS TICS ORDERABLES Final Result [employer] (CLIA #:[id number]) [address] [place] [address], * HEPATITIS C AB W/REFL TO HCV RNA, QN, PCR (08/20/2020 8:54 AM EDT) HEPATITIS C ANTIBODY NON-REACT CHRIS NON-REACT CHRIS [facility] INDEX 0.01 <1.00 [facility] Comment: HCV antibody was non-reactive. There is no laboratory evidence of HCV infection. In most cases, no further action is required. However, if recent HCV exposure is suspected, a test for HCV RNA (test code 62438) is suggested. For additional information please refer to http://education.[employer]/faq/TFK36m4 (This link is being provided for informational/ educational purposes only.) 08/20/2020 8:54 AM EDT us Historical Provider HISTORICAL/NON ORDERABLE LABS Final Result [facility] [address] from Last 3 Months or Most [...] 04/10/2025 Patient has chronic kidney disease 04/10/[address] 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
[2025-04-16 14:05] VITALS: BP 120/70; PULSE 59; O2SAT 96; BMI 28.7
--- NOTE | 2025-04-16 14:05 | HO.NEPHOV ---
Vital Signs 04/16/25 14:05 Height 5 ft 2 in Weight 157 lb BMI 28.7 BP 120/70 Blood Pressure Location Lt brachial Position Sitting Pulse 59 Pulse Source Pulse Oximeter Pulse Oximetry (%) 96 Oxygen Delivery Method Room Air Intake Visit Reasons: follow up Open Developer Operator Required: No Accompanied by: Self / Same As Patient Allergies losartan Allergy (Unknown, Verified 04/16/25 14:07) anaphylaxis HPI Comments Details: I had the delight of seeing Anh for her H/O proteinuria and hypertension. She had history of lip swelling and her losartan had been discontinued at that time. Her blood pressure control is good and her blood sugars had been stable. She does not have any hypoglycemias, chest pain, shortness of breath, paroxysmal nocturnal nocturnal dyspnea, orthopnea, pedal edema, nausea, vomiting, diarrhea or urinary symptoms. 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 Rash Non-STEMI (non-ST elevated myocardial infarction) Anal fistula Gallstone Parkinson disease High cholesterol Diabetes HTN (hypertension) Surgical History H/O hemorrhoidectomy History of hysterectomy Family History Sister Malignant neoplasm of breast (female) Social History Household Members: Spouse Housing: House Do you presently have visiting nurse or other home services: Yes (medication and vital signs) Alcohol intake: never Patient Tobacco Use Status: Never used Tobacco service: No Review of Systems Const All systems reviewed & are unremarkable except as noted in HPI and below Physical Exam Vital Signs: Last Vital Signs Pulse 59 04/16/25 14:05 BP 152/70 H 04/16/25 14:05 Pulse Ox 96 04/16/25 14:05 Oxygen Delivery Method Room Air 04/16/25 14:05 BMI result Body Mass Index 28.7 Const General: comfortable and no acute distress Orientation/consciousness: patient oriented x3 HEENT Head: Yes normocephalic Mouth: Normal oral and palatal mucosa present Eyes EOM: EOMs intact bilaterally Neck Neck: Yes supple Resp Auscultation: clear to auscultation bilaterally Cardio Jugular venous distension: no JVD Rate: regular rate GI Palpation (GI): Soft to palpation Auscultation: normal bowel sounds General: Yes no CVA tenderness Back/Spine/Pelvis Back: no CVA tenderness Skin General skin exam: no rashes or lesions noted Neuro General: patient oriented x3 and moves all extremities Extrem General: Yes no pedal edema Results Reviewed Nephrology Results: Hgb, (12.0-16.0) 10.5 g/dl L 12/05/24 WBC, (4.8-10.8) 6.4 X10*3/uL 12/05/24 Plt Count, (160-400) 320 X10*3/uL 12/05/24 Sodium, (135-145) 138 mmol/L 04/09/25 Potassium, (3.3-5.1) 3.4 mmol/L 04/09/25 Chloride, (96-108) 100 mmol/L 04/09/25 Carbon Dioxide, (22-29) 29 mmol/L 04/09/25 BUN, (9-16) 23 mg/dL H 04/09/25 Creatinine, (0.5-1.4) 0.79 mg/dL 04/09/25 Calcium, (8.4-10.2) 9.6 mg/dL 12/05/24 Urine Creatinine 134.28 mg/dL 04/09/25 Protein/Creatinin Ratio, (<0.2) 0.09 04/09/25 Assessment & Plan Assessment & Plan (1) HTN (hypertension): Code(s): I10 - Essential (primary) hypertension Category: Medical Qualifiers: Hypertension type: primary hypertension Qualified Code(s): I10 - Essential (primary) hypertension Plan 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 She has H/O proteinuria. Her renal functions are stable. She did not tolerate GREGORY inhibitor in the past and had lip swelling from losartan as well forcing it to be discontinued. Her blood sugar control is better but her blood pressure control is optimal. She should continue current medications to keep her BP at goal. She should do regular exercise and lose a bit of weight. She avoids nonsteroidal anti-inflammatories and maintain good hydration. All questions answered. Follow-up appointment given Orders: Orders Protein Creatinine Ratio, Ur 6 Months I10 - Essential (primary) hypertension Blood Urea Nitrogen 6 Months I10 - Essential (primary) hypertension Electrolytes 6 Months I10 - Essential (primary) hypertension Creatinine 6 Months I10 - Essential (primary) hypertension Coding Level of Care Code Est Pt Level 4 (68030) Diagnoses Primary hypertension I10 Hypertension type: primary hypertension
== END 2025-04-16 14:17 | disposition home or self-care (01) ==
LOC: HO.HKA 13:36
PROVIDERS: PCP Internal Medicine; Visit Provider Internal Medicine Nephrology
DX: I10 Essential (primary) hypertension (principal)
CPT/HCPCS: 99214

== ENCOUNTER → 2025-04-16 13:33 | Outpatient (BNVA) | payer OTHER, SELFPAY | PROVIDERS: PCP Internal Medicine; Visit Provider Internal Medicine Nephrology | DX: I12.9 Hypertensive chronic kidney disease with stage 1 through stage 4 chronic kidney disease, or unspecified chronic kidney disease (principal); E11.22 Type 2 diabetes mellitus with diabetic chronic kidney disease; N18.9 Chronic kidney disease, unspecified; Z79.899 Other long term (current) drug therapy | CPT/HCPCS: 99212 ==